=== PATIENT | male | born 1965 | race Caucasian/White ===

== ENCOUNTER 2018-02-23 18:13 | Observation (INO) | payer OTHER ==
--- NOTE | 2018-02-23 18:38 | ED ---
General Adult HPI - General Chief complaint: Chest Pain Stated complaint: sob and chest pain Source: patient Mode of arrival: ambulatory Limitations: no limitations - Related Data Home Medications Medication Instructions Recorded Confirmed Metoprolol Tartrate [Lopressor] 25 mg PO BID 11/11/15 02/23/18 amLODIPine [Norvasc] 5 mg PO HS 11/11/15 02/23/18 HYDROcodone/APAP 10-325MG [[place] 1 tab PO BID PRN 02/23/18 02/23/18 10-325] Allergies Allergy/AdvReac Type Severity Reaction Status Date / Time No Known Allergies Allergy Verified 02/23/18 19:00 Review of Systems ROS Statement: Those systems with pertinent positive or pertinent negative responses have been documented in the HPI. ROS Other: All systems not noted in ROS Statement are negative. Past Medical History Past Medical History: Hyperlipidemia, Hypertension, Osteoarthritis (OA), Renal Disease Additional Past Medical History / Comment(s): kidney stones, migraines, DWIGHT with CPAP, back pain, past R calf wound healed now. History of Any Multi-Drug Resistant Organisms: None Reported Past Surgical History: Heart Catheterization, Hernia Repair, Joint Replacement, Orthopedic Surgery Additional Past Surgical History / Comment(s): 11/11/15 cardiac cath and aortic angiogram, 2004 cardiac cath, umbilical hernia repair, total L hip, R hand surgery, L knee arthroscopy. Past Anesthesia/Blood Transfusion Reactions: No Reported Reaction Past Psychological History: No Psychological Hx Reported Smoking Status: Current every day smoker Past Alcohol Use History: Occasional Past Drug Use History: None Reported - Past Family History Mother Family Medical History: Cancer Additional Family Medical History / Comment(s): Mother had breast cancer. She of "natural causes" at the age of 73 yrs. Father Family Medical History: Renal Disease Additional Family Medical History / Comment(s): Father was an alcoholic. He of kidney problems at the age of 65yrs. General Exam Limitations: no limitations Course Vital Signs 02/23/18 18:15 Temperature 98.5 F Pulse Rate 102 H Respiratory 16 Rate Blood Pressure 154/80 O2 Sat by Pulse 95 Oximetry Medical Decision Making - Medical Decision Making Dictation was produced using [employer] dictation software. please excuse any grammatical, word or spelling errors. Chief Complaint: 52-year-old male with past medical history pulmonary embolus presents with substernal pleuritic chest pain. History of Present Illness: 52-year-old male presents with substernal pleuritic chest pain. Patient states his symptoms began 30 minutes prior to arrival. Patient is a history of coronary embolus that was diagnosed 2 years ago. He only completed 2 months of Xarelto treatment. He's been otherwise asymptomatic since then. Patient denies any lower leg symptoms. Patient has history of hypertension. He states that with this episode of chest pain he experienced diaphoresis and nausea. Patient states that when his blood pressures being taken at triage his symptoms slightly abated. The ROS documented in this emergency department record has been reviewed and confirmed by me. Those systems with pertinent positive or negative responses have been documented in the HPI. All other systems are other negative and/or noncontributory. PHYSICAL EXAM: General Impression: Alert and oriented x3, not in acute distress HEENT: Normocephalic atraumatic, extra-ocular movements intact, pupils equal and reactive to light bilaterally, mucous membranes moist. Cardiovascular: Heart regular rate and rhythm, S1&S2 audible, no murmurs, rubs or gallops Chest: Lungs clear to auscultation bilaterally, no rhonchi, no wheeze, no rales Abdomen: Bowel sounds present, abdomen soft, non-tender, non-distended, no organomegaly Musculoskeletal: Pulses present and equal in all extremities, no peripheral edema Motor: Power 5/5 bilaterally, no focal deficits noted Neurological: CN II-XII grossly intact, no focal motor or sensory deficits noted Skin: Intact with no visualized rashes Psych: Normal affect and mood ED course: 52-year-old male past medical history of pulmonary embolus and treatment noncompliance presents with acute onset chest pain. Vital signs upon arrival are 102 heart rate, rest of vital signs within acceptable limits. Laboratory evaluation obtained. CBC unremarkable. Metabolic panel is unremarkable. Cardiac enzymes are negative. Lipase negative. Given that patient has history of pulmonary embolism with treatment noncompliant CT angioma was obtained showing no acute processes. There is no evidence to suggest pulmonary embolus or other acute cardiopulmonary emergency. Given patient's symptoms believe his symptoms are consistent with atypical chest pain with typical features. So for cardiac workup is negative patient. Patient be admitted for surgery troponins. Patient given aspirin. EKG interpretation: Ventricular rate 103, sinus tachycardia,. Interval 172, care is 80, QTc 461. Right axis deviation.. No LA prolongation, no QTC prolongation, no ST or T-wave changes noted. EKG compared to 11/13/2015 showing no changes. Overall, this EKG is unremarkable - Lab Data Result diagrams: 02/23/18 18:40 02/23/18 18:40 Lab Results 02/23/18 02/23/18 02/23/18 Range/Units 18:40 18:40 18:40 WBC 8.0 (3.8-10.6) k/uL RBC 5.81 (4.30-5.90) m/uL Hgb 16.2 (13.0-17.5) gm/dL Hct 51.2 (39.0-53.0) % MCV 88.1 (80.0-100.0) fL MCH 27.8 (25.0-35.0) pg MCHC 31.6 (31.0-37.0) g/dL RDW 14.6 (11.5-15.5) % Plt Count 299 (150-450) k/uL Neutrophils % 70 % Lymphocytes % 17 % Monocytes % 5 % Eosinophils % 5 % Basophils % 1 % Neutrophils # 5.6 (1.3-7.7) k/uL Lymphocytes # 1.4 (1.0-4.8) k/uL Monocytes # 0.4 (0-1.0) k/uL Eosinophils # 0.4 (0-0.7) k/uL Basophils # 0.1 (0-0.2) k/uL Sodium 141 (137-145) mmol/L Potassium 4.9 (3.5-5.1) mmol/L Chloride 107 (98-107) mmol/L Carbon Dioxide 25 (22-30) mmol/L Anion Gap 9 mmol/L BUN 18 (9-20) mg/dL Creatinine 1.12 (0.66-1.25) mg/dL Est GFR (CKD-EPI)AfAm 87 (>60 ml/min/1.73 sqM) Est GFR (CKD-EPI)NonAf 75 (>60 ml/min/1.73 sqM) Glucose 113 H (74-99) mg/dL Calcium 9.4 (8.4-10.2) mg/dL Magnesium 1.8 (1.6-2.3) mg/dL Total Bilirubin 0.6 (0.2-1.3) mg/dL AST 29 (17-59) U/L ALT 41 (21-72) U/L Alkaline Phosphatase 94 (38-126) U/L Troponin I <0.012 (0.000-0.034) ng/mL Total Protein 7.5 (6.3-8.2) g/dL Albumin 4.3 (3.5-5.0) g/dL Lipase 131 (23-300) U/L Disposition Clinical Impression: Chest pain Disposition: ADMITTED IP TO THIS HOSP Condition: Fair Referrals: Jason Leon DO [Primary Care Provider] - 1-2 days Decision Time: 20:49
[2018-02-23 18:56] LABS: Basophils # (A) 0.1 k/uL (0-0.2); Basophils % (A) 1 %; Eosinophils # (A) 0.4 k/uL (0-0.7); Eosinophils % (A) 5 %; HCT 51.2 % (39.0-53.0); HGB 16.2 gm/dL (13.0-17.5); Lymphocytes # (A) 1.4 k/uL (1.0-4.8); Lymphocytes % (A) 17 %; MCH 27.8 pg (25.0-35.0); MCHC 31.6 g/dL (31.0-37.0); MCV 88.1 fL (80.0-100.0); Mean Platelet Volume 6.8; Monocytes # (A) 0.4 k/uL (0-1.0); Monocytes % (A) 5 %; Neutrophils # (A) 5.6 k/uL (1.3-7.7); Neutrophils % (A) 70 %; Platelet Count 299 k/uL (150-450); RBC 5.81 m/uL (4.30-5.90); RDW 14.6 % (11.5-15.5)
[2018-02-23 19:04] LABS: Albumin 4.3 g/dL (3.5-5.0); Calcium 9.4 mg/dL (8.4-10.2); Magnesium 1.8 mg/dL (1.6-2.3); Potassium 4.9 mmol/L (3.5-5.1); Total Bilirubin 0.6 mg/dL (0.2-1.3); Total Protein 7.5 g/dL (6.3-8.2)
--- NOTE | 2018-02-23 19:12 | XR ---
EXAMINATION TYPE: XR chest 1V portable DATE OF EXAM: 02/23/2018 COMPARISON: 11/11/2015 HISTORY: Chest pain TECHNIQUE: Single frontal view of the chest is obtained. FINDINGS: Heart is enlarged. There is no heart failure. There is increased density at the medial rig ht lung base apparently due to large pericardial fat pad unchanged. IMPRESSION: No active cardiopulmonary disease. Cardiomegaly. No heart failure. No change.
--- NOTE | 2018-02-23 20:41 | CT ---
EXAMINATION TYPE: CT angio chest DATE OF EXAM: 02/23/2018 7:44 PM COMPARISON: 11/12/2015 HISTORY: SOB, CHEST PAIN CT DLP: 1128.4 mGycm Automated exposure control for dose reduction was used. CONTRAST: CTA scan of the thorax is performed with IV Contrast, patient injected with 100 mL of Isovue 370, pul monary embolism protocol. . There are 3-D post processed images. FINDINGS: The lungs are clear of consolidation. There is no evidence of a pulmonary mass. There is no pleural e ffusion. 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 Heart size is normal. There is no pericardial effusion. There is normal contrast opacification of the pulmonary arteries. I see no filling defects. There is no mediastinal adenopathy. There are no hilar masses. The bony thorax is intact. There is spurring in the thoracic spine. IMPRESSION: NO EVIDENCE OF PULMONARY EMBOLISM. NO ADVERSE CHANGE COMPARED TO OLD EXAM.
[2018-02-23] MEDS ORDERED: NITROGLYCERIN SL TABS 0.4 MG TAB SUBLINGUAL PRN (20:50)
[2018-02-23] MEDS ORDERED: ASPIRIN 81 MG PO STA (20:50)
[2018-02-23 21:47] LABS: Creatine Kinase 249 U/L (55-170)
[2018-02-23 21:59] LABS: Creatine Kinase MB 3.5 ng/mL (0.0-2.4); Troponin I <0.012 ng/mL (0.000-0.034)
[2018-02-23] MEDS ORDERED: HYDROcodone/APAP 10-325MG 1 EACH TAB PO PRN (22:49)
[2018-02-23] MEDS: METOPROLOL TARTRATE 25 MG TAB PO SCH (23:00)
[2018-02-23] MEDS ORDERED: amLODIPine 5 MG TAB PO SCH (23:00)
[2018-02-23] MEDS ORDERED: IPRATROPIUM-ALBUTEROL 3 ML NEB INHALATION PRN (23:58)
[2018-02-23] MEDS ORDERED: ACETAMINOPHEN TAB 500 MG TAB PO PRN (23:59)
[2018-02-23] MEDS ORDERED: ALPRAZolam 0.25 MG TAB PO PRN (23:59)
--- NOTE | 2018-02-24 01:18 | HP ---
HISTORY AND PHYSICAL DATE OF SERVICE: 02/23/2018 CHIEF COMPLAINT: Chest pain and shortness of breath. HISTORY: This 52-year-old gentleman with a past medical history of multiple medical problems including history of hypertension, history of DJD, pulmonary embolism, history of sleep apnea, CPAP, BiPAP, history of cardiac catheterization, being followed by Dr. Leon in the outpatient setting, was complaining of chest pain and shortness of breath. The patient also had a previous history of pulmonary embolism and during that time the cardiac cath showed normal coronary arteries, vasospasm was considered. Currently the patient is off anticoagulation. The patient also complains of shortness of breath. The patient has significant history of smoking, which the patient has taken up recently again. Patient is being closely monitored. [facility] There is no history of any headache, loss conscious seizures, hematochezia or melena at this time. PAST MEDICAL HISTORY: Pulmonary embolism, hypertension, DJD, history of renal disease, sleep apnea, CPAP, history of THC. MEDICATIONS: Prior to admission include: 1. Norvasc 5 mg at bedtime. 2. Toprol 25 mg b.i.d. 3. [place] 10 mg b.i.d. p.r.n. ALLERGIES: None. FAMILY HISTORY: History of breast cancer in the family. SOCIAL HISTORY: History of THC, history of smoking. REVIEW OF SYSTEMS: ENT: No diminished vision or hearing. CARDIOVASCULAR: As mentioned. GI: No nausea. : No dysuria. NERVOUS SYSTEM: No numbness or weakness. ALLERGY/IMMUNOLOGY: No hayfever. MUSCULOSKELETAL: As mentioned. ENDOCRINE: As mentioned. CONSTITUTIONAL: As mentioned earlier. PSYCH: As mentioned. PHYSICAL EXAMINATION: Alert, oriented x3. Pulse is 89, blood pressure 140/70, respirations 18, temperature 98.2, pulse ox 94% on room air. HEENT: Conjunctivae normal. NECK: No JVD. CARDIOVASCULAR: S1, S2 muffled. RESPIRATORY: Breath sounds diminished in the bases. Few scattered rhonchi and crackles. ABDOMEN: Soft, obese, nontender. LEGS: No edema. NERVOUS SYSTEM: Higher functions as mentioned. Moves all 4 limbs equally. LYMPHATICS: No lymph nodes palpable in the neck or axillae or groin. SKIN: No ulcer, rash or bleeding. LAB STUDIES: CBC within normal limits. Creatine kinase 249. ASSESSMENT: 1. Chest pain, shortness of breath for evaluation; rule out coronary artery disease. 2. Rule out pulmonary embolism. 3. Elevated creatine kinase. 4. Possible chronic obstructive pulmonary disease acute exacerbation. 5. History of pulmonary embolus. 6. Morbid obesity with BMI of 53.7. 7. Hypertension. 8. History of degenerative joint disease. 9. History of renal disease. 10.History of sleep apnea. 11.History of kidney stones. 12.Migraines. 13.History of cardiac catheterization with normal coronaries previously. 14.History of nicotine dependence. RECOMMENDATIONS AND DISCUSSION: In this 52-year-old gentleman who presented with multiple complex medical issues, we will monitor the patient closely, continue the current management and symptomatic treatment. Recommend continue with unstable angina protocol. Cardiology consultation. Also recommend D-dimer. If D-dimer is positive, I would also recommend spiral CT angio of the chest to rule out possible pulmonary embolism. Pulmonary consultation with Dr. Zapata regarding shortness of breath. The patient most likely has COPD, patient was referred for further evaluation. Overall prognosis guarded because of multiple complex medical issues. Further recommendations to follow. Home medications will be ordered. See orders for details. MMODL / IJN: [id number] /
[2018-02-24 02:20] LABS: Appearance,Urine Clear (Clear); Bilirubin,Urine Negative (Negative); Blood,Urine Moderate (Negative); Color,Urine Yellow; Glucose,Urine (UA) Negative (Negative); Ketones,Urine Negative (Negative); Leukocyte Esterase,Urine Negative (Negative); Mucus,Urine Rare /hpf; Nitrite,Urine Negative (Negative); PH, Urine 5.5 (5.0-8.0); Protein,Urine Negative (Negative); RBC,Urine 5 /hpf (0-5); Specific Gravity,Urine 1.035 (1.001-1.035); Squamous Epithelial Cell,Urine 3 /hpf (0-4); Urobilinogen,Urine <2.0 mg/dL (<2.0); WBC,Urine 3 /hpf (0-5)
[2018-02-24 07:40] LABS: Basophils # (A) 0.1 k/uL (0-0.2); Basophils % (A) 1 %; Eosinophils # (A) 0.5 k/uL (0-0.7); Eosinophils % (A) 6 %; HGB 15.9 gm/dL (13.0-17.5); Lymphocytes # (A) 1.8 k/uL (1.0-4.8); Lymphocytes % (A) 22 %; MCH 28.2 pg (25.0-35.0); MCHC 31.8 g/dL (31.0-37.0); MCV 88.8 fL (80.0-100.0); Monocytes # (A) 0.5 k/uL (0-1.0); Monocytes % (A) 6 %; Neutrophils # (A) 5.1 k/uL (1.3-7.7); Neutrophils % (A) 64 %; Platelet Count 273 k/uL (150-450); RBC 5.63 m/uL (4.30-5.90); RDW 14.6 % (11.5-15.5)
[2018-02-24 07:47] LABS: Calcium 9.5 mg/dL (8.4-10.2)
[2018-02-24 08:00] LABS: Creatine Kinase 204 U/L (55-170)
[2018-02-24 08:14] LABS: Creatine Kinase MB 2.2 ng/mL (0.0-2.4); Troponin I <0.012 ng/mL (0.000-0.034)
[2018-02-24] MEDS: IPRATROPIUM-ALBUTEROL 3 ML NEB INHALATION SCH ×4 (08:34→19:49)
[2018-02-24] MEDS: SYMBICORT 160-4.5 MCG INHALER INHALATION SCH ×2 (08:34→19:49)
[2018-02-24] MEDS ORDERED: DOBUTamine DRIP for NUC MED 500 MG in DEXTROSE/WATER 1 250ML.BAG IV ONE (09:52)
--- NOTE | 2018-02-24 11:28 | P.CNPUL ---
History of Present Illness Consult date: 02/24/18 Requesting physician: Enedina Lopez Reason for consult: COPD Chief complaint: Shortness of breath and chest pain. History of present illness: This is a 52-year-old white male, known history of obesity, questionable pulmonary embolism diagnosed and treated 2 years ago, chronic obstructive pulmonary disease, heavy smoker, obstructive sleep apnea syndrome, hypertension , patient presented to the hospital with 1 day history of cough wheezing shortness of breath, and some substernal pleuritic chest pain. His chest pain began about 30 minutes prior to arrival. Patient was evaluated in the ER, seen by cardiology on consultation, CT angiogram of the chest was negative for any acute pulmonary process. Patient was placed on bronchodilators, steroids, antibiotics, he was seen by cardiology on consultation, and I was asked to see him on consultation. EKG showed no evidence of any acute changes. Labs were relatively unremarkable, he had negative troponin, and negative metabolic profile, normal CBC. During my evaluation, patient complained of intermittent cough wheezing shortness of breath, he had no chest pain, no fever no chills no hemoptysis. No nausea no vomiting no abdominal pain no melena no hematemesis. Patient again had history of obstructive sleep apnea maintained on CPAP at night for many years, [facility]. Back [facility], patient was seen by Dr. Espinoza on consultation for questionable pulmonary embolism, subsegmental defect noted on the CT of the chest, patient was treated with 6 months of anticoagulation therapy. Review of Systems 14 point review of systems were obtained, please refer to pertinent positives in HPI, otherwise remaining systems are negative Past Medical History Past Medical History: Hyperlipidemia, Hypertension, Osteoarthritis (OA), Pulmonary Embolus (PE), Renal Disease, Sleep Apnea/CPAP/BIPAP Additional Past Medical History / Comment(s): kidney stones, migraines, DWIGHT with CPAP, back pain, past R calf wound healed now. History of Any Multi-Drug Resistant Organisms: None Reported Past Surgical History: Heart Catheterization, Hernia Repair, Joint Replacement, Orthopedic Surgery Additional Past Surgical History / Comment(s): 11/11/15 cardiac cath and aortic angiogram, 2004 cardiac cath, umbilical hernia repair, total L hip, R hand surgery, L knee arthroscopy, right ankle surgery Past Anesthesia/Blood Transfusion Reactions: No Reported Reaction Past Psychological History: No Psychological Hx Reported Additional Psychological History / Comment(s): Pt has 2 adult children and 1 minor child living with him. He is independent. Smoking Status: Current every day smoker Past Alcohol Use History: Occasional Additional Past Alcohol Use History / Comment(s): Pt started smoking at the age of 4 yrs. He is a 2 ppd smoker. Past Drug Use History: Marijuana - Past Family History Mother Family Medical History: Cancer Additional Family Medical History / Comment(s): Mother had breast cancer. She of "natural causes" at the age of 73 yrs. Father Family Medical History: Renal Disease Additional Family Medical History / Comment(s): Father was an alcoholic. He of kidney problems at the age of 65yrs. Medications and Allergies Home Medications Medication Instructions Recorded Confirmed Type Metoprolol Tartrate [Lopressor] 25 mg PO BID 11/11/15 02/23/18 History amLODIPine [Norvasc] 5 mg PO HS 11/11/15 02/23/18 History HYDROcodone/APAP 10-325MG [[place] 1 tab PO BID PRN 02/23/18 02/23/18 History 10-325] Allergies Allergy/AdvReac Type Severity Reaction Status Date / Time No Known Allergies Allergy Verified 02/23/18 22:04 Physical Exam Vitals: Vital Signs Temp Pulse Pulse Resp BP BP Pulse Ox 02/24/18 08:50 96 02/24/18 08:35 92 02/24/18 07:35 98.3 F 81 20 112/72 95 02/24/18 03:30 97.5 F L 87 18 138/79 93 L 02/24/18 03:18 18 02/23/18 23:45 98.2 F 89 18 142/77 94 L 02/23/18 22:29 20 02/23/18 21:56 97.8 F 88 20 173/77 97 02/23/18 21:23 95 20 145/96 97 02/23/18 18:15 98.5 F 102 H 16 154/80 95 Intake and Output 02/23/18 02/24/18 02/24/18 22:59 06:59 14:59 Other: Voiding Method Toilet Toilet # Voids 1 Weight 205.477 kg Physical Exam: Revealed a 52-year-old white male, morbidly obese, in no distress. Head: Atraumatic, normocephalic. HEENT:[Neck is supple.] [No neck masses.] [No thyromegaly.] [No JVD.] Mallampati class IV. Short obese neck is noted. Moist mucous membranes. PERRLA, EOMI, no icterus. Chest: [Diminished breath sounds at the bases, rhonchi and wheezes noted bilaterally more so on forced expiratory maneuver..] Cardiac Exam: Distant heart sounds, [Normal S1 and S2, no S3 gallop, no murmur.] Abdomen: [Obese, Soft, nontender, no megaly, no rebound, no guarding, normal bowel sounds.] Extremities: [No clubbing, no edema, no cyanosis.] Neurological Exam: [No focal neurologic deficit.] Skin: No rashes. Psychiatric: Normal mood affect and mental status examination. Results - Laboratory Findings CBC and BMP: 02/24/18 07:03 02/24/18 07:03 Abnormal lab findings: Abnormal Labs 02/23/18 02/23/18 02/24/18 18:40 21:00 02:10 Glucose 113 H Total Creatine Kinase 249 H CK-MB (CK-2) 3.5 H Triglycerides LDL Cholesterol, Calc HDL Cholesterol Urine Blood Moderate H Urine Mucus Rare H 02/24/18 02/24/18 07:03 07:03 Glucose 121 H Total Creatine Kinase 204 H CK-MB (CK-2) Triglycerides 224 H LDL Cholesterol, Calc 118 H HDL Cholesterol 27 L Urine Blood Urine Mucus - Diagnostic Findings CT scan - chest: image reviewed (As noted in HPI.) Assessment and Plan Assessment: Impression: 1 acute exacerbation of COPD 2 acute tracheobronchitis 3 atypical chest pain, being addressed by cardiology, 4 remote history of questionable pulmonary embolism 5 obstructive sleep apnea syndrome, compliant with CPAP 6 morbid obesity BMI of 53.7 7 benign essential hypertension 8 previous normal cardiac catheterization. 9 nicotine dependence syndrome patient was counseled regarding smoking cessation , he is at least a [id number] smoker. 10 history of degenerative joint disease Recommendation: Fully agree with the present course of treatment, bronchodilators, steroids, antibiotics, patient is going for a stress test, all his meds were reviewed, and discussed with the patient. His admission 2 years ago was reviewed and discussed with the patient, and based on what I saw I strongly doubt that even thromboembolic disease and pulmonary embolism back then. CT of the chest was reviewed, no evidence of thromboembolic disease on this admission. Continue albuterol and Atrovent updrafts, continue Symbicort, and Solu-Medrol, we'll continue to follow. Add doxycycline. Time with Patient: Greater than 30
--- NOTE | 2018-02-24 11:34 | ECHOF ---
Referral Reason:chf MEASUREMENTS -------- HEIGHT: 190.5 cm WEIGHT: 205.5 kg BP: LA Diam: 3.9 cm (2.7 - 3.8) MV E Samuel: 0.40 m/s MV DecT: 60 ms MV A Samuel: 0.34 m/s MV E/A Ratio: 1.16 RAP: 5.00 mmHg RVSP: 10.99 mmHg FINDINGS -------- Sinus rhythm. This was a technically difficult study with suboptimal views. Morbid Obesity All ashley not well v isulized Grossly normal LV size and systolic function. Unable to comment on regional wall motion. The RV was not well visualized. The left atrium was not well visualized. The right atrium was not well visualized. Lumason used The aortic valve was not well visualized. The mitral valve was not well visualized. The tricuspid valve was not well visualized. The pulmonic valve was not well visualized. CONCLUSIONS -------- 1. Sinus rhythm. 2. This was a technically difficult study with suboptimal views. 3. Morbid Obesity 4. All ashley not well visulized 5. Grossly normal LV size and systolic function. Unable to comment on regional wall motion. 6. The RV was not well visualized. 7. The left atrium was not well visualized. 8. The right atrium was not well visualized. 9. Lumason used 10. The aortic valve was not well visualized. 11. The mitral valve was not well visualized. 12. The tricuspid valve was not well visualized. 13. The pulmonic valve was not well visualized. SUPERINTENDENT TESTS: Chichi Smith RDCS
[2018-02-24 12:16] VITALS: RESP 18
[2018-02-24] MEDS: PANTOPRAZOLE 40 MG TABLET PO SCH (12:26)
[2018-02-24] MEDS: HEPARIN SODIUM,PORCINE 5,000 UNIT/ML 1 ML VIAL SQ SCH ×2 (12:26→20:06)
[2018-02-24] MEDS: ASPIRIN 325 MG TAB PO SCH (12:26)
[2018-02-24] MEDS: METOPROLOL TARTRATE 25 MG TAB PO SCH ×2 (12:26→20:06)
[2018-02-24] MEDS: NICOTINE 14MG/24HR PATCH TRANSDERM SCH (12:26)
--- NOTE | 2018-02-24 12:38 | P.CRDCN ---
History of Present Illness History of present illness: This is a pleasant 52-year-old male past medical history significant for hypertension, COPD, chronic nicotine dependence, obstructive sleep apnea, morbid obesity and baseline EKG abnormality. In 2016 he presented to the hospital with chest discomfort and due to inferior ST abnormalities he underwent cardiac catheterization which revealed normal coronary arteries with no evidence of obstructive disease. He follows with Dr. Mitchell in the office. His last visit in the office was 2016. He states he has had insurance issues in the past and therefore has not followed up. At that time he was thought to have a pulmonary embolism was placed on oral anticoagulation for 6 months however he states he only took for 2 months because he could not afford the medication. We have been asked to see him in consultation for chest pain. He states yesterday he felt a heavy pressure sensation in the midsternal region. Every time he got the pain in his chest he would start to get a dizzy sensation and feeling he was going to pass out. He states he has also been coughing over the previous one to 2 days not bringing up any significant sputum however. He states his pain in his chest with, he was at rest. He did not notice it to be associated with cough or deep breathing. [facility] with getting referrals for the specialist that he needs to see. At the time of my exam he is seen resting comfortably in bed in no acute distress EKG reveals sinus tachycardia heart rate 103, right axis deviation, inferior Q waves noted and nonspecific ST abnormalities noted in the inferior leads. This EKG was compared to old EKG taken in 2016 at the time of his calf and it appears consistent. Chest x-ray is negative for acute cardiopulmonary process. Chest CTA negative for pulmonary embolism. Laboratory data reviewed, WBC 8, hemoglobin 15.9, platelets 273, sodium 140, potassium 5, magnesium 1.8, creatinine 1.2, cardiac enzymes negative 3, LDL 118 and HDL 27. Current cardiac medications include Lopressor 25 mg twice a day number up in 5 mg daily. Most recent echocardiogram obtained 2016 reveals preserved left ventricular systolic function with ejection fraction 50-55%. At the time of my exam: CONSTITUTIONAL: Denies fever. Denies chills. EYES: Denies blurred vision. Denies vision changes. Denies eye pain. EARS, NOSE, MOUTH & THROAT: Denies headache. Denies sore throat. Denies ear pain. CARDIOVASCULAR: Denies chest pain. Denies shortness of breath. Denies orthopnea. Denies PND. Denies palpitations. RESPIRATORY: Denies cough. GASTROINTESTINAL: Denies abdominal pain. Denies diarrhea. Denies constipation. Denies nausea. Denies vomiting. MUSCULOSKELETAL: Denies myalgias. INTEGUMENTARY: Denies pruitis. Denies rash. NEUROLOGIC: Denies numbness. Denies tingling. Denies weakness. PSYCHIATRIC: Denies anxiety. Denies depression. ENDOCRINE: Denies fatigue. Denies weight change. Denies polydipsia. Denies polyurina. GENITOURINARY: Denies burning, hematuria or urgency with micturation. HEMATOLOGIC: Denies history of anemia. Denies bleeding. Blood pressure 112/72 heart rate 81 afebrile maintaining oxygen saturation on room air GENERAL: This is a 52-year-old male in no apparent distress at the time of my examination. Morbidly obese. HEENT: Head is atraumatic, normocephalic. Pupils are equal, round. Sclerae anicteric. Conjunctivae are clear. Mucous membranes of the mouth are moist. Neck is supple. There is no jugular venous distention. No carotid bruit is heard. LUNGS: Expiratory wheezes noted throughout. No rales or rhonchi. No chest wall tenderness is noted on palpation or with deep breathing. HEART: Regular rate and rhythm without murmurs, rubs or gallops. S1 and S2 heard. ABDOMEN: Soft, nontender. Bowel sounds are heard. No organomegaly noted. EXTREMITIES: 1+ bilateral lower extremity pitting edema, maybe secondary to body habitus. No calf tenderness noted. VASCULAR: Radial and dorsalis pedis pulses palpated, no evidence of clubbing. NEUROLOGIC: Patient is awake, alert and oriented x3. ASSESSMENT Chest pain, atypical. An acute coronary event has been ruled out. Acute exacerbation of COPD Hypertension Dyslipidemia Obstructive sleep apnea Chronic nicotine dependence Morbid obesity, BMI 53 PLAN An acute coronary event as to rule out no EKG evidence of ischemia and negative cardiac enzymes. Obtain 2-D echocardiogram and Doppler study to assess cardiac structure and function. Perform to be made stress echocardiogram to assess for stress-induced ischemia. Initiate on atorvastatin 20 mg daily. Continue with amlodipine and Lopressor for blood pressure control. If stress test is normal he is stable from a cardiac perspective. Ongoing medical management per primary care and pulmonary care team. Smoking cessation and lifestyle modifications recommended for exercise and weight loss. Follow-up with Dr. Mitchell upon discharge. Thank you kindly for this consultation. Nurse Practitioner note has been reviewed, I agree with a documented findings and plan of care. Patient was seen and examined. Past Medical History Past Medical History: Hyperlipidemia, Hypertension, Osteoarthritis (OA), Pulmonary Embolus (PE), Renal Disease, Sleep Apnea/CPAP/BIPAP Additional Past Medical History / Comment(s): kidney stones, migraines, DWIGHT with CPAP, back pain, past R calf wound healed now. History of Any Multi-Drug Resistant Organisms: None Reported Past Surgical History: Heart Catheterization, Hernia Repair, Joint Replacement, Orthopedic Surgery Additional Past Surgical History / Comment(s): 11/11/15 cardiac cath and aortic angiogram, 2004 cardiac cath, umbilical hernia repair, total L hip, R hand surgery, L knee arthroscopy, right ankle surgery Past Anesthesia/Blood Transfusion Reactions: No Reported Reaction Past Psychological History: No Psychological Hx Reported Additional Psychological History / Comment(s): Pt has 2 adult children and 1 minor child living with him. He is independent. Smoking Status: Current every day smoker Past Alcohol Use History: Occasional Additional Past Alcohol Use History / Comment(s): Pt started smoking at the age of 4 yrs. He is a 2 ppd smoker. Past Drug Use History: Marijuana - Past Family History Mother Family Medical History: Cancer Additional Family Medical History / Comment(s): Mother had breast cancer. She of "natural causes" at the age of 73 yrs. Father Family Medical History: Renal Disease Additional Family Medical History / Comment(s): Father was an alcoholic. He of kidney problems at the age of 65yrs. Medications and Allergies Home Medications Medication Instructions Recorded Confirmed Type Metoprolol Tartrate [Lopressor] 25 mg PO BID 11/11/15 02/23/18 History amLODIPine [Norvasc] 5 mg PO HS 11/11/15 02/23/18 History HYDROcodone/APAP 10-325MG [[place] 1 tab PO BID PRN 02/23/18 02/23/18 History 10-325] Allergies Allergy/AdvReac Type Severity Reaction Status Date / Time No Known Allergies Allergy Verified 02/23/18 22:04 Physical Exam Vitals: Vital Signs Temp Pulse Pulse Resp BP BP Pulse Ox 02/24/18 12:00 97.5 F L 103 H 18 154/100 93 L 02/24/18 08:50 96 02/24/18 08:35 92 02/24/18 07:35 98.3 F 81 20 112/72 95 02/24/18 03:30 97.5 F L 87 18 138/79 93 L 02/24/18 03:18 18 02/23/18 23:45 98.2 F 89 18 142/77 94 L 02/23/18 22:29 20 02/23/18 21:56 97.8 F 88 20 173/77 97 02/23/18 21:23 95 20 145/96 97 02/23/18 18:15 98.5 F 102 H 16 154/80 95 Intake and Output 02/23/18 02/24/18 02/24/18 22:59 06:59 14:59 Other: Voiding Method Toilet Toilet # Voids 1 Weight 205.477 kg Results 02/24/18 07:03 02/24/18 07:03 Cardiac Enzymes 02/23/18 02/23/18 02/23/18 Range/Units 18:40 18:40 21:00 AST 29 (17-59) U/L CK-MB (CK-2) 3.5 H (0.0-2.4) ng/mL Troponin I <0.012 <0.012 (0.000-0.034) ng/mL 02/24/18 Range/Units 07:03 AST (17-59) U/L CK-MB (CK-2) 2.2 (0.0-2.4) ng/mL Troponin I <0.012 (0.000-0.034) ng/mL Lipids 02/24/18 Range/Units 07:03 Triglycerides 224 H (<150) mg/dL Cholesterol 190 (<200) mg/dL HDL Cholesterol 27 L (40-60) mg/dL CBC 02/23/18 02/24/18 Range/Units 18:40 07:03 WBC 8.0 8.0 (3.8-10.6) k/uL RBC 5.81 5.63 (4.30-5.90) m/uL Hgb 16.2 15.9 (13.0-17.5) gm/dL Hct 51.2 50.0 (39.0-53.0) % Plt Count 299 273 (150-450) k/uL Comprehensive Metabolic Panel 02/23/18 02/24/18 Range/Units 18:40 07:03 Sodium 141 140 (137-145) mmol/L Potassium 4.9 5.0 (3.5-5.1) mmol/L Chloride 107 107 (98-107) mmol/L Carbon Dioxide 25 24 (22-30) mmol/L BUN 18 18 (9-20) mg/dL Creatinine 1.12 1.20 (0.66-1.25) mg/dL Glucose 113 H 121 H (74-99) mg/dL Calcium 9.4 9.5 (8.4-10.2) mg/dL AST 29 (17-59) U/L ALT 41 (21-72) U/L Alkaline Phosphatase 94 (38-126) U/L Total Protein 7.5 (6.3-8.2) g/dL Albumin 4.3 (3.5-5.0) g/dL Current Medications Generic Name Dose Route Start Last Admin Trade Name Freq PRN Reason Stop Dose Admin Acetaminophen 500 mg 02/23/18 23:59 Tylenol Tab PO Q6HR PRN Fever and/ or Pain Hydrocodone Bitart/Acetaminophen 1 each 02/23/18 22:49 [place] 10 PO BID PRN Pain Albuterol/Ipratropium 3 ml 02/24/18 08:00 02/24/18 08:34 Duoneb 0.5 Mg-3 Mg/3 Ml Soln INHALATION 3 ml RT-QID KAYLIE Administration Albuterol/Ipratropium 3 ml 02/23/18 23:58 Duoneb 0.5 Mg-3 Mg/3 Ml Soln INHALATION RT-QID PRN Shortness Of Breath Or Wheezing Alprazolam 0.25 mg 02/23/18 23:59 Xanax PO TID PRN Anxiety Amlodipine Besylate 5 mg 02/23/18 23:00 02/23/18 23:00 Norvasc PO 5 mg HS KAYLIE Administration Aspirin 325 mg 02/24/18 09:00 Aspirin PO DAILY KAYLIE Budesonide/Formoterol Fumarate 2 puff 02/24/18 08:00 02/24/18 08:34 Symbicort 160-4.5 Mcg Inhaler INHALATION 2 puff RT-BID [facility] Administration Doxycycline Monohydrate 100 mg 02/24/18 11:30 Vibramycin PO BID [facility] Heparin Sodium (Porcine) 5,000 unit 02/24/18 09:00 Heparin SQ Q12HR [facility] Dobutamine HCl/Dextrose 500 mg 250 mls @ 61.64 mls/hr 02/24/18 09:52 / IV Solution IV 02/24/18 13:55 .Q4H4M ONE Protocol 10 MCG/KG/MIN Methylprednisolone Sodium Succinate 40 mg 02/24/18 11:30 Solu-Medrol IV Q8HR [facility] Metoprolol Tartrate 25 mg 02/23/18 23:00 02/23/18 23:00 Lopressor PO 25 mg BID [facility] Administration Nicotine 1 patch 02/24/18 09:00 Habitrol 14mg/24hr Patch TRANSDERM DAILY [facility] Nitroglycerin 0.4 mg 02/23/18 20:50 02/23/18 21:19 Nitrostat SUBLINGUAL 0.4 mg Q5M PRN Administration Chest Pain Pantoprazole Sodium 40 mg 02/24/18 07:30 Protonix PO AC-BRKFST [facility] Intake and Output 02/23/18 02/24/18 02/24/18 22:59 06:59 14:59 Other: Voiding Method Toilet Toilet # Voids 1 Weight 205.477 kg 02/24/18 07:03 02/24/18 07:03
[2018-02-24] MEDS: methylPREDNISolone SOD SUCCI 40 MG/ML 1 ML VIAL IV SCH ×2 (12:45→18:00)
[2018-02-24] MEDS ORDERED: amLODIPine 5 MG TAB PO SCH (12:45)
[2018-02-24] MEDS: DOXYCYCLINE 100 MG CAP PO SCH ×2 (12:45→20:06)
[2018-02-24] MEDS: ATORVASTATIN 20 MG TAB PO SCH (13:56)
--- NOTE | 2018-02-24 22:23 | PN ---
PROGRESS NOTE DATE OF SERVICE: 02/24/2018 This 52-year-old gentleman admitted with chest pain, shortness of breath also, COPD also. Cardiology is following the patient closely. No fever. No cough. A 2D echo with Doppler was also done showed was difficult study. function found to be normal. No chest pain. No palpitations. No fever. EXAM: Alert and oriented x3. Pulse 77. Blood pressure 150/81. Respiration: 18. Temperature 98.2, pulse ox 93% on room air. HEENT: Conjunctivae normal. NECK: No jugular venous distention. CARDIOVASCULAR: S1, S2 muffled. RESPIRATORY: Breath sounds diminished in the bases. Bilateral scattered rhonchi and crackles. ABDOMEN: Soft. NERVOUS SYSTEM: No focal deficits. LABS: CBC within normal limits. Glucose 121. Triglycerides 224, LDL is 184. UA noted. ASSESSMENT: 1. Chest pain and shortness of breath, with possible chronic obstructive pulmonary disease acute exacerbation. 2. Pulmonary embolism ruled out. 3. Elevated creatinine kinase. 4. Hyperlipidemia. 5. History of pulmonary embolus. 6. Morbid obesity with BMI of 53.7. 7. Hypertension. 8. History of degenerative joint disease. 9. History of renal disease. 10.History of sleep apnea. 11.History of kidney stones. 12.History of migraine. 13.History of cardiac catheterization with normal coronaries previously. 14.History of nicotine dependence. RECOMMENDATIONS AND DISCUSSION: Recommend to continue current medications, monitoring, management and symptomatic treatment. Optimize the bronchodilator treatment. Steroids. Otherwise closely monitor. Closely follow with Dr. Zapata. Guarded prognosis. Further recommendations to follow. MMODL / IJN: [id number] / SATCEY
[2018-02-25] MEDS: methylPREDNISolone SOD SUCCI 40 MG/ML 1 ML VIAL IV SCH ×2 (00:06→09:36)
[2018-02-25 08:22] LABS: Basophils % (A) 0 %; Eosinophils # (A) 0.1 k/uL (0-0.7); Eosinophils % (A) 1 %; HGB 16.7 gm/dL (13.0-17.5); Lymphocytes # (A) 1.1 k/uL (1.0-4.8); Lymphocytes % (A) 13 %; MCHC 31.5 g/dL (31.0-37.0); Mean Platelet Volume 7.1; Monocytes # (A) 0.3 k/uL (0-1.0); Monocytes % (A) 4 %; Neutrophils # (A) 7.1 k/uL (1.3-7.7); Neutrophils % (A) 82 %; Platelet Count 308 k/uL (150-450); RBC 5.95 m/uL (4.30-5.90); RDW 14.3 % (11.5-15.5); WBC 8.6 k/uL (3.8-10.6)
[2018-02-25 08:25] LABS: Anion Gap 11 mmol/L; Blood Urea Nitrogen 20 mg/dL (9-20); Calcium 9.6 mg/dL (8.4-10.2); Carbon Dioxide 24 mmol/L (22-30); Chloride 105 mmol/L (98-107); Glucose 194 mg/dL (74-99); Sodium 140 mmol/L (137-145)
[2018-02-25 08:29] LABS: Potassium 5.4 mmol/L (3.5-5.1)
[2018-02-25] MEDS: NICOTINE 14MG/24HR PATCH TRANSDERM SCH (09:35)
[2018-02-25] MEDS: ASPIRIN 325 MG TAB PO SCH (09:36)
[2018-02-25] MEDS: METOPROLOL TARTRATE 25 MG TAB PO SCH (09:36)
[2018-02-25] MEDS: DOXYCYCLINE 100 MG CAP PO SCH (09:36)
[2018-02-25] MEDS: HEPARIN SODIUM,PORCINE 5,000 UNIT/ML 1 ML VIAL SQ SCH (09:36)
[2018-02-25] MEDS: ATORVASTATIN 20 MG TAB PO SCH (09:36)
[2018-02-25] MEDS: PANTOPRAZOLE 40 MG TABLET PO SCH (09:36)
[2018-02-25] MEDS: IPRATROPIUM-ALBUTEROL 3 ML NEB INHALATION SCH ×2 (09:43→11:20)
[2018-02-25] MEDS: SYMBICORT 160-4.5 MCG INHALER INHALATION SCH (09:43)
--- NOTE | 2018-02-25 10:24 | P.PN ---
Subjective Progress Note Date: 02/25/18 Principal diagnosis: Acute exacerbation of COPD This is a 52-year-old white male, known history of obesity, questionable pulmonary embolism diagnosed and treated 2 years ago, chronic obstructive pulmonary disease, heavy smoker, obstructive sleep apnea syndrome, hypertension , patient presented to the hospital with 1 day history of cough wheezing shortness of breath, and some substernal pleuritic chest pain. His chest pain began about 30 minutes prior to arrival. Patient was evaluated in the ER, seen by cardiology on consultation, CT angiogram of the chest was negative for any acute pulmonary process. Patient was placed on bronchodilators, steroids, antibiotics, he was seen by cardiology on consultation, and I was asked to see him on consultation. EKG showed no evidence of any acute changes. Labs were relatively unremarkable, he had negative troponin, and negative metabolic profile, normal CBC. During my evaluation, patient complained of intermittent cough wheezing shortness of breath, he had no chest pain, no fever no chills no hemoptysis. No nausea no vomiting no abdominal pain no melena no hematemesis. Patient again had history of obstructive sleep apnea maintained on CPAP at night for many years, this was prescribed to him by the [place] physician. Back in 2015, patient was seen by Dr. Espinoza on consultation for questionable pulmonary embolism, subsegmental defect noted on the CT of the chest, patient was treated with 6 months of anticoagulation therapy. Patient was reevaluated today on 02/25/2018, patient is doing great, asymptomatic , no cough no wheezing no shortness of breath and no chest pain. Patient is on multiple bronchodilators as listed and recommended yesterday. He was already seen by cardiology, and he had a stress test, results of which are pending. From my perspective the patient could be dictated considered for discharge home , and see me on outpatient basis, however he needs to BE cleared for discharge by cardiology. Objective - Vital Signs Vital signs: Vital Signs Temp 98.1 F 02/25/18 08:00 Pulse 72 02/25/18 08:00 Resp 18 02/25/18 08:00 BP 156/74 02/25/18 08:00 Pulse Ox 92 L 02/25/18 08:00 Intake & Output 02/24/18 02/25/18 02/25/18 18:59 06:59 18:59 Intake Total 840 Balance 840 Intake: Oral 240 Other 600 Other: Voiding Method Toilet # Voids 2 - Exam Physical Exam: Revealed a 52-year-old white male, morbidly obese, in no distress. Head: Atraumatic, normocephalic. HEENT:[Neck is supple.] [No neck masses.] [No thyromegaly.] [No JVD.] Mallampati class IV. Short obese neck is noted. Moist mucous membranes. PERRLA, EOMI, no icterus. Chest: [Diminished breath sounds at the bases, no crackles, no rhonchi no wheezes...] Cardiac Exam: Distant heart sounds, [Normal S1 and S2, no S3 gallop, no murmur.] Abdomen: [Obese, Soft, nontender, no megaly, no rebound, no guarding, normal bowel sounds.] Extremities: [No clubbing, no edema, no cyanosis.] Neurological Exam: [No focal neurologic deficit.] Skin: No rashes. Psychiatric: Normal mood affect and mental status examination. - Labs CBC & Chem 7: 02/25/18 07:44 02/25/18 07:44 Labs: Abnormal Lab Results - Last 24 Hours (Table) 02/24/18 02/25/18 02/25/18 Range/Units 07:03 07:44 07:44 RBC 5.95 H (4.30-5.90) m/uL Potassium 5.4 H (3.5-5.1) mmol/L Glucose 194 H (74-99) mg/dL Hemoglobin A1c 7.0 H (4.0-6.0) % Assessment and Plan Assessment: Impression: 1 acute exacerbation of COPD 2 acute tracheobronchitis 3 atypical chest pain, being addressed by cardiology, 4 remote history of questionable pulmonary embolism 5 obstructive sleep apnea syndrome, compliant with CPAP 6 morbid obesity BMI of 53.7 7 benign essential hypertension 8 previous normal cardiac catheterization. 9 nicotine dependence syndrome patient was counseled regarding smoking cessation , he is at least a [id number] smoker. 10 history of degenerative joint disease Recommendation: Suggest discharging the patient home today assuming he is cleared for discharge by cardiology and the stress test came back negative supposedly. Patient is to continue his present course of bronchodilators, prednisone 30 mg tapered over 2 weeks, continue antibiotics orally, continue Symbicort, continue doxycycline, and reevaluate in the office within one week. Time with Patient: Less than 30
[2018-02-25 12:23] VITALS: BP 155/93; PULSE 84; TEMP 97.7
--- NOTE | 2018-02-26 11:01 | DS ---
DISCHARGE SUMMARY DATE OF SERVICE: 02/25/2018 FINAL DIAGNOSES: 1. Chest pain, shortness of breath with possible chronic obstructive pulmonary disease exacerbation. 2. Pulmonary embolus ruled out. 3. Elevated creatine kinase. 4. Hyperlipidemia. 5. History of pulmonary embolus. 6. History of morbid obesity. BMI of 53.7. 7. Hypertension. 8. History of degenerative joint disease. 9. History of renal disease. 10.History of sleep apnea. 11.History of kidney stones. 12.History of migraine. 13.History of cardiac catheterization, normal coronary arteries previously. 14.Remote history of nicotine dependence. 15.Hyperlipidemia. DISCHARGE DISPOSITION: The patient is being discharged in stable condition with guarded prognosis. HISTORY: This 52-year-old woman with a past medical history of multiple medical problems, admitted with shortness of breath and possibly thought to have COPD acute exacerbation, seen by Dr. Zapata and patient treated with bronchodilators, improved significantly. On exam, vital signs stable. Cardiovascular: S1, S2. Abdomen soft. Respiration: A few scattered rhonchi. DISCHARGE ADVICE AND MEDICATIONS: 1. Discharge diet is cardiac diet. 2. Followup with Dr. Leon in 2-3 days. 3. Follow up with Dr. Zapata as recommended. 4. Follow up with Cardiology as recommended. MEDICATIONS: 1. Norvasc 5 mg q.h.s. 2. [place] 10 mg b.i.d. p.r.n. 3. Lopressor 25 mg p.o. b.i.d. 4. Lipitor 20 mg p.o. daily. 5. Symbicort 160/4.5 two puffs b.i.d. 6. Vibramycin 100 mg p.o. b.i.d. for 5 days. 7. Habitrol 14 daily. 8. Protonix 40 mg daily. 9. Prednisone taper 40 mg daily for 3 days, 30 for 3 days, 20 for 3 days, 10 for 3 days and then stop. Once again the patient is being discharged in stable condition with guarded prognosis because of the above mentioned multiple medical problems. MMODL / IJN: [id number] /
--- NOTE | 2018-02-27 11:46 | ECHOS ---
STRESS ECHOCARDIOGRAM INDICATIONS: Chest pain. MEDICATIONS: Amlodipine, Metoprolol, Tetrate, Hydrocodone. BASELINE HEART RATE: 88 BASELINE BLOOD PRESSURE: 128/48 MAXIMUM HEART RATE: 155 MAXIMUM BLOOD PRESSURE: 182/71 85% MPHR: 142 100% MPHR: 167 METS: @@ MAXIMUM STAGE REACHED: II TOTAL EXERCISE TIME: 8:40 CLINICAL INFORMATION: Dobutamine echocardiographic study was performed. Peak heart rate of 142 was achieved. Maximum blood pressure of 141/53 mmHg was noted. Resting EKG shows normal sinus rhythm with normal [place] interval and QRS duration and normal ST-T waves. Intermittent short runs of atrial tachycardia were noted. No ST-segment depression suggestive of ischemia was noted. Occasional PVCs are noted. The baseline echocardiographic images reveals a normal left ventricular chamber size with a normal left ventricular systolic function. At the peak dose of dobutamine infusion, normal increase in the wall thickness and contractility is noted. FINAL IMPRESSION: This dobutamine stress echocardiographic study is negative for stress-induced ischemia. Occasional PVCs and occasional short runs of atrial tachycardia were noted. MMODL / IJN: [id number] /
--- NOTE | 2018-03-05 11:59 | CDI ---
Outpatient Documentation Clarification Form Date: 03/05/18 CDS/Director Of Public Relations Name: Ericka Colin CCS Phone: If any questions, call Maddie Paris Professional Healthcare Representative at [phone] Patient Name: Manjinder Pedraza Admit Date: 02/23/18 Discharge Date: 02/25/18 ATTENTION: The [facility] Coding Staff appreciate your assistance in clarifying documentation. Please respond to the clarification below the line at the bottom and electronically sign. The [facility] Coding staff will review the response and follow-up if needed. Please note: Queries are made part of the Legal Health Record. If you have any questions, please contact the Professional Healthcare Representative. Dear Dr Lopez Please assist in clarifying what the patients diagnosis are since there appears to be conflicting documentation. Your discharge summary has chest pain, shortness of breath with POSSIBLE chronic obstructive pulmonary disease exacerbation. Pulmonary consult has Acute exacerbation of COPD with Acute tracheobronchitis. In your clinical judgement, please clarify your final diagnosis. -COPD with no exacerbation and no acute tracheobronchitis -COPD with exacerbation with no acute tracheobronchitis -COPD with no exacerbation with Acute tracheobronchitis -COPD with exacerbation with Acute tracheobronchitis -SOB with no COPD -SOB with COPD Please document these clarification beneath the line below on this form. Thank you for your kind consideration. COPD with exacerbation with Acute tracheobronchitis MTDD
== END 2018-02-25 13:09 | disposition home or self-care (01) ==
LOC: EC 18:13 → 1SOBS 20:50
PROVIDERS: ADMIT Hospitalist; ATTEND Hospitalist
DX: J44.1 Chronic obstructive pulmonary disease with (acute) exacerbation (principal); J44.0 Chronic obstructive pulmonary disease with (acute) lower respiratory infection; J20.9 Acute bronchitis, unspecified; I10 Essential (primary) hypertension; Z91.19 Patient's noncompliance with other medical treatment and regimen; R07.89 Other chest pain; E78.5 Hyperlipidemia, unspecified; N28.9 Disorder of kidney and ureter, unspecified; M19.90 Unspecified osteoarthritis, unspecified site; G47.33 Obstructive sleep apnea (adult) (pediatric); Z99.89 Dependence on other enabling machines and devices; G43.909 Migraine, unspecified, not intractable, without status migrainosus; F17.210 Nicotine dependence, cigarettes, uncomplicated; E66.01 Morbid (severe) obesity due to excess calories; Z68.43 Body mass index [BMI] 50.0-59.9, adult; R94.31 Abnormal electrocardiogram [ECG] [EKG]; R79.89 Other specified abnormal findings of blood chemistry; M54.9 Dorsalgia, unspecified; Z79.899 Other long term (current) drug therapy; Z96.642 Presence of left artificial hip joint; Z86.711 Personal history of pulmonary embolism; Z87.442 Personal history of urinary calculi; Z80.3 Family history of malignant neoplasm of breast; Z81.1 Family history of alcohol abuse and dependence; Z84.1 Family history of disorders of kidney and ureter
CPT/HCPCS: 96372 ×2; 96374; 96376 ×2; 99285; 36415; 94640 ×3; 93005; 93306; 93351; 80061; 80053; 80048 ×2; 82550 ×2; 82553 ×2; 83690; 83735; 84484 ×2; 85025 ×3; 81001; 83036; 71045; 71275; G0378 ×3; S4990 ×2; J1250; J1644 ×2; J2920 ×2; Q9950; Q9967

== ENCOUNTER 2018-03-22 10:43 | Inpatient (IN) | payer OTHER ==
[2018-03-22] MEDS ORDERED: ASPIRIN 81 MG PO STA (10:57)
[2018-03-22] MEDS ORDERED: NITROGLYCERIN SL TABS 0.4 MG TAB SUBLINGUAL STA ×3 (10:57)
--- NOTE | 2018-03-22 11:09 | ED ---
Chest Pain HPI - General Chief Complaint: Chest Pain Stated Complaint: chest pain Time Seen by Provider: 03/22/18 10:49 Source: patient, RN notes reviewed, old records reviewed Mode of arrival: wheelchair Limitations: no limitations - History of Present Illness Initial Comments: This is a 53-year-old male with a history of pulmonary embolism and COPD who states he had the onset yesterday of some chest pain but this morning it recurred is retrosternal chest pain pressure or tightness a-10 severity cold sweats and shortness of breath. No fevers. No cough or phlegm production. He states he was here earlier this month for a workup for similar type discomfort. He does still smoke cigarettes he states. No other current modifying factors MD Complaint: chest pain - Related Data Home Medications Medication Instructions Recorded Confirmed Metoprolol Tartrate [Lopressor] 25 mg PO BID 11/11/15 03/22/18 amLODIPine [Norvasc] 5 mg PO HS 11/11/15 03/22/18 HYDROcodone/APAP 10-325MG [[place] 1 tab PO BID PRN 02/23/18 03/22/18 10-325] Ibuprofen [Motrin Ib] 400 mg PO Q6H PRN 03/22/18 03/22/18 Previous Rx's Medication Instructions Recorded Atorvastatin [Lipitor] 20 mg PO DAILY #90 tab 02/24/18 Nicotine 14Mg/24Hr Patch [Habitrol] 1 patch TRANSDERM DAILY #30 patch 02/24/18 Allergies Allergy/AdvReac Type Severity Reaction Status Date / Time No Known Allergies Allergy Verified 03/22/18 11:44 Review of Systems ROS Statement: Those systems with pertinent positive or pertinent negative responses have been documented in the HPI. ROS Other: All systems not noted in ROS Statement are negative. Past Medical History Past Medical History: Hyperlipidemia, Hypertension, Osteoarthritis (OA), Pulmonary Embolus (PE), Renal Disease, Sleep Apnea/CPAP/BIPAP Additional Past Medical History / Comment(s): kidney stones, migraines, DWIGHT with CPAP, back pain, past R calf wound healed now. History of Any Multi-Drug Resistant Organisms: None Reported Past Surgical History: Heart Catheterization, Hernia Repair, Joint Replacement, Orthopedic Surgery Additional Past Surgical History / Comment(s): 11/11/15 cardiac cath and aortic angiogram, 2004 cardiac cath, umbilical hernia repair, total L hip, R hand surgery, L knee arthroscopy, right ankle surgery Past Anesthesia/Blood Transfusion Reactions: No Reported Reaction Past Psychological History: No Psychological Hx Reported Smoking Status: Current every day smoker Past Alcohol Use History: Occasional Past Drug Use History: Marijuana - Past Family History Mother Family Medical History: Cancer Additional Family Medical History / Comment(s): Mother had breast cancer. She of "natural causes" at the age of 73 yrs. Father Family Medical History: Renal Disease Additional Family Medical History / Comment(s): Father was an alcoholic. He of kidney problems at the age of 65yrs. General Exam - General Exam Comments Initial Comments: This is a well-developed obese male who is awake alert oriented 3 Limitations: no limitations General appearance: alert, anxious, in distress Head exam: Present: atraumatic, normocephalic, normal inspection Eye exam: Present: normal appearance, PERRL, EOMI. Absent: scleral icterus, conjunctival injection, periorbital swelling ENT exam: Present: normal exam, mucous membranes moist Neck exam: Present: normal inspection. Absent: tenderness, meningismus, lymphadenopathy Respiratory exam: Present: normal lung sounds bilaterally. Absent: respiratory distress, wheezes, rales, rhonchi, stridor Cardiovascular Exam: Present: regular rate, normal rhythm, normal heart sounds. Absent: systolic murmur, diastolic murmur, rubs, gallop, clicks GI/Abdominal exam: Present: soft, normal bowel sounds. Absent: distended, tenderness, guarding, rebound, rigid Extremities exam: Present: normal inspection, full ROM, normal capillary refill , pedal edema. Absent: tenderness, joint swelling, calf tenderness Back exam: Present: normal inspection Neurological exam: Present: alert, oriented X3, CN II-XII intact Psychiatric exam: Present: normal affect, anxious Skin exam: Present: warm, dry, intact, normal color. Absent: rash Course Vital Signs 03/22/18 03/22/18 03/22/18 10:46 11:01 11:53 Temperature 97.3 F L Pulse Rate 89 92 81 Respiratory 16 18 18 Rate Blood Pressure 170/91 146/83 141/91 O2 Sat by Pulse 95 96 Oximetry 03/22/18 03/22/18 12:00 12:12 Temperature Pulse Rate 92 88 Respiratory 16 16 Rate Blood Pressure O2 Sat by Pulse Oximetry - Reevaluation(s) Reevaluation #1: 03/22/18 13:40 PG states the chest pain is somewhat improved Reevaluation #2: 03/22/18 13:42 Patient does smoke approximately 1 pack surgeon today this down from 2 packs of cigarettes per day. He does say he's been smoking since he was 4 years old. He had quit for 2 years and did recently start smoking again. We did discuss risks and benefits of smoking and stopping smoking. The entire conversation lasting 3.1 minutes. Chest Pain MDM - MDM X-ray showed evidence of some cardiomegaly no definite infiltrates. Computed tomography scan did show evidence of bilateral PEs. I did discuss case with Dr. Astorga who did contact me. I did discuss findings with the patient family members. I also did discuss the case with Dr. camarillo. Patient be admitted with pulmonary consultation. He will be started on high-dose protocol for heparin. Critical Care Time Critical Care Time: Yes Critical Care Time: Critical care time 43 minutes. This is including initial presentation with history physical labs x-rays. Multiple reevaluation the patient responsive therapy. Discussed with patient family members regarding the findings. Discussed with Dr. camarillo regarding findings. Review of old charting was available including lab reports and procedures. Admission orders documentation above this also included discussion with the radiologist. Disposition Clinical Impression: Pulmonary emboli, Chest pain, Smoking Disposition: ADMITTED IP TO THIS [facility] Condition: Serious Referrals: Jason Leon DO [Primary Care Provider] - 1-2 days
[2018-03-22] MEDS ORDERED: IPRATROPIUM-ALBUTEROL 3 ML NEB INHALATION STA (11:11)
[2018-03-22 11:17] LABS: Basophils # (A) 0.1 k/uL (0-0.2); Basophils % (A) 1 %; Eosinophils # (A) 0.5 k/uL (0-0.7); Eosinophils % (A) 5 %; HCT 49.8 % (39.0-53.0); HGB 15.7 gm/dL (13.0-17.5); Lymphocytes # (A) 1.9 k/uL (1.0-4.8); Lymphocytes % (A) 18 %; MCH 27.9 pg (25.0-35.0); MCHC 31.5 g/dL (31.0-37.0); MCV 88.5 fL (80.0-100.0); Mean Platelet Volume 6.5; Monocytes # (A) 0.5 k/uL (0-1.0); Monocytes % (A) 5 %; Neutrophils # (A) 7.5 k/uL (1.3-7.7); Neutrophils % (A) 69 %; Platelet Count 346 k/uL (150-450); RBC 5.63 m/uL (4.30-5.90); RDW 14.3 % (11.5-15.5); WBC 10.9 k/uL (3.8-10.6)
[2018-03-22 11:35] LABS: INR 0.9 (<1.2); Partial Thromboplastin Time 24.7 sec (22.0-30.0); Prothrombin Time 10.1 sec (9.0-12.0)
[2018-03-22 11:38] LABS: Albumin 4.1 g/dL (3.5-5.0); Calcium 9.7 mg/dL (8.4-10.2); Magnesium 1.8 mg/dL (1.6-2.3); Potassium 4.8 mmol/L (3.5-5.1); Total Bilirubin 0.5 mg/dL (0.2-1.3); Total Protein 7.3 g/dL (6.3-8.2)
--- NOTE | 2018-03-22 11:40 | XR ---
EXAMINATION TYPE: XR chest 2V DATE OF EXAM: 03/22/2018 COMPARISON: 02/23/2018 HISTORY: 53-year-old male with shortness of breath and chest pain TECHNIQUE: PA and lateral views FINDINGS: Heart mildly enlarged. Mild interstitial prominence. Patchy atelectasis left base. Hyperinflation. No jose consolidation or sizable effusion. IMPRESSION: Cardiomegaly and slight increased prominence to the interstitium. Correlate for possible mild pulmona ry vascular congestion. No jose pulmonary edema or pleural effusion.
[2018-03-22 11:46] LABS: Creatine Kinase 244 U/L (55-170)
[2018-03-22 11:50] LABS: D-Dimer 4.3 mg/L FEU (<0.60)
[2018-03-22 11:58] LABS: Creatine Kinase MB 2.3 ng/mL (0.0-2.4); Troponin I <0.012 ng/mL (0.000-0.034)
--- NOTE | 2018-03-22 13:02 | CT ---
CT CHEST FOR PULMONARY EMBOLISM. EXAMINATION TYPE: CT angio chest DATE OF EXAM: 03/22/2018 INDICATION: Shortness of breath and chest pain CT DLP: 1143.4 mGycm, Automated exposure control for dose reduction was used. CONTRAST: Patient injected with 100 mL of Isovue 370. COMPARISON: 02/23/2018 TECHNIQUE: CT of the chest is performed on a spiral scan at 2 mm thick sections. Study is performed with intravenous contrast timed for evaluation for pulmonary embolism. This will limit additional po rtions of the evaluation. 3-D MIP images reconstructed by the technologist are reviewed on the compu ter in the coronal and sagittal planes. FINDINGS: Subtle left lower lobe pulmonary emboli are within smaller branches compatible with pulmonary emboli. Right middle lobe pulmonary emboli are evident. Small left upper lobe pulmonary emboli are present. No mediastinal or hilar adenopathy enlarged by CT criteria is evident. The ascending aorta diameter at the level of the main pulmonary artery is 4.2 cm. The main pulmonary artery diameter at the bifur cation is 3.7 cm. Lung windows are clear. Limited CT section through the upper abdomen are unremarkable. IMPRESSIONS: 1. Small bilateral pulmonary emboli. Report was called to the emergency room physician Dr. Wise by Dr Corey Astorga by telephone at the time of interpretation.
[2018-03-22] MEDS ORDERED: HEPARIN SODIUM,PORCINE 10,000 UNIT/ML 1 ML VIAL IV ONE (13:20)
[2018-03-22] MEDS ORDERED: HEPARIN SODIUM,PORCINE 5,000 UNIT/ML 1 ML VIAL IV PRN (13:20)
[2018-03-22] MEDS ORDERED: NALOXONE 0.4 MG/ML 1 ML VIAL IV PRN (13:51)
[2018-03-22] MEDS ORDERED: ONDANSETRON 4 MG/2 ML VIAL IVP PRN (13:51)
[2018-03-22] MEDS ORDERED: HYDROcodone/APAP 10-325MG 1 EACH TAB PO PRN ×2 (13:59→18:19)
[2018-03-22] MEDS: HYDROmorphone 1 MG/ML 1 ML SYRINGE IVP PRN ×3 (14:17→20:20)
[2018-03-22] MEDS: SODIUM CHLORIDE 0.9% 1,000 ML IV SCH (14:24)
[2018-03-22] MEDS: HEPARIN SOD,PORK IN 0.45% NACL 25,000 UNIT in 0.45% NACL 1 250ML.BAG IV SCH (14:26)
--- NOTE | 2018-03-22 16:49 | P.HPIM ---
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 He hasn't seen his supervisor steel division for 1 or 2 years, patient was not sure why he seen supervisor steel [employer]. Other medical problems include hypertension, hyperlipidemia, osteoarthritis as he has pain in his left hip and right knee, he has difficulty raising his right arm above his head for the last 3-4 years, history of sleep apnea, kidney stones and history of migraine, is a patient of Dr. Leon in the outpatient setting. This time he presents because of worsening chest pain of 2 days' duration which was started as the left side nonradiating, stabbing and decrease by deep breathing and coughing associated with difficulty breathing, he has some dry cough with no phlegm no hemoptysis. Patient trying not to cuff because of his pain. On admission he had CT angiogram of the thorax which showed pulmonary embolism. Patient already was started on heparin drip. Patient is currently one pack per day smoker, and consult and he agrees to quit with nicotine patch. Occasional alcohol. Uses marijuana with no other illicit drugs. Review of Systems CONSTITUTIONAL: No fever, no malaise, no fatigue. HEENT: No recent visual problems or hearing problems. Denied any sore throat. CARDIOVASCULAR: No orthopnea, PND, no palpitations, no syncope. PULMONARY: No shortness of breath, no cough, no hemoptysis. GASTROINTESTINAL: No diarrhea, no nausea, no vomiting, no abdominal pain. Normoactive bowel sounds. NEUROLOGICAL: No headaches, no weakness, no numbness. HEMATOLOGICAL: Denies any bleeding or petechiae. GENITOURINARY: Denies any burning micturition, frequency, or urgency. MUSCULOSKELETAL/RHEUMATOLOGICAL: Denies any joint pain, swelling, or any muscle pain. ENDOCRINE: Denies any polyuria or polydipsia. Past Medical History Past Medical History: Hyperlipidemia, Hypertension, Osteoarthritis (OA), Pulmonary Embolus (PE), Renal Disease, Sleep Apnea/CPAP/BIPAP Additional Past Medical History / Comment(s): kidney stones, migraines, DWIGHT with CPAP, back pain, past R calf wound healed now. History of Any Multi-Drug Resistant Organisms: None Reported Past Surgical History: Heart Catheterization, Hernia Repair, Joint Replacement, Orthopedic Surgery Additional Past Surgical History / Comment(s): 11/11/15 cardiac cath and aortic angiogram, 2004 cardiac cath, umbilical hernia repair, total L hip, R hand surgery, L knee arthroscopy, right ankle surgery Past Anesthesia/Blood Transfusion Reactions: No Reported Reaction Past Psychological History: No Psychological Hx Reported Smoking Status: Current every day smoker Past Alcohol Use History: Occasional Past Drug Use History: Marijuana - Past Family History Mother Family Medical History: Cancer Additional Family Medical History / Comment(s): Mother had breast cancer. She of "natural causes" at the age of 73 yrs. Father Family Medical History: Renal Disease Additional Family Medical History / Comment(s): Father was an alcoholic. He of kidney problems at the age of 65yrs. Medications and Allergies Home Medications Medication Instructions Recorded Confirmed Type Metoprolol Tartrate [Lopressor] 25 mg PO BID 11/11/15 03/22/18 History amLODIPine [Norvasc] 5 mg PO HS 11/11/15 03/22/18 History HYDROcodone/APAP 10-325MG [[place] 1 tab PO BID PRN 02/23/18 03/22/18 History 10-325] Atorvastatin [Lipitor] 20 mg PO DAILY #90 tab 02/24/18 03/22/18 Rx Nicotine 14Mg/24Hr Patch [Habitrol] 1 patch TRANSDERM DAILY #30 patch 02/24/18 03/22/18 Rx Ibuprofen [Motrin Ib] 400 mg PO Q6H PRN 03/22/18 03/22/18 History Allergies Allergy/AdvReac Type Severity Reaction Status Date / Time No Known Allergies Allergy Verified 03/22/18 11:44 Physical Exam Vitals: Vital Signs Temp Pulse Resp BP Pulse Ox 03/22/18 14:27 89 20 149/76 95 03/22/18 12:12 88 16 03/22/18 12:00 92 16 03/22/18 11:53 81 18 141/91 96 03/22/18 11:01 92 18 146/83 03/22/18 10:46 97.3 F L 89 16 170/91 95 Intake and Output 03/22/18 03/22/18 03/22/18 06:59 14:59 22:59 Other: Weight 205.024 kg GENERAL: The patient is alert and oriented x3, not in any acute distress. Morbidly obese HEENT: Pupils are round and equally reacting to light. EOMI. No scleral icterus. No conjunctival pallor. Normocephalic, atraumatic. No pharyngeal erythema. No thyromegaly. CARDIOVASCULAR: S1 and S2 present. No murmurs, rubs, or gallops. PULMONARY: Chest is clear to auscultation, no wheezing or crackles. ABDOMEN: Soft, nontender, nondistended, normoactive bowel sounds. No palpable organomegaly. MUSCULOSKELETAL: No joint swelling or deformity. EXTREMITIES: No cyanosis, clubbing, or pedal edema. NEUROLOGICAL: Gross neurological examination did not reveal any focal deficits. SKIN: No rashes. Results CBC & Chem 7: 03/22/18 11:00 03/22/18 11:00 Labs: Abnormal Lab Results - Last 24 Hours (Table) 03/22/18 03/22/18 03/22/18 Range/Units 11:00 11:00 11:00 WBC 10.9 H (3.8-10.6) k/uL D-Dimer (<0.60) mg/L FEU Glucose 197 H (74-99) mg/dL Total Creatine Kinase 244 H (55-170) U/L 03/22/18 Range/Units 11:00 WBC (3.8-10.6) k/uL D-Dimer 4.30 H (<0.60) mg/L FEU Glucose (74-99) mg/dL Total Creatine Kinase (55-170) U/L Assessment and Plan Assessment: Recurrent pulmonary embolism History of pulmonary embolism not on anticoagulation Hypertension Hyperlipidemia Osteoarthritis History of sleep apnea on CPAP/BiPAP History of kidney stones History of migraine Chronic back pain Plan: This is a pleasant 53 years old male who presents because of acute pulmonary embolism. Continue with heparin drip, and change to oral anticoagulations when appropriate. Call pulmonary consult. Hematology and oncology consults. 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 Pain management. Nicotine patch. Labs and medication were reviewed.. Continue same treatment. Continue with symptomatic treatment. Resume home medication. Monitor lytes and vitals. DVT and GI prophylaxis. Further recommendations of the clinical course of the patient DVT prophylaxis: heparin GI Prophylaxis: Pepcid PT/OT: Pending Prognosis is guarded
[2018-03-22] MEDS ORDERED: IPRATROPIUM-ALBUTEROL 3 ML NEB INHALATION PRN (17:08)
[2018-03-22 17:46] LABS: Creatine Kinase 221 U/L (55-170)
[2018-03-22 17:59] LABS: Creatine Kinase MB 2.2 ng/mL (0.0-2.4); Troponin I <0.012 ng/mL (0.000-0.034)
[2018-03-22] MEDS ORDERED: IPRATROPIUM-ALBUTEROL 3 ML NEB INHALATION SCH (18:00)
--- NOTE | 2018-03-22 18:28 | CONS ---
CONSULTATION PULMONARY/CRITICAL CARE CONSULTATION: DATE OF SERVICE: 03/22/2018 This is a 53-year-old male who comes to the emergency room on March 22 complaining of shortness of breath and chest pain. The patient apparently has a previous history of pulmonary embolism and also has a history of COPD. He was in the hospital earlier this month with shortness of breath thought to be related to COPD exacerbation. He saw my partner at that time. A couple of years back, he had a pulmonary embolism. He was being treated with Xarelto. He took it for about two and a half months. He stopped early because the cardiology group which was giving him the medications ran out of the medication. It was too expensive for him to take. His primary is Dr. Leon. So he presented to the emergency department this morning complaining of shortness of breath and chest pain that have been going on for a couple of days. He has been getting progressively worse. It was graded 9/10. Not much in the way of cough or phlegm production. No fever or chills. The patient had a similar episode, as I mentioned, earlier this month. He does smoke cigarettes. He continues to smoke. He has not seen a lung doctor in the past. The pulmonary embolism that occurred about 2 years ago was unprovoked. Anyway, on this admission he had a chest x-ray which looked pretty normal. He had a CT angiogram because of an elevated D-dimer which showed some acute pulmonary emboli. This was different compared to a CT angiogram that was done earlier this month, which apparently did not show acute pulmonary emboli. Again, this clot is unprovoked. He denies a history of cancer. He is not sedentary. The patient does smoke. The patient denies any trauma to his lower extremities. He denies any sort of train, plane, boat or car rides that were long in duration. HOME MEDICATIONS: His home medications currently include: 1. Metoprolol. 2. Amlodipine. 3. [place]. 4. Motrin. 5. Lipitor. 6. Nicotine patch. ALLERGIES: DENIED. MEDICAL HISTORY: Medical history includes: 1. Hyperlipidemia. 2. Hypertension. 3. DJD. 4. Pulmonary embolism. 5. Sleep apnea syndrome. 6. History of kidney stones. 7. Migraine cephalgia. 8. He also suffers with some right leg pain. 9. He also had a poorly healing wound in the past, which is now well healed. SURGICAL HISTORY: Includes: 1. Heart catheterization. 2. Hernia repair. 3. Joint replacement. 4. Cardiac catheterization. 5. Umbilical hernia repair. 6. Total left hip replacement. 7. Right hand surgery. 8. Left knee arthroscopy. 9. Right ankle surgery. SOCIAL HISTORY: Positive for 35 to 40 years of tobacco use. He smokes about a pack a day. Drinks socially. Denies illicit drug use other than marijuana. FAMILY HISTORY: Positive for cancer, chronic kidney disease and alcoholism. REVIEW OF SYSTEMS: CONSTITUTIONAL: Negative. NEUROLOGIC: Negative. HEENT: Negative. CARDIOVASCULAR: Chest pain/pressure, chest tightness. PULMONARY: Shortness of breath. GI/: Negative. RHEUMATOLOGIC/IMMUNOLOGIC: Negative. ENDOCRINOLOGIC: Negative. PHYSICAL EXAMINATION: Current vital signs are reviewed. Temperature is 97.3, heart rate 88, respiratory rate 16, blood pressure 149/76, mean 100, two-liter saturation 95%. Appears in no acute distress. HEENT examination is grossly unremarkable. Nasal oxygen in place. NECK: Supple. Full range of motion. No adenopathy or thyromegaly. Neck veins are flat. Cardiovascular examination reveals regular rhythm and rate. S1, S2 normal. Heart sounds are distant. Lungs reveal some expiratory wheezes and rhonchi. Breath sounds are diminished. Slight prolongation. ABDOMEN: Obese. Bowel sounds are heard. Extremities are intact. Mild edema. Skin without rash. Neurologic examination is nonfocal. LABORATORY DATA: Laboratory data include a white count of 10.9, hemoglobin 15.7, hematocrit 49.8, platelet count 346,000. PT and INR were normal. PTT normal. D-dimer 4.30. Sodium, potassium, chloride, CO2 normal. Anion gap is normal. BUN and creatinine were 19 and 1.16. Glucose 197. CK 244. Troponin was normal. N-terminal proBNP was normal. A chest x-ray was done. It showed cardiomegaly. There may be some mild pulmonary vascular congestion. CT angiogram was done. It shows stable bilateral pulmonary emboli. There are subtle left lower lobe pulmonary emboli which are within smaller branches compatible with pulmonary emboli. The right middle lobe pulmonary emboli are evident. There is a small left upper lobe pulmonary embolus as well. There was no mediastinal or hilar adenopathy. The rest of the CT scan was not too remarkable. ASSESSMENT: 1. Significant shortness of breath and chest pain, likely related to underlying acute pulmonary embolism, which is now recurrent, but also contributed to by underlying chronic obstructive pulmonary disease. 2. Obesity. 3. Previous history of pulmonary emboli, treated for two and a half months, unprovoked. 4. History of hypertension. 5. History of hyperlipidemia. 6. History of ongoing tobacco use. 7. Osteoarthritis. 8. Sleep apnea syndrome. 9. History of kidney stones. 10.History of migraine cephalgia. PLAN: The patient may have an underlying defect causing recurrent PE. It appears that both clots were unprovoked. The patient will be treated for his underlying COPD as well. He is encouraged to stop smoking. Will have a hematology consult done to rule out a primary hypercoagulable state. At this time, the patient will be treated with Coumadin, which will be much more affordable to him. We will do Dopplers of the lower extremities. Additional recommendations and suggestions are forthcoming. MMODL / IJN: [id number] /
[2018-03-22] MEDS: FAMOTIDINE 20 MG TAB PO SCH (20:19)
[2018-03-22] MEDS: amLODIPine 5 MG TAB PO SCH (20:20)
--- NOTE | 2018-03-22 20:40 | US ---
EXAMINATION TYPE: US venous doppler duplex LE BI DATE OF EXAM: 03/22/2018 8:08 PM COMPARISON: NONE CLINICAL HISTORY: PE. PE SIDE PERFORMED: Bilateral TECHNIQUE: The lower extremity deep venous system is examined utilizing real time linear array sonog mariama with graded compression, doppler sonography and color-flow sonography. VESSELS IMAGED: External Iliac Vein (EIV) Common Femoral Vein Deep Femoral Vein Greater Saphenous Vein * Femoral Vein Popliteal Vein Small Saphenous Vein * Proximal Calf Veins (* superficial vessels) Right Leg: Negative for DVT Left Leg: Negative for DVT No evidence of DVT bilateral legs. IMPRESSION: Normal bilateral leg duplex venous sonogram.
[2018-03-22] MEDS: SYMBICORT 160-4.5 MCG INHALER INHALATION SCH (20:41)
[2018-03-22] MEDS: IPRATROPIUM-ALBUTEROL 3 ML NEB INHALATION SCH (20:41)
[2018-03-22] MEDS ORDERED: METOPROLOL TARTRATE 25 MG TAB PO SCH (21:00)
[2018-03-22] MEDS ORDERED: WARFARIN 5 MG TAB PO SCH (22:00)
[2018-03-22 23:11] LABS: Creatine Kinase 212 U/L (55-170)
[2018-03-22 23:24] LABS: Creatine Kinase MB 2.8 ng/mL (0.0-2.4); Troponin I <0.012 ng/mL (0.000-0.034)
[2018-03-23] MEDS: HEPARIN SOD,PORK IN 0.45% NACL 25,000 UNIT in 0.45% NACL 1 250ML.BAG IV SCH ×3 (00:38→23:13)
[2018-03-23] MEDS: HYDROmorphone 1 MG/ML 1 ML SYRINGE IVP PRN ×4 (02:08→20:10)
[2018-03-23 07:29] LABS: Basophils # (A) 0.1 k/uL (0-0.2); Basophils % (A) 1 %; Eosinophils # (A) 0.5 k/uL (0-0.7); Eosinophils % (A) 6 %; HCT 46.6 % (39.0-53.0); HGB 14.5 gm/dL (13.0-17.5); Lymphocytes # (A) 1.7 k/uL (1.0-4.8); Lymphocytes % (A) 21 %; MCH 28.3 pg (25.0-35.0); MCHC 31.2 g/dL (31.0-37.0); MCV 90.4 fL (80.0-100.0); Mean Platelet Volume 6.6; Monocytes # (A) 0.4 k/uL (0-1.0); Monocytes % (A) 5 %; Neutrophils # (A) 5.4 k/uL (1.3-7.7); Neutrophils % (A) 65 %; Platelet Count 322 k/uL (150-450); RBC 5.15 m/uL (4.30-5.90); RDW 14.3 % (11.5-15.5); WBC 8.3 k/uL (3.8-10.6)
[2018-03-23 07:32] LABS: Potassium 4.8 mmol/L (3.5-5.1)
[2018-03-23 07:44] LABS: INR 0.9 (<1.2); Prothrombin Time 10.1 sec (9.0-12.0)
[2018-03-23] MEDS: IPRATROPIUM-ALBUTEROL 3 ML NEB INHALATION SCH ×4 (09:17→20:30)
[2018-03-23] MEDS: SYMBICORT 160-4.5 MCG INHALER INHALATION SCH ×2 (09:17→20:30)
[2018-03-23] MEDS: NICOTINE 21MG/24HR PATCH TRANSDERM SCH (09:19)
[2018-03-23] MEDS: FAMOTIDINE 20 MG TAB PO SCH ×2 (09:19→20:09)
[2018-03-23] MEDS: ATORVASTATIN 20 MG TAB PO SCH (09:19)
[2018-03-23] MEDS: METOPROLOL TARTRATE 50 MG TAB PO SCH ×2 (09:19→20:09)
--- NOTE | 2018-03-23 09:36 | P.PN ---
Subjective This is a pleasant 53 years old male with past medical history of pulmonary embolism about 3 years ago who stopped Taking his anticoagulations for the last 3 years because of lack of insurance, before that he was taken Xarelto given as free samples by his slip cover cutter. He hasn't seen his slip cover cutter for 1 or 2 years, patient was not sure why he seen slip cover cutter. Other medical problems include hypertension, hyperlipidemia, osteoarthritis as he has pain in his left hip and right knee, he has difficulty raising his right arm above his head for the last 3-4 years, history of sleep apnea, kidney stones and history of migraine, is a patient of Dr. Leon in the outpatient setting. This time he presents because of worsening chest pain of 2 days' duration which was started as the left side nonradiating, stabbing and decrease by deep breathing and coughing associated with difficulty breathing, he has some dry cough with no phlegm no hemoptysis. Patient trying not to cuff because of his pain. On admission he had CT angiogram of the thorax which showed pulmonary embolism. Patient already was started on heparin drip. Patient is currently one pack per day smoker, and consult and he agrees to quit with nicotine patch. Occasional alcohol. Uses marijuana with no other illicit drugs. 03/23/2018 Patient feels better, he still have some chest pain especially with movement or coughing. He thinks the pain medication he is getting is enough for him. Patient continued on heparin drip and started on warfarin as per warehouse person recommendation. Vitals stable and he is saturating 94% on 3 L. He uses CPAP during the night which is his own. Leukocytosis improved. INR today 0.9. BMP was unremarkable. Objective - Vital Signs Vital signs: Vital Signs Temp 97.9 F 03/23/18 00:00 Pulse 92 03/23/18 09:31 Resp 19 03/23/18 04:00 BP 177/101 03/23/18 04:00 Pulse Ox 94 L 03/23/18 04:00 Intake & Output 03/22/18 03/23/18 03/23/18 18:59 06:59 18:59 Intake Total 334.192 199.752 Balance 334.192 199.752 Weight 205.024 kg 204.5 kg Intake: IV 100 Sodium Chloride 0.9% 1, 100 000 ml @ 20 mls/hr IV . Q24H ON LICENSE OF [facility] Rx#:[id number] Intake, IV Titration 234.192 199.752 Amount Heparin Sod,Pork in 0.45% 234.192 199.752 NaCl 25,000 unit In 0.45 % NaCl 1 250ml.bag @ 11.2 UNITS/KG/HR 22.96 mls/hr IV .[id number] [facility] Rx#: [id number] Other: Voiding Method Toilet - Exam GENERAL: The patient is alert and oriented x3, not in any acute distress. obese HEENT: Pupils are round and equally reacting to light. EOMI. No scleral icterus. No conjunctival pallor. Normocephalic, atraumatic. No pharyngeal erythema. No thyromegaly. CARDIOVASCULAR: S1 and S2 present. No murmurs, rubs, or gallops. PULMONARY: Chest is clear to auscultation, no wheezing or crackles. ABDOMEN: Soft, nontender, nondistended, normoactive bowel sounds. No palpable organomegaly. MUSCULOSKELETAL: No joint swelling or deformity. EXTREMITIES: No cyanosis, clubbing, or pedal edema. NEUROLOGICAL: Gross neurological examination did not reveal any focal deficits. SKIN: No rashes. - Labs CBC & Chem 7: 03/23/18 06:36 03/23/18 06:36 Labs: Abnormal Lab Results - Last 24 Hours (Table) 03/22/18 03/22/18 03/22/18 Range/Units 11:00 11:00 11:00 WBC 10.9 H (3.8-10.6) k/uL APTT (22.0-30.0) sec D-Dimer (<0.60) mg/L FEU Glucose 197 H (74-99) mg/dL Total Creatine Kinase 244 H (55-170) U/L CK-MB (CK-2) (0.0-2.4) ng/mL 03/22/18 03/22/18 03/22/18 Range/Units 11:00 17:07 17:07 WBC (3.8-10.6) k/uL APTT 55.9 H (22.0-30.0) sec D-Dimer 4.30 H (<0.60) mg/L FEU Glucose (74-99) mg/dL Total Creatine Kinase 221 H (55-170) U/L CK-MB (CK-2) (0.0-2.4) ng/mL 03/22/18 03/23/18 03/23/18 Range/Units 22:36 06:36 06:36 WBC (3.8-10.6) k/uL APTT 36.0 H (22.0-30.0) sec D-Dimer (<0.60) mg/L FEU Glucose 123 H (74-99) mg/dL Total Creatine Kinase 212 H (55-170) U/L CK-MB (CK-2) 2.8 H (0.0-2.4) ng/mL Assessment and Plan Assessment: Recurrent pulmonary embolism History of pulmonary embolism not on anticoagulation Hypertension Hyperlipidemia Osteoarthritis History of sleep apnea on CPAP/BiPAP History of kidney stones History of migraine Chronic back pain Plan: This is a pleasant 53 years old male who presents because of acute pulmonary embolism. Continue with heparin drip, and change to oral anticoagulations when appropriate. Call pulmonary consult. Hematology and oncology consults. sawmill or timber yard worker consult. Pain management. Nicotine patch. Labs and medication were reviewed.. Continue same treatment. Continue with symptomatic treatment. Resume home medication. Monitor lytes and vitals. DVT and GI prophylaxis. Further recommendations of the clinical course of the patient DVT prophylaxis: heparin GI Prophylaxis: Pepcid PT/OT: Pending Prognosis is guarded
[2018-03-23] MEDS: SODIUM CHLORIDE 0.9% 1,000 ML IV SCH (13:01)
--- NOTE | 2018-03-23 14:12 | P.PN ---
Subjective Progress Note Date: 03/23/18 Principal diagnosis: Dyspnea secondary to small bilateral pulmonary emboli and suspected exacerbation of chronic obstructive pulmonary disease. Patient is seen today 03/23/2018 in follow-up for his dyspnea secondary to bilateral PE and COPD exacerbation. He is seen on the selective care unit. He is awake and alert in no acute distress. He is breathing better today as compared to yesterday. Maintaining good O2 saturations in the 90s on room air. He's been afebrile. Dopplers of the lower extremity were negative. Remains on heparin drip. He was initiated on warfarin. INR 0.9. White count 8.3. Hemoglobin 14.5. Creatinine 1.11. He is maintained on DuoNeb inhalations, Symbicort. Habitrol patch is in place. Objective - Vital Signs Vital signs: Vital Signs Temp 97.7 F 03/23/18 08:00 Pulse 84 03/23/18 12:22 Resp 19 03/23/18 04:00 BP 146/96 03/23/18 09:00 Pulse Ox 98 03/23/18 08:00 Intake & Output 03/22/18 03/23/18 03/23/18 18:59 06:59 18:59 Intake Total 334.192 270.000 Balance 334.192 270.000 Weight 205.024 kg 204.5 kg Intake: IV 100 Sodium Chloride 0.9% 1, 100 000 ml @ 20 mls/hr IV . Q24H [facility] Rx#:[id number] Intake, IV Titration 234.192 270.000 Amount Heparin Sod,Pork in 0.45% 234.192 250.000 NaCl 25,000 unit In 0.45 % NaCl 1 250ml.bag @ 11.2 UNITS/KG/HR 22.96 mls/hr IV .[id number] [facility] Rx#: [id number] Sodium Chloride 0.9% 1, 20 000 ml @ 20 mls/hr IV . Q24H [facility] Rx#:[id number] Other: Voiding Method Toilet - Exam GENERAL EXAM: Morbidly obese. Alert, comfortable in no apparent distress. HEAD: Normocephalic. EYES: Normal reaction of pupils, equal size. NOSE: Clear with pink turbinates. THROAT: Crowding of posterior pharynx. No erythema or exudates. NECK: Short. No masses, no JVD. CHEST: No chest wall deformity. LUNGS: Equal air entry with no crackles, wheeze, rhonchi or dullness. Diminished. CVS: S1 and S2 normal with no audible murmur, regular rhythm. ABDOMEN: No hepatosplenomegaly, normal bowel sounds, no guarding or rigidity. SPINE: No scoliosis or deformity SKIN: No rashes CENTRAL NERVOUS SYSTEM: No focal deficits, tone is normal in all 4 extremities. EXTREMITIES: There is trace peripheral edema. No clubbing, no cyanosis. Peripheral pulses are intact. - Labs CBC & Chem 7: 03/23/18 06:36 03/23/18 06:36 Labs: Abnormal Lab Results - Last 24 Hours (Table) 03/22/18 03/22/18 03/22/18 Range/Units 17:07 17:07 22:36 APTT 55.9 H (22.0-30.0) sec Glucose (74-99) mg/dL Total Creatine Kinase 221 H 212 H (55-170) U/L CK-MB (CK-2) 2.8 H (0.0-2.4) ng/mL 03/23/18 03/23/18 Range/Units 06:36 06:36 APTT 36.0 H (22.0-30.0) sec Glucose 123 H (74-99) mg/dL Total Creatine Kinase (55-170) U/L CK-MB (CK-2) (0.0-2.4) ng/mL Assessment and Plan Assessment: Impression: #1 Dyspnea secondary to recurrent pulmonary emboli along with suspected acute exacerbation of chronic obstructive pulmonary disease. #2 Previous history of pulmonary embolism treated with Xarelto approximately 2-1 /2 months, ran out of samples and could not afford any longer. #3 Morbid obesity. #4 Obstructive sleep apnea utilizing CPAP in the outpatient setting. #5 Chronic and ongoing tobacco dependence. #6 Hyperlipidemia. #7 Degenerative joint disease. #8 History of kidney stones. #9 Migraine cephalgia. #10 Right lower extremity pain. #11 History of poorly healing wound. #12 Hypertension. Plan: The patient was seen and evaluated by Dr. Pereira. He is currently stable from the pulmonary standpoint. He's been initiated on warfarin. Heparin drip until therapeutic. Continue pulmonary medications. He will need to be seen in our office post discharge. We'll perform full pulmonary function testing to evaluate the severity of his COPD and make recommendations regarding maintenance medications. He is again educated regarding the importance of complete smoking cessation. NicoDerm patches in place. We'll increase his activity as tolerated. We'll continue to follow. I, the cosigning physician, performed a history & physical examination of the patient. Lungs sounds are clear, diminished. Maintaining good O2 saturations in the 90s on room air. I discussed the assessment and plan of care with my nurse practitioner, Prema Mcdonnell. I attest to the above note as dictated by her.
[2018-03-23] MEDS ORDERED: WARFARIN 10 MG TAB PO ONE (18:00)
--- NOTE | 2018-03-23 19:40 | P.CONS ---
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 He has several medical conditions including hyperlipidemia , varicose veins, arthritis, hypertension and nicotine dependence. 2 years ago pt had a right upper lobe pulmonary embolism, bilateral lower extremity Doppler at that time was negative. Patient was on anticoagulation for only about 2 months due to being underinsured and unable to pay for Rx. 2 days ago patient started experiencing right chest pain, he had previously been worked up for myocardial infarction and had done stress testing so, he took an aspirin and rested and that helped. By the next day though, the pain was back with associated chest pressure, pain with deep inspiration and cold sweats so he came to hospital, CTA chest showed lanie PE, he was started on heparin. Patient denies any family history of blood clots, his children are all healthy, no history of prolonged steroid use, hormones, recent long trips, surgeries, injuries, personal history of cancer, he admits to being more immobile since being laid off. he has limited range of motion in the right shoulder, he states problems on his right side with blood flow, he does have to wear a compression stocking on the right for varicose veins, he has a chronic posterior right calf wound, he has ulnar nerve tingling in the right upper extremity Review of Systems 14 point review of systems is negative except as stated in HPI Past Medical History Past Medical History: Chest Pain / Angina, COPD, Hyperlipidemia, Hypertension, Osteoarthritis (OA), Pulmonary Embolus (PE), Renal Disease, Sleep Apnea/CPAP/ BIPAP Additional Past Medical History / Comment(s): kidney stones, migraines, DWIGHT with CPAP, back pain, past R calf wound healed now.stress test-pt stated they did'nt find anything History of Any Multi-Drug Resistant Organisms: None Reported Past Surgical History: Heart Catheterization, Hernia Repair, Joint Replacement, Orthopedic Surgery Additional Past Surgical History / Comment(s): 11/11/15 cardiac cath and aortic angiogram, 2004 cardiac cath, umbilical hernia repair, total L hip, R hand surgery, L knee arthroscopy, right ankle surgery Past Anesthesia/Blood Transfusion Reactions: No Reported Reaction Past Psychological History: No Psychological Hx Reported Smoking Status: Current every day smoker Past Alcohol Use History: Unable to Obtain Past Drug Use History: Unable to Obtain - Past Family History Mother Family Medical History: Cancer Additional Family Medical History / Comment(s): Mother had breast cancer. She of "natural causes" at the age of 73 yrs. Father Family Medical History: Renal Disease Additional Family Medical History / Comment(s): Father was an alcoholic. He of kidney problems at the age of 65yrs. Medications and Allergies Home Medications Medication Instructions Recorded Confirmed Type Metoprolol Tartrate [Lopressor] 25 mg PO BID 11/11/15 03/22/18 History amLODIPine [Norvasc] 5 mg PO HS 11/11/15 03/22/18 History HYDROcodone/APAP 10-325MG [[place] 1 tab PO BID PRN 02/23/18 03/22/18 History 10-325] Atorvastatin [Lipitor] 20 mg PO DAILY #90 tab 02/24/18 03/22/18 Rx Nicotine 14Mg/24Hr Patch [Habitrol] 1 patch TRANSDERM DAILY #30 patch 02/24/18 03/22/18 Rx Ibuprofen [Motrin Ib] 400 mg PO Q6H PRN 03/22/18 03/22/18 History Allergies Allergy/AdvReac Type Severity Reaction Status Date / Time No Known Allergies Allergy Verified 03/22/18 11:44 Physical Exam Vitals: Vital Signs Temp Pulse Pulse Resp BP Pulse Ox 03/23/18 16:54 84 03/23/18 16:38 76 03/23/18 16:00 86 124/71 92 L 03/23/18 12:22 84 03/23/18 12:12 80 03/23/18 12:00 67 106/55 96 03/23/18 09:31 92 03/23/18 09:18 88 03/23/18 09:00 146/96 03/23/18 08:00 97.7 F 102 H 200/96 98 03/23/18 04:00 84 19 177/101 94 L 03/23/18 00:00 97.9 F 85 18 142/81 91 L 03/22/18 20:53 92 03/22/18 20:43 96 03/22/18 20:00 98.3 F 95 20 137/100 92 L Intake and Output 03/23/18 03/23/18 03/23/18 06:59 14:59 22:59 Intake Total 334.192 812.000 150 Balance 334.192 812.000 150 Intake: IV 100 Sodium Chloride 0.9% 1, 100 000 ml @ 20 mls/hr IV . Q24H [facility] Rx#:[id number] Intake, IV Titration 234.192 270.000 150 Amount Heparin Sod,Pork in 0.45% 234.192 250.000 NaCl 25,000 unit In 0.45 % NaCl 1 250ml.bag @ 11.2 UNITS/KG/HR 22.96 mls/hr IV .[id number] [facility] Rx#: [id number] Sodium Chloride 0.9% 1, 20 150 000 ml @ 20 mls/hr IV . Q24H [facility] Rx#:[id number] Oral 542 Other: Weight 204.5 kg - Constitutional General appearance: cooperative, morbidly obese, no acute distress - EENT Eyes: anicteric sclerae, EOMI ENT: hearing grossly normal, normal oropharynx - Neck Neck: no lymphadenopathy - Respiratory Respiratory: bilateral: diminished - Cardiovascular Rhythm: regular Heart sounds: normal: S1, S2 Abnormal Heart Sounds: no systolic murmur, no diastolic murmur, no rub, no S3 Gallop, no S4 Gallop, no click, no other leg Peripheral Edema: right: Trace, left: None dorsalis pedis Peripheral Pulses: bilateral: Normal - Gastrointestinal General gastrointestinal: no absent bowel sounds, no decreased bowel sounds, no distended, no hepatomegaly, no hyperactive bowel sounds, normal bowel sounds, no organomegaly, no rigid, no scaphoid, soft, no splenomegaly, no tenderness, no umbilical hernia, no ventral hernia - Integumentary Rubor noted on the right upper extremity, bronzing of the lower extremities, R>L , right posterior calf, approximately 8 cm area of bronzing associated with venous stasis - Neurologic Neurologic: CNII-XII intact - Musculoskeletal Musculoskeletal: strength equal bilaterally - Psychiatric Psychiatric: A&O x's 3, appropriate affect, intact judgment & insight Results CBC & Chem 7: 03/23/18 06:36 03/23/18 06:36 Labs: Abnormal Lab Results - Last 24 Hours (Table) 03/22/18 03/23/18 03/23/18 Range/Units 22:36 06:36 06:36 APTT 36.0 H (22.0-30.0) sec Glucose 123 H (74-99) mg/dL Total Creatine Kinase 212 H (55-170) U/L CK-MB (CK-2) 2.8 H (0.0-2.4) ng/mL 03/23/18 Range/Units 16:50 APTT 45.9 H (22.0-30.0) sec Glucose (74-99) mg/dL Total Creatine Kinase (55-170) U/L CK-MB (CK-2) (0.0-2.4) ng/mL CT scan - chest: report reviewed Venous US: report reviewed Assessment and Plan (1) Pulmonary embolism Narrative/Plan: Second unprovoked pulmonary embolism. Patient does have some weak predisposing factors but, certainly not what would be considered for provoking PE a second time. Discussed that there would be a high possibility of recommendation of lifelong anticoagulation, as long as it is tolerated, due to second unprovoked PE. Doppler of the bilateral lower extremities was negative. Hypercoagulable workup recommended. He does have children and this could have implications for his children. Patient will be provided with this prescription for the same. He will have it drawn on discharge. He will follow-up with Dr. Gomes 2-3 weeks after discharge for results. He verbalized understanding the plan. We reviewed vitamin K depleting medication Coumadin, discussed INR, frequency of follow up, dose adjustments for coumadin, bleeding precautions and safety. All of patient's questions were answered to the best of my ability. Current Visit: Yes Status: Acute Priority: High Code(s): I26.99 - OTHER PULMONARY EMBOLISM WITHOUT ACUTE COR PULMONALE SNOMED Code(s): 04774099 Plan: Highly recommend patient have age appropriate cancer screenings including colonoscopy, EGD and prostate. Based on his smoking history the low dose screening CT of chest may be indicated. Unfortunately, Patient is currently unemployed and without insurance so it is not likely he will get these screenings soon, at least until he has insurance again.
[2018-03-23] MEDS: DOCUSATE 100 MG CAP PO SCH (20:09)
[2018-03-23] MEDS: amLODIPine 5 MG TAB PO SCH (20:09)
[2018-03-24] MEDS: HYDROcodone/APAP 7.5-325MG 1 EACH TAB PO PRN ×2 (03:49→10:20)
[2018-03-24] MEDS: HEPARIN SOD,PORK IN 0.45% NACL 25,000 UNIT in 0.45% NACL 1 250ML.BAG IV SCH ×2 (04:21→19:58)
[2018-03-24 07:44] LABS: Basophils # (A) 0.1 k/uL (0-0.2); Basophils % (A) 1 %; Eosinophils # (A) 0.5 k/uL (0-0.7); Eosinophils % (A) 6 %; Lymphocytes # (A) 2.1 k/uL (1.0-4.8); Lymphocytes % (A) 27 %; MCH 28.1 pg (25.0-35.0); MCHC 31.8 g/dL (31.0-37.0); MCV 88.4 fL (80.0-100.0); Mean Platelet Volume 6.6; Monocytes # (A) 0.4 k/uL (0-1.0); Monocytes % (A) 5 %; Neutrophils # (A) 4.6 k/uL (1.3-7.7); Neutrophils % (A) 60 %; Platelet Count 330 k/uL (150-450); RBC 5.32 m/uL (4.30-5.90); RDW 14.3 % (11.5-15.5); WBC 7.7 k/uL (3.8-10.6)
[2018-03-24] MEDS: SYMBICORT 160-4.5 MCG INHALER INHALATION SCH ×2 (07:49→20:22)
[2018-03-24] MEDS: IPRATROPIUM-ALBUTEROL 3 ML NEB INHALATION SCH ×4 (07:49→20:17)
[2018-03-24 08:02] LABS: Prothrombin Time 10.9 sec (9.0-12.0)
[2018-03-24] MEDS: ATORVASTATIN 20 MG TAB PO SCH (08:18)
[2018-03-24] MEDS: FAMOTIDINE 20 MG TAB PO SCH ×2 (08:18→20:00)
[2018-03-24] MEDS: METOPROLOL TARTRATE 50 MG TAB PO SCH ×2 (08:18→20:00)
[2018-03-24] MEDS: DOCUSATE 100 MG CAP PO SCH ×2 (08:18→19:59)
[2018-03-24] MEDS: NICOTINE 21MG/24HR PATCH TRANSDERM SCH (08:22)
--- NOTE | 2018-03-24 10:32 | P.PN ---
Subjective This is a pleasant 53 years old male with past medical history of pulmonary embolism about 3 years ago who stopped Taking his anticoagulations for the last 3 years because of lack of insurance, before that he was taken Xarelto given as free samples by his shipping manager. He hasn't seen his shipping manager for 1 or 2 years, patient was not sure why he seen shipping manager. Other medical problems include hypertension, hyperlipidemia, osteoarthritis as he has pain in his left hip and right knee, he has difficulty raising his right arm above his head for the last 3-4 years, history of sleep apnea, kidney stones and history of migraine, is a patient of Dr. Leon in the outpatient setting. This time he presents because of worsening chest pain of 2 days' duration which was started as the left side nonradiating, stabbing and decrease by deep breathing and coughing associated with difficulty breathing, he has some dry cough with no phlegm no hemoptysis. Patient trying not to cuff because of his pain. On admission he had CT angiogram of the thorax which showed pulmonary embolism. Patient already was started on heparin drip. Patient is currently one pack per day smoker, and consult and he agrees to quit with nicotine patch. Occasional alcohol. Uses marijuana with no other illicit drugs. 03/23/2018 Patient feels better, he still have some chest pain especially with movement or coughing. He thinks the pain medication he is getting is enough for him. Patient continued on heparin drip and started on warfarin as per cattle trader recommendation. Vitals stable and he is saturating 94% on 3 L. He uses CPAP during the night which is his own. Leukocytosis improved. INR today 0.9. BMP was unremarkable. 03/24/2018 Patient is still complaining from pleuritic chest pain on the left side although it's improving and down to 7/10 in severity, however it's bothersome for the patient especially with coughing at times and he asked his pain medication to be increased. Patient breathing quietly and easily. He got 10 mg of Coumadin last night and his INR is still 1.0, continue with heparin drip for now. Vitas is stable and blood pressure controlled. He is saturating 92-95 % on 2-3 L via NC. Hemoglobin is stable. Hematology input is appreciated. Objective - Vital Signs Vital signs: Vital Signs Temp 97.9 F 03/24/18 08:00 Pulse 88 03/24/18 08:00 Resp 18 03/24/18 08:00 BP 118/58 03/24/18 08:00 Pulse Ox 95 03/24/18 08:00 Intake & Output 03/23/18 03/24/18 03/24/18 18:59 06:59 18:59 Intake Total 962.000 500.478 Balance 962.000 500.478 Weight 203.3 kg Intake: IV 80 Sodium Chloride 0.9% 1, 80 000 ml @ 20 mls/hr IV . Q24H [facility] Rx#:[id number] Intake, IV Titration 420.000 420.478 Amount Heparin Sod,Pork in 0.45% 250.000 420.478 NaCl 25,000 unit In 0.45 % NaCl 1 250ml.bag @ 11.2 UNITS/KG/HR 22.96 mls/hr IV .[id number] [facility] Rx#: [id number] Sodium Chloride 0.9% 1, 170 000 ml @ 20 mls/hr IV . Q24H [facility] Rx#:[id number] Oral 542 Other: # Voids 1 - Exam GENERAL: The patient is alert and oriented x3, not in any acute distress. obese HEENT: Pupils are round and equally reacting to light. EOMI. No scleral icterus. No conjunctival pallor. Normocephalic, atraumatic. No pharyngeal erythema. No thyromegaly. CARDIOVASCULAR: S1 and S2 present. No murmurs, rubs, or gallops. PULMONARY: Chest is clear to auscultation, no wheezing or crackles. ABDOMEN: Soft, nontender, nondistended, normoactive bowel sounds. No palpable organomegaly. MUSCULOSKELETAL: No joint swelling or deformity. EXTREMITIES: No cyanosis, clubbing, or pedal edema. NEUROLOGICAL: Gross neurological examination did not reveal any focal deficits. SKIN: No rashes. - Labs CBC & Chem 7: 03/24/18 07:17 03/23/18 06:36 Labs: Abnormal Lab Results - Last 24 Hours (Table) 03/23/18 03/24/18 Range/Units 16:50 02:18 APTT 45.9 H 64.2 H (22.0-30.0) sec Assessment and Plan Assessment: Recurrent pulmonary embolism History of pulmonary embolism not on anticoagulation Hypertension Hyperlipidemia Osteoarthritis History of sleep apnea on CPAP/BiPAP History of kidney stones History of migraine Chronic back pain Plan: This is a pleasant 53 years old male who presents because of acute pulmonary embolism. Continue with heparin drip, and change to oral anticoagulations when appropriate. Call pulmonary consult. Hematology and oncology consults. yard worker consult. Pain management. Nicotine patch. Labs and medication were reviewed.. Continue same treatment. Continue with symptomatic treatment. Resume home medication. Monitor lytes and vitals. DVT and GI prophylaxis. Further recommendations of the clinical course of the patient DVT prophylaxis: heparin GI Prophylaxis: Pepcid PT/OT: Pending Prognosis is guarded
[2018-03-24] MEDS ORDERED: HYDROmorphone 0.5 MG/0.5 ML SYRINGE IVP PRN (10:46)
--- NOTE | 2018-03-24 14:34 | P.PN ---
Subjective Progress Note Date: 03/24/18 Principal diagnosis: Dyspnea secondary to small bilateral pulmonary emboli and suspected exacerbation of chronic obstructive pulmonary disease Patient is seen today 03/23/2018 in follow-up for his dyspnea secondary to bilateral PE and COPD exacerbation. He is seen on the selective care unit. He is awake and alert in no acute distress. He is breathing better today as compared to yesterday. Maintaining good O2 saturations in the 90s on room air. He's been afebrile. Dopplers of the lower extremity were negative. Remains on heparin drip. He was initiated on warfarin. INR 0.9. White count 8.3. Hemoglobin 14.5. Creatinine 1.11. He is maintained on DuoNeb inhalations, Symbicort. Habitrol patch is in place. On 03/24/2018 patient seen in follow-up on selective care unit, he is awake and alert, in no acute distress, he is currently on 2 L per nasal cannula, his pulse ox is 96%. Patient has been started on Coumadin, last night he received 10 mg of Coumadin, but his INR is only 1.0 today, remains on IV heparin per weight-based protocol. Lung sounds are clear, diminished at the bases, no acute distress, no cough, no chest congestion, no fever or chills. She has a CPAP unit from home, has been wearing it at night. Today's labs have been noted , CBC was completely within normal limits. Chest pain, no hemoptysis, bilateral lower extremity ultrasound was negative for any evidence of DVT. Objective - Vital Signs Vital signs: Vital Signs Temp 98.1 F 03/24/18 11:34 Pulse 68 03/24/18 11:34 Resp 18 03/24/18 11:34 BP 112/58 03/24/18 11:34 Pulse Ox 96 03/24/18 11:34 Intake & Output 03/23/18 03/24/18 03/24/18 18:59 06:59 18:59 Intake Total 962.000 500.478 480 Balance 962.000 500.478 480 Weight 203.3 kg Intake: IV 80 Sodium Chloride 0.9% 1, 80 000 ml @ 20 mls/hr IV . Q24H [facility] Rx#:[id number] Intake, IV Titration 420.000 420.478 Amount Heparin Sod,Pork in 0.45% 250.000 420.478 NaCl 25,000 unit In 0.45 % NaCl 1 250ml.bag @ 11.2 UNITS/KG/HR 22.96 mls/hr IV .[id number] [facility] Rx#: [id number] Sodium Chloride 0.9% 1, 170 000 ml @ 20 mls/hr IV . Q24H [facility] Rx#:[id number] Oral 542 480 Other: # Voids 1 - Exam GENERAL EXAM: Alert, pleasant, 53-year-old obese white male comfortable in no apparent distress. HEAD: Normocephalic/atraumatic. EYES: Normal reaction of pupils, equal size. Conjunctiva pink, sclera white. NOSE: Clear with pink turbinates. THROAT: No erythema or exudates. NECK: No masses, no JVD, no thyroid enlargement, no adenopathy. CHEST: No chest wall deformity. Symmetrical expansion. LUNGS: Equal air entry with no crackles, wheeze, rhonchi or dullness. CVS: Regular rate and rhythm, normal S1 and S2, no gallops, no murmurs, no rubs ABDOMEN: Soft, nontender. No hepatosplenomegaly, normal bowel sounds, no guarding or rigidity. EXTREMITIES: No clubbing, no edema, no cyanosis, 2+ pulses and upper and lower extremities. MUSCULOSKELETAL: Muscle strength and tone normal. SPINE: No scoliosis or deformity SKIN: No rashes CENTRAL NERVOUS SYSTEM: Alert and oriented -3. No focal deficits, tone is normal in all 4 extremities. PSYCHIATRIC: Alert and oriented -3. Appropriate affect. Intact judgment and insight. - Labs CBC & Chem 7: 03/24/18 07:17 03/23/18 06:36 Labs: Abnormal Lab Results - Last 24 Hours (Table) 03/23/18 03/24/18 Range/Units 16:50 02:18 APTT 45.9 H 64.2 H (22.0-30.0) sec Assessment and Plan Plan: Assessment: #1 Dyspnea secondary to recurrent pulmonary emboli along with suspected acute exacerbation of chronic obstructive pulmonary disease. #2 Previous history of pulmonary embolism treated with Xarelto approximately 2-1 /2 months, ran out of samples and could not afford any longer. #3 Morbid obesity. #4 Obstructive sleep apnea utilizing CPAP in the outpatient setting. #5 Chronic and ongoing tobacco dependence. #6 Hyperlipidemia. #7 Degenerative joint disease. #8 History of kidney stones. #9 Migraine cephalgia. #10 Right lower extremity pain. #11 History of poorly healing wound. #12 Hypertension. Plan: Patient will receive 10 mg of Coumadin tonight, daily PT/INR, will continue on heparin drip per weight-based protocol. No difficulty breathing, no chest pain , no hemoptysis, cyanosis or stable, will continue with nebulized bronchodilators, Symbicort. Continue to follow I performed a history & physical examination of the patient and discussed their management with my nurse practitioner, Marcy Allen. I reviewed the nurse practitioner's note and agree with the documented findings and plan of care. Lung sounds are positive for clear breath sounds. The findings and the impression was discussed with the patient. I attest to the documentation by the nurse practitioner. Time with Patient: Less than 30
[2018-03-24] MEDS ORDERED: WARFARIN 5 MG TAB PO SCH (18:00)
[2018-03-24] MEDS ORDERED: WARFARIN 10 MG TAB PO SCH (18:00)
[2018-03-24] MEDS: SODIUM CHLORIDE 0.9% 1,000 ML IV SCH (19:58)
[2018-03-24] MEDS: amLODIPine 5 MG TAB PO SCH (19:59)
[2018-03-24] MEDS: HYDROcodone/APAP 10-325MG 1 EACH TAB PO PRN (20:00)
[2018-03-24 22:01] LABS: Glucose,Whole Blood 93 mg/dL (75-99)
[2018-03-25] MEDS: HEPARIN SOD,PORK IN 0.45% NACL 25,000 UNIT in 0.45% NACL 1 250ML.BAG IV SCH ×3 (05:34→21:18)
[2018-03-25 07:12] LABS: Glucose,Whole Blood 92 mg/dL (75-99)
[2018-03-25] MEDS: SYMBICORT 160-4.5 MCG INHALER INHALATION SCH ×2 (07:31→20:02)
[2018-03-25] MEDS: IPRATROPIUM-ALBUTEROL 3 ML NEB INHALATION SCH ×4 (07:31→20:02)
--- NOTE | 2018-03-25 09:24 | P.PN ---
Subjective This is a pleasant 53 years old male with past medical history of pulmonary embolism about 3 years ago who stopped Taking his anticoagulations for the last 3 years because of lack of insurance, before that he was taken Xarelto given as free samples by his hearing aid assistant. He hasn't seen his hearing aid assistant for 1 or 2 years, patient was not sure why he seen hearing aid assistant. Other medical problems include hypertension, hyperlipidemia, osteoarthritis as he has pain in his left hip and right knee, he has difficulty raising his right arm above his head for the last 3-4 years, history of sleep apnea, kidney stones and history of migraine, is a patient of Dr. Leon in the outpatient setting. This time he presents because of worsening chest pain of 2 days' duration which was started as the left side nonradiating, stabbing and decrease by deep breathing and coughing associated with difficulty breathing, he has some dry cough with no phlegm no hemoptysis. Patient trying not to cuff because of his pain. On admission he had CT angiogram of the thorax which showed pulmonary embolism. Patient already was started on heparin drip. Patient is currently one pack per day smoker, and consult and he agrees to quit with nicotine patch. Occasional alcohol. Uses marijuana with no other illicit drugs. 03/23/2018 Patient feels better, he still have some chest pain especially with movement or coughing. He thinks the pain medication he is getting is enough for him. Patient continued on heparin drip and started on warfarin as per eight arm operator recommendation. Vitals stable and he is saturating 94% on 3 L. He uses CPAP during the night which is his own. Leukocytosis improved. INR today 0.9. BMP was unremarkable. 03/24/2018 Patient is still complaining from pleuritic chest pain on the left side although it's improving and down to 7/10 in severity, however it's bothersome for the patient especially with coughing at times and he asked his pain medication to be increased. Patient breathing quietly and easily. He got 10 mg of Coumadin last night and his INR is still 1.0, continue with heparin drip for now. Vitas is stable and blood pressure controlled. He is saturating 92-95 % on 2-3 L via NC. Hemoglobin is stable. Hematology input is appreciated. 03/25/2018 Patient chest pain is improving and today is 5/status in severity, patient was distressed due to pain and he Tolerated Better. No Dyspnea. No Change in Urine or Bowel Habits. Vitals Are Stable. Blood Test from This Morning Are Still Pending, However Her Target INR Is 2-3, Currently Is on Coumadin 10 Mg Daily at Bedtime. Discussed with patient in details about the medication, INR management, need follow-up and all his questions were answered. Objective - Vital Signs Vital signs: Vital Signs Temp 97.8 F 03/25/18 04:00 Pulse 77 03/25/18 07:43 Resp 20 03/25/18 04:00 BP 129/84 03/25/18 04:00 Pulse Ox 97 03/25/18 04:00 Intake & Output 03/24/18 03/25/18 03/25/18 18:59 06:59 18:59 Intake Total 970 850 Balance 970 850 Weight 200.7 kg Intake: Intake, IV Titration 250 250 Amount Heparin Sod,Pork in 0.45% 250 250 NaCl 25,000 unit In 0.45 % NaCl 1 250ml.bag @ 11.2 UNITS/KG/HR 22.96 mls/hr IV .[id number] [facility] Rx#: [id number] Oral 720 600 Other: Voiding Method Toilet - Exam GENERAL: The patient is alert and oriented x3, not in any acute distress. obese HEENT: Pupils are round and equally reacting to light. EOMI. No scleral icterus. No conjunctival pallor. Normocephalic, atraumatic. No pharyngeal erythema. No thyromegaly. CARDIOVASCULAR: S1 and S2 present. No murmurs, rubs, or gallops. PULMONARY: Chest is clear to auscultation, no wheezing or crackles. ABDOMEN: Soft, nontender, nondistended, normoactive bowel sounds. No palpable organomegaly. MUSCULOSKELETAL: No joint swelling or deformity. EXTREMITIES: No cyanosis, clubbing, or pedal edema. NEUROLOGICAL: Gross neurological examination did not reveal any focal deficits. SKIN: No rashes. - Labs CBC & Chem 7: 03/24/18 07:17 03/23/18 06:36 Assessment and Plan Assessment: Recurrent pulmonary embolism History of pulmonary embolism not on anticoagulation Hypertension Hyperlipidemia Osteoarthritis History of sleep apnea on CPAP/BiPAP History of kidney stones History of migraine Chronic back pain Plan: This is a pleasant 53 years old male who presents because of acute pulmonary embolism. Continue with heparin drip, and change to oral anticoagulations when appropriate. Call pulmonary consult. Hematology and oncology consults. asbestos removal worker consult. Pain management. Nicotine patch. Labs and medication were reviewed.. Continue same treatment. Continue with symptomatic treatment. Resume home medication. Monitor lytes and vitals. DVT and GI prophylaxis. Further recommendations of the clinical course of the patient DVT prophylaxis: heparin GI Prophylaxis: Pepcid PT/OT: Pending Prognosis is guarded
[2018-03-25] MEDS: FAMOTIDINE 20 MG TAB PO SCH ×2 (10:15→20:36)
[2018-03-25] MEDS: METOPROLOL TARTRATE 50 MG TAB PO SCH ×2 (10:15→20:36)
[2018-03-25] MEDS: DOCUSATE 100 MG CAP PO SCH ×2 (10:15→20:36)
[2018-03-25] MEDS: NICOTINE 21MG/24HR PATCH TRANSDERM SCH (10:15)
[2018-03-25] MEDS: ATORVASTATIN 20 MG TAB PO SCH (10:15)
[2018-03-25 11:04] LABS: Basophils % (A) 1 %; Eosinophils # (A) 0.4 k/uL (0-0.7); Eosinophils % (A) 6 %; HCT 46.1 % (39.0-53.0); HGB 14.9 gm/dL (13.0-17.5); Lymphocytes # (A) 1.5 k/uL (1.0-4.8); Lymphocytes % (A) 22 %; MCH 28.3 pg (25.0-35.0); MCHC 32.3 g/dL (31.0-37.0); MCV 87.5 fL (80.0-100.0); Mean Platelet Volume 7.2; Monocytes # (A) 0.3 k/uL (0-1.0); Monocytes % (A) 5 %; Neutrophils # (A) 4.4 k/uL (1.3-7.7); Neutrophils % (A) 65 %; Platelet Count 316 k/uL (150-450); RBC 5.27 m/uL (4.30-5.90); RDW 14.3 % (11.5-15.5); WBC 6.8 k/uL (3.8-10.6)
[2018-03-25 11:17] LABS: Prothrombin Time 10.9 sec (9.0-12.0)
[2018-03-25 11:48] LABS: Anion Gap 7 mmol/L; Blood Urea Nitrogen 17 mg/dL (9-20); Calcium 9.4 mg/dL (8.4-10.2); Carbon Dioxide 28 mmol/L (22-30); Chloride 104 mmol/L (98-107); Glucose 147 mg/dL (74-99); Potassium 4.5 mmol/L (3.5-5.1); Sodium 139 mmol/L (137-145)
[2018-03-25] MEDS: HYDROcodone/APAP 10-325MG 1 EACH TAB PO PRN ×2 (12:17→21:17)
--- NOTE | 2018-03-25 16:22 | PN ---
PROGRESS NOTE DATE OF SERVICE: 03/25/2018 This is a 53-year-old male who we saw in consultation in the emergency room. He came in with shortness of breath and chest discomfort secondary to bilateral pulmonary emboli. This is his 2nd embolism. In addition, he had an exacerbation of his underlying COPD. He is a heavy smoker. The patient was started on Coumadin. He could not afford a factor 10A inhibitor. He has a previous history of PE for which he took 2 1/2 months of factor 10A inhibitor, I believe Xarelto. Apparently, he was getting it free and when it ran out he had to stop therapy. We did ask him to see Hematology for evaluation of a hypercoagulable state. He is feeling better. Less short of breath. Not wearing any supplemental oxygen. The patient is resting comfortably, laying flat in bed. There is no audible wheezing. There is no use of accessory muscles or any evidence of any respiratory difficulty. Current vital signs are reviewed. Temperature 97.3, heart rate 77, respiratory rate 20, blood pressure 132/74, mean 93, room air saturation 90%. Appears in no acute distress. HEENT examination is grossly unremarkable. Mucous membranes are moist. Neck is supple. Full range of motion. No adenopathy or thyromegaly. Neck veins are flat. Cardiovascular examination reveals regular rhythm and rate. S1, S2 normal. No S3, S4, or murmur. Lungs reveal clear breath sounds. No wheezes, rhonchi. No crackles. Breath sounds are diminished throughout. Abdomen is soft, but obese. Bowel sounds are heard. Extremities are intact. No cyanosis, clubbing, or edema. Skin without rash. Neurologic examination is brief but nonfocal. Currently, his white count is 6.8, hemoglobin 14.9, hematocrit 46.1, platelet count 316,000. His PT/INR are still 10.9 and 1.0, the same as they were yesterday. Sodium, potassium, chloride, CO2 all normal. BUN and creatinine were normal. I will have my nurse practitioner prescribe him 15 mg of Coumadin tonight. We will make sure that he has a PT/INR in the morning. ASSESSMENT: 1. Shortness of breath secondary to recurrent bilateral pulmonary emboli. 2. Probable mild chronic obstructive pulmonary disease exacerbation. 3. Previous history of pulmonary embolism treated with 2 1/2 months of Xarelto. 4. Morbid obesity and sedentary lifestyle. 5. Sleep apnea syndrome, currently on CPAP. 6. Chronic and ongoing tobacco dependence. 7. Hyperlipidemia. 8. Degenerative joint disease. 9. History of kidney stones. 10.Migraine cephalgia. 11.Right lower extremity pain, with negative Dopplers of the lower extremities. 12.History of poorly healing wounds. 13.History of hypertension. PLAN: The patient will get 15 mg of Coumadin tonight. His PT/INR has not budged. Additional recommendations and suggestions are forthcoming. Hematology will decide about whether or not the patient has hypercoagulable state. I would think that at least a year of therapy would be indicated. No additional recommendations are made. Prognosis is guarded. MMODL / IJN: [id number] /
[2018-03-25] MEDS: SODIUM CHLORIDE 0.9% 1,000 ML IV SCH (17:13)
[2018-03-25] MEDS: WARFARIN 5 MG TAB PO SCH (17:14)
[2018-03-25] MEDS: amLODIPine 5 MG TAB PO SCH (20:36)
[2018-03-26] MEDS: HEPARIN SOD,PORK IN 0.45% NACL 25,000 UNIT in 0.45% NACL 1 250ML.BAG IV SCH ×3 (06:30→23:45)
[2018-03-26] MEDS: DOCUSATE 100 MG CAP PO SCH ×2 (07:44→23:39)
[2018-03-26] MEDS: METOPROLOL TARTRATE 50 MG TAB PO SCH ×2 (07:44→23:39)
[2018-03-26] MEDS: ATORVASTATIN 20 MG TAB PO SCH (07:44)
[2018-03-26] MEDS: FAMOTIDINE 20 MG TAB PO SCH ×2 (07:44→23:39)
[2018-03-26] MEDS: NICOTINE 21MG/24HR PATCH TRANSDERM SCH (07:45)
[2018-03-26] MEDS: SYMBICORT 160-4.5 MCG INHALER INHALATION SCH ×2 (08:13→20:57)
[2018-03-26] MEDS: IPRATROPIUM-ALBUTEROL 3 ML NEB INHALATION SCH ×4 (08:13→20:56)
[2018-03-26 11:08] LABS: Basophils # (A) 0.1 k/uL (0-0.2); Basophils % (A) 1 %; Eosinophils # (A) 0.5 k/uL (0-0.7); Eosinophils % (A) 7 %; HCT 45.6 % (39.0-53.0); HGB 14.3 gm/dL (13.0-17.5); Lymphocytes # (A) 1.8 k/uL (1.0-4.8); Lymphocytes % (A) 27 %; MCH 27.3 pg (25.0-35.0); MCHC 31.4 g/dL (31.0-37.0); MCV 86.9 fL (80.0-100.0); Mean Platelet Volume 7.2; Monocytes # (A) 0.4 k/uL (0-1.0); Monocytes % (A) 5 %; Neutrophils % (A) 59 %; Platelet Count 326 k/uL (150-450); RBC 5.25 m/uL (4.30-5.90); RDW 14.4 % (11.5-15.5); WBC 6.8 k/uL (3.8-10.6)
[2018-03-26 11:13] LABS: INR 1.1 (<1.2); Prothrombin Time 11.9 sec (9.0-12.0)
--- NOTE | 2018-03-26 13:38 | PN ---
PROGRESS NOTE This is a patient who was admitted with diagnosis of recurrent unprovoked pulmonary embolism. The patient was seen by Hematology. The patient will follow up with Dr. Gomes in the office in a couple weeks to determine whether not the patient has a hypercoagulable state. This is his second unprovoked pulmonary embolism. The patient is a heavy smoker. He is obese. He is not particularly active. These may be risk factors enough. Anyway, the patient is doing well. The patient was placed on IV heparin and Coumadin. He cannot afford a factor 10A inhibitor. During his first pulmonary embolism episode, he took Xarelto only for about 2 and half months because he could not afford it after that and prior to that it was being given to him. Current vital signs are reviewed temperature is 98.5, heart rate 77, respiratory rate 18, blood pressure 132/77, mean 95, room air saturation 94 to 95%. Appears in no acute distress. HEENT examination is grossly unremarkable. Mucous membranes are moist. No oral lesions. Neck is supple. Full range of motion. No adenopathy or thyromegaly. Neck veins are flat. Cardiovascular examination reveals regular rhythm rate. S1, S2 normal. No S3, S4, or murmur. Lungs reveal clear breath sounds. No wheezes, rhonchi, or crackles. Abdomen is soft. Bowel sounds are heard. Extremities are intact. No cyanosis, clubbing, or edema. Skin without rash. The neurologic examination is nonfocal. LABS: Reviewed. White count 6.8, hemoglobin 14.3, hematocrit 45.6, and a platelet count 326,000. The PT is 11.9, INR 1.1, PTT is 68. The rest of the labs are reviewed. Medications are reviewed. ASSESSMENT: 1. Shortness of breath, secondary to recurrent unprovoked bilateral pulmonary emboli. 2. Probable mild chronic obstructive pulmonary disease exacerbation. 3. Previous history of pulmonary embolism, treated with two and half months of Xarelto, also unprovoked. 4. Morbid obesity and sedentary lifestyle. 5. Sleep apnea syndrome, currently on CPAP. 6. Chronic and ongoing tobacco dependence. 7. Hyperlipidemia. 8. Degenerative joint disease. 9. History of kidney stones. 10.History of migraine cephalgia. 11.Right lower extremity pain with negative Dopplers of the lower extremity. 12.History of poorly healing wounds. 13.History of hypertension. PLAN: The patient will get some additional Coumadin tonight. We will give him another 15 mg. Additional recommendations and suggestions are forthcoming. Prognosis is guarded. He will follow up with Hematology in the near future to determine hypercoagulability. Prognosis is guarded. We will continue to follow. Additional recommendations will be made where appropriate. BILL / SULLYN: [id number] /
[2018-03-26] MEDS: SODIUM CHLORIDE 0.9% 1,000 ML IV SCH (13:51)
[2018-03-26] MEDS: WARFARIN 5 MG TAB PO SCH (17:26)
[2018-03-26] MEDS: HYDROcodone/APAP 10-325MG 1 EACH TAB PO PRN (23:39)
[2018-03-26] MEDS: amLODIPine 5 MG TAB PO SCH (23:39)
--- NOTE | 2018-03-27 00:07 | P.PN ---
Subjective This is a pleasant 53 years old male with past medical history of pulmonary embolism about 3 years ago who stopped Taking his anticoagulations for the last 3 years because of lack of insurance, before that he was taken Xarelto given as free samples by his hand cutter apprentice. He hasn't seen his hand cutter apprentice for 1 or 2 years, patient was not sure why he seen hand cutter apprentice. Other medical problems include hypertension, hyperlipidemia, osteoarthritis as he has pain in his left hip and right knee, he has difficulty raising his right arm above his head for the last 3-4 years, history of sleep apnea, kidney stones and history of migraine, is a patient of Dr. Leon in the outpatient setting. This time he presents because of worsening chest pain of 2 days' duration which was started as the left side nonradiating, stabbing and decrease by deep breathing and coughing associated with difficulty breathing, he has some dry cough with no phlegm no hemoptysis. Patient trying not to cuff because of his pain. On admission he had CT angiogram of the thorax which showed pulmonary embolism. Patient already was started on heparin drip. Patient is currently one pack per day smoker, and consult and he agrees to quit with nicotine patch. Occasional alcohol. Uses marijuana with no other illicit drugs. 03/23/2018 Patient feels better, he still have some chest pain especially with movement or coughing. He thinks the pain medication he is getting is enough for him. Patient continued on heparin drip and started on warfarin as per auto mechanics instructor recommendation. Vitals stable and he is saturating 94% on 3 L. He uses CPAP during the night which is his own. Leukocytosis improved. INR today 0.9. BMP was unremarkable. 03/24/2018 Patient is still complaining from pleuritic chest pain on the left side although it's improving and down to 7/10 in severity, however it's bothersome for the patient especially with coughing at times and he asked his pain medication to be increased. Patient breathing quietly and easily. He got 10 mg of Coumadin last night and his INR is still 1.0, continue with heparin drip for now. Vitas is stable and blood pressure controlled. He is saturating 92-95 % on 2-3 L via NC. Hemoglobin is stable. Hematology input is appreciated. 03/25/2018 Patient chest pain is improving and today is 5/status in severity, patient was distressed due to pain and he Tolerated Better. No Dyspnea. No Change in Urine or Bowel Habits. Vitals Are Stable. Blood Test from This Morning Are Still Pending, However Her Target INR Is 2-3, Currently Is on Coumadin 10 Mg Daily at Bedtime. Discussed with patient in details about the medication, INR management, need follow-up and all his questions were answered. 03/26/2018 Patient gave improving with chest pain today is 45/10 in severity. He is saturating 98% on room air. MRSA Vitas looks stable. INR today: Patient currently on Coumadin 15 mg, recommended by pulmonary team. Hematology follow-up is appreciated. pt need hematology follow up in 3-4 weeks. pt needs to follow up with his INR with his pcp upon discharge. Objective - Vital Signs Vital signs: Vital Signs Temp 98.5 F 03/26/18 05:47 Pulse 77 03/26/18 08:25 Resp 24 03/26/18 05:47 BP 132/77 03/26/18 05:47 Pulse Ox 93 L 03/26/18 08:14 Intake & Output 03/25/18 03/26/18 03/26/18 18:59 06:59 18:59 Intake Total 410 500 Balance 410 500 Intake: Intake, IV Titration 410 500 Amount Heparin Sod,Pork in 0.45% 250 500 NaCl 25,000 unit In 0.45 % NaCl 1 250ml.bag @ 11.2 UNITS/KG/HR 22.96 mls/hr IV .[id number] [facility] Rx#: [id number] Sodium Chloride 0.9% 1, 160 000 ml @ 20 mls/hr IV . Q24H [facility] Rx#:[id number] Other: # Voids 3 - Exam GENERAL: The patient is alert and oriented x3, not in any acute distress. obese HEENT: Pupils are round and equally reacting to light. EOMI. No scleral icterus. No conjunctival pallor. Normocephalic, atraumatic. No pharyngeal erythema. No thyromegaly. CARDIOVASCULAR: S1 and S2 present. No murmurs, rubs, or gallops. PULMONARY: Chest is clear to auscultation, no wheezing or crackles. ABDOMEN: Soft, nontender, nondistended, normoactive bowel sounds. No palpable organomegaly. MUSCULOSKELETAL: No joint swelling or deformity. EXTREMITIES: No cyanosis, clubbing, or pedal edema. NEUROLOGICAL: Gross neurological examination did not reveal any focal deficits. SKIN: No rashes. - Labs CBC & Chem 7: 03/26/18 10:20 03/25/18 10:27 Labs: Abnormal Lab Results - Last 24 Hours (Table) 03/25/18 03/25/18 Range/Units 10:27 10:27 APTT 55.6 H (22.0-30.0) sec Glucose 147 H (74-99) mg/dL Assessment and Plan Assessment: Recurrent pulmonary embolism History of pulmonary embolism not on anticoagulation Hypertension Hyperlipidemia Osteoarthritis History of sleep apnea on CPAP/BiPAP History of kidney stones History of migraine Chronic back pain Plan: This is a pleasant 53 years old male who presents because of acute pulmonary embolism. Continue with heparin drip, and change to oral anticoagulations when appropriate. Call pulmonary consult. Hematology and oncology consults. construction pit worker consult. Pain management. Nicotine patch. Labs and medication were reviewed.. Continue same treatment. Continue with symptomatic treatment. Resume home medication. Monitor lytes and vitals. DVT and GI prophylaxis. Further recommendations of the clinical course of the patient DVT prophylaxis: heparin GI Prophylaxis: Pepcid PT/OT: Pending Prognosis is guarded will resume the care of the pt on tuesday03/27/18
[2018-03-27] MEDS: HEPARIN SOD,PORK IN 0.45% NACL 25,000 UNIT in 0.45% NACL 1 250ML.BAG IV SCH ×3 (07:35→23:48)
[2018-03-27 07:40] LABS: Basophils # (A) 0.1 k/uL (0-0.2); Basophils % (A) 1 %; Eosinophils # (A) 0.5 k/uL (0-0.7); Eosinophils % (A) 6 %; HGB 14.1 gm/dL (13.0-17.5); Lymphocytes # (A) 2.4 k/uL (1.0-4.8); Lymphocytes % (A) 29 %; MCH 28.3 pg (25.0-35.0); MCV 88.3 fL (80.0-100.0); Mean Platelet Volume 6.5; Monocytes # (A) 0.4 k/uL (0-1.0); Monocytes % (A) 5 %; Neutrophils % (A) 58 %; Platelet Count 322 k/uL (150-450); RBC 4.98 m/uL (4.30-5.90); RDW 14.3 % (11.5-15.5); WBC 8.5 k/uL (3.8-10.6)
[2018-03-27] MEDS: SYMBICORT 160-4.5 MCG INHALER INHALATION SCH ×2 (07:48→19:26)
[2018-03-27] MEDS: IPRATROPIUM-ALBUTEROL 3 ML NEB INHALATION SCH ×4 (07:48→19:26)
[2018-03-27 07:49] LABS: INR 1.4 (<1.2); Prothrombin Time 14.4 sec (9.0-12.0)
[2018-03-27] MEDS: FAMOTIDINE 20 MG TAB PO SCH ×2 (08:31→20:05)
[2018-03-27] MEDS: METOPROLOL TARTRATE 50 MG TAB PO SCH ×2 (08:31→20:06)
[2018-03-27] MEDS: DOCUSATE 100 MG CAP PO SCH ×2 (08:31→20:05)
[2018-03-27] MEDS: NICOTINE 21MG/24HR PATCH TRANSDERM SCH (08:31)
[2018-03-27] MEDS: ATORVASTATIN 20 MG TAB PO SCH (08:31)
[2018-03-27] MEDS: HYDROcodone/APAP 10-325MG 1 EACH TAB PO PRN ×3 (08:35→20:11)
[2018-03-27] MEDS: SODIUM CHLORIDE 0.9% 1,000 ML IV SCH (14:55)
--- NOTE | 2018-03-27 15:00 | P.PN ---
Subjective Progress Note Date: 03/27/18 Principal diagnosis: Dyspnea secondary to small bilateral pulmonary emboli and suspected exacerbation of chronic obstructive pulmonary disease Patient is seen today 03/23/2018 in follow-up for his dyspnea secondary to bilateral PE and COPD exacerbation. He is seen on the selective care unit. He is awake and alert in no acute distress. He is breathing better today as compared to yesterday. Maintaining good O2 saturations in the 90s on room air. He's been afebrile. Dopplers of the lower extremity were negative. Remains on heparin drip. He was initiated on warfarin. INR 0.9. White count 8.3. Hemoglobin 14.5. Creatinine 1.11. He is maintained on DuoNeb inhalations, Symbicort. Habitrol patch is in place. On 03/24/2018 patient seen in follow-up on selective care unit, he is awake and alert, in no acute distress, he is currently on 2 L per nasal cannula, his pulse ox is 96%. Patient has been started on Coumadin, last night he received 10 mg of Coumadin, but his INR is only 1.0 today, remains on IV heparin per weight-based protocol. Lung sounds are clear, diminished at the bases, no acute distress, no cough, no chest congestion, no fever or chills. She has a CPAP unit from home, has been wearing it at night. Today's labs have been noted , CBC was completely within normal limits. Chest pain, no hemoptysis, bilateral lower extremity ultrasound was negative for any evidence of DVT. On 03/27/2018 patient seen in follow-up on medical surgical floor. No acute distress, her pulse ox is 90-94%, patient is wearing his CPAP from home at bedtime. Vital signs are stable, no chest pain, no cough, no hemoptysis, patient's INR today is 1.4, patient did receive 50 mg of Coumadin last night, remains on heparin drip per weight-based protocol. Lung sounds are clear, diminished at the bases, today's lab work has been reviewed, CBC is within normal limits. No acute events overnight, patient will receive another 50 mg of Coumadin tonight. Objective - Vital Signs Vital signs: Vital Signs Temp 98.3 F 03/27/18 14:53 Pulse 61 03/27/18 14:53 Resp 20 03/27/18 14:53 BP 143/81 02/04/19 14:53 Pulse Ox 90 L 03/27/18 14:53 Intake & Output 03/26/18 03/27/18 03/27/18 18:59 06:59 18:59 Intake Total 242.987 250 272.14 Balance 242.987 250 272.14 Intake: Intake, IV Titration 242.987 250 272.14 Amount Heparin Sod,Pork in 0.45% 242.987 250 272.14 NaCl 25,000 unit In 0.45 % NaCl 1 250ml.bag @ 11.2 UNITS/KG/HR 22.96 mls/hr IV .[id number] [facility] Rx#: [id number] Other: Voiding Method Toilet Toilet Toilet # Voids 3 2 3 # Bowel Movements 0 - Exam GENERAL EXAM: Alert, pleasant, 53-year-old obese white male comfortable in no apparent distress. HEAD: Normocephalic/atraumatic. EYES: Normal reaction of pupils, equal size. Conjunctiva pink, sclera white. NOSE: Clear with pink turbinates. THROAT: No erythema or exudates. NECK: No masses, no JVD, no thyroid enlargement, no adenopathy. CHEST: No chest wall deformity. Symmetrical expansion. LUNGS: Equal air entry with no crackles, wheeze, rhonchi or dullness. CVS: Regular rate and rhythm, normal S1 and S2, no gallops, no murmurs, no rubs ABDOMEN: Soft, nontender. No hepatosplenomegaly, normal bowel sounds, no guarding or rigidity. EXTREMITIES: No clubbing, no edema, no cyanosis, 2+ pulses and upper and lower extremities. MUSCULOSKELETAL: Muscle strength and tone normal. SPINE: No scoliosis or deformity SKIN: No rashes CENTRAL NERVOUS SYSTEM: Alert and oriented -3. No focal deficits, tone is normal in all 4 extremities. PSYCHIATRIC: Alert and oriented -3. Appropriate affect. Intact judgment and insight. - Labs CBC & Chem 7: 03/27/18 07:18 03/25/18 10:27 Labs: Abnormal Lab Results - Last 24 Hours (Table) 03/27/18 Range/Units 07:18 PT 14.4 H (9.0-12.0) sec INR 1.4 H (<1.2) APTT 73.0 H (22.0-30.0) sec Assessment and Plan Plan: Assessment: #1 Dyspnea secondary to recurrent pulmonary emboli along with suspected acute exacerbation of chronic obstructive pulmonary disease. #2 Previous history of pulmonary embolism treated with Xarelto approximately 2-1 /2 months, ran out of samples and could not afford any longer. #3 Morbid obesity. #4 Obstructive sleep apnea utilizing CPAP in the outpatient setting. #5 Chronic and ongoing tobacco dependence. #6 Hyperlipidemia. #7 Degenerative joint disease. #8 History of kidney stones. #9 Migraine cephalgia. #10 Right lower extremity pain. #11 History of poorly healing wound. #12 Hypertension. Plan: Patient will receive of the 50 mg of Coumadin tonight, INR 1.4, no complaints of chest pain, dyspnea, cough or hemoptysis. Continue with nebulized bronchodilator's, Symbicort and his CPAP unit from home. We'll continue to follow. I performed a history & physical examination of the patient and discussed their management with my nurse practitioner, Marcy Allen. I reviewed the nurse practitioner's note and agree with the documented findings and plan of care. Lung sounds are positive for clear breath sounds. The findings and the impression was discussed with the patient. I attest to the documentation by the nurse practitioner. Time with Patient: Less than 30
[2018-03-27] MEDS: WARFARIN 5 MG TAB PO SCH (17:36)
--- NOTE | 2018-03-27 17:55 | P.PN ---
Subjective Progress Note Date: 03/27/18 Principal diagnosis: 2nd PE, unprovoked In f/u today pt has no c/o, no new pain in the chest, he is ambulating, denies bleeding Objective - Vital Signs Vital signs: Vital Signs Temp 98.3 F 03/27/18 14:53 Pulse 61 03/27/18 14:53 Resp 20 03/27/18 16:00 BP 143/81 03/27/18 14:53 Pulse Ox 90 L 03/27/18 14:53 Intake & Output 03/26/18 03/27/18 03/27/18 18:59 06:59 18:59 Intake Total 242.987 250 500.00 Balance 242.987 250 500.00 Intake: Intake, IV Titration 242.987 250 500.00 Amount Heparin Sod,Pork in 0.45% 242.987 250 500.00 NaCl 25,000 unit In 0.45 % NaCl 1 250ml.bag @ 11.2 UNITS/KG/HR 22.96 mls/hr IV .[id number] [facility] Rx#: [id number] Other: Voiding Method Toilet Toilet Toilet # Voids 3 2 3 # Bowel Movements 0 - Constitutional General appearance: Present: cooperative, morbidly obese, no acute distress - EENT Eyes: Present: anicteric sclerae - Respiratory Respiratory: bilateral: CTA - Cardiovascular Heart sounds: normal: S1, S2 - Gastrointestinal General gastrointestinal: Present: normal bowel sounds - Integumentary Integumentary: Present: normal - Neurologic Neurologic: Present: CNII-XII intact - Musculoskeletal Musculoskeletal: Present: strength equal bilaterally - Psychiatric Psychiatric: Present: A&O x's 3, appropriate affect, intact judgment & insight - Labs CBC & Chem 7: 03/27/18 07:18 03/25/18 10:27 Labs: Abnormal Lab Results - Last 24 Hours (Table) 03/27/18 Range/Units 07:18 PT 14.4 H (9.0-12.0) sec INR 1.4 H (<1.2) APTT 73.0 H (22.0-30.0) sec Assessment and Plan (1) Pulmonary embolism Narrative/Plan: Second unprovoked pulmonary embolism. Possibility of recommendation of lifelong anticoagulation, as long as it is tolerated, due to second unprovoked PE. Doppler of the bilateral lower extremities was negative. Hypercoagulable workup recommended. He does have children and this could have implications for his children. This plan will be deferred until pt has insurance coverage as the labs are expensive. He verbalized understanding the new plan. Pt on heparin, awaiting therapeutic INR. Pt educated on close f/u of INR Current Visit: Yes Status: Acute Priority: High Code(s): I26.99 - OTHER PULMONARY EMBOLISM WITHOUT ACUTE COR PULMONALE SNOMED Code(s): 73542011
[2018-03-27] MEDS: amLODIPine 5 MG TAB PO SCH (20:05)
--- NOTE | 2018-03-28 07:43 | PN ---
PROGRESS NOTE DATE OF SERVICE: 03/27/2018 PRESENTING COMPLAINT: Short of breath. INTERVAL HISTORY: Patient admitted with bilateral pulmonary embolism. The patient is put on IV heparin and also Coumadin. The patient is having some inspiratory pain, which is much improved. Tolerating a diet. Had a bowel movement. Lying in bed. REVIEW OF SYSTEMS: Done for constitutional, cardiovascular, GI, pulmonary; relevant findings as above. CURRENT MEDICATIONS: Current medications are reviewed that include IV heparin and Coumadin. PHYSICAL EXAMINATION: On examination, temperature 98.3 pulse 61, respiration 20, blood pressure 143/81, pulse ox 90% on room air. GENERAL APPEARANCE: Morbidly obese, BMI 52.5, lying in bed, awake. EYES: Pupils equal. Conjunctivae normal. HENT: External appearance of nose and ears normal. Oral cavity normal. NECK: Short, thick. JVD unable to assess. Mass not palpable. RESPIRATORY: Effort normal. LUNGS: Distant breath sounds. CARDIOVASCULAR: First and second sounds normal. No edema. ABDOMEN: Soft, nontender. Liver and spleen not palpable. PSYCHIATRY: Alert and oriented x3. Mood and affect normal. INVESTIGATIONS: White count 8.5, hemoglobin 14.1. INR 1.4. ASSESSMENT: 1. Acute bilateral pulmonary embolism. 2. IV heparin monitoring. 3. Chronic obstructive pulmonary disease. 4. Hyperlipidemia. 5. Essential hypertension. 6. Primary osteoarthritis. 7. Obstructive sleep apnea, uses CPAP. 8. Chronic low back pain. 9. Chronic nicotine dependence. Patient active cigarette smoker. 10.Coumadin monitoring. PLAN: Continue patient on IV heparin and Coumadin. Patient overall feeling a bit better. Has a nicotine patch in place. We will wait for INR to get therapeutic. The patient was seen by Dr. Gomes from Hematology. This is patient's second unprovoked pulmonary embolism. Will probably need anticoagulation indefinitely. Care was discussed with the patient. Questions were answered. The patient was negative for DVT in both lower extremities. MMODL / IJN: [id number] /
[2018-03-28] MEDS: IPRATROPIUM-ALBUTEROL 3 ML NEB INHALATION SCH ×4 (08:26→21:33)
[2018-03-28] MEDS: SYMBICORT 160-4.5 MCG INHALER INHALATION SCH ×2 (08:26→21:33)
[2018-03-28] MEDS: DOCUSATE 100 MG CAP PO SCH ×2 (09:04→21:45)
[2018-03-28] MEDS: NICOTINE 21MG/24HR PATCH TRANSDERM SCH (09:04)
[2018-03-28] MEDS: FAMOTIDINE 20 MG TAB PO SCH ×2 (09:04→21:45)
[2018-03-28] MEDS: METOPROLOL TARTRATE 50 MG TAB PO SCH ×2 (09:04→21:45)
[2018-03-28] MEDS: ATORVASTATIN 20 MG TAB PO SCH (09:04)
[2018-03-28 09:50] LABS: Basophils # (A) 0.1 k/uL (0-0.2); Basophils % (A) 1 %; Eosinophils # (A) 0.6 k/uL (0-0.7); Eosinophils % (A) 6 %; HCT 45.9 % (39.0-53.0); HGB 14.3 gm/dL (13.0-17.5); Lymphocytes # (A) 2.4 k/uL (1.0-4.8); Lymphocytes % (A) 26 %; MCH 27.7 pg (25.0-35.0); MCHC 31.1 g/dL (31.0-37.0); MCV 89.1 fL (80.0-100.0); Mean Platelet Volume 7.2; Monocytes # (A) 0.4 k/uL (0-1.0); Monocytes % (A) 5 %; Neutrophils # (A) 5.4 k/uL (1.3-7.7); Neutrophils % (A) 61 %; Platelet Count 322 k/uL (150-450); RBC 5.15 m/uL (4.30-5.90); RDW 14.4 % (11.5-15.5)
[2018-03-28 10:16] LABS: INR 1.8 (<1.2); Prothrombin Time 17.7 sec (9.0-12.0)
[2018-03-28 10:28] LABS: Partial Thromboplastin Time 101.3 sec (22.0-30.0)
[2018-03-28] MEDS: HEPARIN SOD,PORK IN 0.45% NACL 25,000 UNIT in 0.45% NACL 1 250ML.BAG IV SCH (11:38)
[2018-03-28 12:59] VITALS: BMI 52.4
[2018-03-28] MEDS: SODIUM CHLORIDE 0.9% 1,000 ML IV SCH (13:06)
[2018-03-28 15:24] VITALS: RESP 20
[2018-03-28] MEDS: HYDROcodone/APAP 10-325MG 1 EACH TAB PO PRN (16:02)
[2018-03-28] MEDS: WARFARIN 5 MG TAB PO SCH (17:26)
[2018-03-28] MEDS: amLODIPine 5 MG TAB PO SCH (21:45)
--- NOTE | 2018-03-28 22:37 | PN ---
PROGRESS NOTE DATE OF SERVICE: 03/28/2018 PRESENTING COMPLAINT: Short of breath. INTERVAL HISTORY: Patient with bilateral pulmonary embolism. Remains on IV heparin and Coumadin. Chest pain is better. Tolerating a diet. No new issues. Lying in bed. REVIEW OF SYSTEMS: Done for constitutional, cardiovascular, GI, pulmonary and relevant findings as above. CURRENT MEDICATIONS: Reviewed that include IV heparin and 15 mg of Coumadin. PHYSICAL EXAMINATION: VITAL SIGNS: Temperature 98.1, pulse 57, respiratory 20, blood pressure 155/83, pulse ox 94 percent on room air. GENERAL APPEARANCE: Lying in bed, awake. EYES: Pupils equal. Conjunctivae normal. NECK: Short thick, JVD unable to assess. Mass not palpable. RESPIRATORY: Effort increased. LUNGS: Distant breath sounds. CARDIOVASCULAR: 1st and 2nd sounds normal. No edema. ABDOMEN: Soft, nontender. Liver and spleen not palpable. PSYCHIATRY: Alert and oriented x3. Mood and affect normal. INVESTIGATIONS: INR 1.8. CBC noted. ASSESSMENT: 1. Acute bilateral pulmonary embolism, unprovoked, second episode. 2. IV heparin monitoring. 3. Chronic obstructive pulmonary disease. 4. Hyperlipidemia. 5. Essential hypertension. 6. Primary osteoarthritis. 7. Obstructive sleep apnea uses CPAP. 8. Chronic low back pain. 9. Chronic nicotine dependence, patient active cigarette smoker. 10.Coumadin monitoring. PLAN: Continue with IV heparin. Continue with Coumadin. Care was discussed with the patient. Continue to follow INR. MMAUGUSTINL / SULLYN: [id number] /
[2018-03-29] MEDS: HEPARIN SOD,PORK IN 0.45% NACL 25,000 UNIT in 0.45% NACL 1 250ML.BAG IV SCH (04:27)
[2018-03-29] MEDS: SYMBICORT 160-4.5 MCG INHALER INHALATION SCH (07:34)
[2018-03-29] MEDS: IPRATROPIUM-ALBUTEROL 3 ML NEB INHALATION SCH ×3 (07:35→16:03)
[2018-03-29] MEDS: NICOTINE 21MG/24HR PATCH TRANSDERM SCH (08:16)
[2018-03-29] MEDS: FAMOTIDINE 20 MG TAB PO SCH (08:16)
[2018-03-29] MEDS: METOPROLOL TARTRATE 50 MG TAB PO SCH (08:16)
[2018-03-29] MEDS: ATORVASTATIN 20 MG TAB PO SCH (08:16)
[2018-03-29] MEDS: DOCUSATE 100 MG CAP PO SCH (08:16)
[2018-03-29] MEDS: HYDROcodone/APAP 10-325MG 1 EACH TAB PO PRN (08:17)
[2018-03-29 08:29] LABS: INR 2.1 (<1.2); Partial Thromboplastin Time 63.1 sec (22.0-30.0); Prothrombin Time 20.8 sec (9.0-12.0)
[2018-03-29 15:06] VITALS: BP 122/77; PULSE 57; TEMP 97.9
[2018-03-29] MEDS: SODIUM CHLORIDE 0.9% 1,000 ML IV SCH (15:46)
[2018-03-29] MEDS ORDERED: WARFARIN 3 MG TAB PO ONE (18:00)
--- NOTE | 2018-03-30 07:32 | DS ---
DISCHARGE SUMMARY DATE OF ADMISSION: 03/23/2018 DATE OF DISCHARGE: 03/29/2018 FINAL DIAGNOSES: 1. Acute bilateral pulmonary embolism, unprovoked second episode for lifelong anticoagulation. 2. IV heparin monitoring. 3. Chronic obstructive pulmonary disease in a current smoker. 4. Hyperlipidemia. 5. Essential hypertension. 6. Primary osteoarthritis. 7. Obstructive sleep apnea, uses CPAP. 8. Chronic low back pain from arthritis. 9. Chronic nicotine dependence, patient an active cigarette smoker. 10.Coumadin monitoring. HOSPITAL COURSE: This is a patient who had a DVT, PE 2 years ago. Yet again presented with PE. This time patient is put on IV heparin and Coumadin. Patient's INR was therapeutic today at 2.1. Breathing is stable, better. CONSULTATIONS: 1. Dr. Gomes from Hematology. 2. Dr. Reed and colleagues from Pulmonary. Initially patient did have a chest CTA that showed small pulmonary embolism. Patient also had a venous Doppler study that was negative for DVT. He was advised against smoking. PHYSICAL EXAMINATION: Temperature 97.9, pulse 57, respiration 20, blood pressure 122/77, pulse ox 94% on room air. LUNGS: Distant breath sounds. PSYCH: Alert and oriented x3. INVESTIGATIONS: White count 9, hemoglobin 14.3, INR 2.1. DISCHARGE MEDICATIONS: 1. Norvasc 5 mg q.h.s. 2. Henderson 10 one tablet p.o. b.i.d. p.r.n. 3. Lipitor 20 mg p.o. daily. 4. Nicotine patch 14. 5. Ventolin HFA 1 or 2 puffs q.6 p.r.n. 6. Symbicort 160/4.5 two puffs b.i.d. 7. Pepcid 20 mg b.i.d. 8. Atrovent HFA 2 puffs q.i.d. 9. Lopressor 150 mg b.i.d. 10.Coumadin 10 mg alternating with 15 mg. FOLLOWUP: Follow up with Dr. Gomes on 04/10/2018; Dr. Leon in 3 to 5 days; Dr. Pereira on 04/06/2018. Patient's INR to be checked on next Tuesday. MMODL / IJN: [id number] /
== END 2018-03-29 18:47 | disposition home or self-care (01) | DRG 176 ==
LOC: EC 10:43 → 3SCARD 14:00 → 4MS4W 03-24 22:23
PROVIDERS: ADMIT Hospitalist; ATTEND Hospitalist
DX: I26.99 Other pulmonary embolism without acute cor pulmonale (principal); D68.59 Other primary thrombophilia; Z68.43 Body mass index [BMI] 50.0-59.9, adult; J44.1 Chronic obstructive pulmonary disease with (acute) exacerbation; D72.829 Elevated white blood cell count, unspecified; E66.01 Morbid (severe) obesity due to excess calories; E78.5 Hyperlipidemia, unspecified; F17.210 Nicotine dependence, cigarettes, uncomplicated; Z71.6 Tobacco abuse counseling; G43.909 Migraine, unspecified, not intractable, without status migrainosus; G47.33 Obstructive sleep apnea (adult) (pediatric); G89.29 Other chronic pain; I10 Essential (primary) hypertension; I83.90 Asymptomatic varicose veins of unspecified lower extremity; M19.90 Unspecified osteoarthritis, unspecified site; M47.9 Spondylosis, unspecified; Z79.899 Other long term (current) drug therapy; Z80.3 Family history of malignant neoplasm of breast; Z81.1 Family history of alcohol abuse and dependence; Z86.711 Personal history of pulmonary embolism; Z87.442 Personal history of urinary calculi; Z96.642 Presence of left artificial hip joint; Z86.718 Personal history of other venous thrombosis and embolism; Z99.89 Dependence on other enabling machines and devices; Z56.0 Unemployment, unspecified
CPT/HCPCS: 36415; 71046; 71275; 80048; 80053; 82550; 82553; 83735; 83880; 84484; 85025; 85379; 85610; 85730; 93005; 93970; 94640; 94760; 96374; 96375; 96376; 99291

== ENCOUNTER → 2018-07-20 | Outpatient (CLI) | payer OTHER ==
--- NOTE | 2018-07-20 09:08 | CT ---
EXAMINATION TYPE: CT angio chest DATE OF EXAM: 07/20/2018 COMPARISON: 11/12/2015 and 03/22/2018 HISTORY: Difficulty breathing CT DLP: 713.9 mGycm. Automated Exposure Control for Dose Reduction was Utilized. CONTRAST: CTA scan of the thorax is performed with IV Contrast, patient injected with 80 mL of Isovue 300, pulm onary embolism protocol. MIP Images are created on CT scanner and reviewed. FINDINGS: LUNGS: There is a pleural-based 4 mm pulmonary nodule in the left upper lobe on series 5 image 53 the re is stable. There is a 2 mm solid pulmonary nodule in the right middle lobe on image 95 there is al so stable. There is a pleural-based 4 mm pulmonary nodule in the right middle lobe on image 91 is als o stable. Pleural-based 3 mm right lower lobe posterior pulmonary nodule on series 5 image 93 is also stable. There is diffuse mild peribronchial cuffing present and scattered areas of subsegmental atel ectasis. The lungs are grossly clear, there is no concerning parenchymal mass or nodule identified. There is no pleural effusion or pneumothorax seen. The tracheobronchial tree is patent. MEDIASTINUM: There is satisfactory enhancement of the central pulmonary artery, there is no CT eviden ce for pulmonary embolism in the central or segmental branches. Subsegmental branches are nondiagnost ic for embolism. No ascending thoracic aortic aneurysm arm main pulmonary artery enlargement. Trace c oronary artery calcifications are seen. Heart is upper limits of normal size without pericardial effu hayley. There are no greater than 1 cm hilar or mediastinal lymph nodes. OTHER: The thyroid gland is enlarged with substernal extent. The gallbladder is hydropic in size gilma uring 10 point for centimeters. There is a nonobstructing left upper pole renal calculus measuring 5 mm. There is periosteal reaction surrounding the posterior right sixth rib creating a pseudojoint wit h the vertebral body possibly from prior fracture deformity. Moderate multilevel degenerative changes of the spine are noted. IMPRESSION: 1. No evidence of central or segmental pulmonary embolus. The subsegmental pulmonary arteries are poo rly opacified and nondiagnostic. 2. Diffuse mild peribronchial cuffing appears chronic and may relate to repeat infectious etiology larson ch as bronchitis or reactive airway disease, more likely. 3. Hydropic size of the gallbladder. HIDA scan with CCK could evaluate for chronic cholecystitis or b iliary dyskinesia. 4. Nonobstructing left renal calculus. 5. Chronic periosteal reaction surrounding the posterior right sixth rib unchanged from 2016 creating a pseudojoint with the adjacent vertebral body is likely sequela prior injury/fracture given the sta bility over time. 6. Punctate bilateral pulmonary nodules are seen. Follow-up CT in 12 months is recommended to ensure stability given their very small size. 7. Thyromegaly with substernal extent.
== END | disposition home or self-care (01) ==
LOC: RADCTMAIN 07:29
PROVIDERS: ATTEND Physician Assistant
DX: R91.8 Other nonspecific abnormal finding of lung field (principal); E01.0 Iodine-deficiency related diffuse (endemic) goiter; Z86.711 Personal history of pulmonary embolism
CPT/HCPCS: 82565; 84520; 71275; 36415; Q9967

== ENCOUNTER → 2018-08-31 | Outpatient (CLI) | payer OTHER ==
--- NOTE | 2018-08-31 19:50 | NM ---
EXAMINATION TYPE: NM hepatobiliary w EF DATE OF EXAM: 08/31/2018 COMPARISON: NONE INDICATION: Abnormal diagnostic imaging findings TECHNIQUE: After the intravenous administration of 5.3 mCi Tc 99m Mebrofenin hepatobiliary scintigrap hy is performed. Images were obtained immediately post injection. FINDINGS: There is prompt uptake and excretion of radiotracer by the liver. Extrahepatic ducts are identified at 3 minutes. The gallbladder is visualized within 16 minutes. Small bowel activity is noted within 6 minutes. At one hour 8 ounces of oral ensure plus is given to mimic CCK and gallbladder ejection fraction is c alculated at 57 %, which is in the normal range. (Normal >35% and <80%.). IMPRESSION: 1. Normal hepatobiliary scan
== END | disposition home or self-care (01) ==
LOC: RADNMMAIN 12:55
PROVIDERS: ATTEND Physician Assistant
DX: R93.2 Abnormal findings on diagnostic imaging of liver and biliary tract (principal)
CPT/HCPCS: 78226

== ENCOUNTER → 2018-09-29 | Outpatient (CLI) | payer OTHER ==
[2018-09-29 10:45] LABS: MCH 29.5 pg (25.0-35.0); MCHC 32.7 g/dL (31.0-37.0); MCV 90.3 fL (80.0-100.0); Mean Platelet Volume 7.7; Platelet Count 336 k/uL (150-450); RBC 5.43 m/uL (4.30-5.90); RDW 15.4 % (11.5-15.5); WBC 10.2 k/uL (3.8-10.6)
[2018-09-29 10:48] LABS: INR 1.9 (<1.2); Prothrombin Time 18.4 sec (9.0-12.0)
[2018-09-29 17:15] LABS: African American GFR (CKD) 55.8 (60.0-200.0); Anion Gap 9.3 mmol/L (4.00-12.00); BUN/Creat Ratio 18.75 Ratio (12.00-20.00); Calcium 9.6 mg/dL (8.7-10.3); Carbon Dioxide 21.7 mmol/L (21.6-31.8); Potassium 4.8 mmol/L (3.5-5.5)
[2018-09-29 21:43] LABS: Hemoglobin A1C 7.3 % (4.0-6.0)
== END | disposition home or self-care (01) ==
LOC: LABWHC1 10:07
PROVIDERS: ATTEND Family Medicine
DX: E78.2 Mixed hyperlipidemia (principal); E11.9 Type 2 diabetes mellitus without complications; I10 Essential (primary) hypertension; Z86.711 Personal history of pulmonary embolism
CPT/HCPCS: 36415; 80048; 83036; 84450; 84460; 85027; 85610

== ENCOUNTER → 2018-10-06 | Outpatient (CLI) | payer OTHER ==
[2018-10-06 11:29] LABS: INR 1.5 (<1.2); Prothrombin Time 15.4 sec (9.0-12.0)
[2018-10-06 16:09] LABS: African American GFR (CKD) 65.5 (60.0-200.0); Anion Gap 10.9 mmol/L (4.00-12.00); BUN/Creat Ratio 15.71 Ratio (12.00-20.00); Calcium 9.6 mg/dL (8.7-10.3); Carbon Dioxide 21.1 mmol/L (21.6-31.8); Potassium 4.8 mmol/L (3.5-5.5)
== END ==
LOC: LABWHC1 10:36
PROVIDERS: ATTEND Family Medicine
DX: I26.99 Other pulmonary embolism without acute cor pulmonale (principal); R94.4 Abnormal results of kidney function studies
CPT/HCPCS: 36415; 80048; 85610

== ENCOUNTER → 2018-12-29 | Outpatient (CLI) | payer OTHER ==
[2018-12-29 14:56] LABS: HCT 46.8 % (39.0-53.0); HGB 15.1 gm/dL (13.0-17.5); MCH 28.8 pg (25.0-35.0); MCHC 32.3 g/dL (31.0-37.0); MCV 89.1 fL (80.0-100.0); Platelet Count 343 k/uL (150-450); RBC 5.25 m/uL (4.30-5.90); RDW 14.3 % (11.5-15.5); WBC 9.7 k/uL (3.8-10.6)
[2018-12-29 15:20] LABS: INR 2.2 (<1.2); Prothrombin Time 21.7 sec (9.0-12.0)
[2018-12-29 18:57] LABS: African American GFR (CKD) 71.7 (60.0-200.0); Anion Gap 7.8 mmol/L (4.00-12.00); BUN/Creat Ratio 15.38 Ratio (12.00-20.00); Calcium 9.6 mg/dL (8.7-10.3); Carbon Dioxide 25.2 mmol/L (21.6-31.8); Potassium 4.9 mmol/L (3.5-5.5)
[2018-12-29 21:24] LABS: Hemoglobin A1C 6.7 % (4.0-6.0)
== END | disposition home or self-care (01) ==
LOC: LABWHC1 13:13
PROVIDERS: ATTEND Family Medicine
DX: I10 Essential (primary) hypertension (principal); E78.5 Hyperlipidemia, unspecified; E11.65 Type 2 diabetes mellitus with hyperglycemia; Z86.711 Personal history of pulmonary embolism
CPT/HCPCS: 36415; 80048; 83036; 84450; 84460; 85027; 85610

== ENCOUNTER → 2019-03-21 | Outpatient (CLI) | payer OTHER ==
[2019-03-21 16:50] LABS: HCT 48.3 % (39.0-53.0); HGB 15.3 gm/dL (13.0-17.5); MCH 28.5 pg (25.0-35.0); MCHC 31.6 g/dL (31.0-37.0); MCV 90.3 fL (80.0-100.0); Mean Platelet Volume 7.6; Platelet Count 310 k/uL (150-450); RBC 5.35 m/uL (4.30-5.90); RDW 13.7 % (11.5-15.5); WBC 9.4 k/uL (3.8-10.6)
[2019-03-21 17:00] LABS: INR 2.1 (<1.2); Prothrombin Time 20.9 sec (9.0-12.0)
== END | disposition home or self-care (01) ==
LOC: LABWHC1 15:52
PROVIDERS: ATTEND Family Medicine
DX: Z09 Encounter for follow-up examination after completed treatment for conditions other than malignant neoplasm (principal); Z86.711 Personal history of pulmonary embolism
CPT/HCPCS: 36415; 85027; 85610

== ENCOUNTER → 2019-03-23 | Outpatient (CLI) | payer OTHER ==
[2019-03-23 16:44] LABS: Potassium 4.9 mmol/L (3.5-5.1)
== END | disposition home or self-care (01) ==
LOC: LABPAT 16:08
PROVIDERS: ATTEND Internal Medicine Clinical Cardiac Electrophysiology
DX: Z01.812 Encounter for preprocedural laboratory examination (principal); I47.2 Ventricular tachycardia
CPT/HCPCS: 36415; 80051; 82565; 82947; 84520

== ENCOUNTER 2019-04-02 12:46 | Day surgery (SDC) | payer OTHER ==
[2019-03-29 14:12] VITALS: BMI 54.5
[~2019-04-02 12:46] MED LIST: DEXAMETHASONE SOD PHOSPHATE 10 MG/ML 1 ML VIAL IV ONE; MIDAZOLAM 2 MG/2 ML VIAL IV PRN; ONDANSETRON 4 MG/2 ML VIAL IVP ONE
[2019-04-02] MEDS: SODIUM CHLORIDE 0.9% 1,000 ML IV SCH (13:57)
[2019-04-02 14:04] LABS: Glucose,Whole Blood 124 mg/dL (75-99)
[2019-04-02 14:40] LABS: INR 1.9 (<1.2)
[2019-04-02 14:41] LABS: Prothrombin Time 18.2 sec (9.0-12.0)
--- NOTE | 2019-04-02 16:00 | P.HPCAR ---
History of Present Illness Chief Complaint: Documented NSVT This is Rebeca Christopher PA-C dictating and H&P on this patient The patient was interviewed and examined by me as well as by Dr. Miles Case discussed with Dr. Miles and he agrees with the plan of care HPI Patient is a 54-year-old male with a past medical history significant for hypertension, dyslipidemia, diabetes, COPD, PE, current smoker, obesity, and NSVT presents for evaluation and management of NSVT. Patient has had documented NSVT for 8-10 beats during a sleep study and on an event monitor. His nuclear stress test showed a fixed defect suggestive of soft tissue tissue attenuation, no reversible defects. His LV systolic function is preserved. The study was re commended to further evaluate him. Patient seen and examined resting in bed. States he is short of breath secondary to his COPD but denied any worsening shortness of breath. He has noticed more frequent palpitations the last few days. Denies any chest pain. No dizziness or syncope. No orthopnea or PND. No lower extremity edema. ROS: No fevers, chills or rigors, no cough, phlegm or expectoration, no nausea, vomiting or diarrhea, no hematuria, dysuria, no musculoskeletal complaints, no strokes or seizures, no skin lesions. EXAMINATION: Patient is afebrile, pulse in the 100, respirations 20, blood pressure 160s over 80s, oxygen saturation 96% on room air Patient seen and examined resting in bed, does not appear to be in any acute distress Lungs with expiratory wheezing bilaterally Heart is regular, no audible murmurs JVD difficult to assess secondary to body habitus No lower extremity edema REVIEW OF LABS, ECG & MEDICAL DATA Most recent labs reviewed, WBC 9.5, hemoglobin 15.3, platelets 310, potassium 4.9, BUN 25, creatinine 1.19 INR 1.9 IMPRESSION / ASSESSMENT: NSVT, recent stress test negative for reversible ischemia, most recent echo showing LV systolic function Hypertension Dyslipidemia Diabetes COPD Current smoker Obesity Pulmonary embolism, anticoagulated with Coumadin PLAN: Proceed with EP study and further management depending on results Physical Exam Vitals: Vital Signs Temp Pulse Resp BP Pulse Ox 04/02/19 13:48 98.6 F 130 H 20 164/89 96 Intake and Output 04/02/19 04/02/19 04/02/19 06:59 14:59 22:59 Intake Total 50 Balance 50 Intake: IV 50 Other: Weight 207.2 kg Past Medical History Past Medical History: COPD, Osteoarthritis (OA), Pulmonary Embolus (PE), Renal Disease, Sleep Apnea/CPAP/BIPAP Additional Past Medical History / Comment(s): SEE DR MILES'S H&P, hx kidney stones, migraines, DWIGHT with biPAP, back pain, History of Any Multi-Drug Resistant Organisms: None Reported Past Surgical History: Heart Catheterization, Hernia Repair, Joint Replacement, Orthopedic Surgery Additional Past Surgical History / Comment(s): 11/11/15 cardiac cath and aortic angiogram, 2004 cardiac cath, umbilical hernia repair, total L hip, R hand surgery, L knee arthroscopy, right ankle surgery, states chronic pain Past Anesthesia/Blood Transfusion Reactions: No Reported Reaction Smoking Status: Current every day smoker - Past Family History Mother Family Medical History: Cancer Additional Family Medical History / Comment(s): Mother had breast cancer. She of "natural causes" at the age of 73 yrs. Father Family Medical History: Renal Disease Additional Family Medical History / Comment(s): Father was an alcoholic. He of kidney problems at the age of 65yrs. Physical Examination Vital Signs Temp Pulse Resp BP Pulse Ox 04/02/19 13:48 98.6 F 130 H 20 164/89 96 Intake and Output 04/02/19 04/02/19 04/02/19 06:59 14:59 22:59 Intake Total 50 Balance 50 Intake: IV 50 Other: Weight 207.2 kg Results Coagulation 04/02/19 Range/Units 13:55 PT 18.2 H (9.0-12.0) sec Current Medications Generic Name Dose Route Start Last Admin Trade Name Freq PRN Reason Stop Dose Admin Hydromorphone HCl 0.5 mg 04/02/19 06:30 Dilaudid IVP 04/03/19 06:31 Q5M PRN Pain Control Sodium Chloride 1,000 mls @ 50 mls/hr 04/02/19 06:30 04/02/19 13:57 Saline 0.9% IV 50 mls .Q20H KAYLIE Administration Lactated Ringer's 1,000 mls @ 20 mls/hr 04/02/19 06:30 Lactated Ringers IV .Q24H KAYLIE Midazolam HCl 2 mg 04/02/19 06:30 Versed IV 04/03/19 06:31 ONCE PRN Anxiety Intake and Output 04/02/19 04/02/19 04/02/19 06:59 14:59 22:59 Intake Total 50 Balance 50 Intake: IV 50 Other: Weight 207.2 kg Patient Weight 04/03/19 06:59 Weight 207.2 kg
[2019-04-02] MEDS ORDERED: HEPARIN SODIUM 1,000 UN/ML (10ML VL) ONE (16:07)
[2019-04-02] MEDS ORDERED: LIDOCAINE 1% INJ 10MG/ML (20 ML MDV) ONE ×2 (16:09→16:18)
[2019-04-02] MEDS ORDERED: ISOPROTERENOL 250 MCG/1.25 ML SYR IV ONE (16:18)
[2019-04-02] MEDS ORDERED: SUCCINYLCHOLINE CHLORIDE VIAL 200 MG/10 ML VIAL IV ONE (16:18)
[2019-04-02] MEDS ORDERED: NEOSTIGMINE 1 MG/ML 10 ML VIAL ONE (16:18)
[2019-04-02] MEDS ORDERED: MIDAZOLAM 2 MG/2 ML VIAL ONE (16:18)
[2019-04-02] MEDS ORDERED: fentaNYL (PF) 50 MCG/ML 2 ML AMP ONE (16:18)
[2019-04-02] MEDS ORDERED: PHENYLEPHRINE-0.9% NACL SYG 1 MG/10 ML SYRINGE ONE (16:18)
[2019-04-02] MEDS ORDERED: PROPOFOL 10 MG/ML 20 ML VIAL IV ONE (16:18)
[2019-04-02] MEDS ORDERED: GLYCOPYRROLATE 0.2 MG/ML 2 ML VIAL ONE (16:18)
[2019-04-02] MEDS ORDERED: HEPARIN SODIUM,PORCINE 10,000 UNIT/ML 1 ML VIAL ONE (16:18)
[2019-04-02] MEDS ORDERED: DEXAMETHASONE SOD PHOS (MDV) 100 MG/10 ML VIAL ONE (16:18)
[2019-04-02] MEDS ORDERED: ROCURONIUM BROMIDE 10 MG/ML 5 ML VIAL IV ONE (16:18)
[2019-04-02] MEDS ORDERED: LIDOCAINE 1% INJ 10MG/ML (20 ML MDV) SQ ONE ×2 (17:01→17:04)
[2019-04-02] MEDS ORDERED: SODIUM CHLORIDE 0.9% 500 ML 500 ML IV ONE (17:11)
[2019-04-02] MEDS ORDERED: ACETAMINOPHEN TAB 325 MG TAB PO PRN (18:19)
[2019-04-02] MEDS ORDERED: HYDROcodone/APAP 5-325MG 1 EACH TAB PO PRN (18:19)
[2019-04-02] MEDS ORDERED: HYDROmorphone 1 MG/ML 1 ML SYRINGE IVP ONE (19:15)
[2019-04-02] MEDS: HYDROmorphone 0.5 MG/0.5 ML SYRINGE IVP PRN ×2 (19:15→19:34)
[2019-04-02 19:48] LABS: Glucose,Whole Blood 122 mg/dL (75-99)
[2019-04-02] MEDS ORDERED: ACETAMINOPHEN IV (For NPO) 1,000 MG in EMPTY BAG 1 BAG IVPB ONE (20:00)
[2019-04-02] MEDS: SYMBICORT 160-4.5 MCG INHALER INHALATION SCH ×2 (20:06→21:16)
[2019-04-02] MEDS: IPRATROPIUM 0.5 MG/2.5 ML NEBU INHALATION SCH ×2 (20:06→21:16)
[2019-04-02] MEDS: LACTATED RINGERS 1,000 ML IV SCH (20:24)
[2019-04-02] MEDS: METOPROLOL TARTRATE 50 MG TAB PO SCH (20:50)
[2019-04-02] MEDS ORDERED: ATORVASTATIN 80 MG TAB PO SCH (21:00)
[2019-04-03 00:37] VITALS: RESP 18
[2019-04-03] MEDS: LACTATED RINGERS 1,000 ML IV SCH (04:36)
[2019-04-03] MEDS: SODIUM CHLORIDE 0.9% 1,000 ML IV SCH (04:36)
[2019-04-03 06:36] LABS: Glucose,Whole Blood 165 mg/dL (75-99)
[2019-04-03 07:32] LABS: INR 2.2 (<1.2); Prothrombin Time 21.3 sec (9.0-12.0)
[2019-04-03] MEDS: METOPROLOL TARTRATE 50 MG TAB PO SCH (08:13)
[2019-04-03] MEDS: SYMBICORT 160-4.5 MCG INHALER INHALATION SCH (08:24)
[2019-04-03] MEDS: IPRATROPIUM 0.5 MG/2.5 ML NEBU INHALATION SCH (08:24)
[2019-04-03] MEDS ORDERED: LISINOPRIL-HCTZ 20-12.5 MG 1 EACH TAB PO SCH (09:00)
[2019-04-03] MEDS ORDERED: metFORMIN 500 MG TAB PO SCH (09:00)
[2019-04-03 11:27] VITALS: BP 165/96; PULSE 72; TEMP 98.8
[2019-04-03 11:41] LABS: Glucose,Whole Blood 170 mg/dL (75-99)
--- NOTE | 2019-04-03 13:02 | P.DS ---
Providers Attending physician: Geoff Miles Primary care physician: [facility] Hospital Course: Patient is a 54-year-old male with a history of hypertension, dyslipidemia, diabetes, COPD, PE, current smoker, obesity and NSVT presented for further evaluation of NSVT. Yesterday he underwent a diagnostic EP study which did not reveal any inducible sustained arrhythmias. There was evidence of a slow pathway but no inducible SVT. Patient has done well post procedure. No acute events overnight. Patient examined sitting in the chair. He does complain of a cough and mild sore throat. He is short of breath at baseline due to her COPD but denies any worsening shortness of breath. He was given some IV Lasix after the procedure. No chest pain, palpitations, dizziness or syncope. He tolerated his breakfast this morning. He has been up walking to the bathroom without any difficulties. He was able to urinate after the Chambers was removed. EKG this morning shows sinus mechanism with early repolarization abnormality inferiorly INR this morning is therapeutic at 2.2 Patient is afebrile, pulse in the 70s, respirations 18, blood pressure in the 160s over 90, oxygen saturation 94% on room air Patient seen and examined sitting up in the chair, in no acute distress Lungs mildly diminished bilaterally but no wheezing rhonchi or crackles appreciated Heart is regular, no audible murmurs No visible elevated JVD No lower extremity edema Right groin site minimally tender to palpation, no palpable hematomas Impression Symptomatic NSVT, status post negative diagnostic EP study for inducible sustained arrhythmias Hypertension Dyslipidemia Diabetes COPD Pulmonary embolism on anticoagulation with Coumadin Current smoker Obesity Plan Maximize beta blockers, increase metoprolol to 75 mg twice a day Follow-up with Dr. Jesus in the office Plan - Discharge Summary Discharge Rx Participant: Yes New Discharge Prescriptions: No Action HYDROcodone/APAP 10-325MG [[place] 10-325] 1 tab PO BID PRN PRN Reason: Pain Albuterol Inhaler [Ventolin Hfa Inhaler] 1 - 2 puff INHALATION RT-Q6H PRN #1 inhaler PRN Reason: Wheezing Budesonide-Formot 160-4.5 Mcg [Symbicort 160-4.5 Mcg Inhaler] 2 puff INHALATION RT-BID #1 puff Ipratropium [place] [Atrovent Hfa] 2 puff INHALATION QID #1 inhaler Lisinopril-Hctz 20-12.5 mg [Zestoretic 20-12.5] 1 tab PO DAILY metFORMIN HCL [Glucophage] 500 mg PO BID Docusate [Colace] 100 mg PO BID Atorvastatin [Lipitor] 80 mg PO HS Warfarin [Coumadin] 10 mg PO SUTUTHSA Warfarin [Coumadin] 15 mg PO MOWEFR Metoprolol Tartrate [Lopressor] 75 mg PO BID Discharge Medication List HYDROcodone/APAP 10-325MG [[place] 10-325] 1 tab PO BID PRN 02/23/18 [History] Albuterol Inhaler [Ventolin Hfa Inhaler] 1 - 2 puff INHALATION RT-Q6H PRN #1 inhaler 03/29/18 [Rx] Budesonide-Formot 160-4.5 Mcg [Symbicort 160-4.5 Mcg Inhaler] 2 puff INHALATION RT-BID #1 puff 03/29/18 [Rx] Ipratropium [place] [Atrovent Hfa] 2 puff INHALATION QID #1 inhaler 03/29/18 [Rx] Atorvastatin [Lipitor] 80 mg PO HS 03/29/19 [History] Docusate [Colace] 100 mg PO BID 03/29/19 [History] Lisinopril-Hctz 20-12.5 mg [Zestoretic 20-12.5] 1 tab PO DAILY 03/29/19 [History] Warfarin [Coumadin] 10 mg PO SUTUTHSA 03/29/19 [History] Warfarin [Coumadin] 15 mg PO MOWEFR 03/29/19 [History] metFORMIN HCL [Glucophage] 500 mg PO BID 03/29/19 [History] Metoprolol Tartrate [Lopressor] 75 mg PO BID 04/03/19 [History] Follow up Appointment(s)/Referral(s): Remy Jesus MD [STAFF PHYSICIAN] - 04/12/19 2:30 pm Patient Instructions/Handouts: Electrophysiology Study (DC) Activity/Diet/Wound Care/Special Instructions: Post EP study - Ablation instructions 1. Keep access sites dry for 2 days. 2. No heavy lifting or straining for 2 days. 3. Avoid bending the hips repeatedly for 2 days. 4. You may go up and down stairs slowly Call if the following is noted 1. Bleeding, increasing swelling or pain at the access sites. 2. Increasing chest discomfort, especially upon taking a deep breath. 3. Increasing shortness of breath, at rest or with exertion. 4. Undue cough / phlegm 5. Difficulty or pain while swallowing. 6. Pain or change in color in the extremities. 7. Fever, chills, rigors. 8. Increasing headache or neurologic symptoms. 9. Dizziness, fainting, palpitations Continue all cardiac meds as previously prescribed
--- NOTE | 2019-04-03 13:34 | CE ---
CARDIAC ELECTROPHYSIOLOGY REPORT This is a 54-year-old male patient who has documented nonsustained ventricular tachycardia on monitoring associated with palpitations. He is brought in for diagnostic EP study and possible radiofrequency ablation. The patient is brought to the EP lab in a fasting state. Written informed consent was obtained prior to the procedure. The left shoulder area was prepped and draped as per protocol and 1% lidocaine was used for local anesthesia. Venous sheaths were placed in the right femoral vein via these 3 diagnostic catheters were positioned in the right heart (high right atrial catheter, His bundle catheter, RV catheter). The sinus cycle length was 614 milliseconds, MT interval 176, QRS 118, and QT 393 milliseconds. AH interval 78 milliseconds, HV interval 43 milliseconds. Sinus node recovery times at 600, 500 and 400 milliseconds were 1021, 1029 and 1095 milliseconds. Corresponding corrected sinus node recovery times were within normal limits. AV node Wenckebach block 290 milliseconds. Slow pathway was noted at 310 milliseconds. No AV simon re-entry was induced. Thereafter, a detailed EP study was performed on and off Isuprel. Two sites, high septum and RV apical site, were used for induction up to double extra stimuli were used. Burst stimulation was performed. A new VT was induced at the baseline state despite [address] High-dose Isuprel was employed and then at a low level of Isuprel, ventricular extra stimulation as well as burst stimulation were once again performed up to double extra stimuli. No VT induced. At the end of the procedure, all catheters removed and patient was transferred back to telemetry. Please note that the patient was quite obese. He has a history of DVT and has a history of pulmonary embolism. He is on Eliquis. We gave him IV heparin through the procedure. We also intubated him for the procedure because he was deemed to be a high risk case for conscious sedation by the public service representative. The IV Lasix was administered through the procedure. The patient tolerated the procedure well without any acute complications. RESULT: 1. Normal sinus node function. 2. Dual AV simon physiology without induction of AV simon reentry. 3. No inducible ventricular tachycardia, both on and off Isuprel. MMODL / IJN: [id number] /
[2019-04-03] MEDS ORDERED: WARFARIN 10 MG TAB PO SCH (18:00)
[2019-04-04] MEDS ORDERED: WARFARIN 7.5 MG TAB PO SCH (18:00)
== END 2019-04-03 13:10 | disposition home or self-care (01) ==
LOC: CATHEP 12:46 → 1SOBS 18:17 → CATHEP 04-03 13:10
PROVIDERS: ATTEND Internal Medicine Clinical Cardiac Electrophysiology
DX: I47.1 Supraventricular tachycardia (principal); E78.5 Hyperlipidemia, unspecified; I12.9 Hypertensive chronic kidney disease with stage 1 through stage 4 chronic kidney disease, or unspecified chronic kidney disease; E11.22 Type 2 diabetes mellitus with diabetic chronic kidney disease; N18.9 Chronic kidney disease, unspecified; Z79.84 Long term (current) use of oral hypoglycemic drugs; J44.9 Chronic obstructive pulmonary disease, unspecified; M19.90 Unspecified osteoarthritis, unspecified site; E66.9 Obesity, unspecified; Z68.43 Body mass index [BMI] 50.0-59.9, adult; F17.210 Nicotine dependence, cigarettes, uncomplicated; G47.33 Obstructive sleep apnea (adult) (pediatric); Z99.89 Dependence on other enabling machines and devices; G43.909 Migraine, unspecified, not intractable, without status migrainosus; G89.29 Other chronic pain; M54.9 Dorsalgia, unspecified; F41.9 Anxiety disorder, unspecified; F32.9 Major depressive disorder, single episode, unspecified; Z86.718 Personal history of other venous thrombosis and embolism; Z86.711 Personal history of pulmonary embolism; Z87.442 Personal history of urinary calculi; Z81.1 Family history of alcohol abuse and dependence; Z80.3 Family history of malignant neoplasm of breast; Z96.642 Presence of left artificial hip joint; Z79.01 Long term (current) use of anticoagulants; Z79.891 Long term (current) use of opiate analgesic; Z79.51 Long term (current) use of inhaled steroids; Z79.899 Other long term (current) drug therapy
CPT/HCPCS: 94640 ×4; 93623; 93620; 85610 ×2; C1894; C1769 ×2; C1730; J2250; J0330; J1644; J2710; J2001; J3010; J1100; J2370; J2704; J1170

== ENCOUNTER → 2019-07-05 | Outpatient (CLI) | payer OTHER ==
--- NOTE | 2019-07-05 14:31 | CT ---
EXAMINATION TYPE: CT chest wo con DATE OF EXAM: 07/05/2019 COMPARISON: Prior chest 07/20/2017 HISTORY: Shortness of breath. CT DLP: 1148.1 mGycm. Automated Exposure Control for Dose Reduction was Utilized. TECHNIQUE: CT scan of the thorax is performed without IV contrast. FINDINGS: Lack of contrast could compromise sensitivity. LUNGS: The lungs are stable, there is no concerning parenchymal mass or nodule identified. There is no pleural effusion or pneumothorax seen. The tracheobronchial tree is patent. MEDIASTINUM: Lack of IV contrast is noted to limit evaluation for mediastinal and especially hilar ad enopathy. There are no definitive greater than 1 cm hilar or mediastinal lymph nodes. No cardiomega ly or pericardial effusion is seen. Some metallic density seen along the level of the mitral valve, a ortic root is indeterminate, there is minimal coronary artery calcification. The pulmonary artery is dilated. OTHER: Liver shows low attenuation likely due to hepatic steatosis, liver may be enlarged. The gallbl adder shows a similar appearance. Punctate nonobstructive calculus present at the upper pole the left kidney. There is thoracic spondylosis. IMPRESSION: Correlate for possible pulmonary hypertension. Mild coronary artery disease. Hepatic stea tosis and probable hepatomegaly. Left nephrolithiasis suspected as described. Noncontrast exam.
== END | disposition home or self-care (01) ==
LOC: RADCTMAIN 10:50
DX: I25.10 Atherosclerotic heart disease of native coronary artery without angina pectoris (principal)
CPT/HCPCS: 71250

== ENCOUNTER → 2019-07-05 | Outpatient (CLI) | payer OTHER ==
[2019-07-05 11:21] LABS: HCT 47.7 % (39.0-53.0); MCH 28.4 pg (25.0-35.0); MCHC 31.4 g/dL (31.0-37.0); MCV 90.4 fL (80.0-100.0); Mean Platelet Volume 7.9; Platelet Count 345 k/uL (150-450); RBC 5.27 m/uL (4.30-5.90); RDW 14.6 % (11.5-15.5); WBC 10.2 k/uL (3.8-10.6)
[2019-07-05 15:22] LABS: African American GFR (CKD) 65.1 (60.0-200.0); Anion Gap 12.2 mmol/L (4.00-12.00); BUN/Creat Ratio 17.86 Ratio (12.00-20.00); Calcium 9.4 mg/dL (8.7-10.3); Carbon Dioxide 22.8 mmol/L (21.6-31.8); Chol/HDL Ratio 4.45; LDL Cholesterol,Calculated 46.8 mg/dL (0.0-131.0); Non-African American GFR(CKD) 56.2 (60.0-200.0); Potassium 4.5 mmol/L (3.5-5.5); VLDL Calculation 53.2 mg/dL (5.00-40.00)
[2019-07-05 16:21] LABS: Hemoglobin A1C 7.7 % (4.0-6.0)
[2019-07-05 20:12] LABS: Urine Creatinine 166.2 mg/dL
== END | disposition home or self-care (01) ==
LOC: LABWHC1 10:31
PROVIDERS: ATTEND Family Medicine
DX: I10 Essential (primary) hypertension (principal); E78.5 Hyperlipidemia, unspecified; E11.9 Type 2 diabetes mellitus without complications; N40.0 Benign prostatic hyperplasia without lower urinary tract symptoms
CPT/HCPCS: 36415; 80048; 80061; 82043; 82570; 83036; 84153; 84450; 84460; 85027

== ENCOUNTER → 2019-08-30 | Outpatient (CLI) | payer OTHER | END | disposition home or self-care (01) | LOC: LABWHC1 08:44 | PROVIDERS: ATTEND Family Medicine | DX: Z12.5 Encounter for screening for malignant neoplasm of prostate (principal) | CPT/HCPCS: 36415; 84153 ==

== ENCOUNTER → 2019-09-05 | Outpatient (CLI) | payer OTHER ==
[2019-09-05 09:35] LABS: HCT 45.6 % (39.0-53.0); HGB 14.2 gm/dL (13.0-17.5); MCHC 31.2 g/dL (31.0-37.0); MCV 89.7 fL (80.0-100.0); Mean Platelet Volume 7.7; Platelet Count 318 k/uL (150-450); RBC 5.08 m/uL (4.30-5.90); RDW 14.9 % (11.5-15.5)
[2019-09-05 09:46] LABS: Appearance,Urine Clear (Clear); Bacteria,Urine Rare /hpf; Bilirubin,Urine Negative (Negative); Blood,Urine Moderate (Negative); Color,Urine Yellow; Glucose,Urine (UA) Negative (Negative); Ketones,Urine Negative (Negative); Leukocyte Esterase,Urine Negative (Negative); Mucus,Urine Rare /hpf; Nitrite,Urine Negative (Negative); PH, Urine 5.5 (5.0-8.0); Protein,Urine Negative (Negative); RBC,Urine 3 /hpf (0-5); Specific Gravity,Urine 1.017 (1.001-1.035); Squamous Epithelial Cell,Urine 1 /hpf (0-4); Urobilinogen,Urine <2.0 mg/dL (<2.0); WBC,Urine 2 /hpf (0-5)
[2019-09-05 15:41] LABS: INR 2.26 (0.90-1.11); Prothrombin Time 23.4 sec (9.9-11.9)
[2019-09-05 16:26] LABS: African American GFR (CKD) 71.2 (60.0-200.0); Albumin 4.6 g/dL (3.80-4.90); Albumin/Globulin Ratio 1.84 (1.60-3.17); Anion Gap 9.6 mmol/L (4.00-12.00); BUN/Creat Ratio 16.15 Ratio (12.00-20.00); Calcium 9.6 mg/dL (8.7-10.3); Carbon Dioxide 23.4 mmol/L (21.6-31.8); Globulin 2.5 g/dL (1.6-3.3); LDL Cholesterol,Calculated 41.6 mg/dL (0.0-131.0); Non-African American GFR(CKD) 61.4 (60.0-200.0); Total Bilirubin 0.3 mg/dL (0.2-1.2); Total Protein 7.1 g/dL (6.2-8.2); VLDL Calculation 42.4 mg/dL (5.00-40.00)
[2019-09-05 16:33] LABS: Prostate Specific Antigen 1.3 ng/mL (0.0-3.5)
[2019-09-05 16:50] LABS: Urine Creatinine 121.8 mg/dL
[2019-09-05 18:41] LABS: Hemoglobin A1C 7.9 % (4.0-6.0)
== END | disposition home or self-care (01) ==
LOC: LABWHC1 08:22
PROVIDERS: ATTEND Family Medicine
DX: Z00.00 Encounter for general adult medical examination without abnormal findings (principal); E11.9 Type 2 diabetes mellitus without complications; Z86.711 Personal history of pulmonary embolism
CPT/HCPCS: 36415; 80053; 80061; 81001; 82043; 82306; 82570; 83036; 84153; 84443; 85027; 85610

== ENCOUNTER 2019-11-08 06:50 | Day surgery (SDC) | payer OTHER ==
[2019-11-05 11:14] VITALS: BMI 54.5
[~2019-11-08 06:50] MED LIST changes: -DEXAMETHASONE SOD PHOSPHATE 10 MG/ML 1 ML VIAL IV ONE; +LACTATED RINGERS 1,000 ML IV SCH; -MIDAZOLAM 2 MG/2 ML VIAL IV PRN; -ONDANSETRON 4 MG/2 ML VIAL IVP ONE
[2019-11-08 07:35] VITALS: TEMP 98.9
[2019-11-08] MEDS ORDERED: LIDOCAINE 1% INJ 10MG/ML (20 ML MDV) ONE (07:37)
[2019-11-08] MEDS ORDERED: PROPOFOL 10 MG/ML 20 ML VIAL IV ONE (07:37)
[2019-11-08] MEDS ORDERED: GLYCOPYRROLATE 0.2 MG/ML 2 ML VIAL ONE (07:37)
[2019-11-08] MEDS ORDERED: KETAMINE 10 MG/ML 20 ML VIAL ONE (07:37)
[2019-11-08 07:38] LABS: Glucose,Whole Blood 115 mg/dL (75-99)
[2019-11-08 08:17] VITALS: RESP 16
--- NOTE | 2019-11-08 08:18 | P.PCN ---
Date of Procedure: 11/08/19 Description of Procedure: BRIEF HISTORY: Patient is a 54-year-old male presenting for outpatient colonoscopy for screening for malignant neoplasm of the colon. No prior colonoscopies reported. No family history of colon cancer. He does report constipation which has been chronic since starting new medications after hospitalization over a year ago. PROCEDURE PERFORMED: Colonoscopy with polypectomy. PREOPERATIVE DIAGNOSIS: Screening for malignant neoplasm of the colon, no prior colonoscopy. ESTIMATED BLOOD LOSS: Minimal. IV sedation per Anesthesia. PROCEDURE: After informed consent was obtained, the patient, was brought into the endoscopy unit. IV sedation was administered by Anesthesia under continuous monitoring. Digital rectal examination was normal. Initially the Olympus CF-190 flexible video colonoscope was then inserted in the rectum, gradually advanced into the cecum without any difficulty. Careful examination was performed as the scope was gradually being withdrawn. Ileocecal valve and the appendiceal orifice were visualized and appeared normal. Prep was excellent. Mucosa of the cecum, ascending colon, transverse colon, descending colon, sigmoid colon, and rectum appeared normal, except for 2 diminutive polyps in the rectum measuring 2 mm in size removed with cold forcep polypectomy. There were moderate amount of diverticula both small and large noted in the sigmoid colon. Retroflexion was performed in the rectum and no lesions were seen. The patient tolerated the procedure well. IMPRESSION: 2 diminutive rectal polyps removed with cold forcep polypectomy. Moderate sigmoid diverticulosis. RECOMMENDATIONS: Findings of this examination were discussed with the patient and his family. Okay to resume diet. Okay to resume medications. Await pathology from polypectomy. Would recommend repeat colonoscopy in 7 years for colon polyps, pending pathology.
[2019-11-08 08:30] VITALS: BP 122/55; PULSE 68
== END 2019-11-08 08:47 ==
LOC: ORWHC2ENDO 06:50
PROVIDERS: ATTEND Internal Medicine
DX: K62.1 Rectal polyp (principal); K57.30 Diverticulosis of large intestine without perforation or abscess without bleeding; I10 Essential (primary) hypertension; I25.10 Atherosclerotic heart disease of native coronary artery without angina pectoris; E78.5 Hyperlipidemia, unspecified; G47.33 Obstructive sleep apnea (adult) (pediatric); J44.9 Chronic obstructive pulmonary disease, unspecified; G43.909 Migraine, unspecified, not intractable, without status migrainosus; Z79.01 Long term (current) use of anticoagulants; Z79.84 Long term (current) use of oral hypoglycemic drugs; Z79.51 Long term (current) use of inhaled steroids; Z79.899 Other long term (current) drug therapy; Z99.81 Dependence on supplemental oxygen; Z99.89 Dependence on other enabling machines and devices; Z86.711 Personal history of pulmonary embolism
CPT/HCPCS: 88305; 45380; J2001; J2704

== ENCOUNTER → 2019-11-30 | Outpatient (CLI) | payer OTHER ==
[2019-11-30 10:45] LABS: HCT 46.4 % (39.0-53.0); HGB 14.2 gm/dL (13.0-17.5); MCH 27.4 pg (25.0-35.0); MCHC 30.6 g/dL (31.0-37.0); MCV 89.8 fL (80.0-100.0); Mean Platelet Volume 7.2; Platelet Count 359 k/uL (150-450); RBC 5.17 m/uL (4.30-5.90); RDW 14.3 % (11.5-15.5); WBC 9.3 k/uL (3.8-10.6)
[2019-11-30 19:06] LABS: Hemoglobin A1C 6.8 % (4.0-6.0)
[2019-11-30 19:14] LABS: African American GFR (CKD) 78.4 (60.0-200.0); Anion Gap 11.4 mmol/L (4.00-12.00); BUN/Creat Ratio 17.5 Ratio (12.00-20.00); Calcium 9.3 mg/dL (8.7-10.3); Carbon Dioxide 23.6 mmol/L (21.6-31.8); Chol/HDL Ratio 4.72; LDL Cholesterol,Calculated 66.8 mg/dL (0.0-131.0); Non-African American GFR(CKD) 67.7 (60.0-200.0); Potassium 4.6 mmol/L (3.5-5.5); VLDL Calculation 26.2 mg/dL (5.00-40.00)
== END | disposition home or self-care (01) ==
LOC: LABWHC1 09:20
PROVIDERS: ATTEND Family Medicine
DX: I10 Essential (primary) hypertension (principal); E78.5 Hyperlipidemia, unspecified
CPT/HCPCS: 36415; 80048; 80061; 83036; 84450; 84460; 85027

== ENCOUNTER → 2020-01-31 | Outpatient (CLI) | payer OTHER ==
[2020-01-31 15:12] VITALS: BP 135/80; PULSE 76; TEMP 98.1; BMI 51.7
--- NOTE | 2020-01-31 16:59 | P.HPBAR ---
Bariatric H&P - History & Physicial H&P Date: 01/31/20 History & Physicial: Visit/CC: initial clinic visit Patient initial contact: Initial weight: Initial weight in pounds: Height: 6 ft 5 in Initial BMI: Last weight: Current weight: 197.766 kg Current weight in pounds: 436.00 Current BMI: 51.7 [place] body weight (based on NIH guidelines): 94.347 kg Excess body weight loss: The patient is a 54 year-old M who presents for Bariatric Assessment. Patient here today to discuss bariatric surgery. Patient has suffered with his weight for many years. Recently started a keto diet and has lost 45 pounds in the last several months. Patient with multiple comorbidities that are exacerbated or caused by his underlying obesity. Patient seems most interested in sleeve gastrectomy at this time. BMI 51.7. Patient suffers from sleep apnea, diabetes, hypertension, arrhythmia, COPD, pulmonary embolism twice, osteoarthritis. Patient does use tobacco although less than he used to. Denies reflux. Currently on Coumadin for his history of PE. Patient follows with pulmonary, hematology, cardiology, and his primary care physician. Denies dysphagia. No previous EGD. Abdominal surgeries include previous umbilical hernia repair. Review of Systems The patient denies any acute changes in vision or hearing, no dysphagia or odynophagia, no chest pain or shortness of breath, no dysuria or hematuria, no headache, no runny nose, no rectal bleeding or melena, no unexplained weight loss Past Medical History Past Medical History: Chest Pain / Angina, COPD, Diabetes Mellitus, Hyperlipidemia, Hypertension, Osteoarthritis (OA), Pulmonary Embolus (PE), Renal Disease, Sleep Apnea/CPAP/BIPAP Additional Past Medical History / Comment(s): kidney stones, migraines, DWIGHT with BI-PAP, back pain, stress test-pt stated they did'nt find anything, PE's 2017 & 2019, constipation History of Any Multi-Drug Resistant Organisms: None Reported Past Surgical History: Heart Catheterization, Hernia Repair, Joint Replacement, Orthopedic Surgery Additional Past Surgical History / Comment(s): aortic angiogram, umbilical hernia repair, total L hip, R hand surgery, L knee arthroscopy, right ankle surgery Past Anesthesia/Blood Transfusion Reactions: No Reported Reaction Past Psychological History: No Psychological Hx Reported Additional Psychological History / Comment(s): Pt has 2 adult children and 1 minor child living with him. He is independent. Smoking Status: Current every day smoker Past Alcohol Use History: None Reported Additional Past Alcohol Use History / Comment(s): Pt started smoking at the age of 4 yrs. used to smoke 2 ppd down to 4-5 cigs day, currently quitting Past Drug Use History: Marijuana Additional Drug Use History / Comment(s): cbd oil vape pen, "few hits" per day - Past Family History Mother Family Medical History: Cancer Additional Family Medical History / Comment(s): Mother had breast cancer. She of "natural causes" at the age of 73 yrs. Father Family Medical History: Renal Disease Additional Family Medical History / Comment(s): Father was an alcoholic. He of kidney problems at the age of 65yrs. Surgical - Exam Vital Signs Temp Pulse BP 98.1 F 76 135/80 01/31/20 15:10 01/31/20 15:10 01/31/20 15:10 Physical exam: General: Well-developed, well-nourished HEENT: Normocephalic, sclerae nonicteric Abdomen: Nontender, nondistended Extremities: No edema Neuro: Alert and oriented Bariatric Assessment & Plan (1) Morbid obesity Narrative/Plan: 54-year-old male with morbid obesity and multiple comorbidities. Risks and benefits of both surgical and nonsurgical options reviewed in detail. Will obtain preoperative clearance from hematology, cardiology, pulmonary, and his primary care physician. Patient will complete his medically supervised weight loss plan. We'll tentatively plan EGD 4-5 months from now. Patient states that he will continue his diet and if he loses enough weight will consider canceling plans for bariatric surgery which is certainly reasonable. The patient will continue to work on smoking cessation. Status: Acute Bariatric Checklist Checklist: Plan: Checklist: EGD: 1. Hiatal hernia: 2. H. Pylori: HgbA1c: Vitamin D: Smoking: Current every day smoker Primary care physician referral: dr shah Psychiatry clearance: Cardiology clearance: Sleep study: Diet journal: VTE risk score: VTE risk level: Rehab needs at discharge:
== END | disposition home or self-care (01) ==
LOC: BARWHC3 13:57
PROVIDERS: ATTEND Surgery
DX: E66.01 Morbid (severe) obesity due to excess calories (principal); G47.33 Obstructive sleep apnea (adult) (pediatric); Z99.89 Dependence on other enabling machines and devices; Z98.890 Other specified postprocedural states; Z68.43 Body mass index [BMI] 50.0-59.9, adult
CPT/HCPCS: 99211

== ENCOUNTER → 2020-01-31 | Outpatient (CLI) | payer OTHER ==
[2020-01-31 16:13] LABS: HCT 49.7 % (39.0-53.0); HGB 15.8 gm/dL (13.0-17.5); MCH 27.6 pg (25.0-35.0); MCHC 31.9 g/dL (31.0-37.0); MCV 86.6 fL (80.0-100.0); Mean Platelet Volume 7.2; Platelet Count 363 k/uL (150-450); RBC 5.73 m/uL (4.30-5.90); RDW 14.5 % (11.5-15.5); WBC 9.8 k/uL (3.8-10.6)
[2020-02-01 02:38] LABS: African American GFR (CKD) 65.1 (60.0-200.0); Albumin 4.9 g/dL (3.80-4.90); Albumin/Globulin Ratio 1.96 (1.60-3.17); Anion Gap 9.9 mmol/L (4.00-12.00); BUN/Creat Ratio 20.71 Ratio (12.00-20.00); Calcium 10.3 mg/dL (8.7-10.3); Carbon Dioxide 26.1 mmol/L (21.6-31.8); Globulin 2.5 g/dL (1.6-3.3); Non-African American GFR(CKD) 56.2 (60.0-200.0); Potassium 4.9 mmol/L (3.5-5.5); Total Bilirubin 0.3 mg/dL (0.2-1.2); Total Protein 7.4 g/dL (6.2-8.2)
[2020-02-01 02:47] LABS: Folate, Serum 6.9 ng/mL
== END | disposition home or self-care (01) ==
LOC: LABWHC1 15:13
PROVIDERS: ATTEND Surgery
DX: E66.01 Morbid (severe) obesity due to excess calories (principal); E55.9 Vitamin D deficiency, unspecified; K90.89 Other intestinal malabsorption
CPT/HCPCS: 36415; 80053; 82306; 82607; 82746; 83036; 83540; 84425; 85027; 93005

== ENCOUNTER → 2020-02-07 | Outpatient (CLI) | payer OTHER ==
[2020-02-07 22:39] LABS: African American GFR (CKD) 71.2 (60.0-200.0); Anion Gap 10.2 mmol/L (4.00-12.00); BUN/Creat Ratio 23.08 Ratio (12.00-20.00); Calcium 10.2 mg/dL (8.7-10.3); Carbon Dioxide 22.8 mmol/L (21.6-31.8); Non-African American GFR(CKD) 61.4 (60.0-200.0); Potassium 5.1 mmol/L (3.5-5.5)
== END | disposition home or self-care (01) ==
LOC: LABWHC1 12:52
PROVIDERS: ATTEND Family Medicine
DX: I10 Essential (primary) hypertension (principal)
CPT/HCPCS: 36415; 80048

== ENCOUNTER → 2020-04-25 | Outpatient (CLI) | payer OTHER | END | disposition home or self-care (01) | LOC: LABWHC1 10:20 | PROVIDERS: ATTEND Family Medicine | DX: Z53.9 Procedure and treatment not carried out, unspecified reason (principal) ==

== ENCOUNTER → 2020-10-30 | Outpatient (CLI) | payer OTHER ==
[2020-10-30 08:42] LABS: Appearance,Urine Clear (Clear); Bilirubin,Urine Negative (Negative); Blood,Urine Small (Negative); Color,Urine Yellow; Glucose,Urine (UA) Negative (Negative); Ketones,Urine Negative (Negative); Leukocyte Esterase,Urine Negative (Negative); Mucus,Urine Rare /hpf; Nitrite,Urine Negative (Negative); Protein,Urine Negative (Negative); RBC,Urine 3 /hpf (0-5); Specific Gravity,Urine 1.016 (1.001-1.035); Squamous Epithelial Cell,Urine 1 /hpf (0-4); Urobilinogen,Urine <2.0 mg/dL (<2.0); WBC,Urine 1 /hpf (0-5)
[2020-10-30 11:57] LABS: INR 1.75 (0.90-1.11); Prothrombin Time 18.4 sec (9.9-11.9)
[2020-10-30 12:11] LABS: HCT 48.2 % (39.6-50.0); HGB 15.2 g/dL (13.0-17.0); MCH 27.6 pg (27.0-32.0); MCHC 31.5 g/dL (32.0-37.0); MCV 87.6 fL (80.0-97.0); Mean Platelet Volume 10.2 fL (9.5-12.2); Platelet Count 327 X 10*3/uL (140-440); RDW 15.9 % (11.5-14.5); WBC 8.57 X 10*3/uL (4.50-10.00)
[2020-10-30 16:12] LABS: Hemoglobin A1C 6.3 % (4.0-6.0)
[2020-10-30 19:20] LABS: African American GFR (CKD) 64.6 (60.0-200.0); Albumin 4.5 g/dL (3.80-4.90); Albumin/Globulin Ratio 1.73 (1.60-3.17); Anion Gap 11.6 mmol/L (4.00-12.00); BUN/Creat Ratio 19.29 Ratio (12.00-20.00); Calcium 9.4 mg/dL (8.7-10.3); Carbon Dioxide 21.4 mmol/L (21.6-31.8); Chol/HDL Ratio 4.7; Globulin 2.6 g/dL (1.6-3.3); LDL Cholesterol,Calculated 37.2 mg/dL (0.0-131.0); Non-African American GFR(CKD) 55.8 (60.0-200.0); Potassium 4.6 mmol/L (3.5-5.5); Total Bilirubin 0.3 mg/dL (0.2-1.2); Total Protein 7.1 g/dL (6.2-8.2); VLDL Calculation 62.8 mg/dL (5.00-40.00)
[2020-10-30 19:28] LABS: Prostate Specific Antigen 1.9 ng/mL (0.0-3.5); T4, Free (Free Thyroxine) 1.4 ng/dL (0.80-1.80)
[2020-10-30 21:59] LABS: Urine Creatinine 127.4 mg/dL
== END | disposition home or self-care (01) ==
LOC: LABWHC1 07:57
PROVIDERS: ATTEND Family Medicine
DX: E11.9 Type 2 diabetes mellitus without complications (principal)
CPT/HCPCS: 36415; 80053; 80061; 81001; 82043; 82570; 83036; 84153; 84439; 84443; 85027; 85610

== ENCOUNTER → 2020-11-12 | Outpatient (CLI) | payer MEDICARE, OTHER ==
[2020-11-12 20:49] LABS: African American GFR (CKD) 64.6 (60.0-200.0); Anion Gap 10.6 mmol/L (4.00-12.00); BUN/Creat Ratio 17.86 Ratio (12.00-20.00); Calcium 9.8 mg/dL (8.7-10.3); Carbon Dioxide 24.4 mmol/L (21.6-31.8); Non-African American GFR(CKD) 55.8 (60.0-200.0); Potassium 4.9 mmol/L (3.5-5.5)
== END | disposition home or self-care (01) ==
LOC: LABWHC1 09:58
PROVIDERS: ATTEND Family Medicine
DX: E55.9 Vitamin D deficiency, unspecified (principal); N17.9 Acute kidney failure, unspecified
CPT/HCPCS: 36415; 80048; 82306

== ENCOUNTER 2021-02-10 09:56 | Emergency (ER) | payer MEDICARE, OTHER ==
[2021-02-10] MEDS ORDERED: ALBUTEROL HFA INHALER INHALATION STA (10:59)
[2021-02-10] MEDS ORDERED: SODIUM CHLORIDE 0.9% 50 ML IVPB ONE (11:15)
[2021-02-10] MEDS ORDERED: BAMLANIVIMAB (EUA) 700 MG, ETESEVIMAB (EUA) 1,400 MG in SODIUM CHLORIDE 0.9% 50 ML IVPB ONE (11:15)
--- NOTE | 2021-02-10 11:32 | ED ---
General Adult HPI - General Chief complaint: Upper Respiratory Infection Stated complaint: COVID+, wants bam Time Seen by Provider: 02/10/21 10:34 Source: patient, RN notes reviewed Mode of arrival: ambulatory Limitations: no limitations - History of Present Illness Initial comments: 55-year-old male with a medicated past medical history presents to the emergency room for a chief complaint of antibody infusion. Patient states he developed symptoms of COVID-19 Tuesday and then tested positive yesterday. Patient was sent in by his doctor to get antibody infusion. States that he started on an antibiotic and steroid yesterday as well given his COPD. He does have minimal shortness of breath. He denies any significant wheezing. States he has been doing his inhalers at home. He has not had fevers or chills. Denies chest pain.Patient has no other complaints at this time including chest pain, nausea or vomiting, headache, or visual changes. - Related Data Home Medications Medication Instructions Recorded Confirmed Atorvastatin [Lipitor] 20 mg PO HS 03/29/19 01/31/20 Warfarin [Coumadin] 10 mg PO SUTUTHSA 03/29/19 01/31/20 Warfarin [Coumadin] 15 mg PO MOWEFR 03/29/19 01/31/20 metFORMIN HCL [Glucophage] 500 mg PO QAM 03/29/19 01/31/20 Metoprolol Tartrate [Lopressor] 50 mg PO TID 04/03/19 01/31/20 HYDROcodone/APAP 10-325MG [[place] 1 tab PO BID 11/05/19 01/31/20 10-325] Ipratropium [place] [Atrovent Hfa] 2 puff INHALATION TID 11/05/19 01/31/20 Ipratropium/Albuter 20-100Mcg 1 puff INHALATION BID 11/05/19 01/31/20 [Combivent Respimat 20-100Mcg Inhaler] Lisinopril-Hctz 10-12.5 mg 1 tab PO DAILY 11/05/19 01/31/20 [Zestoretic 10-12.5] metFORMIN HCL [Glucophage] 1,000 mg PO AC-SUPPER 11/05/19 01/31/20 Previous Rx's Medication Instructions Recorded Budesonide-Formot 160-4.5 Mcg 2 puff INHALATION RT-BID #1 puff 03/29/18 [Symbicort 160-4.5 Mcg Inhaler] Allergies Allergy/AdvReac Type Severity Reaction Status Date / Time No Known Allergies Allergy Verified 02/10/21 10:29 Review of Systems ROS Statement: Those systems with pertinent positive or pertinent negative responses have been documented in the HPI. ROS Other: All systems not noted in ROS Statement are negative. Past Medical History Past Medical History: Chest Pain / Angina, COPD, Diabetes Mellitus, Hyperlipidemia, Hypertension, Osteoarthritis (OA), Pulmonary Embolus (PE), Renal Disease, Sleep Apnea/CPAP/BIPAP Additional Past Medical History / Comment(s): kidney stones, migraines, DWIGHT with BI-PAP, back pain, stress test-pt stated they did'nt find anything, PE's 2016 & 2019, constipation History of Any Multi-Drug Resistant Organisms: None Reported Past Surgical History: Heart Catheterization, Hernia Repair, Joint Replacement, Orthopedic Surgery Additional Past Surgical History / Comment(s): aortic angiogram, umbilical hernia repair, total L hip, R hand surgery, L knee arthroscopy, right ankle surgery Past Anesthesia/Blood Transfusion Reactions: No Reported Reaction Past Psychological History: No Psychological Hx Reported Smoking Status: Former smoker, Vaper Past Alcohol Use History: None Reported Past Drug Use History: Marijuana - Past Family History Mother Family Medical History: Cancer Additional Family Medical History / Comment(s): Mother had breast cancer. She of "natural causes" at the age of 73 yrs. Father Family Medical History: Renal Disease Additional Family Medical History / Comment(s): Father was an alcoholic. He of kidney problems at the age of 65yrs. General Exam Limitations: no limitations General appearance: alert, in no apparent distress Head exam: Present: atraumatic Eye exam: Present: normal appearance, PERRL, EOMI. Absent: scleral icterus, conjunctival injection ENT exam: Present: normal exam, mucous membranes moist Neck exam: Present: normal inspection, full ROM. Absent: tenderness Respiratory exam: Present: normal lung sounds bilaterally. Absent: respiratory distress, wheezes Cardiovascular Exam: Present: regular rate, normal rhythm, normal heart sounds GI/Abdominal exam: Present: soft, normal bowel sounds. Absent: distended, tenderness, guarding, rebound Course Vital Signs 02/10/21 10:24 Temperature 99.6 F Pulse Rate 95 Respiratory 18 Rate Blood Pressure 119/78 O2 Sat by Pulse 95 Oximetry Medical Decision Making - Medical Decision Making Vitals are stable. Patient is well-appearing. Patient is COVID-19 positive as of 5 days ago. Patient is requesting antibody infusion. Patient was given this. Given his COPD I did discuss return parameters. He states he is already on an antibiotic and steroid. He will follow-up with his doctor. He will return here for any worsening symptoms and specifically shortness of breath. Disposition Clinical Impression: COVID Disposition: HOME SELF-CARE Condition: Good Instructions (If sedation given, give patient instructions): Coronavirus Disease 2019 (COVID-19) Additional Instructions: Please follow-up with your doctor in one to 2 days. Return to the emergency room for any worsening symptoms. Is patient prescribed a controlled substance at d/c from ED?: No Referrals: Jason Leon DO [Primary Care Provider] - 1-2 days Time of Disposition: 11:31
[2021-02-10 12:11] VITALS: TEMP 98.8
[2021-02-10 13:20] VITALS: BP 116/61; PULSE 84; RESP 20
== END 2021-02-10 13:20 | disposition home or self-care (01) ==
LOC: EC 09:56
DX: U07.1 COVID-19 (principal); J44.9 Chronic obstructive pulmonary disease, unspecified; E11.9 Type 2 diabetes mellitus without complications; E78.5 Hyperlipidemia, unspecified; I10 Essential (primary) hypertension; M19.90 Unspecified osteoarthritis, unspecified site; G43.909 Migraine, unspecified, not intractable, without status migrainosus; F12.90 Cannabis use, unspecified, uncomplicated; F17.290 Nicotine dependence, other tobacco product, uncomplicated
CPT/HCPCS: 99284 ×2; 94640; M0245; J3490

== ENCOUNTER → 2021-02-17 | Outpatient (CLI) | payer MEDICARE, OTHER ==
[2021-02-18 00:01] LABS: INR 2.54 (0.90-1.11); Prothrombin Time 27.5 sec (9.9-11.9)
== END | disposition home or self-care (01) ==
LOC: LABWHC1 15:53
PROVIDERS: ATTEND Family Medicine
DX: I48.91 Unspecified atrial fibrillation (principal)
CPT/HCPCS: 36415; 85610

== ENCOUNTER → 2021-04-16 | Outpatient (CLI) | payer MEDICARE, OTHER ==
--- NOTE | 2021-04-16 13:26 | CT ---
EXAMINATION TYPE: CT angio chest DATE OF EXAM: 04/16/2021 COMPARISON: CT dated 07/05/2019 and 5 52,019 HISTORY: History of PE CT DLP: 958.3 mGy.cm. Automated Exposure Control for Dose Reduction was Utilized. TECHNIQUE AND CONTRAST: CTA scan of the thorax is performed with IV Contrast, patient injected with 64 mL of Isovue 370, as p er pulmonary angiogram protocol. MIP Images are created on CT scanner and reviewed. FINDINGS: The first series of images demonstrated suboptimal scan with poor enhancement of the pulmonary arteri es. The patient was called back and reinjected. Very subtle linear filling defect is seen within the right upper lobe anterior segmental artery, poss ibly artifactual versus chronic nonocclusive pulmonary embolus. Otherwise no definitive filling defec t is seen within the pulmonary trunk, main pulmonary arteries, lobar, segmental and proximal subsegme ntal arteries. Distal subsegmental pulmonary arteries are suboptimally assessed. The pulmonary trunk measures 3.1 cm which may suggest pulmonary hypertension. The ascending aorta gerardo sures 4 cm. No gross cardiomegaly. Coronary arterial atherosclerotic calcifications. No pathologicall y enlarged lymph nodes in the chest. Stable 8 mm pleural-based nodule in the left lower lobe superior segment and the more superior pleural-based smaller nodule since 2019 CT scan requiring no further f ollow-up. Minimal fibrotic changes seen at the anterior aspect of the left upper lobe. Grossly unremarkable pancho gs otherwise. Patent central airways. No pleural or pericardial effusion. Suspected left upper pole r enal cyst, suboptimally assessed. Degenerative changes of the thoracic spine. When spinal canal steno sis is seen at T5-6 and T10-11 levels. IMPRESSION: No major or central pulmonary embolism. Questionable artifact versus tiny chronic nonocclusive pulmon ambrocio embolus in the right upper lobe anterior pulmonary artery. Other incidental findings as described above.
== END | disposition home or self-care (01) ==
LOC: RADCTMAIN 06:30
PROVIDERS: ATTEND Internal Medicine Critical Care Medicine
DX: I25.10 Atherosclerotic heart disease of native coronary artery without angina pectoris (principal); R91.1 Solitary pulmonary nodule; J84.10 Pulmonary fibrosis, unspecified; M48.04 Spinal stenosis, thoracic region; M47.814 Spondylosis without myelopathy or radiculopathy, thoracic region; R91.8 Other nonspecific abnormal finding of lung field; Z86.711 Personal history of pulmonary embolism
CPT/HCPCS: 82565; 84520; 71275; 36415; Q9967

== ENCOUNTER → 2021-05-18 | Outpatient (CLI) | payer MEDICARE, OTHER ==
[2021-05-18 22:21] LABS: HCT 47.4 % (39.6-50.0); HGB 14.7 g/dL (13.0-17.0); MCH 28.1 pg (27.0-32.0); MCV 90.5 fL (80.0-97.0); Mean Platelet Volume 10.5 fL (9.5-12.2); NRBC Per 100 WBC 0 /100 WBCS (0.0-0.0); Platelet Count 308 X 10*3/uL (140-440); RBC 5.24 X 10*6/uL (4.40-5.60); RDW 14.6 % (11.5-14.5); WBC 9.09 X 10*3/uL (4.50-10.00)
[2021-05-18 23:16] LABS: African American GFR (CKD) 71.5 (60.0-200.0); BUN/Creat Ratio 17.89 Ratio (12.00-20.00); Blood Urea Nitrogen 22.9 mg/dL (9.0-27.0); Calcium 9.6 mg/dL (8.7-10.3); Carbon Dioxide 22.4 mmol/L (20.0-27.5); Non-African American GFR(CKD) 61.7 (60.0-200.0); Potassium 4.7 mmol/L (3.5-5.5)
== END | disposition home or self-care (01) ==
LOC: LABWHC1 14:56
PROVIDERS: ATTEND Family Medicine
DX: I10 Essential (primary) hypertension (principal); E11.9 Type 2 diabetes mellitus without complications; E78.5 Hyperlipidemia, unspecified; E55.9 Vitamin D deficiency, unspecified
CPT/HCPCS: 36415; 80048; 82306; 83036; 84450; 84460; 85027

== ENCOUNTER → 2021-10-19 | Outpatient (CLI) | payer MEDICARE, OTHER | END | disposition home or self-care (01) | LOC: LABWHC1 14:39 | PROVIDERS: ATTEND Internal Medicine Critical Care Medicine | DX: Z01.84 Encounter for antibody response examination (principal); Z86.16 Personal history of COVID-19 | CPT/HCPCS: 36415; 86769 ==

== ENCOUNTER → 2022-01-28 | Outpatient (CLI) | payer MEDICARE, OTHER ==
--- NOTE | 2022-01-28 20:52 | MR ---
EXAMINATION TYPE: MR cervical spine wo con DATE OF EXAM: 01/28/2022 INDICATION: Patient age:Male; 56 years old; Reason for study: M47.22 SPONDYLOSIS WITH RADICULOPATHY, CERVICAL;. Neck and back pain, numbness of r ight arm and fingers COMPARISON: Radiograph 01/21/2022. TECHNIQUE: Multi planar, multi sequence imaging was performed utilizing: T1-weighted, T2-weighted, an d turbo inversion recovery imaging of the cervical spine. IV Contrast: None FINDINGS: Alignment: The cervical vertebral bodies have preserved heights. Alignment is within normal limits gi christo patient positioning. Bones: Increased inversion recovery signal within inferior aspect of the C7 vertebral body. No eviden ce of fracture within this vertebral body. The C7 vertebral body height is maintained at this level. Findings could relate to developing Schmorl's node. Cord: The spinal cord is unremarkable with regards to their signal intensity and morphology. Discs: Multilevel disc desiccation is present. C2-C3: No significant disc pathology. The spinal canal is patent. Bilateral facet and uncovertebral joint arthropathy are present with mild right neural foraminal stenosis. The left neural foramen is p atent. C3-C4: A disc osteophyte complex is present which minimally narrows the ventral subarachnoid space. Bilateral facet and uncovertebral joint arthropathy are present with moderate bilateral neural raheem inal stenosis. C4-C5: A central disc protrusion is present with mild spinal canal stenosis. a protrusion abuts the a nterior spinal cord this level Bilateral facet and uncovertebral joint arthropathy are present with m oderate to severe right and moderate left neural foraminal stenosis. C5-C6: No significant disc pathology. The spinal canal is patent. Bilateral facet and uncovertebral joint arthropathy are present with moderate bilateral neural foraminal stenosis. C6-C7: A disc osteophyte complex with is present with moderate spinal canal stenosis. Bilateral face t and uncovertebral joint arthropathy are present with severe right neural foraminal stenosis. C7-T1: No significant disc pathology. The spinal canal is patent. Bilateral facet and uncovertebral joint arthropathy are present with moderate to severe right and moderate left neural foraminal stenos is. Other: None. IMPRESSION: 1. C6-C7 moderate spinal canal stenosis and severe right neural foraminal stenosis secondary to susp ected facet joint arthropathy and disc osteophyte complex. 2. Multilevel disc degeneration changes with moderate to severe right C4-C5 and right C7-T1, moderat e bilateral C5-C6 and C3-C4 neural foraminal stenosis.
== END | disposition home or self-care (01) ==
LOC: RADMRIMAIN 16:29
PROVIDERS: ATTEND Orthopaedic Surgery
DX: M47.22 Other spondylosis with radiculopathy, cervical region (principal); M50.13 Cervical disc disorder with radiculopathy, cervicothoracic region; M48.02 Spinal stenosis, cervical region; M99.71 Connective tissue and disc stenosis of intervertebral foramina of cervical region
CPT/HCPCS: 72141

== ENCOUNTER → 2022-02-03 | Outpatient (CLI) | payer MEDICARE, OTHER ==
[2022-02-03 09:28] VITALS: BP 112/71; PULSE 69; RESP 18; TEMP 97.5
--- NOTE | 2022-02-03 14:48 | P.PAINPG ---
PQRS Measure Charge Sheet Comment: HISTORY OF PRESENT ILLNESS: 56 yr old male as a referral from Dr Nathan presents today w severe and chronic LBP secondary to DDD, spondylosis and facet arthropathy without myelopathy for evaluation. Pt states pain level is at 8/10 in intensity, constant, localized in the mid lumbar spine, sore in character w shooting pain towards the RLE. Pain is provoked by bending, twisting and lifting. Pain is alleviated by medications ([place]), heat, PT which she is currently an, daily home stretching regimen, use of a lumbar support brace, reclining and rest. PMH: Angina, COPD, Diabetes Mellitus, Hyperlipidemia, HTN, OA, PE (2017, 2019), Nephrolithiasis, Sleep Apnea/CPAP/BIPAP PSH: Heart Catheterization, Aortic Angiogram, Umbilical Hernia Repair, L Total Hip Replacement, R Hand Surgery, L Knee Arthroscopy, R Ankle Surgery SH: Daily tobacco use, No ETOH abuse, +Cannabis use FH: Mo- Breast CA/ at age 72. Fa- ETOH abuse/Renal Disease/ at age 64. All: NKDA Meds: See list REVIEW OF ORGAN SYSTEMS: CONSTITUTIONAL: No fevers or chills. No recent weight loss. NEUROLOGICAL: + numbness and tingling along the distal extremities. No seizure disorders or headaches. MUSCULOSKELETAL: + pain PSYCHIATRIC: Denies current depression or suicidal thoughts. Physical Examinations : Constitutional : Cooperative , not in acute distress . Neurologic : Cranial nerve II to XII intact. No focal neurological deficits. Psychiatric : alert & oriented x 3. Matching mood & appropriate affect. Judgment & insight intact. Musculoskeletal : Cervical Spine Motor strength in the deltoid and biceps: Normal right side. Normal Left side Motor strength biceps and the wrist extensors: Normal right side . Normal left side Motor strength in the triceps muscle: Normal right side. Normal left side Deep tendon reflexes: Normal at the biceps. Normal at Brachioradialis. Normal at triceps Vertebral body tenderness to deep palpation over Cervical facet loading test: positive bilaterally Spurling test: positive bilaterally Neck distraction test: positive bilaterally Luigi sign: positive bilaterally Lumbar spine Motor strength lower extremities ,thigh and legs 5/5 Right side , 5/5 Left side Deep tendon reflexes : Normal Knee Jerk. Normal Ankle Jerk Vertebral body tenderness over L2 Lumbar facet Loading Test: positive Right / positive Left Range of motion of the lumbar spine Flexion 30 degrees, extension 10 degrees Straight Leg Raise test: Left/ Right positive at degree Carol test: positive right / positive left. Severe tenderness over the Sacroiliac joint on the Right / Left sides Gaenslen test: positive bilaterally Seated flexion test: positive bilaterally. Sacral spine : Severe tenderness over the Sacroiliac joint: right side / left side Range of motion: Flexion of the lumbar spine <60 degrees Range of motion: Extension of the lumbar spine <20 degrees Gaenslen's Test positive Byron's Test positive Carol test: positive right side / left side Thigh Thrust Test Sacral Thrust Test Imaging: MRI without contrast of the lumbar spine from 12/28/21 reviewed Assessment/ Plan : Lumbar DDD, lumbar spondylosis Recommendation of LESI L1-L2. Patient may need a series of injections, up to 3 within a six-month timeframe, for optimal pain relief. Risks, benefits of procedure discussed and patient verbalized understanding. Admits to aspirin or anti- coagulant use or medical history of diabetes. Protocol for discontinuation/ continuation of medications mary procedure discussed. All questions answered. I have spent greater than 30 minutes on patient care today. Dr Motley was available by phone for the evaluation of this patient. The time was used to review the medical records including relevant urine studies and Prescription history (MAPs), review of the available imaging, evaluation and examination of the patient, coordination of care with the medical staff and if applicable referring physicians, as well as creation of the medical record PQRS Narrative: Smoking Status Current every day smoker Home Medications: Ambulatory Orders Budesonide-Formot 160-4.5 Mcg [Symbicort 160-4.5 Mcg Inhaler] 2 puff INHALATION RT-BID #1 puff 03/29/18 Atorvastatin [Lipitor] 20 mg PO HS 03/29/19 Warfarin [Coumadin] 10 mg PO SUTUTHSA 03/29/19 Warfarin [Coumadin] 15 mg PO MOWEFR 03/29/19 metFORMIN HCL [Glucophage] 500 mg PO QAM 03/29/19 Metoprolol Tartrate [Lopressor] 50 mg PO TID 04/03/19 HYDROcodone/APAP 10-325MG [[place] 10-325] 1 tab PO BID 11/05/19 Ipratropium [place] [Atrovent Hfa] 2 puff INHALATION TID 11/05/19 Ipratropium/Albuter 20-100Mcg [Combivent Respimat 20-100Mcg Inhaler] 1 puff INHALATION BID 11/05/19 Lisinopril-Hctz 10-12.5 mg [Zestoretic 10-12.5] 1 tab PO DAILY 11/05/19 metFORMIN HCL [Glucophage] 1,000 mg PO AC-SUPPER 11/05/19 Controlled Substance Measures - Controlled Substance Measures Is patient prescribed a controlled substance at discharge?: No
== END ==
LOC: PNWHC3 08:01
PROVIDERS: ATTEND Specialist
DX: M47.816 Spondylosis without myelopathy or radiculopathy, lumbar region (principal); M51.36 Other intervertebral disc degeneration, lumbar region; E11.9 Type 2 diabetes mellitus without complications; Z79.84 Long term (current) use of oral hypoglycemic drugs; F17.200 Nicotine dependence, unspecified, uncomplicated
CPT/HCPCS: 99211

== ENCOUNTER → 2022-03-09 | Day surgery (SDC) | payer MEDICARE, OTHER ==
[2022-03-05 10:32] VITALS: BMI 47.4
[~2022-03-09] MED LIST changes: +IOPAMIDOL M200 10 ML VIAL ONE; +IV FLUID CONTINUATION 1,000 ML IV ONE; +LACTATED RINGERS 1,000 ML IV ONE; +LIDOCAINE 1% (10MG/ML) FOR IV START INTRADERMA PRN; +MIDAZOLAM 2 MG/2 ML VIAL ONE; +fentaNYL (PF) 50 MCG/ML 2 ML AMP ONE; +methylPREDNISolone ACETATE 80 MG/ML 1 ML VIAL ONE
[2022-03-09 08:32] VITALS: RESP 16; TEMP 98
[2022-03-09 08:56] LABS: Glucose,Whole Blood 126 mg/dL (70-110)
[2022-03-09 09:19] LABS: Prothrombin Time 10.9 sec (9.0-12.0)
--- NOTE | 2022-03-09 09:57 | P.PCN ---
Date of Procedure: 03/09/22 Procedure(s) Performed: PREOPERATIVE DIAGNOSIS: 1- Lumbar Degenerative Disc Diseases 2-Lumbar spondylosis with Facet arthropathy without myelopathy. POSTOPERATIVE DIAGNOSIS: Same as preop diagnosis. PROCEDURE 1. Lumbar epidural steroid injection under fluoroscopic guidance at the L1-2 level. (Fluoroscopy imaging was available in radiology department) 2. Lumbar epidurogram. ANESTHESIA: moderate sedation with intravenous Versed 2 mg ,and fentanyle 100 Mcg Sedation start time : 0 949 Sedation end time : 0 954 EBL: Minimal PROCEDURE INDICATION: The patient with low back pain and radiculitis symptoms unresponsive to conservative treatment. Fluoroscopy was used to optimize visualization of the needle placement and to maximize safety. PROCEDURE DESCRIPTION / TECHNIQUE: The patient was seen and identified in the preoperative area. Risks, benefits, complications including but not limited to infections ,bleeding ,allergic reaction to the medications ,nerve damage and not complete pain releife , and a lternatives were discussed with the patient. The patient agreed to proceed with the procedure and signed the consent. IV was started, and vital signs were stable. Patient was taken to the OR and time out was completed. The patient was placed in the prone position on procedure table and a pillow was placed under the abdomen to reduce lumbar lordosis. The lumbosacral area was prepped and draped in the usual sterile fashion.ere closely monitored during the procedure. Conscious sedation was used during the procedure to decrease patients anxiety. Vital signs was monitered during the entire procedure. Using anterior-posterior fluoroscopy, the L1-2 interlaminar space was identified and the skin over this site was marked and then infiltrated with 1% lidocaine subcutaneously. Subsequently, a 20-gauge Tuohy epidural needle was inserted and advanced toward the epidural space using the ``Loss of resistance technique and guided by AP and lateral fluoroscopy. The correct needle position in the epidural space was verified with the injection of 2 mL of the water soluble contrast dye Isovue 200 contrast and observing an excellent epidurogram with the epidural spread of the dye, after negative aspiration for blood and CSF and in the absence of paresthesias. Again after negative aspiration, a 6 ml mixture containing 60 mg of Depo-medrol ( Preservetive Free ), and 2 ml of preservative free Normal Saline, and 2 ml of preservative free lidocaine 1% solution was injected and a washout of epidurogram was seen. Needle was withdrawn intact, skin was cleansed, and bandages were applied. COMPLICATIONS: None DISPOSITION / PLANS: The patient was placed in a supine position and transferred to the recovery area in a stable condition for observation. There was no evidence of lower extremity motor or sensory deficit after the procedure. Patient was discharged from the recovery room after meeting discharge criteria. Home discharge instructions were given to the patient by the staff. The patient was reexamined prior to discharge. The patient will schedule a follow up in the clinic in 2-4 weeks. PT 10.9 , INR =1
[2022-03-09 10:31] VITALS: BP 122/78; PULSE 62
--- NOTE | 2022-03-09 16:43 | FL ---
EXAMINATION TYPE: FL guided pain mgmt statistic DATE OF EXAM: 03/09/2022 FLUOROSCOPY Fluoroscopy time of 3 seconds was used during lumbar epidural steroid injection. 1 image/s document/ s the procedure.
== END ==
LOC: ORPAIN 08:05
PROVIDERS: ATTEND Specialist
DX: M51.16 Intervertebral disc disorders with radiculopathy, lumbar region (principal); M47.26 Other spondylosis with radiculopathy, lumbar region; Z79.01 Long term (current) use of anticoagulants
CPT/HCPCS: 85610; 62323; J2250; J1040; J3010; Q9966

== ENCOUNTER → 2022-05-17 | Outpatient (CLI) | payer MEDICARE, OTHER ==
[2022-05-17 09:11] VITALS: PULSE 67; RESP 18; TEMP 98.6
[2022-05-17 09:46] VITALS: BP 127/78
--- NOTE | 2022-05-17 09:50 | XR ---
EXAMINATION TYPE: XR thoracic spine 2V DATE OF EXAM: 05/17/2022 CLINICAL HISTORY: pain TECHNIQUE: Frontal, lateral, and swimmer's view of thoracic spine are obtained. COMPARISON: None. FINDINGS: Thoracic spine show satisfactory alignment without evidence of acute fracture or dislocatio n. Vertebral body heights are preserved. Moderate degenerative changes. Visualized ribs are unremark able. IMPRESSION: No acute fracture or dislocation is seen in the thoracic spine. ICD 10 NO FRACTURE, INIT IAL EVALUATION
--- NOTE | 2022-05-17 14:54 | P.PAINPG ---
PQRS Measure Charge Sheet Comment: A 57 yr old male with a history of severe and chronic LBP x 1 yr secondary to lumbar DDD and spondylosis with facet arthropathy without myelopathy presents today for evaluation s/p BL facet block of the medial branches L4-L5, L5-S1 #1. Pt states he experienced 20% pain relief x 4 hrs s/p procedure. Pain level is provoked at 7/10 in intensity, constant, localized in the lumbar spine, sharp in character w shooting towards the RLE. Pain is provoked by bending, sitting for periods of 20 min or more. Pain is alleviated with medications, injections, heat, PT x 12 wks in Apr 2022, laying supine, repositioning and rest. Also admits to mid back pain 5/10 in intensity, achy in character without radiation that is provoked w sitting for periods of 30 min or more and relieved w medications and repositioning. Interventional pain procedures completed include BL MBB L3-L5 x1, LESI L1-L2 x1 Patient is currently on [place] from his PCP Patient denies any side effects of the medication(s), denies excessive drowsiness or sleepiness, denies suicidal ideation and reports that the current pain medication is helping to control the pain and improve activities of daily living. Patient denies any motor or sensory deficits. Patient denies any fever or night sweats, denies any change in the bowel movements or urination. Physical Examination: -Constitutional: Cooperative. Not in acute distress . - Neurologic: Cranial nerve II to XII intact. No focal neurological deficits. - Psychatric: Alert & oriented x 3. Matching mood & appropriate affect. Judgment and insight intact. - Musculoskeletal: Cervical spine: Muscle bulk/ tone/ strength in the bilateral upper extremities normal Vertebral body tenderness to palpation over Spurling test positive Distraction test positive Facet loading test positive TTP Thoracic spine Muscle bulk / tone/ strength in the bilateral paraspinal muscles normal Vertebral body tender to palpation over Facet loading test positive TTP Lumbar spine: Motor bulk/ tone/ strength lower extremities , thigh and legs : 5/5 Deep tendon reflexes : Normal Knee Jerk. Normal Ankle Jerk . Vertebral body tenderness to palpation over Lumbar Facet Loading Test positive BL paraspinal TTP L1-L5 Straight Leg Raise: positive at 30 degrees right side/ left side Gaenslen's Test positive Sacral spine : Severe tenderness over the Sacroiliac joint: right side / left side Range of motion: Flexion of the lumbar spine <60 degrees Range of motion: Extension of the lumbar spine <20 degrees Gaenslen's Test positive right side / left side Carol test: positive right side / left side Thigh Thrust Test positive right side / left side Sacral Thrust Test positive right side / left side Assessment and plan: Chronic LBP secondary to lumbar DDD, spondylosis with facet arthropathy without myelopathy Recommendation of Lumbar BL TPIs L1-S1. May need a series of injections for optimal pain relief. Risks, benefits of procedure discussed and pt verbalized understanding. Admits to anticoagulant use or medical history of diabetes. Protocol for discontinuation/ continuation of medications mary procedure discussed. Script for x ray of thoracic spine re: M51.34. All questions answered. I have spent less than 30 minutes on patient care today. Dr Motley was available by phone for the evaluation of this patient. The time was used to review the medical records including relevant urine studies and Prescription history (MAPs), review of the available imaging, evaluation and examination of the patient, coordination of care with the medical staff and if applicable referring physicians, as well as creation of the medical record PQRS Narrative: Smoking Status Current every day smoker Hx Alcohol Use (MH) No Home Medications: Ambulatory Orders Budesonide-Formot 160-4.5 Mcg [Symbicort 160-4.5 Mcg Inhaler] 2 puff INHALATION RT-BID #1 puff 03/29/18 Atorvastatin [Lipitor] 20 mg PO HS 03/29/19 metFORMIN HCL [Glucophage] 500 mg PO TID-W/MEALS 03/29/19 HYDROcodone/APAP 10-325MG [[place] 10-325] 1 tab PO BID 11/05/19 Lisinopril-Hctz 10-12.5 mg [Zestoretic 10-12.5] 1 tab PO DAILY 11/05/19 Albuterol Sulfate [Albuterol Sulfate Hfa] 2 puff PO Q6H PRN 03/05/22 Ascorbic Acid [Vitamin C] 1,000 mg PO DIRECTED 03/05/22 Cholecalciferol (Vitamin D3) [Vitamin D3] 10,000 units PO DAILY 03/05/22 Magnesium Gluconate [Magonate] 420 mg PO BID 03/05/22 Melatonin [Melatonin ER] 20 mg PO HS 03/05/22 Metoprolol Tartrate [Lopressor] 100 mg PO BID-W/MEALS 03/05/22 Zinc Gluconate [Zinc] 50 mg PO Q48H 03/05/22 traZODone HCL [Desyrel] 50 mg PO HS 03/05/22 Rivaroxaban [Xarelto] 2.5 mg PO DAILY 03/29/22 Controlled Substance Measures - Controlled Substance Measures Is patient prescribed a controlled substance at discharge?: No
== END ==
LOC: PNWHC3 08:29
PROVIDERS: ATTEND Specialist
DX: M51.34 Other intervertebral disc degeneration, thoracic region (principal); M51.36 Other intervertebral disc degeneration, lumbar region; M47.816 Spondylosis without myelopathy or radiculopathy, lumbar region; G89.29 Other chronic pain; F17.200 Nicotine dependence, unspecified, uncomplicated
CPT/HCPCS: 72070; G0463; 99211

== ENCOUNTER 2022-06-10 08:35 | Day surgery (SDC) | payer MEDICARE, OTHER ==
[2022-06-07 15:53] VITALS: BMI 45.8
[~2022-06-10 08:35] MED LIST changes: -IOPAMIDOL M200 10 ML VIAL ONE; -IV FLUID CONTINUATION 1,000 ML IV ONE; -LACTATED RINGERS 1,000 ML IV ONE; -LIDOCAINE 1% (10MG/ML) FOR IV START INTRADERMA PRN; -MIDAZOLAM 2 MG/2 ML VIAL ONE; -fentaNYL (PF) 50 MCG/ML 2 ML AMP ONE; -methylPREDNISolone ACETATE 80 MG/ML 1 ML VIAL ONE
[2022-06-10 09:01] VITALS: RESP 16; TEMP 97
[2022-06-10 09:17] LABS: Glucose,Whole Blood 129 mg/dL (70-110)
[2022-06-10] MEDS ORDERED: ROPIVACAINE 5 MG/ML 20 ML AMPULE ONE (09:19)
[2022-06-10] MEDS ORDERED: methylPREDNISolone ACETATE 40 MG/ML 1 ML VIAL ONE (09:19)
--- NOTE | 2022-06-10 09:36 | P.PCN ---
Date of Procedure: 06/10/22 Procedure(s) Performed: Procedure= trigger point injections lumbar paraspinal muscles, 4 on the right side lumbar paraspinal muscles and 3 on the left side lumbar paraspinal muscles Preoperative diagnosis= 1-myofascial pain syndrome lumbar paraspinal muscles 2- lumbar degenerative disc disease 3-lumbar facet arthropathy Postoperative diagnosis=Same as preop Diagnosis . Complication = none Condition= stable Anesthesia= none Indication for the procedure= patient complaining of low back pain , examination was positive for multiple trigger point identified in the lumbar paraspinal muscles bilaterally and patient diagnosed with myofascial pain syndrome and is here to have trigger point injections. Description of the procedure= procedure risk and benefits discussed with the patient, including but not limited, risk of infection and bleeding, and ALLERGIC reaction to the medication and not complete pain relief and patient agreed with the preceding patient taken to the operating room, placed in sitting positions ,OR standard monitors applied to the patient then after induction of anesthesia back prepped with chlorhexidine 3 times , even under strict sterile technique each of the trigger point injected with a mixture of ropivacaine 0.5% mixed with 40 mg of Depo-Medrol total of 14 ml mixed with 40 mg of Depo-Medrol, 2 mL of the mixture was injected at each trigger point, using 25-gauge spinal needle(secondary to body habitus we have to use 3-1/2 inches spinal needle ), injection done after negative aspiration and there was no paresthesia during the injection patient tolerated the procedure well without any complications, patient discharged home in stable condition.
[2022-06-10 09:59] VITALS: BP 116/65; PULSE 64
== END 2022-06-10 10:07 | disposition home or self-care (01) ==
LOC: ORPAIN 08:35
PROVIDERS: ATTEND Specialist
DX: M79.18 Myalgia, other site (principal); M47.816 Spondylosis without myelopathy or radiculopathy, lumbar region; M51.36 Other intervertebral disc degeneration, lumbar region
CPT/HCPCS: 20553; J1030; J2795

== ENCOUNTER → 2022-07-01 | Outpatient (CLI) | payer MEDICARE, OTHER ==
[2022-07-01 09:41] VITALS: BP 118/80; PULSE 68; RESP 18
--- NOTE | 2022-07-01 14:11 | P.PAINPG ---
PQRS Measure Charge Sheet Comment: A 57 yr old male with a history of severe and chronic LBP secondary to lumbar DDD and spondylosis with facet arthropathy without myelopathy presents today for evaluation s/p Lumbar TPIs. Pt states he experienced 0 % pain relief x 3 wks s/p procedure. Pt stated he will follow up w Dr Nathan for his back for additional treatment options. Pain level is provoked at 7/10 in intensity, constant, localized in the mid to lower cervical spine, sharp in character w/o shooting pain. Pain is provoked by lifting. Pain is alleviated with medications, injections, heat, PT x 12 wks in Apr 2022, laying supine, repositioning and rest. Interventional pain procedures completed include PRETTY L1-2 x1, BL MBB L3-L5 x1, Lumbar TPIs Patient is currently on [place] Patient denies any side effects of the medication(s), denies excessive drowsiness or sleepiness, denies suicidal ideation and reports that the current pain medication is helping to control the pain and improve activities of daily living. Patient denies any motor or sensory deficits. Patient denies any fever or night sweats, denies any change in the bowel movements or urination. Physical Examination: -Constitutional: Cooperative. Not in acute distress . - Neurologic: Cranial nerve II to XII intact. No focal neurological deficits. - Psychatric: Alert & oriented x 3. Matching mood & appropriate affect. Judgment and insight intact. - Musculoskeletal: Cervical spine: Muscle bulk/ tone/ strength in the bilateral upper extremities normal Vertebral body tenderness to palpation over C6 Spurling test positive Distraction test positive Facet loading test positive TTP Thoracic spine Muscle bulk / tone/ strength in the bilateral paraspinal muscles normal Vertebral body tender to palpation over Facet loading test positive TTP Lumbar spine: Motor bulk/ tone/ strength lower extremities , thigh and legs : 5/5 Deep tendon reflexes : Normal Knee Jerk. Normal Ankle Jerk . Vertebral body tenderness to palpation over Lumbar Facet Loading Test positive Straight Leg Raise: positive at 30 degrees right side/ left side Gaenslen's Test positive Sacral spine : Severe tenderness over the Sacroiliac joint: right side / left side Range of motion: Flexion of the lumbar spine <60 degrees Range of motion: Extension of the lumbar spine <20 degrees Gaenslen's Test positive right side / left side Carol test: positive right side / left side Thigh Thrust Test positive right side / left side Sacral Thrust Test positive right side / left side Assessment and plan: Chronic neck pain secondary to cervical DDD, spondylosis with facet arthropathy without myelopathy Recommendation of PRETTY C6-7 #1. May need additional injections for optimal pain relief. Risks, benefits of procedure discussed and pt verbalized understanding. Admits to anticoagulant use or medical history of diabetes. Protocol for discontinuation/ continuation of medications mary procedure discussed. All questions answered. I have spent less than 30 minutes on patient care today. Dr Motley was available by phone for the evaluation of this patient. The time was used to review the medical records including relevant urine studies and Prescription history (MAPs), review of the available imaging, evaluation and examination of the patient, coordination of care with the medical staff and if applicable referring physicians, as well as creation of the medical record PQRS Narrative: Smoking Status Current every day smoker Hx Alcohol Use (MH) No Home Medications: Ambulatory Orders Budesonide-Formot 160-4.5 Mcg [Symbicort 160-4.5 Mcg Inhaler] 2 puff INHALATION RT-BID #1 puff 03/29/18 Atorvastatin [Lipitor] 20 mg PO HS 03/29/19 metFORMIN HCL [Glucophage] 500 mg PO TID-W/MEALS 03/29/19 HYDROcodone/APAP 10-325MG [[place] 10-325] 1 tab PO BID 11/05/19 Lisinopril-Hctz 10-12.5 mg [Zestoretic 10-12.5] 1 tab PO DAILY 11/05/19 Albuterol Sulfate [Albuterol Sulfate Hfa] 2 puff PO Q6H PRN 03/05/22 Ascorbic Acid [Vitamin C] 1,000 mg PO DIRECTED 03/05/22 Cholecalciferol (Vitamin D3) [Vitamin D3] 10,000 units PO DAILY 03/05/22 Magnesium Gluconate [Magonate] 420 mg PO BID 03/05/22 Melatonin [Melatonin ER] 20 mg PO HS 03/05/22 Metoprolol Tartrate [Lopressor] 100 mg PO BID-W/MEALS 03/05/22 Zinc Gluconate [Zinc] 50 mg PO Q48H 03/05/22 traZODone HCL [Desyrel] 50 mg PO HS 03/05/22 Rivaroxaban [Xarelto] 20 mg PO DAILY 06/07/22 Controlled Substance Measures - Controlled Substance Measures Is patient prescribed a controlled substance at discharge?: No
== END | disposition home or self-care (01) ==
LOC: PNWHC3 08:19
PROVIDERS: ATTEND Specialist
DX: M50.323 Other cervical disc degeneration at C6-C7 level (principal); M51.36 Other intervertebral disc degeneration, lumbar region; M47.812 Spondylosis without myelopathy or radiculopathy, cervical region; M47.816 Spondylosis without myelopathy or radiculopathy, lumbar region; E11.9 Type 2 diabetes mellitus without complications; F17.210 Nicotine dependence, cigarettes, uncomplicated; Z79.01 Long term (current) use of anticoagulants
CPT/HCPCS: 99211

== ENCOUNTER 2022-07-22 06:09 | Day surgery (SDC) | payer MEDICARE, OTHER ==
[2022-07-22] MEDS ORDERED: LIDOCAINE 1% (10MG/ML) FOR IV START INTRADERMA PRN (06:26)
[2022-07-22] MEDS ORDERED: LACTATED RINGERS 1,000 ML IV SCH (06:26)
[2022-07-22 06:41] VITALS: TEMP 98.2
[2022-07-22 06:54] LABS: Glucose,Whole Blood 125 mg/dL (70-110)
[2022-07-22] MEDS ORDERED: DEXAMETHASONE SOD PHOSPHATE 10 MG/ML 1 ML VIAL ONE (07:05)
[2022-07-22] MEDS ORDERED: MIDAZOLAM 2 MG/2 ML VIAL ONE (07:05)
[2022-07-22] MEDS ORDERED: IOPAMIDOL M200 10 ML VIAL ONE (07:05)
[2022-07-22] MEDS ORDERED: fentaNYL (PF) 50 MCG/ML 2 ML AMP ONE (07:05)
--- NOTE | 2022-07-22 07:14 | P.PCN ---
Date of Procedure: 07/22/22 Procedure(s) Performed: . PROCEDURE 1. Cervical epidural steroid injection under fluoroscopic guidance, C6-7 (fluoroscopy images available in the radiology department ) 2. Cervical epidurogram. PREOPERATIVE DIAGNOSIS: 1- Cervical Degenerative Disc Diseases 2-cervical spondylosis with cervical Facet arthropathy without myelopathy.3-cervical spinal stenosis POSTOPERATIVE DIAGNOSIS: : 1- Cervical Degenerative Disc Diseases , 2-cervical spondylosis with cervical Facet arthropathy without myelopathy. 3-cervical spinal stenosis ANESTHESIA: moderate sedation, with Versed 2 mg and Fentanyl 50 mcg. Sedation start time :704 Sedation end time :710 EBL 0 PROCEDURE INDICATION: The patient with neck pain and radiculitis unresponsive to conservative treatment consents for procedure. PROCEDURE DESCRIPTION / TECHNIQUE: The patient was seen and identified in the preoperative area. Risks, benefits, complications, including but not limited to infections ,bleeding , allergic reactions to the medications ,and not complete pain releife, and alternatives were discussed with the patient, the patient agreed to proceed with the procedure and signed the consent. Patient was taken to the OR and time out was completed. The patient was placed in the prone position on the procedure table. A pillow was placed under the patients chest to increase the cervical interlaminar space. The cervical area was prepped and draped in the usual sterile fashion. Vital signs were closely monitored during the procedure. Conscious sedation was used during the procedure to decrease patients anxiety. Using anterior-posterior fluoroscopy, the C6-7 interlaminar space was identified and the skin over this site was marked and then infiltrated with 1% lidocaine subcutaneously. Subsequently, a 20-gauge 3-1/2-inch Tuohy epidural needle was inserted and advanced toward the epidural space by means of the ``hanging-drop technique and guided by AP and lateral fluoroscopy. The correct needle position in the epidural space was verified with the injection of 2 mL of the water soluble contrast dye Isovue-200 and observing an excellent epidurogram with the epidural spread of the dye, after negative aspiration for blood and CSF and in the absence of paresthesias. then, mixture containing 15 mg Dexamethasone and 2 ml of preservative-free normal saline injected and a washout of epidurogram was seen. Needle was withdrawn intact, skin was cleansed, and bandages were applied. Complications= none. Disposition= patient was placed in supine position and transferred to the recovery room area in stable condition and there was no evidence of upper or lower extremity motor or sensory deficit after the procedure patient was discharged from recovery room after discharge criteria met and home discharge instructions was given by the staff and patient will follow with the pain clinic in 2-4 weeks
[2022-07-22] MEDS ORDERED: IV FLUID CONTINUATION 1,000 ML IV ONE (07:17)
[2022-07-22 07:22] VITALS: RESP 16
[2022-07-22 07:49] VITALS: BP 95/62; PULSE 62
--- NOTE | 2022-07-22 08:13 | FL ---
Intraoperative/procedural fluoroscopic services were provided. Total fluoroscopy time is 2.4 seconds with a total of 1 submitted images to PACS. Please see the operative/procedural note for further deta ils. DAP: 0.0376 mGym2
== END 2022-07-22 07:50 | disposition home or self-care (01) ==
LOC: ORPAIN 06:09
PROVIDERS: ATTEND Specialist
DX: M50.123 Cervical disc disorder at C6-C7 level with radiculopathy (principal); M47.22 Other spondylosis with radiculopathy, cervical region; M48.02 Spinal stenosis, cervical region; Z79.01 Long term (current) use of anticoagulants
CPT/HCPCS: 62321; J2250; J1100; J3010; Q9966

== ENCOUNTER → 2022-08-12 | Outpatient (CLI) | payer MEDICARE, OTHER ==
[2022-08-12 09:42] VITALS: BP 108/72; PULSE 73; RESP 17; TEMP 97.7
--- NOTE | 2022-08-12 15:00 | P.PAINPG ---
PQRS Measure Charge Sheet Comment: A 57 yr old male with a history of severe and chronic LBP x 10 yrs secondary to lumbar DDD and spondylosis with facet arthropathy without myelopathy presents today for evaluation s/p PRETTY C6-C7. Pt states he experienced 80% pain relief x 3 wks s/p procedure. Pain level is provoked at 8/10 in intensity, constant, localized in the lumbar spine, stabbing in character w/o shooting pain. Pain is provoked by . Pain is alleviated with 3 rounds of PT x 6 wks w last visits ending May 2022, heat, medications, use of a TENS unit at PT, repositioning and rest. Interventional pain procedures completed include PRETTY C6-C7 x1, PRETTY L1-L2, BL MBB L3-L5 x1, Lumbar TPIs Patient is currently on [place] from his PCP Patient denies any side effects of the medication(s), denies excessive drowsiness or sleepiness, denies suicidal ideation and reports that the current pain medication is helping to control the pain and improve activities of daily living. Patient denies any motor or sensory deficits. Patient denies any fever or night sweats, denies any change in the bowel movements or urination. Physical Examination: -Constitutional: Cooperative. Not in acute distress . - Neurologic: Cranial nerve II to XII intact. No focal neurological deficits. - Psychatric: Alert & oriented x 3. Matching mood & appropriate affect. Judgment and insight intact. - Musculoskeletal: Cervical spine: Muscle bulk/ tone/ strength in the bilateral upper extremities normal Vertebral body tenderness to palpation over Spurling test positive Distraction test positive Facet loading test positive TTP Thoracic spine Muscle bulk / tone/ strength in the bilateral paraspinal muscles normal Vertebral body tender to palpation over Facet loading test positive TTP Lumbar spine: Motor bulk/ tone/ strength lower extremities , thigh and legs : 5/5 Deep tendon reflexes : Normal Knee Jerk. Normal Ankle Jerk . Vertebral body tenderness to palpation over L5 Cruz Test positive Lumbar Facet Loading Test positive Straight Leg Raise: positive at 30 degrees right side/ left side Gaenslen's Test positive Sacral spine : Severe tenderness over the Sacroiliac joint: right side / left side Range of motion: Flexion of the lumbar spine <60 degrees Range of motion: Extension of the lumbar spine <20 degrees Gaenslen's Test positive right side / left side Carol test: positive right side / left side Thigh Thrust Test positive right side / left side Sacral Thrust Test positive right side / left side Assessment and plan: Chronic LBP secondary to lumbar DDD, spondylosis with facet arthropathy without myelopathy Recommendation of PRETTY L5-S1. May need a series of injections for optimal pain relief. Risks, benefits of procedure discussed and pt verbalized understanding. Admits to anticoagulant use or medical history of diabetes. Protocol for discontinuation/ continuation of medications mary procedure discussed. Minimal anesthesia provided, if clinically indicated, consisting of Versed and Fentanyl. All questions answered. I have spent less than 30 minutes on patient care today. Dr Motley was available by phone for the evaluation of this patient. The time was used to review the medical records including relevant urine studies and Prescription history (MAPs), review of the available imaging, evaluation and examination of the patient, coordination of care with the medical staff and if applicable referring physicians, as well as creation of the medical record PQRS Narrative: Smoking Status Current every day smoker Hx Alcohol Use (MH) No Home Medications: Ambulatory Orders Budesonide-Formot 160-4.5 Mcg [Symbicort 160-4.5 Mcg Inhaler] 2 puff INHALATION RT-BID #1 puff 03/29/18 Atorvastatin [Lipitor] 20 mg PO HS 03/29/19 metFORMIN HCL [Glucophage] 500 mg PO TID-W/MEALS 03/29/19 HYDROcodone/APAP 10-325MG [[place] 10-325] 1 tab PO BID 11/05/19 Lisinopril-Hctz 10-12.5 mg [Zestoretic 10-12.5] 1 tab PO DAILY 11/05/19 Albuterol Sulfate [Albuterol Sulfate Hfa] 2 puff PO Q6H PRN 03/05/22 Ascorbic Acid [Vitamin C] 1,000 mg PO DIRECTED 03/05/22 Cholecalciferol (Vitamin D3) [Vitamin D3] 10,000 units PO DAILY 03/05/22 Magnesium Gluconate [Magonate] 420 mg PO BID 03/05/22 Melatonin [Melatonin ER] 20 mg PO HS 03/05/22 Metoprolol Tartrate [Lopressor] 100 mg PO BID-W/MEALS 03/05/22 Zinc Gluconate [Zinc] 50 mg PO Q48H 03/05/22 traZODone HCL [Desyrel] 50 mg PO HS 03/05/22 Rivaroxaban [Xarelto] 20 mg PO DAILY 06/07/22 Controlled Substance Measures - Controlled Substance Measures Is patient prescribed a controlled substance at discharge?: No
== END ==
LOC: PNWHC3 08:47
PROVIDERS: ATTEND Specialist
DX: M51.36 Other intervertebral disc degeneration, lumbar region (principal); M47.816 Spondylosis without myelopathy or radiculopathy, lumbar region; G89.29 Other chronic pain; F17.200 Nicotine dependence, unspecified, uncomplicated
CPT/HCPCS: 99211

== ENCOUNTER 2022-09-02 06:59 | Day surgery (SDC) | payer MEDICARE, OTHER ==
[2022-08-30 11:09] VITALS: BMI 46.2
[2022-09-02] MEDS ORDERED: LACTATED RINGERS 1,000 ML IV SCH (07:29)
[2022-09-02] MEDS ORDERED: LACTATED RINGERS 1,000 ML IV ONE (08:05)
[2022-09-02 08:21] LABS: Glucose,Whole Blood 124 mg/dL (70-110)
[2022-09-02 08:22] VITALS: RESP 16; TEMP 97.3
[2022-09-02] MEDS ORDERED: IOPAMIDOL M200 10 ML VIAL ONE (08:29)
[2022-09-02] MEDS ORDERED: methylPREDNISolone ACETATE 40 MG/ML 1 ML VIAL ONE (08:29)
--- NOTE | 2022-09-02 08:37 | P.PCN ---
Date of Procedure: 09/02/22 Procedure(s) Performed: PREOPERATIVE DIAGNOSIS: 1- Lumbar Degenerative Disc Diseases 2-Lumbar spondylosis with Facet arthropathy without myelopathy. POSTOPERATIVE DIAGNOSIS: 1-lumbar degenerative disc disease. 2-lumbar spondylosis with facet arthropathy without myelopathy. PROCEDURE 1. Lumbar epidural steroid injection under fluoroscopic guidance at the L5-S1 level. (Fluoroscopy imaging was available in radiology department) 2. Lumbar epidurogram. ANESTHESIA: Lidocaine 1% 3 and then only. EBL: Minimal PROCEDURE INDICATION: The patient with low back pain and radiculitis symptoms unresponsive to conservative treatment. Fluoroscopy was used to optimize visualization of the needle placement and to maximize safety. PROCEDURE DESCRIPTION / TECHNIQUE: The patient was seen and identified in the preoperative area. Risks, benefits, complications including but not limited to infections ,bleeding ,allergic reaction to the medications ,nerve damage and not complete pain releife , and alternatives were discussed with the patient. The patient agreed to proceed with the procedure and signed the consent , and vital signs were stable. Patient was taken to the OR and time out was completed. The patient was placed in the prone position on procedure table and a pillow was placed under the abdomen to reduce lumbar lordosis. The lumbosacral area was prepped and draped in the usual sterile fashion.ere closely monitored during the procedure. Vital signs was monitered during the entire procedure. Using anterior-posterior fluoroscopy, the L5-S1 interlaminar space was identified and the skin over this site was marked and then infiltrated with 1% lidocaine subcutaneously. Subsequently, a 18 -gauge 6 inches lng Tuohy epidural needle was inserted and advanced toward the epidural space using the ``Loss of resistance technique and guided by AP and lateral fluoroscopy. The correct needle position in the epidural space was verified with the injection of 2 mL of the water soluble contrast dye Isovue 200 contrast and observing an excellent epidurogram with the epidural spread of the dye, after negative aspiration for blood and CSF and in the absence of paresthesias. Again after negative aspiration, a 6 ml mixture containing 40 mg of Depo-medrol ( Preservetive Free ), and 2 ml of preservative free Normal Saline, and 2 ml of preservative free lidocaine 1% solution was injected and a washout of epidurogram was seen. Needle was withdrawn intact, skin was cleansed, and bandages were applied. COMPLICATIONS: None DISPOSITION / PLANS: The patient was placed in a supine position and transferred to the recovery area in a stable condition for observation. There was no evidence of lower extremity motor or sensory deficit after the procedure. Patient was discharged from the recovery room after meeting discharge criteria. Home discharge instructions were given to the patient by the staff. The patient was reexamined prior to discharge. The patient will schedule a follow up in the clinic in 2-4 weeks.
[2022-09-02 09:17] VITALS: BP 107/60; PULSE 60
--- NOTE | 2022-09-02 13:07 | FL ---
EXAMINATION TYPE: FL guided pain mgmt statistic DATE OF EXAM: 09/02/2022 FLUOROSCOPY Fluoroscopy time of 5 seconds was used during lumbar vertebral injection. 1 image/s document/s the p el[place]. DOSE AREA PRODUCT (DAP) UGY*M,MGY*CM: 0.055
== END 2022-09-02 09:00 | disposition home or self-care (01) ==
LOC: ORPAIN 06:59
PROVIDERS: ATTEND Specialist
DX: M51.16 Intervertebral disc disorders with radiculopathy, lumbar region (principal); M47.26 Other spondylosis with radiculopathy, lumbar region; I25.10 Atherosclerotic heart disease of native coronary artery without angina pectoris; Z79.01 Long term (current) use of anticoagulants
CPT/HCPCS: 62323; J1030; Q9966

== ENCOUNTER → 2022-09-27 | Outpatient (CLI) | payer MEDICARE, OTHER ==
[2022-09-27 09:21] VITALS: BP 107/74; PULSE 83; RESP 16; TEMP 98.8
--- NOTE | 2022-09-27 14:31 | P.PAINPG ---
PQRS Measure Charge Sheet Comment: A 57 yr old male with a history of severe and chronic LBP x 10 yrs secondary to lumbar DDD and spondylosis with facet arthropathy without myelopathy presents today for evaluation s/p PRETTY L5-S1. Pt states he experienced 70% pain relief x 2-3 wks s/p procedure. Pain level is provoked at 7/10 in intensity, constant, localized in the lumbar spine, stabbing in character w/o shooting pain. Pain is provoked by sitting/ walking for periods of 20 min or more. Pain is alleviated with 3 rounds of PT x 6 wks w last visits ending May 2022, heat, medications, use of a TENS unit at PT, repositioning and rest. Oswestry axial pain score of 29. Interventional pain procedures completed include PRETTY C6-C7 x1, PRETTY L1-L2, BL MBB L3-L5 x1, Lumbar TPIs Patient is currently on [place] from Dr Leon Patient denies any side effects of the medication(s), denies excessive drowsiness or sleepiness, denies suicidal ideation and reports that the current pain medication is helping to control the pain and improve activities of daily living. Patient denies any motor or sensory deficits. Patient denies any fever or night sweats, denies any change in the bowel movements or urination. Physical Examination: -Constitutional: Cooperative. Not in acute distress . - Neurologic: Cranial nerve II to XII intact. No focal neurological deficits. - Psychatric: Alert & oriented x 3. Matching mood & appropriate affect. Judgment and insight intact. - Musculoskeletal: Cervical spine: Muscle bulk/ tone/ strength in the bilateral upper extremities normal Vertebral body tenderness to palpation over Spurling test positive Distraction test positive Facet loading test positive TTP Thoracic spine Muscle bulk / tone/ strength in the bilateral paraspinal muscles normal Vertebral body tender to palpation over Facet loading test positive TTP Lumbar spine: Motor bulk/ tone/ strength lower extremities , thigh and legs : 5/5 Deep tendon reflexes : Normal Knee Jerk. Normal Ankle Jerk . Vertebral body tenderness to palpation over L5 Cruz Test positive Lumbar Facet Loading Test positive Straight Leg Raise: positive at 30 degrees right side/ left side Gaenslen's Test positive Sacral spine : Severe tenderness over the Sacroiliac joint: right side / left side Range of motion: Flexion of the lumbar spine <60 degrees Range of motion: Extension of the lumbar spine <20 degrees Gaenslen's Test positive right side / left side Carol test: positive right side / left side Thigh Thrust Test positive right side / left side Sacral Thrust Test positive right side / left side Assessment and plan: Chronic LBP secondary to lumbar DDD, spondylosis with facet arthropathy without myelopathy Recommendation of PRETTY L5-S1 #2. May need a series of injections for optimal pain relief. Risks, benefits of procedure discussed and pt verbalized understanding. Admits to anticoagulant use or medical history of diabetes. Protocol for discontinuation/ continuation of medications mary procedure discussed. Minimal anesthesia provided, if clinically indicated, consisting of Versed and Fentanyl. All questions answered. I have spent less than 30 minutes on patient care today. Dr Motley was available by phone for the evaluation of this patient. The time was used to review the medical records including relevant urine studies and Prescription history (MAPs), review of the available imaging, evaluation and examination of the patient, coordination of care with the medical staff and if applicable referring physicians, as well as creation of the medical record PQRS Narrative: Smoking Status Current every day smoker Hx Alcohol Use (MH) No Home Medications: Ambulatory Orders Budesonide-Formot 160-4.5 Mcg [Symbicort 160-4.5 Mcg Inhaler] 2 puff INHALATION RT-BID #1 puff 03/29/18 Atorvastatin [Lipitor] 20 mg PO HS 03/29/19 metFORMIN HCL [Glucophage] 500 mg PO TID-W/MEALS 03/29/19 HYDROcodone/APAP 10-325MG [[place] 10-325] 1 tab PO BID 11/05/19 Lisinopril-Hctz 10-12.5 mg [Zestoretic 10-12.5] 1 tab PO DAILY 11/05/19 Albuterol Sulfate [Albuterol Sulfate Hfa] 2 puff PO Q6H PRN 03/05/22 Ascorbic Acid [Vitamin C] 1,000 mg PO Q48H 03/05/22 Cholecalciferol (Vitamin D3) [Vitamin D3] 10,000 units PO DAILY 03/05/22 Magnesium Gluconate [Magonate] 420 mg PO BID 03/05/22 Melatonin [Melatonin ER] 20 mg PO HS 03/05/22 Metoprolol Tartrate [Lopressor] 100 mg PO BID-W/MEALS 03/05/22 Zinc Gluconate [Zinc] 50 mg PO Q48H 03/05/22 traZODone HCL [Desyrel] 50 mg PO HS 03/05/22 Rivaroxaban [Xarelto] 20 mg PO DAILY 06/07/22 Controlled Substance Measures - Controlled Substance Measures Is patient prescribed a controlled substance at discharge?: No
== END ==
LOC: PNWHC3 08:30
PROVIDERS: ATTEND Specialist
DX: M51.36 Other intervertebral disc degeneration, lumbar region (principal); M47.816 Spondylosis without myelopathy or radiculopathy, lumbar region; G89.29 Other chronic pain; F17.200 Nicotine dependence, unspecified, uncomplicated
CPT/HCPCS: 99211

== ENCOUNTER 2022-10-07 23:59 | Emergency (ER) | payer MEDICARE, OTHER ==
[2022-10-08 00:03] VITALS: RESP 18; TEMP 98
[2022-10-08] MEDS ORDERED: KETOROLAC 15 MG/ML 1 ML VIAL IM STA (00:54)
[2022-10-08] MEDS ORDERED: ORPHENADRINE 30 MG/ML 2 ML VIAL IM STA (00:54)
--- NOTE | 2022-10-08 01:20 | ED ---
General Adult HPI - General Chief complaint: Extremity Problem,Nontraumatic Stated complaint: Right Arm Pain Time Seen by Provider: 10/08/22 00:04 Source: patient Mode of arrival: ambulatory Limitations: no limitations - History of Present Illness Initial comments: This is a 57-year-old male with a past medical history including hypertension, diabetes and multiple pulmonary emboli on Eliquis presents emergency department for pain in his right arm. The patient stated he had shooting pain down his right arm with "pain along the bones radiating out" and stated that he had a stabbing like pain over the medial aspect of his right scapula. The patient denied any trauma to the area and denied any recent falls. The patient stated this occurred at 6:30 PM and has been persistent throughout the evening so he came to the emergency department. The patient denied any other acute pain or complaints at this time. The patient was otherwise resting in bed comfortably. - Related Data Home Medications Medication Instructions Recorded Confirmed Atorvastatin [Lipitor] 20 mg PO HS 03/29/19 09/27/22 metFORMIN HCL [Glucophage] 500 mg PO TID-W/MEALS 03/29/19 09/27/22 HYDROcodone/APAP 10-325MG [[place] 1 tab PO BID 11/05/19 09/27/22 10-325] Lisinopril-Hctz 10-12.5 mg 1 tab PO DAILY 11/05/19 09/27/22 [Zestoretic 10-12.5] Albuterol Sulfate [Albuterol 2 puff PO Q6H PRN 03/05/22 09/27/22 Sulfate Hfa] Ascorbic Acid [Vitamin C] 1,000 mg PO Q48H 03/05/22 09/27/22 Cholecalciferol (Vitamin D3) 10,000 units PO DAILY 03/05/22 09/27/22 [Vitamin D3] Magnesium Gluconate [Magonate] 420 mg PO BID 03/05/22 09/27/22 Melatonin [Melatonin ER] 20 mg PO HS 03/05/22 09/27/22 Metoprolol Tartrate [Lopressor] 100 mg PO BID-W/MEALS 03/05/22 09/27/22 Zinc Gluconate [Zinc] 50 mg PO Q48H 03/05/22 09/27/22 traZODone HCL [Desyrel] 50 mg PO HS 03/05/22 09/27/22 Rivaroxaban [Xarelto] 20 mg PO DAILY 06/07/22 09/27/22 Previous Rx's Medication Instructions Recorded Budesonide-Formot 160-4.5 Mcg 2 puff INHALATION RT-BID #1 puff 03/29/18 [Symbicort 160-4.5 Mcg Inhaler] Ketorolac [Toradol] 10 mg PO TID #30 tab 10/08/22 Lidocaine 5% Patch [Lidoderm] 1 patch TOPICAL DAILY #10 patch 10/08/22 methocarbamoL [Robaxin-750] 750 mg PO TID #30 tab 10/08/22 Allergies Allergy/AdvReac Type Severity Reaction Status Date / Time No Known Allergies Allergy Verified 10/08/22 00:03 Review of Systems ROS Statement: Those systems with pertinent positive or pertinent negative responses have been documented in the HPI. ROS Other: All systems not noted in ROS Statement are negative. Past Medical History Past Medical History: Chest Pain / Angina, COPD, Diabetes Mellitus, Hyperlipidemia, Hypertension, Osteoarthritis (OA), Pulmonary Embolus (PE), Renal Disease, Sleep Apnea/CPAP/BIPAP Additional Past Medical History / Comment(s): kidney stones, migraines, DWIGHT with BI-PAP, back pain, stress test-pt stated they did'nt find anything, PE's 2017 & 2019, constipation History of Any Multi-Drug Resistant Organisms: None Reported Past Surgical History: Heart Catheterization, Hernia Repair, Joint Replacement, Orthopedic Surgery Additional Past Surgical History / Comment(s): aortic angiogram, umbilical hernia repair, total L hip, R hand surgery, L knee arthroscopy, right ankle surgery, PAIN CLINIC PROCEDURE Past Anesthesia/Blood Transfusion Reactions: No Reported Reaction Past Psychological History: No Psychological Hx Reported Smoking Status: Vaper Past Alcohol Use History: Rare Past Drug Use History: Marijuana - Past Family History Mother Family Medical History: Cancer Additional Family Medical History / Comment(s): Mother had breast cancer. She of "natural causes" at the age of 73 yrs. Father Family Medical History: Renal Disease Additional Family Medical History / Comment(s): Father was an alcoholic. He of kidney problems at the age of 65yrs. General Exam Limitations: no limitations General appearance: alert, in no apparent distress, obese Head exam: Present: atraumatic, normocephalic, normal inspection Eye exam: Present: normal appearance, PERRL Pupils: Present: normal accommodation ENT exam: Present: normal exam, normal oropharynx, mucous membranes moist Neck exam: Present: normal inspection, full ROM Respiratory exam: Present: normal lung sounds bilaterally Cardiovascular Exam: Present: regular rate, normal rhythm, normal heart sounds GI/Abdominal exam: Present: soft, normal bowel sounds Extremities exam: Present: normal inspection, full ROM, tenderness (Mild TTP over the medial aspect of the right scapula) Back exam: Present: normal inspection, full ROM Neurological exam: Present: alert, oriented X3, CN II-XII intact Psychiatric exam: Present: normal affect, normal mood Skin exam: Present: warm, dry Course Vital Signs 10/08/22 00:01 Temperature 98 F Pulse Rate 79 Respiratory 18 Rate Blood Pressure 170/101 O2 Sat by Pulse 96 Oximetry Medical Decision Making - Medical Decision Making Was pt. sent in by a medical professional or institution (, PA, PAPER FOLDING MACHINE OPERATOR, urgent care, hospital, or fdc...) When possible be specific @ -No Did you speak to anyone other than the patient for history (EMS, parent, family, police, friend...)? What history was obtained from this source @ -No Did you review nursing and triage notes (agree or disagree)? Why? @ -I reviewed and agree with nursing and triage notes Were old charts reviewed (outside hosp., previous admission, EMS record, old EKG, old radiological studies, urgent care reports/EKG's, fdc records)? Report findings @ -No old charts were reviewed Differential Diagnosis (chest pain, altered mental status, abdominal pain women, abdominal pain men, vaginal bleeding, weakness, fever, dyspnea, syncope, headache, dizziness, GI bleed, back pain, seizure, CVA, palpatations, mental health)? @ -Musculoskeletal strain, cervical radiculopathy, pinched nerve EKG interpreted by me (3pts min.). @ -None X-rays interpreted by me (1pt min.). @ -None done CT interpreted by me (1pt min.). @ -None done U/S interpreted by me (1pt. min.). @ -None done What testing was considered but not performed or refused? (CT, X-rays, U/S, labs)? Why? @ -None What meds were considered but not given or refused? Why? @ -None Did you discuss the management of the patient with other professionals (professionals i.e. , PA, PAPER FOLDING MACHINE OPERATOR, lab, RT, psych nurse, sexual assault social worker, flame burner, teacher, biological technical officer, block and case maker)? Give summary @ -No Was smoking cessation discussed for >3mins.? @ -No Was critical care preformed (if so, how long)? @ -No Were there social determinants of health that impacted care today? How? (Homelessness, low income, unemployed, alcoholism, drug addiction, transportation, low edu. Level, literacy, decrease access to med. care, correction, rehab)? @ -No Was there de-escalation of care discussed even if they declined (Discuss DNR or withdrawal of care, Hospice)? DNR status @ -No What co-morbidities impacted this encounter? (DM, HTN, Smoking, COPD, CAD, Cancer, CVA, ARF, Chemo, Hep., AIDS, mental health diagnosis, sleep apnea, m orbid obesity)? @ -Hypertension, diabetes, previous pulmonary emboli Was patient admitted / discharged? Hospital course, mention meds given and route, prescriptions, significant lab abnormalities, going to OR and other pertinent info. @ -The patient was seen and evaluated in emergency department. On physical exam, the patient was resting in bed without any acute distress. Vital signs admission were stable. Physical exam showed reproducible pain to the medial aspect of the right scapula with radiation down the right arm. It was likely that the patient was suffering from a pinched nerve and muscular skeletal strain. The patient did not require any imaging at this time but was given medications including Norflex and Toradol as well as a lidocaine patch. On reevaluation, the patient stated that his pain went from a 10 now down to a 3. The patient had significant improvement of his pain and was stable for discharge home. The patient was given a prescription for Robaxin, Toradol and lidocaine patches. The patient was advised to take his medications as prescribed and to report back to the emergency department if his pain and significant acutely worse. The patient was agreeable to this and all his questions were answered appropriately. The patient was discharged home in stable condition. Undiagnosed new problem with uncertain prognosis? @ -No Drug Therapy requiring intensive monitoring for toxicity (Heparin, Nitro, Insulin, Cardizem)? @ -No Were any procedures done? @ -No Diagnosis/symptom? @ -Right thoracic pinched nerve, muscle skeletal strain Acute, or Chronic, or Acute on Chronic? @ -Acute Uncomplicated (without systemic symptoms) or Complicated (systemic symptoms)? @ -Uncomplicated Side effects of treatment? @ -No Exacerbation, Progression, or Severe Exacerbation? @ -No Poses a threat to life or bodily function? How? (Chest pain, [place], [place], pneumonia, PE, COPD, DKA, ARF, appy, cholecystitis, CVA, Diverticulitis, Homicidal, Suicidal, threat to staff... and all critical care pts) @ -No Disposition Clinical Impression: Muscle strain Disposition: HOME SELF-CARE Condition: Stable Instructions (If sedation given, give patient instructions): Muscle Strain (DC) Prescriptions: Lidocaine 5% Patch [Lidoderm] 1 patch TOPICAL DAILY #10 patch methocarbamoL [Robaxin-750] 750 mg PO TID #30 tab Ketorolac [Toradol] 10 mg PO TID #30 tab Is patient prescribed a controlled substance at d/c from ED?: No Referrals: Jason Leon DO [Primary Care Provider] - 1-2 days Time of Disposition: 01:30
[2022-10-08 01:58] VITALS: BP 117/79; PULSE 65
[2022-10-08] MEDS ORDERED: LIDOCAINE 5% PATCH TOPICAL SCH (09:00)
== END 2022-10-08 01:58 | disposition home or self-care (01) ==
LOC: EC 23:59
DX: S46.911A Strain of unspecified muscle, fascia and tendon at shoulder and upper arm level, right arm, initial encounter (principal); J44.9 Chronic obstructive pulmonary disease, unspecified; E11.9 Type 2 diabetes mellitus without complications; E78.5 Hyperlipidemia, unspecified; I10 Essential (primary) hypertension; M19.90 Unspecified osteoarthritis, unspecified site; G47.30 Sleep apnea, unspecified; F17.290 Nicotine dependence, other tobacco product, uncomplicated; F12.90 Cannabis use, unspecified, uncomplicated; Z86.711 Personal history of pulmonary embolism; Z79.01 Long term (current) use of anticoagulants; Z79.1 Long term (current) use of non-steroidal anti-inflammatories (NSAID); Z79.84 Long term (current) use of oral hypoglycemic drugs; Z79.899 Other long term (current) drug therapy; X58.XXXA Exposure to other specified factors, initial encounter
CPT/HCPCS: 99283; 96372 ×2; J2360; J1885

== ENCOUNTER 2022-10-08 19:20 | Emergency (ER) | payer MEDICARE, OTHER ==
[2022-10-08 19:35] VITALS: TEMP 98.3
--- NOTE | 2022-10-08 20:12 | ED ---
Extremity Problem HPI - General Source: patient Mode of arrival: ambulatory Limitations: no limitations <Saurav Rausch - Last Filed: 10/08/22 20:13> <Ajit Ledesma - Last Filed: 10/09/22 04:05> - General Chief complaint: Extremity Problem,Nontraumatic Stated complaint: pain right arm-revisit Time Seen by Provider: 10/08/22 20:13 - History of Present Illness Initial comments: 57-year-old male presenting to the ED with a chief complaint of right arm pain. States was seen here earlier this morning. States pain meds initially providing comfort however now pain is back. (Saurav Rausch) 57-year-old male presenting with chief complaint of right arm pain. Patient was seen here yesterday for the same complaint. At that time pain started and shoulder and radiated down the arm and he found relief after Toradol and lidocaine patch. He was sent home with muscle relaxers. States that today the pain came back starting in his wrist and radiates up to the level of the elbow. He states that at home with muscle relaxers and previously prescribed [place] are not helping the pain. No numbness, tingling, weakness. No chest pain or difficulty breathing. (Ajit Ledesma) - Related Data Home Medications Medication Instructions Recorded Confirmed Atorvastatin [Lipitor] 20 mg PO HS 03/29/19 10/08/22 metFORMIN HCL [Glucophage] 500 mg PO TID-W/MEALS 03/29/19 10/08/22 HYDROcodone/APAP 10-325MG [[place] 1 tab PO BID 11/05/19 10/08/22 10-325] Lisinopril-Hctz 10-12.5 mg 1 tab PO DAILY 11/05/19 10/08/22 [Zestoretic 10-12.5] Albuterol Sulfate [Albuterol 2 puff PO Q6H PRN 03/05/22 10/08/22 Sulfate Hfa] Ascorbic Acid [Vitamin C] 1,000 mg PO Q48H 03/05/22 10/08/22 Cholecalciferol (Vitamin D3) 10,000 units PO DAILY 03/05/22 10/08/22 [Vitamin D3] Magnesium Gluconate [Magonate] 420 mg PO BID 03/05/22 10/08/22 Melatonin [Melatonin ER] 20 mg PO HS 03/05/22 10/08/22 Metoprolol Tartrate [Lopressor] 100 mg PO BID-W/MEALS 03/05/22 10/08/22 Zinc Gluconate [Zinc] 50 mg PO Q48H 03/05/22 10/08/22 traZODone HCL [Desyrel] 50 mg PO HS 03/05/22 10/08/22 Rivaroxaban [Xarelto] 20 mg PO DAILY 06/07/22 10/08/22 Previous Rx's Medication Instructions Recorded Budesonide-Formot 160-4.5 Mcg 2 puff INHALATION RT-BID #1 puff 03/29/18 [Symbicort 160-4.5 Mcg Inhaler] Cyclobenzaprine [Flexeril] 10 mg PO TID PRN #15 tab 10/08/22 Ketorolac [Toradol] 10 mg PO TID #30 tab 10/08/22 Lidocaine 5% Patch [Lidoderm] 1 patch TOPICAL DAILY #10 patch 10/08/22 methocarbamoL [Robaxin-750] 750 mg PO TID #30 tab 10/08/22 methylPREDNISolone Dose Pack 4 mg PO DIRECTED #1 packet 10/08/22 [Medrol Dose Pack] Allergies Allergy/AdvReac Type Severity Reaction Status Date / Time No Known Allergies Allergy Verified 10/08/22 13:42 Review of Systems ROS Other: All systems not noted in ROS Statement are negative. <Saurav Rausch - Last Filed: 10/08/22 20:13> ROS Other: All systems not noted in ROS Statement are negative. <Ajit Ledesma - Last Filed: 10/09/22 04:05> ROS Statement: Those systems with pertinent positive or pertinent negative responses have been documented in the HPI. Past Medical History Past Medical History: Chest Pain / Angina, COPD, Diabetes Mellitus, Hyperlipidemia, Hypertension, Osteoarthritis (OA), Pulmonary Embolus (PE), Renal Disease, Sleep Apnea/CPAP/BIPAP Additional Past Medical History / Comment(s): kidney stones, migraines, DWIGHT with BI-PAP, back pain, stress test-pt stated they did'nt find anything, PE's 2017 & 2019, constipation History of Any Multi-Drug Resistant Organisms: None Reported Past Surgical History: Heart Catheterization, Hernia Repair, Joint Replacement, Orthopedic Surgery Additional Past Surgical History / Comment(s): aortic angiogram, umbilical hernia repair, total L hip, R hand surgery, L knee arthroscopy, right ankle surgery, PAIN CLINIC PROCEDURE Past Anesthesia/Blood Transfusion Reactions: No Reported Reaction Past Psychological History: No Psychological Hx Reported Smoking Status: Vaper Past Alcohol Use History: Rare - Past Family History Mother Family Medical History: Cancer Additional Family Medical History / Comment(s): Mother had breast cancer. She of "natural causes" at the age of 73 yrs. Father Family Medical History: Renal Disease Additional Family Medical History / Comment(s): Father was an alcoholic. He of kidney problems at the age of 65yrs. <Saurav Rausch - Last Filed: 10/08/22 20:13> General Exam Limitations: no limitations General appearance: alert Neck exam: Present: normal inspection Extremities exam: Present: normal inspection Back exam: Present: normal inspection Neurological exam: Present: alert <Saurav Rausch - Last Filed: 10/08/22 20:13> Limitations: no limitations General appearance: alert, in no apparent distress Head exam: Present: atraumatic, normocephalic, normal inspection Eye exam: Present: normal appearance, EOMI Neck exam: Present: normal inspection, full ROM Respiratory exam: Absent: respiratory distress Extremities exam: Present: normal inspection, full ROM, normal capillary refill. Absent: tenderness Neurological exam: Present: alert, oriented X3 Psychiatric exam: Present: normal affect, normal mood Skin exam: Present: warm, dry, intact, normal color. Absent: rash <Ajit Ledesma - Last Filed: 10/09/22 04:05> Course Vital Signs 10/08/22 10/08/22 10/08/22 19:31 22:30 23:29 Temperature 98.3 F 98.3 F Pulse Rate 80 80 70 Respiratory 20 18 18 Rate Blood Pressure 126/79 104/76 97/74 O2 Sat by Pulse 98 97 95 Oximetry Medical Decision Making <Saurav Rausch - Last Filed: 10/08/22 20:13> <Ajit Ledesma - Last Filed: 10/09/22 04:05> - Medical Decision Making Quicknote portion performed. Signed Saurav Ca PA-C) Was pt. sent in by a medical professional or institution (, PA, WARRANTY COORDINATOR, urgent care, hospital, or [place] [facility] facility...) When possible be specific @ -No Did you speak to anyone other than the patient for history (EMS, parent, family, police, friend...)? What history was obtained from this source @ -No Did you review nursing and triage notes (agree or disagree)? Why? @ -I reviewed and agree with nursing and triage notes Were old charts reviewed (outside hosp., previous admission, EMS record, old EKG, old radiological studies, urgent care reports/EKG's, [place] [facility] facility records)? Report findings @ -No old charts were reviewed Differential Diagnosis (chest pain, altered mental status, abdominal pain women, abdominal pain men, vaginal bleeding, weakness, fever, dyspnea, syncope, headache, dizziness, GI bleed, back pain, seizure, CVA, palpatations, mental health, musculoskeletal)? @ -Differential Musculoskeletal Muscular strain, contusion, ligament sprain, fracture, arthritis, septic arthritis, bursitis, cellulitis, muscle spasm, nerve compression, DVT, arterial occlusion, herpes zoster, electrolyte abnormality, tumor.... This is not meant to be in all inclusive list EKG interpreted by me (3pts min.). @ -As above X-rays interpreted by me (1pt min.). @ -None done CT interpreted by me (1pt min.). @ -None done U/S interpreted by me (1pt. min.). @ -None done What testing was considered but not performed or refused? (CT, X-rays, U/S, labs)? Why? @ -None What meds were considered but not given or refused? Why? @ -None Did you discuss the management of the patient with other professionals (professionals i.e. , GI, WARRANTY COORDINATOR, lab, RT, psych nurse, social work administrator, parachute/combatant diver officer, teacher, assurance officer, senior case manager)? Give summary @ -No Was smoking cessation discussed for >3mins.? @ -No Was critical care preformed (if so, how long)? @ -No Were there social determinants of health that impacted care today? How? (Homelessness, low income, unemployed, alcoholism, drug addiction, transpor tation, low edu. Level, literacy, decrease access to med. care, longterm, rehab)? @ -No Was there de-escalation of care discussed even if they declined (Discuss DNR or withdrawal of care, Hospice)? DNR status @ -No What co-morbidities impacted this encounter? (DM, HTN, Smoking, COPD, CAD, Cancer, CVA, ARF, Chemo, Hep., AIDS, mental health diagnosis, sleep apnea, morbid obesity)? @ -None Was patient admitted / discharged? Hospital course, mention meds given and route, prescriptions, significant lab abnormalities, going to OR and other pertinent info. @ -49-year-old male presenting with chief complaint of right-sided arm pain mainly in the forearm. He was seen here yesterday for similar complaints. Patient is given Toradol, Decadron, Norflex, lidocaine patch. On reassessment he reports resolution of his symptoms. He'll be discharged home. Provided with Medrol Dosepak and his muscle relaxer as been changed to Flexeril. Follow-up with PCP. Report back to ER with any new or worsening symptoms. Discussed return parameters and answered all questions. Patient conveyed verbal understanding and agreed to the plan. I discussed this case in detail with my attending Dr. Ortiz Undiagnosed new problem with uncertain prognosis? @ -No Drug Therapy requiring intensive monitoring for toxicity (Heparin, Nitro, Insulin, Cardizem)? @ -No Were any procedures done? @ -No Diagnosis/symptom? @ -Muscle strain Acute, or Chronic, or Acute on Chronic? @ -Acute Uncomplicated (without systemic symptoms) or Complicated (systemic symptoms)? @ -Uncomplicated Side effects of treatment? @ -No Exacerbation, Progression, or Severe Exacerbation? @ -No Poses a threat to life or bodily function? How? (Chest pain, [place], [place], pneumonia, PE, COPD, DKA, ARF, appy, cholecystitis, CVA, Diverticulitis, Homicidal, Suicidal, threat to staff... and all critical care pts) @ -No (Ajit Ledesma) Disposition <Saurav Rausch - Last Filed: 10/08/22 20:13> Is patient prescribed a controlled substance at d/c from ED?: No Time of Disposition: 23:14 <Ajit Ledesma - Last Filed: 10/09/22 04:05> Clinical Impression: Muscle strain, Arm pain Disposition: HOME SELF-CARE Condition: Good Instructions (If sedation given, give patient instructions): Arm Pain (ED) Additional Instructions: Follow-up with PCP. Report back to ER with any new or worsening symptoms. Take medication as prescribed, do not take cyclobenzaprine before driving or operating heavy machinery. Prescriptions: Cyclobenzaprine [Flexeril] 10 mg PO TID PRN #15 tab PRN Reason: Spasms methylPREDNISolone Dose Pack [Medrol Dose Pack] 4 mg PO DIRECTED #1 packet Referrals: Jason Leon DO [Primary Care Provider] - 1-2 days
[2022-10-08] MEDS ORDERED: KETOROLAC 15 MG/ML 1 ML VIAL IM STA (22:12)
[2022-10-08] MEDS ORDERED: ORPHENADRINE 30 MG/ML 2 ML VIAL IM STA (22:12)
[2022-10-08] MEDS ORDERED: DEXAMETHASONE SOD PHOSPHATE 10 MG/ML 1 ML VIAL IM STA (22:12)
[2022-10-08] MEDS ORDERED: LIDOCAINE 5% PATCH TOPICAL SCH (22:15)
[2022-10-08 22:32] VITALS: RESP 18
[2022-10-08 23:31] VITALS: BP 97/74; PULSE 70
== END 2022-10-08 23:29 | disposition home or self-care (01) ==
LOC: EC 19:20
DX: S46.911A Strain of unspecified muscle, fascia and tendon at shoulder and upper arm level, right arm, initial encounter (principal); E11.9 Type 2 diabetes mellitus without complications; E78.5 Hyperlipidemia, unspecified; I10 Essential (primary) hypertension; J44.9 Chronic obstructive pulmonary disease, unspecified; M19.90 Unspecified osteoarthritis, unspecified site; F17.290 Nicotine dependence, other tobacco product, uncomplicated; Z79.84 Long term (current) use of oral hypoglycemic drugs; Z79.01 Long term (current) use of anticoagulants; Z79.899 Other long term (current) drug therapy; X58.XXXA Exposure to other specified factors, initial encounter
CPT/HCPCS: 99283; 96372 ×3; J1100; J2360; J1885

== ENCOUNTER → 2022-10-14 | Day surgery (SDC) | payer MEDICARE, OTHER ==
[2022-10-08 13:47] VITALS: BMI 46.2
[~2022-10-14] MED LIST changes: +IOPAMIDOL M200 10 ML VIAL ONE; +ROPIVACAINE 5MG/ML 20ML VIAL ONE; +TRIAMCINOLONE ACETONIDE 40 MG/ML 1 ML VIAL ONE
[2022-10-14 07:49] VITALS: RESP 16; TEMP 97
[2022-10-14 07:52] LABS: Glucose,Whole Blood 115 mg/dL (70-110)
--- NOTE | 2022-10-14 08:46 | P.PCN ---
Date of Procedure: 10/14/22 Surgeon: Brian Cloud Condition: stable Description of Procedure: PREOPERATIVE DIAGNOSIS: 1-Lumbar radiculopathy 2- Lumber Degenerative Disc Diseases. POSTOPERATIVE DIAGNOSIS: 1-Lumbar radiculopathy. 2-Lumbar Degenerative Disc Diseases PROCEDURE 1. Lumbar epidural steroid injection under fluoroscopic guidance at the L3-4 level in the right paramedian approach 2. Lumbar epidurogram. ANESTHESIA: Local with 1% lidocaine; and IV moderate conscious sedation with Versed and fentanyl EBL: Minimal PROCEDURE INDICATION: The patient with low back pain and radiculitis symptoms unresponsive to conservative treatment. Fluoroscopy was used to optimize visualization of the needle placement and to maximize safety. PROCEDURE DESCRIPTION / TECHNIQUE: The patient was seen and identified in the preoperative area. Risks, benefits, complications including but not limited to infections ,bleeding ,allergic reaction to the medications ,nerve damage and not complete pain relief , and alternatives were discussed with the patient. The patient agreed to proceed with the procedure and signed the consent. IV was started, and vital signs were stable. Patient was taken to the OR and time out was completed. The patient was placed in the prone position on procedure table and a pillow was placed under the abdomen to reduce lumbar lordosis. The lumbosacral area was prepped and draped in the usual sterile fashion with ChloraPrep.Patient was closely monitored during the procedure. Conscious sedation was used during the procedure to decrease patients anxiety. Vital signs were monitered during the entire procedure. Using anterior-posterior fluoroscopy, the L3-4 interlaminar space was identified and the skin over this site was marked and then infiltrated with 1% lidocaine subcutaneously. Subsequently, a 18-gauge 5 "Tuohy epidural needle was inserted and advanced toward the epidural space using the Loss of resistance to air technique and guided by AP and lateral fluoroscopy. The correct needle position in the epidural space was verified with the injection of 1 mL of the water soluble contrast dye Omnipaque 180 contrast and observing an excellent epidurogram with the epidural spread of the dye, after negative aspiration for blood and CSF and in the absence of paresthesias. Again after negative aspiration, a 8 ml mixture containing 40 mg of Kenalog and 5 ml of preservative free Normal Saline, and 2 ml of preservative free Ropivacaine 0.5% solution was injected and a washout of epidurogram was seen. Needle was withdrawn intact, skin was cleansed, and bandages were applied. patient tolerated procedure well and was transferred to PACU in stable condition.A copy of the needle placement picture was saved to the fluoroscopy machine. COMPLICATIONS: None Multiple failed attempts to get access into the epidural space at the L4 5 and L5-S1 level due to degenerative disc disease and ligament calcification. Decision was made to do the procedure at the L3 4 level in the right paramedian approach.
[2022-10-14 09:08] VITALS: BP 106/70; PULSE 67
--- NOTE | 2022-10-14 09:42 | FL ---
Fluoroscopy History: Lumbar Epid Inj Lumbar Epid Inj 23sec fluoro time 0.01031 DAP
== END ==
LOC: ORPAIN 07:23
PROVIDERS: ATTEND Anesthesiology
DX: M51.16 Intervertebral disc disorders with radiculopathy, lumbar region (principal); Z79.899 Other long term (current) drug therapy; I10 Essential (primary) hypertension; G47.30 Sleep apnea, unspecified; E11.9 Type 2 diabetes mellitus without complications
CPT/HCPCS: 62323; J3301; Q9966; J2795

== ENCOUNTER → 2022-11-25 | Outpatient (CLI) | payer MEDICARE, OTHER ==
[2022-11-25 08:41] VITALS: BP 101/66; PULSE 89; RESP 16
--- NOTE | 2022-11-25 14:50 | P.PAINPG ---
PQRS Measure Charge Sheet Comment: A 57 yr old male with a history of severe and chronic LBP x 10 yrs secondary to lumbar DDD and spondylosis with facet arthropathy without myelopathy presents today for evaluation s/p R paramedian PRETTY L3-L4 #1. Pt states he experienced 80% pain relief x 2 wks s/p procedure. Pain level is provoked at 7/10 in intensity, constant, localized in the lumbar spine, stabbing in character w/o shooting pain. Pain is provoked by sitting/ walking for periods of 20 min or more. Pain is alleviated with 3 rounds of PT x 6 wks w last visits ending May 2022, heat, medications, use of a TENS unit at PT, repositioning and rest. Interventional pain procedures completed include PRETTY C6-C7 x1, PRETTY L1-L2, BL MBB L3-L5 x1, Lumbar TPIs, R paramedian PRETTY L3-L4 Patient is currently on [place] from Dr Leon Patient denies any side effects of the medication(s), denies excessive drowsiness or sleepiness, denies suicidal ideation and reports that the current pain medication is helping to control the pain and improve activities of daily living. Patient denies any motor or sensory deficits. Patient denies any fever or night sweats, denies any change in the bowel movements or urination. Physical Examination: -Constitutional: Cooperative. Not in acute distress . - Neurologic: Cranial nerve II to XII intact. No focal neurological deficits. - Psychatric: Alert & oriented x 3. Matching mood & appropriate affect. Judgment and insight intact. - Musculoskeletal: Cervical spine: Muscle bulk/ tone/ strength in the bilateral upper extremities normal Vertebral body tenderness to palpation over Spurling test positive Distraction test positive Facet loading test positive TTP Thoracic spine Muscle bulk / tone/ strength in the bilateral paraspinal muscles normal Vertebral body tender to palpation over Facet loading test positive TTP Lumbar spine: Motor bulk/ tone/ strength lower extremities , thigh and legs : 5/5 Deep tendon reflexes : Normal Knee Jerk. Normal Ankle Jerk . Vertebral body tenderness to palpation over L5 Cruz Test positive Lumbar Facet Loading Test positive Straight Leg Raise: positive at 30 degrees right side/ left side Gaenslen's Test positive Sacral spine : Severe tenderness over the Sacroiliac joint: right side / left side Range of motion: Flexion of the lumbar spine <60 degrees Range of motion: Extension of the lumbar spine <20 degrees Gaenslen's Test positive right side / left side Carol test: positive right side / left side Thigh Thrust Test positive right side / left side Sacral Thrust Test positive right side / left side Assessment and plan: Chronic LBP secondary to lumbar DDD, spondylosis with facet arthropathy without myelopathy Will manage residual pain on his own and RTC on an as needed basis. All questions answered. I have spent less than 30 minutes on patient care today. Dr Motley was available by phone for the evaluation of this patient. The time was used to review the medical records including relevant urine studies and Prescription history (MAPs), review of the available imaging, evaluation and examination of the patient, coordination of care with the medical staff and if applicable referring physicians, as well as creation of the medical record PQRS Narrative: Smoking Status Current every day smoker Hx Alcohol Use (MH) Yes: SELDOM Home Medications: Ambulatory Orders Budesonide-Formot 160-4.5 Mcg [Symbicort 160-4.5 Mcg Inhaler] 2 puff INHALATION RT-BID #1 puff 03/29/18 Atorvastatin [Lipitor] 20 mg PO HS 03/29/19 metFORMIN HCL [Glucophage] 500 mg PO TID-W/MEALS 03/29/19 HYDROcodone/APAP 10-325MG [[place] 10-325] 1 tab PO BID 11/05/19 Lisinopril-Hctz 10-12.5 mg [Zestoretic 10-12.5] 1 tab PO DAILY 11/05/19 Albuterol Sulfate [Albuterol Sulfate Hfa] 2 puff PO Q6H PRN 03/05/22 Ascorbic Acid [Vitamin C] 1,000 mg PO Q48H 03/05/22 Cholecalciferol (Vitamin D3) [Vitamin D3] 10,000 units PO DAILY 03/05/22 Magnesium Gluconate [Magonate] 420 mg PO BID 03/05/22 Melatonin [Melatonin ER] 20 mg PO HS 03/05/22 Metoprolol Tartrate [Lopressor] 100 mg PO BID-W/MEALS 03/05/22 Zinc Gluconate [Zinc] 50 mg PO Q48H 03/05/22 traZODone HCL [Desyrel] 50 mg PO HS 03/05/22 Rivaroxaban [Xarelto] 20 mg PO DAILY 06/07/22 Cyclobenzaprine [Flexeril] 10 mg PO TID PRN #15 tab 10/08/22 Ketorolac [Toradol] 10 mg PO TID #30 tab 10/08/22 Lidocaine 5% Patch [Lidoderm] 1 patch TOPICAL DAILY #10 patch 10/08/22 methocarbamoL [Robaxin-750] 750 mg PO TID #30 tab 10/08/22 methylPREDNISolone Dose Pack [Medrol Dose Pack] 4 mg PO DIRECTED #1 packet 10/08/22 Controlled Substance Measures - Controlled Substance Measures Is patient prescribed a controlled substance at discharge?: No
== END ==
LOC: PNWHC3 08:11
PROVIDERS: ATTEND Specialist
DX: M51.36 Other intervertebral disc degeneration, lumbar region (principal); M47.816 Spondylosis without myelopathy or radiculopathy, lumbar region; G89.29 Other chronic pain; F17.200 Nicotine dependence, unspecified, uncomplicated
CPT/HCPCS: 99211

== ENCOUNTER 2024-01-26 14:51 | Inpatient (IN) | payer MEDICARE, OTHER ==
--- NOTE | 2024-01-26 15:31 | ED ---
Dizziness HPI - General Chief Complaint: Dizziness Stated Complaint: syncope Time Seen by Provider: 01/26/24 15:19 Source: patient, RN notes reviewed, old records reviewed Mode of arrival: EMS Limitations: no limitations - History of Present Illness Initial Comments: This is a 58-year-old male to the ER for evaluation patient [facility] for evaluation of severe dizziness lightheadedness near syncope weakness nausea vomiting diarrhea. MD Complaint: dizziness -: hour(s) Description: lightheadedness History of Same: Yes History of Trauma: Yes Severity: severe Improves With: nothing Worsens With: movement Associated Symptoms: loss of appetite, shortness of breath, weakness - Related Data Home Medications Medication Instructions Recorded Confirmed metFORMIN HCL [Glucophage] 500 mg PO W/BRKFST 03/29/19 01/26/24 HYDROcodone/APAP 10-325MG [[place] 1 tab PO BID PRN 11/05/19 01/26/24 10-325] Lisinopril-Hctz 10-12.5 mg 1 tab PO DAILY 11/05/19 01/26/24 [Zestoretic 10-12.5] Albuterol Sulfate [Albuterol 2 puff INHALATION RT-QID PRN 03/05/22 01/26/24 Sulfate Hfa] Metoprolol Tartrate [Lopressor] 100 mg PO BID-W/MEALS 03/05/22 01/26/24 traZODone HCL [Desyrel] 50 mg PO HS 03/05/22 01/26/24 Rivaroxaban [Xarelto] 20 mg PO DAILY 06/07/22 01/26/24 Atorvastatin [Lipitor] 20 mg PO HS 01/26/24 01/26/24 Tirzepatide [Mounjaro] 2.5 mg SQ MO 01/26/24 01/26/24 metFORMIN HCL 1,000 mg PO W/SUPPER 01/26/24 01/26/24 Previous Rx's Medication Instructions Recorded Budesonide-Formot 160-4.5 Mcg 2 puff INHALATION RT-BID #1 puff 03/29/18 [Symbicort 160-4.5 Mcg Inhaler] Magnesium Oxide [Mag-Ox] 400 mg PO BID #10 tab 01/28/24 Nicotine 14Mg/24Hr Patch [Habitrol] 1 patch TRANSDERM DAILY #30 patch 01/28/24 Sodium Bicarbonate Tab 650 mg PO TID #20 tab 01/28/24 Allergies Allergy/AdvReac Type Severity Reaction Status Date / Time No Known Allergies Allergy Verified 01/26/24 15:44 Review of Systems ROS Statement: Those systems with pertinent positive or pertinent negative responses have been documented in the HPI. ROS Other: All systems not noted in ROS Statement are negative. Past Medical History Past Medical History: Chest Pain / Angina, COPD, Diabetes Mellitus, Hyperlipidemia, Hypertension, Osteoarthritis (OA), Pulmonary Embolus (PE), Renal Disease, Sleep Apnea/CPAP/BIPAP Additional Past Medical History / Comment(s): kidney stones, migraines, DWIGHT with BI-PAP, back pain, stress test-pt stated they did'nt find anything, PE's 2017 & 2019, constipation History of Any Multi-Drug Resistant Organisms: None Reported Past Surgical History: Heart Catheterization, Hernia Repair, Joint Replacement, Orthopedic Surgery Additional Past Surgical History / Comment(s): aortic angiogram, umbilical hernia repair, total L hip, R hand surgery, L knee arthroscopy, right ankle surgery, PAIN CLINIC PROCEDURE Past Anesthesia/Blood Transfusion Reactions: No Reported Reaction Past Psychological History: No Psychological Hx Reported Smoking Status: Vaper Past Alcohol Use History: Rare Past Drug Use History: Marijuana - Past Family History Mother Family Medical History: Cancer Additional Family Medical History / Comment(s): Mother had breast cancer. She of "natural causes" at the age of 73 yrs. Father Family Medical History: Renal Disease Additional Family Medical History / Comment(s): Father was an alcoholic. He of kidney problems at the age of 65yrs. General Exam Limitations: no limitations General appearance: alert, in no apparent distress Head exam: Present: atraumatic, normocephalic, normal inspection Eye exam: Present: normal appearance, PERRL, EOMI. Absent: scleral icterus, conjunctival injection, periorbital swelling ENT exam: Present: normal exam, mucous membranes moist Neck exam: Present: normal inspection. Absent: tenderness, meningismus, lymphadenopathy Respiratory exam: Present: normal lung sounds bilaterally. Absent: respiratory distress, wheezes, rales, rhonchi, stridor Cardiovascular Exam: Present: regular rate, normal rhythm, normal heart sounds. Absent: systolic murmur, diastolic murmur, rubs, gallop, clicks GI/Abdominal exam: Present: soft, normal bowel sounds. Absent: distended, tenderness, guarding, rebound, rigid Extremities exam: Present: normal inspection, full ROM, normal capillary refill. Absent: tenderness, pedal edema, joint swelling, calf tenderness Back exam: Present: normal inspection Neurological exam: Present: alert, oriented X3, CN II-XII intact Psychiatric exam: Present: normal affect, normal mood Skin exam: Present: warm, dry, intact, normal color. Absent: rash Course Vital Signs 01/26/24 01/26/24 01/26/24 14:56 15:21 15:30 Temperature 98.4 F Pulse Rate 76 80 76 Pulse Rate [ Pulse Oximetery ] Respiratory 18 18 14 Rate Blood Pressure 111/68 91/66 91/66 O2 Sat by Pulse 97 98 Oximetry 01/26/24 01/26/24 01/26/24 16:00 16:30 17:00 Temperature Pulse Rate 75 76 80 Pulse Rate [ Pulse Oximetery ] Respiratory 16 18 15 Rate Blood Pressure 115/73 117/52 112/64 O2 Sat by Pulse 98 97 99 Oximetry 01/26/24 01/26/24 01/26/24 17:30 18:00 18:30 Temperature Pulse Rate 75 92 78 Pulse Rate [ Pulse Oximetery ] Respiratory 14 20 20 Rate Blood Pressure 83/66 102/67 92/72 O2 Sat by Pulse 97 99 97 Oximetry 01/26/24 01/26/24 01/27/24 19:00 22:08 00:52 Temperature Pulse Rate 77 82 77 Pulse Rate [ Pulse Oximetery ] Respiratory 20 16 18 Rate Blood Pressure 109/72 100/86 93/57 O2 Sat by Pulse 97 98 98 Oximetry 01/27/24 01/27/24 01/27/24 02:45 05:15 06:45 Temperature Pulse Rate 86 89 83 Pulse Rate [ Pulse Oximetery ] Respiratory 18 16 18 Rate Blood Pressure 116/76 91/55 116/76 O2 Sat by Pulse 95 95 95 Oximetry 01/27/24 01/27/24 01/27/24 07:22 12:30 13:45 Temperature 98.5 F Pulse Rate 69 70 Pulse Rate [ 82 Pulse Oximetery ] Respiratory 18 14 18 Rate Blood Pressure 130/77 101/61 O2 Sat by Pulse 96 96 Oximetry 01/27/24 13:50 Temperature 98.1 F Pulse Rate 68 Pulse Rate [ Pulse Oximetery ] Respiratory 13 Rate Blood Pressure 102/49 O2 Sat by Pulse 95 Oximetry - Reevaluation(s) Reevaluation #1: 01/26/24 18:17 Medical records reviewed Reevaluation #2: 01/26/24 18:17 Patient still feels dizziness and near syncope Reevaluation #3: 01/26/24 18:17 Patient informed of results and questions answered Reevaluation #4: Was pt. sent in by a medical professional or institution ([facility], CORE COMPOSER FEEDER, urgent care, hospital, or half-way...) When possible be specific @ -no Did you speak to anyone other than the patient for history (EMS, parent, family, police, friend...)? What history was obtained from this source @ -no Did you review nursing and triage notes (agree or disagree)? Why? @ -agree Are old charts reviewed (outside hosp., previous admission, EMS record, old EKG, old radiological studies, urgent care reports/EKG's, half-way records)? Report findings @ -yes Differential Diagnosis (chest pain, altered mental status, abdominal pain women, abdominal pain men, vaginal bleeding, weakness, fever, dyspnea, syncope, headache, dizziness, GI bleed, back pain, seizure, CVA, palpatations, mental health, musculoskeletal)? @ -prior EKG interpreted by me (3pts min.). @ -yes X-rays interpreted by me (1pt min.). @ -yes negative for acute disease CT interpreted by me (1pt min.). @ -no U/S interpreted by me (1pt. min.). @ -no What testing was considered but not performed or refused? (CT, X-rays, U/S, labs)? Why? @ -none What meds were considered but not given or refused? Why? @ -none Did you discuss the management of the patient with other professionals (professionals i.e. [facility], CORE COMPOSER FEEDER, lab, RT, psych nurse, rn social work, bottle blowing machine tender, teacher, chief creative officer, registered nurse hh case manager)? Give summary @ -no Was smoking cessation discussed for >3mins.? @ -no Was critical care preformed (if so, how long)? @ -no Were there social determinants of health that impacted care today? How? (Homelessness, low income, unemployed, alcoholism, drug addiction, transportation, low edu. Level, literacy, decrease access to med. care, skilled nursing, rehab)? @ -none Was there de-escalation of care discussed even if they declined (Discuss DNR or withdrawal of care, Hospice)? DNR status @ -no What co-morbidities impacted this encounter? (DM, HTN, Smoking, COPD, CAD, Cancer, CVA, ARF, Chemo, Hep., AIDS, mental health diagnosis, sleep apnea, morbid obesity)? @ -none Was patient admitted / discharged? Hospital course, mention meds given and route, prescriptions, significant lab abnormalities, going to OR and other pertinent info. @ - 58 male to ER for evaluation at this time patient has persistent diarrhea weakness and dizziness with a feeling better with IV hydration patient will continue to admit for supportive care Admitted Undiagnosed new problem with uncertain prognosis? @ -no Drug Therapy requiring intensive monitoring for toxicity (Heparin, Nitro, Insulin, Cardizem)? @ -no Were any procedures done? @ -no Diagnosis/symptom? @ -Dizziness chest pain near syncope syncope Acute, or Chronic, or Acute on Chronic? @ -Acute Uncomplicated (without systemic symptoms) or Complicated (systemic symptoms)? @ -Complicated Side effects of treatment? @ -no Exacerbation, Progression, or Severe Exacerbation? @ -exacerbation Poses a threat to life or bodily function? How? (Chest pain, [place], CA, pneumonia, PE, COPD, DKA, ARF, appy, cholecystitis, CVA, Diverticulitis, Homicidal, Suicidal, threat to staff... and all critical care pts) @ -yes with severe dizziness and chest pain Reevaluation #5: Differential Dizziness: Benign paroxysmal positional Vertigo, Meniere's disease, otitis media, acoustic neuroma, vertebrobasilar insufficiency, cerebellar stroke, encephalitis, hypovolemic, arrhythmia, coronary artery syndrome, anemia, this is not meant to be an all-inclusive list - Consultations Consultation #1: Spoke with many physicians who agrees to admit this patient EKG Findings - EKG Comments: EKG Findings:: EKG is sinus 80 TX 185 QRS 95 QTc 421 - EKG Results: EKG: interpreted by SUSAN Medical Decision Making - Medical Decision Making 58 male to ER for evaluation at this time patient has persistent diarrhea weakness and dizziness with a feeling better with IV hydration patient will continue to admit for supportive care - Lab Data Result diagrams: 01/27/24 05:33 01/28/24 04:56 Lab Results 01/26/24 01/26/24 01/26/24 Range/Units 15:40 15:54 15:54 WBC 9.9 (3.8-10.6) k/uL RBC 5.69 (4.30-5.90) m/uL Hgb 16.3 (13.0-17.5) gm/dL Hct 50.4 (39.0-53.0) % MCV 88.6 (80.0-100.0) fL MCH 28.7 (25.0-35.0) pg MCHC 32.4 (31.0-37.0) g/dL RDW 14.4 (11.5-15.5) % Plt Count 335 (150-450) k/uL MPV 7.2 Neutrophils % 77 % Lymphocytes % 13 % Monocytes % 5 % Eosinophils % 3 % Basophils % 0 % Neutrophils # 7.7 (1.3-7.7) k/uL Lymphocytes # 1.3 (1.0-4.8) k/uL Monocytes # 0.5 (0-1.0) k/uL Eosinophils # 0.3 (0-0.7) k/uL Basophils # 0.0 (0-0.2) k/uL PT 12.0 (10.0-12.5) sec INR 1.1 (<1.2) APTT 33.5 H (22.0-30.0) sec D-Dimer 0.20 (<0.60) mg/L FEU Sodium (137-145) mmol/L Potassium (3.5-5.1) mmol/L Chloride (98-107) mmol/L Carbon Dioxide (22-30) mmol/L Anion Gap mmol/L BUN (9-20) mg/dL Creatinine (0.66-1.25) mg/dL Est GFR (CKD-EPI)AfAm (>60 ml/min/1.73 sqM) Est GFR (CKD-EPI)NonAf (>60 ml/min/1.73 sqM) Glucose (74-99) mg/dL Calcium (8.4-10.2) mg/dL Phosphorus 6.2 H (2.5-4.5) mg/dL Magnesium 1.8 (1.6-2.3) mg/dL Total Bilirubin (0.2-1.3) mg/dL AST (17-59) U/L ALT (4-49) U/L Alkaline Phosphatase (38-126) U/L Troponin I (0.000-0.034) ng/mL NT-Pro-B Natriuret Pep 181 pg/mL Total Protein (6.3-8.2) g/dL Albumin (3.5-5.0) g/dL Serum Alcohol <10 mg/dL 01/26/24 01/26/24 Range/Units 15:54 15:54 WBC (3.8-10.6) k/uL RBC (4.30-5.90) m/uL Hgb (13.0-17.5) gm/dL Hct (39.0-53.0) % MCV (80.0-100.0) fL MCH (25.0-35.0) pg MCHC (31.0-37.0) g/dL RDW (11.5-15.5) % Plt Count (150-450) k/uL MPV Neutrophils % % Lymphocytes % % Monocytes % % Eosinophils % % Basophils % % Neutrophils # (1.3-7.7) k/uL Lymphocytes # (1.0-4.8) k/uL Monocytes # (0-1.0) k/uL Eosinophils # (0-0.7) k/uL Basophils # (0-0.2) k/uL PT (10.0-12.5) sec INR (<1.2) APTT (22.0-30.0) sec D-Dimer (<0.60) mg/L FEU Sodium 139 (137-145) mmol/L Potassium 4.9 (3.5-5.1) mmol/L Chloride 105 (98-107) mmol/L Carbon Dioxide 20 L (22-30) mmol/L Anion Gap 14 mmol/L BUN 51 H (9-20) mg/dL Creatinine 2.55 H (0.66-1.25) mg/dL Est GFR (CKD-EPI)AfAm 31 (>60 ml/min/1.73 sqM) Est GFR (CKD-EPI)NonAf 26 (>60 ml/min/1.73 sqM) Glucose 133 H (74-99) mg/dL Calcium 10.0 (8.4-10.2) mg/dL Phosphorus (2.5-4.5) mg/dL Magnesium (1.6-2.3) mg/dL Total Bilirubin 0.7 (0.2-1.3) mg/dL AST 29 (17-59) U/L ALT 29 (4-49) U/L Alkaline Phosphatase 76 (38-126) U/L Troponin I <0.012 (0.000-0.034) ng/mL NT-Pro-B Natriuret Pep pg/mL Total Protein 7.6 (6.3-8.2) g/dL Albumin 4.7 (3.5-5.0) g/dL Serum Alcohol mg/dL - EKG Data -: EKG Interpreted by Me (EKG 2 is sinus 78 TX 196 QRS 97 QTc 424) - Radiology Data Radiology results: report reviewed (Chest x-ray is negative for acute disease), image reviewed Disposition Clinical Impression: Dehydration, Weakness, Gastroenteritis, Near syncope, Chest pain Disposition: ADMITTED IP TO THIS HOSP Is patient prescribed a controlled substance at d/c from ED?: No Time of Disposition: 18:00
[2024-01-26 16:10] LABS: Basophils % (A) 0 %; Eosinophils # (A) 0.3 k/uL (0-0.7); Eosinophils % (A) 3 %; HCT 50.4 % (39.0-53.0); HGB 16.3 gm/dL (13.0-17.5); Lymphocytes # (A) 1.3 k/uL (1.0-4.8); Lymphocytes % (A) 13 %; MCH 28.7 pg (25.0-35.0); MCHC 32.4 g/dL (31.0-37.0); MCV 88.6 fL (80.0-100.0); Mean Platelet Volume 7.2; Monocytes # (A) 0.5 k/uL (0-1.0); Monocytes % (A) 5 %; Neutrophils # (A) 7.7 k/uL (1.3-7.7); Neutrophils % (A) 77 %; Platelet Count 335 k/uL (150-450); RBC 5.69 m/uL (4.30-5.90); RDW 14.4 % (11.5-15.5); WBC 9.9 k/uL (3.8-10.6)
[2024-01-26 16:19] LABS: Alcohol <10 mg/dL; Magnesium 1.8 mg/dL (1.6-2.3); Phosphorus 6.2 mg/dL (2.5-4.5)
[2024-01-26 16:21] LABS: ALT 29 U/L (4-49); AST 29 U/L (17-59); African American GFR (CKD) 31 (>60 ml/min/1.73 sqM); Albumin 4.7 g/dL (3.5-5.0); Alkaline Phosphatase 76 U/L (38-126); Anion Gap 14 mmol/L; Blood Urea Nitrogen 51 mg/dL (9-20); Carbon Dioxide 20 mmol/L (22-30); Chloride 105 mmol/L (98-107); Glucose 133 mg/dL (74-99); Non-African American GFR(CKD) 26 (>60 ml/min/1.73 sqM); Potassium 4.9 mmol/L (3.5-5.1); Sodium 139 mmol/L (137-145); Total Bilirubin 0.7 mg/dL (0.2-1.3); Total Protein 7.6 g/dL (6.3-8.2)
[2024-01-26] MEDS: SODIUM CHLORIDE 0.9% 1,000 ML IV STA (16:22)
[2024-01-26 16:27] LABS: INR 1.1 (<1.2)
[2024-01-26 16:28] LABS: NT-Pro-B-Type Natriuretic Pept 181 pg/mL
[2024-01-26 16:48] LABS: Partial Thromboplastin Time 33.5 sec (22.0-30.0)
[2024-01-26] MEDS: ONDANSETRON 4 MG/2 ML VIAL IVP STA (17:13)
--- NOTE | 2024-01-26 17:51 | XR ---
EXAMINATION TYPE: XR chest 1V portable DATE OF EXAM: 01/26/2024 5:46 PM COMPARISON: 03/22/2018 CLINICAL INDICATION: Male, 58 years old with history of cp, chest pain, near syncope, low blood press ure TECHNIQUE: XR chest 1V portable view(s) obtained. FINDINGS: The heart size is normal. The pulmonary vasculature is normal. The lungs are clear. IMPRESSION: 1. No acute pulmonary process. [facility], Workstation: [facility], 01/26/2024 5:49 PM
[2024-01-26] MEDS ORDERED: NALOXONE 0.4 MG/ML 1 ML VIAL IV PRN (18:06)
[2024-01-26] MEDS: PANTOPRAZOLE 40 MG/10 ML VIAL IV SCH (18:44)
[2024-01-26] MEDS: SODIUM CHLORIDE 0.9% 1,000 ML IV SCH (18:44)
[2024-01-26] MEDS: HYDROcodone/APAP 10-325MG 1 EACH TAB PO PRN (21:10)
[2024-01-27 06:03] LABS: Basophils % (A) 0 %; Eosinophils # (A) 0.4 k/uL (0-0.7); Eosinophils % (A) 4 %; HCT 46.3 % (39.0-53.0); HGB 14.3 gm/dL (13.0-17.5); Lymphocytes # (A) 2.1 k/uL (1.0-4.8); Lymphocytes % (A) 21 %; MCH 27.5 pg (25.0-35.0); MCHC 30.9 g/dL (31.0-37.0); MCV 89.1 fL (80.0-100.0); Mean Platelet Volume 7.2; Monocytes # (A) 0.5 k/uL (0-1.0); Monocytes % (A) 6 %; Neutrophils # (A) 6.6 k/uL (1.3-7.7); Neutrophils % (A) 68 %; Platelet Count 320 k/uL (150-450); RDW 14.4 % (11.5-15.5); WBC 9.7 k/uL (3.8-10.6)
[2024-01-27 06:17] LABS: ALT 25 U/L (4-49); AST 22 U/L (17-59); African American GFR (CKD) 48 (>60 ml/min/1.73 sqM); Alkaline Phosphatase 83 U/L (38-126); Anion Gap 8 mmol/L; Blood Urea Nitrogen 47 mg/dL (9-20); Calcium 9.2 mg/dL (8.4-10.2); Carbon Dioxide 21 mmol/L (22-30); Chloride 106 mmol/L (98-107); Glucose 105 mg/dL (74-99); Lipase 146 U/L (23-300); Magnesium 1.8 mg/dL (1.6-2.3); Non-African American GFR(CKD) 41 (>60 ml/min/1.73 sqM); Phosphorus 4.6 mg/dL (2.5-4.5); Potassium 4.5 mmol/L (3.5-5.1); Sodium 135 mmol/L (137-145); Total Bilirubin 0.6 mg/dL (0.2-1.3); Total Protein 6.7 g/dL (6.3-8.2)
[2024-01-27] MEDS: METOPROLOL TARTRATE 50 MG TAB PO SCH (08:28)
[2024-01-27] MEDS: RIVAROXABAN 20 MG TAB PO SCH (08:28)
--- NOTE | 2024-01-27 09:22 | P.CRDCN ---
History of Present Illness Consult date: 01/27/24 Reason for Consult (text): Chest pain and syncope History of present illness: This is a 58-year-old male patient of Dr. Mitchell with past medical history of morbid obesity, sleep apnea, hypertension, dyslipidemia, pulmonary embolism on Xarelto, COPD, and SVT. We have been asked to evaluate the patient for chest pain and syncope. Patient states that he started 3 days ago with vomiting and diarrhea by the second day he was not eating or drinking very much and on the third day he had 2 episodes where he had near syncopal episodes. He also c omplains of generalized weakness. He is feeling better at the time of this evaluation. Patient is seen today in the emergency center waiting for a bed on the cardiac stepdown unit. He is status post 1 L of IV fluids and Zofran. Blood pressure 130/77, heart rate 69, pulse ox 96% on room air, afebrile. Patient states that he smokes a little marijuana. He drinks alcohol about 1 time per month. He is a non-smoker of tobacco. -EKG: Sinus rhythm with right axis deviation, old VA, unchanged from previous -Chest x-ray: No acute findings -Laboratory studies: Troponin negative x 3, BNP 181, alcohol less than 10, sodium 135, potassium 4.5, BUN 51 now 4.7. Creatinine initially 2.55 and now 1.77. WBC 9.7, hemoglobin 14.3, D-dimer 0.2. -Home cardiac medications: -Event monitor 2019 revealed sinus rhythm with run of V. tach 7 beats, 1 episode of 6 seconds, sinus rhythm with PACs. -Lexiscan Cardiolite stress test performed in the office 02/27/2019 revealed negative Lexiscan stress test. Probable normal perfusion study with mild fixed defect involving the inferior lateral segment most probably secondary to soft tissue attenuation. Gated images showed normal wall motion and thickening. -Echocardiogram performed in the office on 03/01/2019 revealed normal LV size and normal function, mild tricuspid regurgitation. Review Of Systems: At the time of my exam: CONSTITUTIONAL: Denies fever or chills. HEENT: Denies blurred vision, vision changes, or eye pain. Denies hemoptysis CARDIOVASCULAR: Denies chest pain. Denies orthopnea. Denies PND. Denies palpitations RESPIRATORY: Denies shortness of breath. GASTROINTESTINAL: Denies abdominal pain. Denies nausea or vomiting. HEMATOLOGIC: Denies bleeding disorders. GENITOURINARY: Denies any blood in urine. SKIN: Denies puritis. Denies rash. Physical examination: Gen: This is a 58-year-old morbidly obese male in no acute distress VS: reviewed HEENT: Head is atraumatic, normocephalic. Pupils equal, round. Sclerae is anicteric. NECK: Supple. No JVD. LUNGS: Clear to auscultation. No wheezes or rhonchi. No intercostal retractions. HEART: Regular rate and rhythm. No murmur. ABDOMEN: Soft No tenderness. EXTREMITIES: No pedal edema. No calf tenderness. NEUROLOGICAL: Patient is awake, alert and oriented x3. Assessment: Near syncopal episode secondary to volume depletion Nausea vomiting diarrhea Acute kidney injury Hypertension Dyslipidemia History of pulmonary embolism on Xarelto COPD NSVT Morbid obesity Obstructive sleep apnea Plan: Resume patient's home cardiac medications except to hold lisinopril hydrochlorothiazide Obtain 2-D echocardiogram and Doppler study to assess cardiac structure and function Further recommendations to follow based upon clinical course Thank you kindly for this consultation. Nurse practitioner note has been reviewed, I agree with documented findings and plan of care. Patient was seen and examined. Past Medical History Past Medical History: Chest Pain / Angina, COPD, Diabetes Mellitus, Hyperlipidemia, Hypertension, Osteoarthritis (OA), Pulmonary Embolus (PE), Renal Disease, Sleep Apnea/CPAP/BIPAP Additional Past Medical History / Comment(s): kidney stones, migraines, DWIGHT with BI-PAP, back pain, stress test-pt stated they did'nt find anything, PE's 2017 & 2019, constipation History of Any Multi-Drug Resistant Organisms: None Reported Past Surgical History: Heart Catheterization, Hernia Repair, Joint Replacement, Orthopedic Surgery Additional Past Surgical History / Comment(s): aortic angiogram, umbilical hernia repair, total L hip, R hand surgery, L knee arthroscopy, right ankle surgery, PAIN CLINIC PROCEDURE Past Anesthesia/Blood Transfusion Reactions: No Reported Reaction Past Psychological History: No Psychological Hx Reported Smoking Status: Vaper Past Alcohol Use History: Rare Past Drug Use History: Marijuana - Past Family History Mother Family Medical History: Cancer Additional Family Medical History / Comment(s): Mother had breast cancer. She of "natural causes" at the age of 73 yrs. Father Family Medical History: Renal Disease Additional Family Medical History / Comment(s): Father was an alcoholic. He of kidney problems at the age of 65yrs. Medications and Allergies Home Medications Medication Instructions Recorded Confirmed Type Budesonide-Formot 160-4.5 Mcg 2 puff INHALATION RT-BID #1 puff 03/29/18 01/26/24 Rx [Symbicort 160-4.5 Mcg Inhaler] metFORMIN HCL [Glucophage] 500 mg PO W/BRKFST 03/29/19 01/26/24 History HYDROcodone/APAP 10-325MG [[place] 1 tab PO BID PRN 11/05/19 01/26/24 History 10-325] Lisinopril-Hctz 10-12.5 mg 1 tab PO DAILY 11/05/19 01/26/24 History [Zestoretic 10-12.5] Albuterol Sulfate [Albuterol 2 puff INHALATION RT-QID PRN 03/05/22 01/26/24 H istory Sulfate Hfa] Metoprolol Tartrate [Lopressor] 100 mg PO BID-W/MEALS 03/05/22 01/26/24 History traZODone HCL [Desyrel] 50 mg PO HS 03/05/22 01/26/24 History Rivaroxaban [Xarelto] 20 mg PO DAILY 06/07/22 01/26/24 History Atorvastatin [Lipitor] 20 mg PO HS 01/26/24 01/26/24 History Tirzepatide [Mounjaro] 2.5 mg SQ MO 01/26/24 01/26/24 History metFORMIN HCL 1,000 mg PO W/SUPPER 01/26/24 01/26/24 History Allergies Allergy/AdvReac Type Severity Reaction Status Date / Time No Known Allergies Allergy Verified 01/26/24 15:44 Physical Exam Vitals: Vital Signs Temp Pulse Resp BP Pulse Ox 01/27/24 07:22 98.5 F 69 18 130/77 96 01/27/24 06:45 83 18 116/76 95 01/27/24 05:15 89 16 91/55 95 01/27/24 02:45 86 18 116/76 95 01/27/24 00:52 77 18 93/57 98 01/26/24 22:08 82 16 100/86 98 01/26/24 19:00 77 20 109/72 97 01/26/24 18:30 78 20 92/72 97 01/26/24 18:00 92 20 102/67 99 01/26/24 17:30 75 14 83/66 97 01/26/24 17:00 80 15 112/64 99 01/26/24 16:30 76 18 117/52 97 01/26/24 16:00 75 16 115/73 98 01/26/24 15:30 76 14 91/66 98 01/26/24 15:21 80 18 91/66 01/26/24 14:56 98.4 F 76 18 111/68 97 Results 01/27/24 05:33 01/27/24 05:33 Cardiac Enzymes 01/26/24 01/26/24 01/26/24 Range/Units 15:54 15:54 19:49 AST 29 (17-59) U/L Troponin I <0.012 <0.012 (0.000-0.034) ng/mL 01/27/24 01/27/24 Range/Units 00:09 05:33 AST 22 (17-59) U/L Troponin I <0.012 (0.000-0.034) ng/mL Coagulation 01/26/24 Range/Units 15:54 PT 12.0 (10.0-12.5) sec APTT 33.5 H (22.0-30.0) sec CBC 01/26/24 01/27/24 Range/Units 15:54 05:33 WBC 9.9 9.7 (3.8-10.6) k/uL RBC 5.69 5.20 (4.30-5.90) m/uL Hgb 16.3 14.3 (13.0-17.5) gm/dL Hct 50.4 46.3 (39.0-53.0) % Plt Count 335 320 (150-450) k/uL Comprehensive Metabolic Panel 01/26/24 01/27/24 Range/Units 15:54 05:33 Sodium 139 135 L (137-145) mmol/L Potassium 4.9 4.5 (3.5-5.1) mmol/L Chloride 105 106 (98-107) mmol/L Carbon Dioxide 20 L 21 L (22-30) mmol/L BUN 51 H 47 H (9-20) mg/dL Creatinine 2.55 H 1.77 H (0.66-1.25) mg/dL Glucose 133 H 105 H (74-99) mg/dL Calcium 10.0 9.2 (8.4-10.2) mg/dL AST 29 22 (17-59) U/L ALT 29 25 (4-49) U/L Alkaline Phosphatase 76 83 (38-126) U/L Total Protein 7.6 6.7 (6.3-8.2) g/dL Albumin 4.7 4.0 (3.5-5.0) g/dL Current Medications Generic Name Dose Route Start Last Admin Trade Name Freq PRN Reason Stop Dose Admin Hydrocodone Bitart/Acetaminophen 1 each 01/26/24 21:04 01/27/24 07:28 Hydrocodone/Apap 10-325mg 1 Each Tab PO 1 each BID PRN Administration Pain Sodium Chloride 1,000 mls @ 130 mls/hr 01/26/24 18:15 01/27/24 02:45 Saline 0.9% IV 130 mls/hr .[id number] KAYLIE Administration Naloxone HCl 0.2 mg 01/26/24 18:06 Naloxone 0.4 Mg/Ml 1 Ml Vial IV Q2M PRN Opioid Reversal Ondansetron HCl 4 mg 01/26/24 18:06 Ondansetron 4 Mg/2 Ml Vial IVP Q8HR PRN Nausea And Vomiting Pantoprazole Sodium 40 mg 01/26/24 18:15 01/26/24 18:44 Pantoprazole 40 Mg/10 Ml Vial IV 40 mg DAILY KAYLIE Administration 01/27/24 05:33 01/27/24 05:33
[2024-01-27] MEDS ORDERED: DEXTROSE 50% SYRINGE 50 ML IVP PRN ×2 (09:53)
[2024-01-27] MEDS: SYMBICORT 160-4.5 MCG INHALER INHALATION SCH (11:11)
--- NOTE | 2024-01-27 11:17 | P.NPCON ---
History of Present Illness - Reason for Consult acute renal failure - History of Present Illness Reason for consultation: Acute kidney injury History of present illness: Patient is a 58-year-old male seen in renal consultation for acute kidney injury. Patient baseline creatinine in 2021 was noted to be as low as 1.13. Creatinine this admission was 2.55 and is improved to 1.77. Patient came to the hospital due to presyncopal episode. Patient states he developed vomiting and diarrhea on Tuesday which was progressively getting worse. Patient states he took 3 doses of magnesium citrate Tuesday night due to constipation and diarrhea subsequently started the next day. He was not able to tolerate any oral intake. Patient states he felt dizzy and subsequently came to the hospital. He was taking lisinopril and hydrochlorothiazide outpatient which are currently held. Patient was hypotensive with blood pressure as low as 83/66 this admission and was 130/77 this morning. He did receive a liter of normal saline bolus in the ER and is currently receiving normal saline at 130 cc an hour. Denies chest pain or shortness of breath. No gross hematuria or dysuria. Patient does have longstanding history of diabetes. Denies history of coronary artery disease. Vital signs are stable. General: No acute distress. HEENT: Head exam is unremarkable. LUNGS: No audible rhonchi or wheezes. HEART: Rate and Rhythm are regular. Cut the ABDOMEN: Obese, nontender. EXTREMITITES: No edema. Past Medical History Past Medical History: Chest Pain / Angina, COPD, Diabetes Mellitus, Hyperlipidemia, Hypertension, Osteoarthritis (OA), Pulmonary Embolus (PE), Renal Disease, Sleep Apnea/CPAP/BIPAP Additional Past Medical History / Comment(s): kidney stones, migraines, DWIGHT with BI-PAP, back pain, stress test-pt stated they did'nt find anything, PE's 2017 & 2019, constipation History of Any Multi-Drug Resistant Organisms: None Reported Past Surgical History: Heart Catheterization, Hernia Repair, Joint Replacement, Orthopedic Surgery Additional Past Surgical History / Comment(s): aortic angiogram, umbilical hernia repair, total L hip, R hand surgery, L knee arthroscopy, right ankle surgery, PAIN CLINIC PROCEDURE Past Anesthesia/Blood Transfusion Reactions: No Reported Reaction Past Psychological History: No Psychological Hx Reported Smoking Status: Vaper Past Alcohol Use History: Rare Past Drug Use History: Marijuana - Past Family History Mother Family Medical History: Cancer Additional Family Medical History / Comment(s): Mother had breast cancer. She of "natural causes" at the age of 73 yrs. Father Family Medical History: Renal Disease Additional Family Medical History / Comment(s): Father was an alcoholic. He of kidney problems at the age of 65yrs. Medications and Allergies Home Medications Medication Instructions Recorded Confirmed Type Budesonide-Formot 160-4.5 Mcg 2 puff INHALATION RT-BID #1 puff 03/29/18 01/26/24 Rx [Symbicort 160-4.5 Mcg Inhaler] metFORMIN HCL [Glucophage] 500 mg PO W/BRKFST 03/29/19 01/26/24 History HYDROcodone/APAP 10-325MG [[place] 1 tab PO BID PRN 11/05/19 01/26/24 History 10-325] Lisinopril-Hctz 10-12.5 mg 1 tab PO DAILY 11/05/19 01/26/24 History [Zestoretic 10-12.5] Albuterol Sulfate [Albuterol 2 puff INHALATION RT-QID PRN 03/05/22 01/26/24 History Sulfate Hfa] Metoprolol Tartrate [Lopressor] 100 mg PO BID-W/MEALS 03/05/22 01/26/24 History traZODone HCL [Desyrel] 50 mg PO HS 03/05/22 01/26/24 History Rivaroxaban [Xarelto] 20 mg PO DAILY 06/07/22 01/26/24 History Atorvastatin [Lipitor] 20 mg PO HS 01/26/24 01/26/24 History Tirzepatide [Mounjaro] 2.5 mg SQ MO 01/26/24 01/26/24 History metFORMIN HCL 1,000 mg PO W/SUPPER 01/26/24 01/26/24 History Allergies Allergy/AdvReac Type Severity Reaction Status Date / Time No Known Allergies Allergy Verified 01/26/24 15:44 Physical Exam Vitals: Vital Signs Temp Pulse Resp BP Pulse Ox 01/27/24 07:22 98.5 F 69 18 130/77 96 01/27/24 06:45 83 18 116/76 95 01/27/24 05:15 89 16 91/55 95 01/27/24 02:45 86 18 116/76 95 01/27/24 00:52 77 18 93/57 98 01/26/24 22:08 82 16 100/86 98 01/26/24 19:00 77 20 109/72 97 01/26/24 18:30 78 20 92/72 97 01/26/24 18:00 92 20 102/67 99 01/26/24 17:30 75 14 83/66 97 01/26/24 17:00 80 15 112/64 99 01/26/24 16:30 76 18 117/52 97 01/26/24 16:00 75 16 115/73 98 01/26/24 15:30 76 14 91/66 98 01/26/24 15:21 80 18 91/66 01/26/24 14:56 98.4 F 76 18 111/68 97 Results - Lab Results Most recent lab results Calcium 9.2 mg/dL (8.4-10.2) 01/27/24 05:33 Phosphorus 4.6 mg/dL (2.5-4.5) H 01/27/24 05:33 Magnesium 1.8 mg/dL (1.6-2.3) 01/27/24 05:33 01/27/24 05:33 01/27/24 05:33 Assessment and Plan Plan: Assessment: 1. Acute kidney injury secondary to vasomotor nephropathy secondary to hypotension and hypovolemia further worsened with the use of diuretics and vomiting, diarrhea. Creatinine 2.55 on admission and is 1.773. Creatinine as low as 1.1 in 2021. 2. Metabolic acidosis secondary to acute kidney injury and IV fluids. 3. Hyperphosphatemia secondary to acute kidney injury. Improved. 4. Diabetes mellitus. Plan: Maintain IV fluids. Decrease rate to 75 cc an hour. Continue to hold diuretics and antihypertensives. Check UA. Check renal ultrasound. Avoid nephrotoxins. Thank you for the consultation. I will continue to follow the patient with you during his hospital stay.
[2024-01-27] MEDS: INSULIN ASPART (NovoLOG) 100 UNIT/ML VIAL SQ SCH (12:48)
--- NOTE | 2024-01-27 13:37 | US ---
EXAMINATION TYPE: US kidneys/renal and bladder DATE OF EXAM: 01/27/2024 COMPARISON: NONE CLINICAL INDICATION: Male, 58 years old with history of ; MARILIA TECHNIQUE: Grayscale imaging of the bilateral kidneys and urinary bladder: FINDINGS: EXAM MEASUREMENTS: Right Kidney: 13.1x7.0x6.5 cm Left Kidney: 11.8x5.3x6.2 cm Science Interpreter notes: Exam limited by edema, habitus, and bowel gas Right Kidney: possible centrally located stone measuring up to 0.9cm. There is a 2.6x2.0x2.2cm round hypoechoic area at the mid pole suspected cyst with either debris or artifact. No hydronephrosis. Left Kidney: No hydronephrosis or masses seen Bladder: wnl IMPRESSION: 1. Limited detailed assessment due to above mentioned limitations. 2. No hydronephrosis. 3. Possible 9 mm centrally located calculus right kidney. 4. An indeterminate round cortical lesion measuring 2.6 cm mid right kidney. Suspect a cyst with inte rnal echoes representing debris or artifact. Recommend three-month follow-up ultrasound to reassess. [facility], , 01/27/2024 1:35 PM
--- NOTE | 2024-01-27 16:12 | P.HPIM ---
History of Present Illness H&P Date: 01/27/24 Chief Complaint: Dizziness This is a pleasant 58-year-old patient who follows with Dr. Leon. Chronic medical conditions include COPD, diabetes, hypertension, hyperlipidemia, osteoarthritis, obstructive sleep apnea uses CPAP, prior history of pulm embolisms. 2 days ago that is on Tuesday patient started having severe diarrhea about 10 bowel movements about that day. No blood in the stool. Some abdominal discomfort. He did vomit x 1. The following day that is yesterday also had some diarrhea. Patient yesterday became significantly dizzy x 2. Patient prema durbin has about 3 bowel movements in a week. On Tuesday night patient had drank n a bottle of mag citrate. Patient came in feeling very weak tired rundown. No fever no chills. Review of systems: GEN.: Weak tired EYES: None HEENT: None NECK: None RESPIRATORY: None CARDIOVASCULAR: None GASTROINTESTINAL: As above GENITOURINARY: None MUSCULOSKELETAL: None LYMPHATICS: None HEMATOLOGICAL: None PSYCHIATRY: None NEUROLOGICAL: No focal symptoms Social history: 2 sons live with him. Patient since the age of 4 [place] smoking went up to 2 packs a day. Now down to few cigarettes a day. Does also vaping. Also does marijuana. Physical examination: VITAL SIGNS: 98.4, 76, 18, 111 x 68, 97% room air GENERAL: BMI 43.9, reclining bed awake a bit tired. EYES: Pupils equal. Conjunctiva gretchen l. HEENT: External appearance of nose and ears normal, oral cavity grossly normal. NECK: JVD not raised; masses not palpable. HEART: First and second heart sounds are normal; no edema. LUNGS: Respiratory rate increased, diminished breath sounds. ABDOMEN: Soft, nontender, liver spleen not palpable, no masses palpable. PSYCH: Alert and oriented x3; mood and affect gretchen l. MUSCULOSKELETAL:No Clubbing/cyanosis;muscles-grossly intact NEUROLOGICAL: Cranial nerves grossly intact; no facial asymmetry, power and sensation grossly intact. LYMPHATICS: No lymph nodes palpable in the axilla and neck INVESTIGATIONS, reviewed in the clinical context: Renal ultrasound limited details. No hydronephrosis. Calculus right kidney. January 26: White count 9.7 hemoglobin 14.3 platelets 320 sodium 135 potassium 4.5 pain 47 creatinine 1.77 January 25: White count 9.9 hemoglobin 16.3 platelets 335 sodium 139 potassium 4.9 BUN 51 creatinine 2.55 Troponin I less than 0.012 x 3 proBNP 181 Serum alcohol less than 10 EKG tracing personally reviewed by me-normal sinus rhythm. Some ST-T wave changes inferior leads Chest x-ray film personally reviewed by me-cardiomegaly Assessment plan: -Acute kidney injury combination of ATN/prerenal. Patient had severe diarrhea for 2 days. Following taking magnesium citrate. Patient also taking Zestoretic at home IV fluids. Increase oral intake of fluids. Hold Zestoretic. -Acute dehydration from above, symptomatic with dizziness -Hyperlipidemia Lipitor 20 mg nightly -Diabetes mellitus type 2 on oral hypoglycemic Hold Glucophage. On Mounjaro. Diabetic diet -COPD no current smoker Symbicort 160/4.5 -Chronic nicotine dependence cigarette smoker Nicotine patch -Chronic pulm embolism with at least 2 episodes Continue Xarelto -Anxiety depression Trazodone -Right kidney calculus, asymptomatic -Full code Care was discussed with the patient. Cardiology and nephrology was consulted. Will try the patient on soft diet. IV fluids. Follow kidney function. Past Medical History Past Medical History: Chest Pain / Angina, COPD, Diabetes Mellitus, Hyperlipidemia, Hypertension, Osteoarthritis (OA), Pulmonary Embolus (PE), Renal Disease, Sleep Apnea/CPAP/BIPAP Additional Past Medical History / Comment(s): kidney stones, migraines, DWIGHT with BI-PAP, back pain, stress test-pt stated they did'nt find anything, PE's 2017 & 2019, constipation History of Any Multi-Drug Resistant Organisms: None Reported Past Surgical History: Heart Catheterization, Hernia Repair, Joint Replacement, Orthopedic Surgery Additional Past Surgical History / Comment(s): aortic angiogram, umbilical hernia repair, total L hip, R hand surgery, L knee arthroscopy, right ankle surgery, PAIN CLINIC PROCEDURE Past Anesthesia/Blood Transfusion Reactions: No Reported Reaction Past Psychological History: No Psychological Hx Reported Smoking Status: Vaper Past Alcohol Use History: Rare Past Drug Use History: Marijuana - Past Family History Mother Family Medical History: Cancer Additional Family Medical History / Comment(s): Mother had breast cancer. She of "natural causes" at the age of 73 yrs. Father Family Medical History: Renal Disease Additional Family Medical History / Comment(s): Father was an alcoholic. He of kidney problems at the age of 65yrs. Medications and Allergies Home Medications Medication Instructions Recorded Confirmed Type Budesonide-Formot 160-4.5 Mcg 2 puff INHALATION RT-BID #1 puff 03/29/18 01/26/24 Rx [Symbicort 160-4.5 Mcg Inhaler] metFORMIN HCL [Glucophage] 500 mg PO W/BRKFST 03/29/19 01/26/24 History HYDROcodone/APAP 10-325MG [[place] 1 tab PO BID PRN 11/05/19 01/26/24 History 10-325] Lisinopril-Hctz 10-12.5 mg 1 tab PO DAILY 11/05/19 01/26/24 History [Zestoretic 10-12.5] Albuterol Sulfate [Albuterol 2 puff INHALATION RT-QID PRN 03/05/22 01/26/24 History Sulfate Hfa] Metoprolol Tartrate [Lopressor] 100 mg PO BID-W/MEALS 03/05/22 01/26/24 History traZODone HCL [Desyrel] 50 mg PO HS 03/05/22 01/26/24 History Rivaroxaban [Xarelto] 20 mg PO DAILY 06/07/22 01/26/24 History Atorvastatin [Lipitor] 20 mg PO HS 01/26/24 01/26/24 History Tirzepatide [Mounjaro] 2.5 mg SQ MO 01/26/24 01/26/24 History metFORMIN HCL 1,000 mg PO W/SUPPER 01/26/24 01/26/24 History Allergies Allergy/AdvReac Type Severity Reaction Status Date / Time No Known Allergies Allergy Verified 01/26/24 15:44 Physical Exam Vitals: Vital Signs Temp Pulse Resp BP Pulse Ox 01/27/24 07:22 98.5 F 69 18 130/77 96 01/27/24 06:45 83 18 116/76 95 01/27/24 05:15 89 16 91/55 95 01/27/24 02:45 86 18 116/76 95 01/27/24 00:52 77 18 93/57 98 01/26/24 22:08 82 16 100/86 98 01/26/24 19:00 77 20 109/72 97 01/26/24 18:30 78 20 92/72 97 01/26/24 18:00 92 20 102/67 99 01/26/24 17:30 75 14 83/66 97 01/26/24 17:00 80 15 112/64 99 01/26/24 16:30 76 18 117/52 97 01/26/24 16:00 75 16 115/73 98 01/26/24 15:30 76 14 91/66 98 01/26/24 15:21 80 18 91/66 01/26/24 14:56 98.4 F 76 18 111/68 97 Results CBC & Chem 7: 01/27/24 05:33 01/27/24 05:33 Labs: Abnormal Lab Results - Last 24 Hours (Table) 01/26/24 01/26/24 01/26/24 Range/Units 15:40 15:54 15:54 MCHC (31.0-37.0) g/dL APTT 33.5 H (22.0-30.0) sec Sodium (137-145) mmol/L Carbon Dioxide 20 L (22-30) mmol/L BUN 51 H (9-20) mg/dL Creatinine 2.55 H (0.66-1.25) mg/dL Glucose 133 H (74-99) mg/dL Phosphorus 6.2 H (2.5-4.5) mg/dL 01/27/24 01/27/24 Range/Units 05:33 05:33 MCHC 30.9 L (31.0-37.0) g/dL APTT (22.0-30.0) sec Sodium 135 L (137-145) mmol/L Carbon Dioxide 21 L (22-30) mmol/L BUN 47 H (9-20) mg/dL Creatinine 1.77 H (0.66-1.25) mg/dL Glucose 105 H (74-99) mg/dL Phosphorus 4.6 H (2.5-4.5) mg/dL
[2024-01-27] MEDS: NICOTINE 14MG/24HR PATCH TRANSDERM SCH (16:36)
[2024-01-27 17:23] LABS: Glucose,Whole Blood 117 mg/dL (70-110)
[2024-01-27] MEDS: ONDANSETRON 4 MG/2 ML VIAL IVP PRN (18:31)
[2024-01-27] MEDS: ALBUTEROL NEBULIZED 2.5 MG/3 ML INHALATION PRN (19:08)
[2024-01-27 20:10] LABS: Appearance,Urine Clear (Clear); Bacteria,Urine Rare /hpf; Bilirubin,Urine Negative (Negative); Blood,Urine Trace (Negative); Color,Urine Colorless; Glucose,Urine (UA) Negative (Negative); Ketones,Urine Negative (Negative); Leukocyte Esterase,Urine Negative (Negative); Mucus,Urine Rare /hpf; Nitrite,Urine Negative (Negative); Protein,Urine Negative (Negative); RBC,Urine 6 /hpf (0-5); Specific Gravity,Urine 1.014 (1.001-1.035); Squamous Epithelial Cell,Urine 1 /hpf (0-4); Urobilinogen,Urine <2.0 mg/dL (<2.0); WBC,Urine 1 /hpf (0-5)
[2024-01-27 20:25] LABS: Glucose,Whole Blood 97 mg/dL (70-110)
[2024-01-27] MEDS: ATORVASTATIN 20 MG TAB PO SCH (20:33)
[2024-01-27] MEDS: traZODone HCL 50 MG TAB PO SCH (20:33)
--- NOTE | 2024-01-27 22:37 | CA ---
Transthoracic Echo Report Name: Manjinder Pedraza Age: 58 Gender: M : 1965 Exam Date: 01/27/2024 14:58 Exam Location: [facility] Ht (in): 77 Wt (lb): 370 Ordering Physician: Inés Akhtar Attending/Referring Phys: [id number], Giovana Environmental Project Manager Genie Peacock, JULIANA Procedure CPT: Indications: LVF Cardiac Hx: Technical Quality: Very technically difficult study Contrast 1: Definity Total Dose (mL): 2 Contrast 2: Total Dose (mL): MEASUREMENTS (Male / Female) Normal Values 2D ECHO LV Diastolic Diameter PLAX 4.7 cm 4.2 - 5.9 / 3.9 - 5.3 cm LV Systolic Diameter PLAX 2.5 cm IVS Diastolic Thickness 1.7 cm 0.6 - 1.0 / 0.6 - 0.9 cm LVPW Diastolic Thickness 1.8 cm 0.6 - 1.0 / 0.6 - 0.9 cm LV Relative Wall Thickness 0.7 DOPPLER AV Peak Velocity 135.0 cm/s AV Peak Gradient 7.3 mmHg AV Mean Velocity 86.7 cm/s AV Mean Gradient 3.5 mmHg AV Velocity Time Integral 26.4 cm MV Area PHT 3.1 cm??? Mitral E Point Velocity 90.7 cm/s Mitral A Point Velocity 106.9 cm/s Mitral E to A Ratio 0.8 MV Deceleration Time 243.0 ms FINDINGS Left Ventricle Severely increased septal wall thickness. Left ventricle not well visualized. Left ventricular ejection fraction is estimated at 55 %. Right Ventricle Right ventricle not well visualized. Right Atrium Right atrium not well visualized. Left Atrium Mildly increased left atrial area. Mitral Valve Mitral valve not well visualized. Mild mitral annular calcification. Mild mitral regurgitation. Aortic Valve Aortic valve not well visualized. No aortic valve stenosis or regurgitation. Tricuspid Valve Tricuspid valve not well visualized. Pulmonic Valve Pulmonic valve not well visualized. Pericardium No pericardial effusion. Aorta Aortic root and proximal ascending aorta not well visualized. CONCLUSIONS Technically difficult study Severe increased left ventricle thickness Left ventricular ejection fraction 55% Mild mitral regurgitation Previewed by: Dr. Ze Ordonez DO (Electronically Signed) Final Date: 27 January 2024 22:36
[2024-01-28 05:42] LABS: African American GFR (CKD) 75 (>60 ml/min/1.73 sqM); Anion Gap 9 mmol/L; Blood Urea Nitrogen 40 mg/dL (9-20); Calcium 9.1 mg/dL (8.4-10.2); Carbon Dioxide 18 mmol/L (22-30); Chloride 108 mmol/L (98-107); Glucose 106 mg/dL (74-99); Magnesium 1.5 mg/dL (1.6-2.3); Non-African American GFR(CKD) 65 (>60 ml/min/1.73 sqM); Sodium 135 mmol/L (137-145)
[2024-01-28 06:11] LABS: Glucose,Whole Blood 107 mg/dL (70-110)
[2024-01-28 07:48] VITALS: BP 103/65; RESP 16; TEMP 97.7
[2024-01-28 09:21] VITALS: PULSE 72
--- NOTE | 2024-01-28 09:39 | P.PN ---
Subjective HISTORY OF PRESENT ILLNESS: This is a 58-year-old male patient of Dr. Mitchell with past medical history of morbid obesity, sleep apnea, hypertension, dyslipidemia, pulmonary embolism on Xarelto, COPD, and SVT. We have been asked to evaluate the patient for chest pain and syncope. Patient states that he started 3 days ago with vomiting and diarrhea by the second day he was not eating or drinking very much and on the third day he had 2 episodes where he had near syncopal episodes. He also complains of generalized weakness. He is feeling better at the time of this evaluation. Patient is seen today in the emergency center waiting for a bed on the cardiac stepdown unit. He is status post 1 L of IV fluids and Zofran. Blood pressure 130/77, heart rate 69, pulse ox 96% on room air, afebrile. Patient states that he smokes a little marijuana. He drinks alcohol about 1 time per month. He is a non-smoker of tobacco. -EKG: Sinus rhythm with right axis deviation, old [place], unchanged from previous -Chest x-ray: No acute findings -Laboratory studies: Troponin negative x 3, BNP 181, alcohol less than 10, sodium 135, potassium 4.5, BUN 51 now 4.7. Creatinine initially 2.55 and now 1.77. WBC 9.7, hemoglobin 14.3, D-dimer 0.2. -Home cardiac medications: -Event monitor 2018 revealed sinus rhythm with run of V. tach 7 beats, 1 episode of 6 seconds, sinus rhythm with PACs. -Lexiscan Cardiolite stress test performed in the office 02/27/2019 revealed negative Lexiscan stress test. Probable normal perfusion study with mild fixed defect involving the inferior lateral segment most probably secondary to soft tissue attenuation. Gated images showed normal wall motion and thickening. -Echocardiogram performed in the office on 03/01/2019 revealed normal LV size and normal function, mild tricuspid regurgitation. 01/28/2024 Patient examined this morning at the bedside. Patient currently denies chest pain or pressure. She denies shortness of breath. Nausea vomiting and diarrhea have resolved. Patient's kidney function has normalized with a creatinine of 1.22. BUN 40. Magnesium 1.5 this morning. Echocardiogram completed revealing ejection fraction 55%, mild MR. PHYSICAL EXAM: VITAL SIGNS: Reviewed. GENERAL: Well-developed in no acute distress. NECK: Supple. No JVD or thyromegaly LUNGS: Respirations even and unlabored. Lungs essentially clear to auscultation bilaterally. HEART: Regular rate and rhythm. S1 and S2 heard. EXTREMITIES: Normal range of motion. No clubbing or cyanosis. Peripheral pulses intact. No lower extremity edema ASSESSMENT: Near syncopal episode secondary to volume depletion Nausea vomiting diarrhea Acute kidney injury Hypomagnesemia Hypertension Dyslipidemia History of pulmonary embolism on Xarelto COPD NSVT Morbid obesity Obstructive sleep apnea PLAN: 2D echo obtained and reviewed Replace magnesium Patient is stable for discharge home today from a cardiac standpoint Patient may resume lisinoprilhydrochlorothiazide upon discharge Patient to follow-up postdischarge with Dr. Mitchell Nurse practitioner note has been reviewed by physician. Signing provider agrees with the documented findings, assessment, and plan of care documented by YOGA COORDINATOR as a scribe. Objective - Vital Signs Vital signs: Vital Signs Temp 97.7 F 01/28/24 07:47 Pulse 72 01/28/24 09:21 Resp 16 01/28/24 07:47 BP 103/65 01/28/24 07:47 Pulse Ox 95 01/28/24 07:47 FiO2 Intake & Output 01/27/24 01/28/24 01/28/24 18:59 06:59 18:59 Intake Total 118 Balance 118 Weight 167.829 kg Intake: Oral 118 Other: # Voids 1 - Labs CBC & Chem 7: 01/27/24 05:33 01/28/24 04:56 Labs: Abnormal Lab Results - Last 24 Hours (Table) 01/27/24 01/27/24 01/28/24 Range/Units 15:45 17:17 04:56 Sodium 135 L (137-145) mmol/L Chloride 108 H (98-107) mmol/L Carbon Dioxide 18 L (22-30) mmol/L BUN 40 H (9-20) mg/dL Glucose 106 H (74-99) mg/dL POC Glucose (mg/dL) 117 H (70-110) mg/dL Magnesium 1.5 L (1.6-2.3) mg/dL Urine Blood Trace H (Negative) Urine RBC 6 H (0-5) /hpf Urine Bacteria Rare H (None) /hpf Urine Mucus Rare H (None) /hpf
[2024-01-28] MEDS: MAGNESIUM SULFATE-D5W PMX 1 GM in DEXTROSE/WATER 1 100ML.BAG IVPB SCH (09:55)
[2024-01-28 11:53] LABS: Glucose,Whole Blood 109 mg/dL (70-110)
[2024-01-28] MEDS: MAGNESIUM OXIDE 400 MG TAB PO SCH (12:08)
[2024-01-28] MEDS: SODIUM BICARBONATE TAB 650 MG TAB PO SCH (12:10)
--- NOTE | 2024-01-28 12:41 | P.PN ---
Subjective Progress Note Date: 01/28/24 Patient seen in follow-up for MARILIA. Renal funciton improved with IVF. BP improved after holding HCTZ and ACEi. Feeling better, wants to go home. Vital signs are stable. General: No acute distress. HEENT: Head exam is unremarkable. LUNGS: No audible rhonchi or wheezes. HEART: Rate and Rhythm are regular. ABDOMEN: Obese, nontender. EXTREMITITES: No edema. Objective - Vital Signs Vital signs: Vital Signs Temp 97.7 F 01/28/24 07:47 Pulse 72 01/28/24 09:21 Resp 16 01/28/24 07:47 BP 103/65 01/28/24 07:47 Pulse Ox 95 01/28/24 07:47 FiO2 Intake & Output 01/27/24 01/28/24 01/28/24 18:59 06:59 18:59 Intake Total 118 Balance 118 Weight 167.829 kg Intake: Oral 118 Other: # Voids 1 - Labs CBC & Chem 7: 01/27/24 05:33 01/28/24 04:56 Labs: Abnormal Lab Results - Last 24 Hours (Table) 01/27/24 01/27/24 01/28/24 Range/Units 15:45 17:17 04:56 Sodium 135 L (137-145) mmol/L Chloride 108 H (98-107) mmol/L Carbon Dioxide 18 L (22-30) mmol/L BUN 40 H (9-20) mg/dL Glucose 106 H (74-99) mg/dL POC Glucose (mg/dL) 117 H (70-110) mg/dL Magnesium 1.5 L (1.6-2.3) mg/dL Urine Blood Trace H (Negative) Urine RBC 6 H (0-5) /hpf Urine Bacteria Rare H (None) /hpf Urine Mucus Rare H (None) /hpf Assessment and Plan Assessment: 1. Acute kidney injury secondary to vasomotor nephropathy secondary to hypotension and hypovolemia further worsened with the use of diuretics and vomiting, diarrhea. Creatinine 2.55, improved 1.2 today. Creatinine as low as 1.1 in 2021. UA no active sediment. 2. Metabolic acidosis secondary to acute kidney injury and IV fluids. 3. Hyperphosphatemia secondary to acute kidney injury. Improved. 4. Diabetes mellitus. Plan: Discontinue IVF Continue to hold diuretics and antihypertensives. Clear for discharge from nephrology standpoint
--- NOTE | 2024-01-28 17:38 | P.DS ---
Providers Date of admission: 01/26/24 18:08 Expected date of discharge: 01/28/24 Attending physician: Balise Schneider Consults: 01/26/24 18:06 Consult Physician Routine Consulting Provider: Loy Brandon Consult Reason/Comments: known Do you want consulting provider notified?: Yes Consult Physician Routine Consulting Provider: Yair Villalta Consult Reason/Comments: cp,syncope Do you want consulting provider notified?: Yes [facility] Course: Chief Complaint: Dizziness This is a pleasant 58-year-old patient who follows with Dr. Leon. Chronic medical conditions include COPD, diabetes, hypertension, hyperlipidemia, osteoarthritis, obstructive sleep apnea uses CPAP, prior history of pulm embol isms. 2 days ago that is on Tuesday patient started having severe diarrhea about 10 bowel movements about that day. No blood in the stool. Some abdominal discomfort. He did vomit x 1. The following day that is yesterday also had some diarrhea. Patient yesterday became significantly dizzy x 2. Patient normally has about 3 bowel movements in a week. On Tuesday night patient had drank n a bottle of mag citrate. Patient came in feeling very weak tired rundown. No fever no chills. January 27: Renal function greatly improved. Eating better. Patient begs to be discharged as extremely uncomfortable in the bed. Unable to sleep. Patient to resume lisinopril hydrochlorothiazide in 3 days. Follow-up with his physicians. Cleared by cardiology and nephrology. Bicarb and magnesium being replaced. Will discharge on the same. Discussion and discharge planning more than 35 minutes Social history: 2 sons live with him. Patient since the age of 4 Shar[place] smoking went up to 2 packs a day. Now down to few cigarettes a day. Does also vaping. Also does marijuana. Physical examination: VITAL SIGNS: 97.7, 66, 16, 103 x 65, 95% room air GENERAL: BMI 43.9, further Sharonda EYES: Pupils equal. Conjunctiva gretchen l. HEENT: External appearance of nose and ears normal, oral cavity grossly normal. NECK: JVD not raised; masses not palpable. HEART: First and second heart sounds are normal; no edema. LUNGS: Respiratory rate increased, diminished breath sounds. ABDOMEN: Soft, nontender, liver spleen not palpable, no masses palpable. PSYCH: Alert and oriented x3; mood and affect gretchen l. MUSCULOSKELETAL:No Clubbing/cyanosis;muscles-grossly intact INVESTIGATIONS, reviewed in the clinical context: January 27 sodium 135 potassium 5 bicarb 18 BUN 40 creatinine 1.22 magnesium 1.5 Renal ultrasound limited details. No hydronephrosis. Calculus right kidney. January 26: White count 9.7 hemoglobin 14.3 platelets 320 sodium 135 potassium 4.5 pain 47 creatinine 1.77 January 25: White count 9.9 hemoglobin 16.3 platelets 335 sodium 139 potassium 4.9 BUN 51 creatinine 2.55 Troponin I less than 0.012 x 3 proBNP 181 Serum alcohol less than 10 EKG tracing personally reviewed by me-normal sinus rhythm. Some ST-T wave changes inferior leads Chest x-ray film personally reviewed by me-cardiomegaly Assessment plan: -Acute kidney injury combination of ATN/prerenal. Patient had severe diarrhea for 2 days. Following taking magnesium citrate. Patient also taking Zestoretic at home: Better IV fluids. Increase oral intake of fluids. Hold Zestoretic. Resume Zestoretic in 3 days -Acute dehydration from above, symptomatic with dizziness: Improved Essential hypertension Blood pressure on the softer side. Resume Zestoretic in 3 days -Hyperlipidemia Lipitor 20 mg nightly -Diabetes mellitus type 2 on oral hypoglycemic Glucophage. On Mounjaro. Diabetic diet -Hypomagnesemia Replace -COPD no current smoker Symbicort 160/4.5 -Chronic nicotine dependence cigarette smoker Nicotine patch -Chronic pulm embolism with at least 2 episodes Continue Xarelto -Anxiety depression Trazodone -Right kidney calculus, asymptomatic -Full code Disposition: Home Past Medical History Past Medical History: Chest Pain / Angina, COPD, Diabetes Mellitus, Hyperlipidemia, Hypertension, Osteoarthritis (OA), Pulmonary Embolus (PE), Renal Disease, Sleep Apnea/CPAP/BIPAP Additional Past Medical History / Comment(s): kidney stones, migraines, DWIGHT with BI-PAP, back pain, stress test-pt stated they did'nt find anything, PE's 2017 & 2019, constipation History of Any Multi-Drug Resistant Organisms: None Reported Past Surgical History: Heart Catheterization, Hernia Repair, Joint Replacement, Orthopedic Surgery Additional Past Surgical History / Comment(s): aortic angiogram, umbilical hernia repair, total L hip, R hand surgery, L knee arthroscopy, right ankle surgery, PAIN CLINIC PROCEDURE Past Anesthesia/Blood Transfusion Reactions: No Reported Reaction Past Psychological History: No Psychological Hx Reported Smoking Status: Vaper Past Alcohol Use History: Rare Past Drug Use History: Marijuana Plan - Discharge Summary Discharge Rx Participant: Yes New Discharge Prescriptions: New Sodium Bicarbonate Tab 650 mg PO TID #20 tab Nicotine 14Mg/24Hr Patch [Habitrol] 1 patch TRANSDERM DAILY #30 patch Magnesium Oxide [Mag-Ox] 400 mg PO BID #10 tab Continue Budesonide-Formot 160-4.5 Mcg [Symbicort 160-4.5 Mcg Inhaler] 2 puff INHALATION RT-BID #1 puff metFORMIN HCL [Glucophage] 500 mg PO W/BRKFST HYDROcodone/APAP 10-325MG [[place] 10-325] 1 tab PO BID PRN PRN Reason: Pain Metoprolol Tartrate [Lopressor] 100 mg PO BID-W/MEALS Rivaroxaban [Xarelto] 20 mg PO DAILY Tirzepatide [Mounjaro] 2.5 mg SQ MO traZODone HCL [Desyrel] 50 mg PO HS Albuterol Sulfate [Albuterol Sulfate Hfa] 2 puff INHALATION RT-QID PRN PRN Reason: Shortness Of Breath metFORMIN HCL 1,000 mg PO W/SUPPER Atorvastatin [Lipitor] 20 mg PO HS No Action Lisinopril-Hctz 10-12.5 mg [Zestoretic 10-12.5] 1 tab PO DAILY Discharge Medication List Budesonide-Formot 160-4.5 Mcg [Symbicort 160-4.5 Mcg Inhaler] 2 puff INHALATION RT-BID #1 puff 03/29/18 [Rx] metFORMIN HCL [Glucophage] 500 mg PO W/BRKFST 03/29/19 [History] HYDROcodone/APAP 10-325MG [[place] 10-325] 1 tab PO BID PRN 11/05/19 [History] Lisinopril-Hctz 10-12.5 mg [Zestoretic 10-12.5] 1 tab PO DAILY 11/05/19 [History] Albuterol Sulfate [Albuterol Sulfate Hfa] 2 puff INHALATION RT-QID PRN 03/05/22 [History] Metoprolol Tartrate [Lopressor] 100 mg PO BID-W/MEALS 03/05/22 [History] traZODone HCL [Desyrel] 50 mg PO HS 03/05/22 [History] Rivaroxaban [Xarelto] 20 mg PO DAILY 06/07/22 [History] Atorvastatin [Lipitor] 20 mg PO HS 01/26/24 [History] Tirzepatide [Mounjaro] 2.5 mg SQ MO 01/26/24 [History] metFORMIN HCL 1,000 mg PO W/SUPPER 01/26/24 [History] Magnesium Oxide [Mag-Ox] 400 mg PO BID #10 tab 01/28/24 [Rx] Nicotine 14Mg/24Hr Patch [Habitrol] 1 patch TRANSDERM DAILY #30 patch 01/28/24 [Rx] Sodium Bicarbonate Tab 650 mg PO TID #20 tab 01/28/24 [Rx] Follow up Appointment(s)/Referral(s): Jason Leon DO [Primary Care Provider] - 1-2 days Activity/Diet/Wound Care/Special Instructions: resume lisinopril/hctz in 3 days Discharge Disposition: HOME SELF-CARE
[2024-01-30] MEDS ORDERED: NON FORMULARY DRUG (Tirzepatide [Mounjaro] 2.5 MG/0.5 ML Pen.Injctr) SQ SCH (09:00)
== END 2024-01-28 12:32 | disposition home or self-care (01) | DRG 640 ==
LOC: EC 14:51 → 3SCARD 18:08 → 6NMEDSUR 01-27 10:22
PROVIDERS: ADMIT Hospitalist; ATTEND Hospitalist
DX: E86.9 Volume depletion, unspecified (principal); N17.0 Acute kidney failure with tubular necrosis; I47.20 Ventricular tachycardia, unspecified; I27.82 Chronic pulmonary embolism; E87.20 Acidosis, unspecified; E83.39 Other disorders of phosphorus metabolism; E83.42 Hypomagnesemia; E86.0 Dehydration; E86.1 Hypovolemia; F17.210 Nicotine dependence, cigarettes, uncomplicated; G47.33 Obstructive sleep apnea (adult) (pediatric); I10 Essential (primary) hypertension; I25.2 Old myocardial infarction; J44.9 Chronic obstructive pulmonary disease, unspecified; T50.2X5A Adverse effect of carbonic-anhydrase inhibitors, benzothiadiazides and other diuretics, initial encounter; E66.01 Morbid (severe) obesity due to excess calories; E78.5 Hyperlipidemia, unspecified; K59.00 Constipation, unspecified; M19.90 Unspecified osteoarthritis, unspecified site; K52.9 Noninfective gastroenteritis and colitis, unspecified; N20.0 Calculus of kidney; I07.1 Rheumatic tricuspid insufficiency; I95.1 Orthostatic hypotension; E11.9 Type 2 diabetes mellitus without complications; Z79.01 Long term (current) use of anticoagulants; Z79.51 Long term (current) use of inhaled steroids; Z79.84 Long term (current) use of oral hypoglycemic drugs; Z79.899 Other long term (current) drug therapy; Z87.442 Personal history of urinary calculi; X58.XXXA Exposure to other specified factors, initial encounter
CPT/HCPCS: 36415; 71045; 76770; 80048; 80053; 80320; 81001; 83690; 83735; 83880; 84100; 84484; 85025; 85379; 85610; 85730; 93005; 93306; 94640; 96361; 96374; 96376; 99285

== ENCOUNTER → 2024-06-19 | Outpatient (CLI) | payer MEDICARE, OTHER | END | disposition home or self-care (01) | LOC: LABPAT 07:17 | PROVIDERS: ATTEND Orthopaedic Surgery | DX: Z01.812 Encounter for preprocedural laboratory examination (principal); Z22.322 Carrier or suspected carrier of Methicillin resistant Staphylococcus aureus; M16.11 Unilateral primary osteoarthritis, right hip | CPT/HCPCS: 86850; 86900; 86901; 87070 ==

== ENCOUNTER 2024-06-26 05:40 | Day surgery (SDC) | payer MEDICARE, OTHER ==
--- NOTE | 2024-06-25 08:18 | P.HPOR ---
History of Present Illness H&P Date: 06/25/24 Chief Complaint: Right hip pain The patient is a 59-year-old male who presents with progressive right hip pain for the past several years worsening recently. He notes groin and thigh pain with weightbearing activities. He tried medications in addition has been working on weight loss without much relief. Review of Systems Per HPI Past Medical History Past Medical History: Chest Pain / Angina, COPD, Diabetes Mellitus, Hyperlipidemia, Hypertension, Osteoarthritis (OA), Pulmonary Embolus (PE), Sleep Apnea/CPAP/BIPAP Additional Past Medical History / Comment(s): kidney stones, migraines, DWIGHT with BI-PAP, back pain, stress test-pt stated they did'nt find anything, PE's 2017 & 2019, constipation History of Any Multi-Drug Resistant Organisms: None Reported Past Surgical History: Heart Catheterization, Hernia Repair, Joint Replacement, Orthopedic Surgery Additional Past Surgical History / Comment(s): aortic angiogram, umbilical hernia repair, total L hip, R hand surgery, L knee arthroscopy, right ankle surgery, PAIN CLINIC PROCEDURE colonoscopy Past Anesthesia/Blood Transfusion Reactions: No Reported Reaction Smoking Status: Vaper - Past Family History Mother Family Medical History: Cancer Additional Family Medical History / Comment(s): Mother had breast cancer. She of "natural causes" at the age of 73 yrs. Father Family Medical History: Renal Disease Additional Family Medical History / Comment(s): Father was an alcoholic. He of kidney problems at the age of 65yrs. Medications and Allergies Home Medications Medication Instructions Recorded Confirmed Type Budesonide-Formot 160-4.5 Mcg 2 puff INHALATION RT-BID #1 puff 03/29/18 06/20/24 Rx [Symbicort 160-4.5 Mcg Inhaler] metFORMIN HCL [Glucophage] 500 mg PO W/BRKFST 03/29/19 06/20/24 History HYDROcodone/APAP 10-325MG [[place] 1 tab PO BID PRN 11/05/19 06/20/24 History 10-325] Lisinopril-Hctz 10-12.5 mg 1 tab PO DAILY 11/05/19 06/20/24 History [Zestoretic 10-12.5] Albuterol Sulfate [Albuterol 2 puff INHALATION RT-QID PRN 03/05/22 06/20/24 History Sulfate Hfa] Metoprolol Tartrate [Lopressor] 100 mg PO BID-W/MEALS 03/05/22 06/20/24 History Rivaroxaban [Xarelto] 20 mg PO DAILY 06/07/22 06/20/24 History Atorvastatin [Lipitor] 20 mg PO HS 01/26/24 06/20/24 History Tirzepatide [Mounjaro] 5 mg SQ MO 01/26/24 06/20/24 History metFORMIN HCL 1,000 mg PO W/SUPPER 01/26/24 06/20/24 History Allergies Allergy/AdvReac Type Severity Reaction Status Date / Time No Known Allergies Allergy Verified 06/20/24 12:54 Physical Examination - Hip right Gait: antalgic Tenderness with palpation: anterior Pain with motion: internal rotation and hip flexion ROM: flexion: 70 degrees ROM: internal rotation: 0 degrees (With pain) ROM: external rotation: 50 degrees Strength: extension: 5/5 Strength: flexion: 5/5 Strength: abduction: 5/5 Tests: impingement tests: positive Results The patient is a well-developed well-nourished male approximately 6 foot 5, 395 pounds of endomorphic habitus. HEENT exam is nonfocal, neck is supple. He has painful passive motion of the right hip. Straight leg raise is negative. He does have some shortening of the right lower extremity compared to left. He has an antalgic gait pattern. His distal neurovascular exam appears intact in the right lower extremity. - Diagnostic results Hip x-ray: image reviewed (X-rays of the right hip obtained the office show severe osteoarthrosis with [id number] changes and subchondral sclerosis.) Assessment and Plan Assessment: Right hip severe osteoarthrosis Obesity History of DVT Plan: I talked to the patient at length regarding his condition along with treatment options. This point is quite symptomatic having pain and mechanical symptoms related to his right hip osteoarthrosis despite conservative measures. After a thorough discussion he opts to proceed with surgery. We will plan to proceed with a right total hip arthroplasty utilizing an anterior approach. Risks and benefits were discussed at length in layman's terms. We will reinstitute anticoagulation postoperatively.
[~2024-06-26 05:40] MED LIST changes: -IOPAMIDOL M200 10 ML VIAL ONE; -LACTATED RINGERS 1,000 ML IV SCH; -ROPIVACAINE 5MG/ML 20ML VIAL ONE; +TRANEXAMIC 1,000 MG/100ML-NACL 1,000 MG in SALINE 1 100ML.BAG IVPB PRN; -TRIAMCINOLONE ACETONIDE 40 MG/ML 1 ML VIAL ONE
[2024-06-26] MEDS: LACTATED RINGERS 1,000 ML IV SCH (06:33)
[2024-06-26] MEDS: LIDOCAINE 1% (10MG/ML) FOR IV START INTRADERMA PRN (06:33)
[2024-06-26] MEDS: IV FLUID CONTINUATION 1,000 ML IV ONE (06:34)
[2024-06-26] MEDS: MELOXICAM 7.5 MG TAB PO PRN (06:34)
[2024-06-26] MEDS: ACETAMINOPHEN TAB 500 MG TAB PO PRN (06:34)
[2024-06-26] MEDS: ONDANSETRON 4 MG/2 ML VIAL IVP ONE (06:34)
[2024-06-26] MEDS: DEXAMETHASONE SOD PHOSPHATE 4 MG/ML 1 ML VIAL IV ONE (06:35)
[2024-06-26] MEDS: MIDAZOLAM 2 MG/2 ML VIAL IV PRN (06:53)
[2024-06-26 06:56] LABS: Glucose,Whole Blood 125 mg/dL (70-110)
[2024-06-26] MEDS ORDERED: PROPOFOL 10 MG/ML 20 ML VIAL IV ONE (07:25)
[2024-06-26] MEDS ORDERED: DEXAMETHASONE SOD PHOSPHATE 4 MG/ML 1 ML VIAL ONE (07:25)
[2024-06-26] MEDS ORDERED: TRANEXAMIC 1,000 MG/100ML-NACL PREMIX BAG ONE (07:25)
[2024-06-26] MEDS ORDERED: MIDAZOLAM 2 MG/2 ML VIAL ONE (07:25)
[2024-06-26] MEDS ORDERED: LIDOCAINE 1% INJ 10MG/ML (20 ML MDV) ONE (07:25)
[2024-06-26] MEDS ORDERED: ePHEDrine 50 MG/ML 1 ML VIAL ONE (07:25)
[2024-06-26] MEDS ORDERED: NEOSTIGMINE 1 MG/ML 10 ML VIAL ONE (07:25)
[2024-06-26] MEDS ORDERED: PHENYLEPHRINE-0.9% NACL SYG 1,000 MCG/10 ML SYRINGE ONE (07:25)
[2024-06-26] MEDS ORDERED: GLYCOPYRROLATE 0.2 MG/ML 2 ML VIAL ONE (07:25)
[2024-06-26] MEDS ORDERED: SUCCINYLCHOLINE CHLORIDE 200 MG/10 ML VIAL IV ONE (07:25)
[2024-06-26] MEDS ORDERED: ROPIVACAINE 5 MG/ML 30 ML VIAL ONE (07:25)
[2024-06-26] MEDS ORDERED: ALBUTEROL HFA INHALER INHALATION ONE (07:25)
[2024-06-26] MEDS ORDERED: ROCURONIUM 10 MG/ML (5 ML VIAL) IV ONE (07:25)
[2024-06-26] MEDS ORDERED: fentaNYL (PF) 50 MCG/ML 2 ML AMP ONE (07:25)
[2024-06-26] MEDS: ceFAZolin 3 GM in SODIUM CHLORIDE 0.9% 100 ML IVPB PRN (07:30)
[2024-06-26] MEDS: ceFAZolin 1,000 MG in SODIUM CHLORIDE 0.9% 1,000 ML IRRIGATION ONE (07:47)
--- NOTE | 2024-06-26 09:08 | P.ANPRN ---
Procedure Note - Anesthesia - Nerve Block Performed Right Tulio Single Time Out Performed: Yes Date of Procedure: 06/26/24 Procedure Start Time: 06:53 Procedure Stop Time: 07:00 Location of Patient: PreOp Indication: Requested by Surgeon Specifically requested for management of pain by DrCorey: Elliot Muhammad Sedation Type: Sedate with meaningful contact maintained Preparation: Sterile Prep Position: Supine Needle Gauge: 20 Ultrasound used to visualize needle placement: Yes Ultrasound used to observe medication spread: Yes Injectate: 0.5% Ropivacaine (see comment for volume) Blood Aspirated: No Pain Paresthesia on Injection Noted: No Resistance on Injection: Normal Image Stored and Saved: Yes Events: Uneventful and Well Tolerated (30 cc plus decadrone 4 mg)
[2024-06-26] MEDS: LACTATED RINGERS 1,000 ML IV ONE (10:05)
--- NOTE | 2024-06-26 10:07 | XR ---
EXAMINATION TYPE: XR Hip Limited RT, FL guidance operating room Intraoperative/procedural fluoroscopi c services were provided. CLINICAL INDICATION:Male, 59 years old with history of RT ANTERIOR HIP; , PH FINDINGS: Postsurgical changes from right total hip arthroplasty. Hardware appears intact with appropriate alig nment. Prior left hip arthroplasty change demonstrated. No radiographic evidence for complication. Total fluoroscopy time is 33.0 seconds. DAP: 5.0804 Gycm2 Please see the operative/procedural note for further details. [facility], , 06/26/2024 10:04 AM
[2024-06-26] MEDS ORDERED: HYDROmorphone 0.5 MG/0.5 ML SYRINGE IVP PRN (10:10)
[2024-06-26] MEDS ORDERED: hydrOXYzine pamoate 25 MG CAP PO PRN (10:10)
[2024-06-26] MEDS ORDERED: MAGNESIUM HYDROXIDE 2,400 MG/30 ML CUP PO PRN (10:10)
[2024-06-26] MEDS ORDERED: NALOXONE 0.4 MG/ML 1 ML VIAL IV PRN (10:10)
[2024-06-26] MEDS ORDERED: HYDROmorphone 1 MG/ML 1 ML SYRINGE IVP PRN (10:10)
--- NOTE | 2024-06-26 10:31 | P.OP ---
Date of Procedure: 06/26/24 Preoperative Diagnosis: Right hip severe osteoarthrosis Postoperative Diagnosis: Same Procedure(s) Performed: Right total hip arthroplastypress-fitanterior approach Implants: DePuy Corail size 15 press-fit, high offset 135 degree collared femoral stem, 36+5 cobalt chrome femoral head, 62 mm [place] acetabular shell with neutral polyethylene liner. I did use a 6.5 mm x 30 mm cancellous screw. Anesthesia: GETA Surgeon: Elliot Muhammad Utility Driver #1: Ridge Silva Estimated Blood Loss (ml): 300 Pathology: none sent Condition: stable Disposition: PACU Indications for Procedure: The patient is a 59-year-old male who presents with progressive right hip pain secondary to osteoarthrosis despite conservative measures. A discussion of the risks and benefits of operative intervention versus continued conservative measures was made with the patient. He opted to proceed with surgery. Operative risks include infection, neurovascular injury, develop blood clots, fracture, leg length discrepancy, possible instability, possible component loosening/failure and possible need for subsequent procedures was discussed. Informed consent was obtained. Operative Findings: As below Description of Procedure: The patient was brought to the operating room, and after induction of spinal anesthesia was placed supine on the Cecilia table. Positioning was checked with fluoroscopy. The right hip was then prepped and draped in a normal fashion. A 12 cm incision was then made starting 2 fingerbreadths distal and 3 finger breaths posterior to the ASIS in line with the proximal femur. The skin was incised sharply. Subcutaneous tissues were divided sharply. Electrocautery was used for hemostasis. The fascia was split in line with skin incision. The interval between the sartorius and tensor fascia edward was then bluntly developed. The posterior fascia was opened with electrocautery. The lateral circumflex vessels were identified and cauterized prior to sectioning. A retrac tor was placed along the superior femoral neck as well as the anterior acetabular rim. A wide capsulotomy was performed. The neck cut was then made at a 45 angle to the shaft approximately 1 1/2 cm above the level of the lesser trochanter. The head was extracted. Attention was then paid towards preparing the acetabulum. Anterior and posterior retractors were placed. The remaining capsular labral tissue sharply debrided clearly defining the acetabular margins. I began reaming with a 57 mm reamer taking care to initially medialize then reaming at 45 of abduction and 20 of anteversion. Sequential reaming is performed up to 61 mm. A trial 62 mm acetabular shell was inserted in the same orientation and was fully seated. There was good rim fit and stability. Positioning was checked with fluoroscopy. The final 62 mm acetabular shell was inserted again at 45 of abduction and 20 of anteversion. This was fully seated. There was good rim fit and stability. Again fluoroscopy was used to check the adequacy of placement. A posterior superior 6.5 mm x 30 mm cancellous screw was inserted with good purchase. A neutral polyethylene liner was gently impacted. Care was taken to avoid any soft tissue interposition. Pulsatile lavage was utilized. Attention was then paid towards preparing the proximal femur. The saddle region was cleared of soft tissue. A canal finder was used to find the femoral canal. Sequential broaching was performed up to size 15 taking care to lateralize proximally. A calcar mill was used to fashion the medial calcar. There was good rotational stability. A 135 degree high offset femoral neck along with a 36 mm +5 head was placed. The hip was gently reduced. Fluoroscopy was used to check the adequacy of positioning along with leg lengths. I felt both were good. The hip was gently dislocated. The trial components were removed. The final size 15 collared 135 degree high offset press-fit femoral stem was inserted parallel to the posterior cortex. This was fully seated and there was good rotational stability. A 36 mm +5 cobalt chrome femoral head was placed. This was gently impacted. The hip was then gently reduced. Final fluoroscopic view showed adequate placement implant along with restorationist of leg length. Stability was checked with 80 of external rotation and 60 of extension of the right hip. The wound was irrigated with sterile lavage. The fascia was closed with running 0 Vicryl suture. There was minimal drainage therefore a deep drain was not placed. The second dose of IV TXA was given. The subcutaneous tissues were reapproximated interrupted 2-0 Vicryl sutures. The skin was reapproximated with 3-0 subcuticular strata fix suture. Skin tape and adhesive was applied. A sterile dressing was applied. The patient was then awoken from sedation and transferred to recovery room in good condition. Blood loss was estimated at 300 mL. No complications were incurred. Sponge and needle counts were correct at the end of the case. Ridge ANGELO assisted during the major components is case to include exposure, bone resection, implantation, and closure.
[2024-06-26] MEDS: HYDROmorphone 0.5 MG/0.5 ML SYRINGE IVP PRN (10:39)
--- NOTE | 2024-06-26 10:40 | XR ---
EXAMINATION TYPE: XR Hip Limited RT DATE OF EXAM: 06/26/2024 10:34 AM INDICATION: Patient age:Male; 59 years old; Reason for study: Status post hip surgery, assess surgical alignment; PHH. pain COMPARISON: Right hip fluoroscopic images of the same date TECHNIQUE: The right hip was examined in single frontal projection. FINDINGS: Postsurgical changes of right total hip arthroplasty. Hardware appears intact with appropri ate alignment. There is associated soft tissue gas and edema. No acute fracture or dislocation. IMPRESSION: Postsurgical changes from right total hip arthroplasty. Hardware appears intact with appropriate alig nment. [facility], , 06/26/2024 10:37 AM
[2024-06-26] MEDS: fentaNYL (PF) 50 MCG/ML 2 ML AMP IVP PRN (10:47)
[2024-06-26 10:55] LABS: Glucose,Whole Blood 148 mg/dL (70-110)
[2024-06-26] MEDS: oxyCODONE-APAP 7.5-325MG 1 EACH TAB PO PRN (12:54)
[2024-06-26] MEDS: ceFAZolin 3 GM in SODIUM CHLORIDE 0.9% 100 ML IVPB SCH (14:16)
[2024-06-26] MEDS ORDERED: ALBUTEROL NEBULIZED 2.5 MG/3 ML INHALATION PRN (15:52)
[2024-06-26 16:20] LABS: Glucose,Whole Blood 170 mg/dL (70-110)
[2024-06-26] MEDS: metFORMIN 500 MG TAB PO SCH (16:21)
[2024-06-26] MEDS: HYDROcodone/APAP 10-325MG 1 EACH TAB PO PRN (16:21)
[2024-06-26] MEDS: METOPROLOL TARTRATE 50 MG TAB PO SCH (16:21)
--- NOTE | 2024-06-26 17:21 | P.CONS ---
History of Present Illness - Reason for Consult Consult date: 06/26/24 Medical management Requesting physician: Elliot Muhammad - Chief Complaint Right hip surgery - History of Present Illness Pleasant 59-year-old patient follows Dr. Leon. Chronic medical condition include COPD in a current smoker, diabetes, hypertension, hyperlipidemia, osteoarthritis, pulm embolism both in 2017 and 19 on Xarelto, obstructive sleep apnea with CPAP, kidney stones anxiety depression. Patient has undergone right total hip arthroplasty. Pain control. No chest pain or shortness of breath. Review of systems: GEN.: A bit tired EYES: None HEENT: None NECK: None RESPIRATORY: Baseline mild shortness of breath e CARDIOVASCULAR: None GASTROINTESTINAL: None GENITOURINARY: None MUSCULOSKELETAL: Joint pains LYMPHATICS: None HEMATOLOGICAL: None PSYCHIATRY: None NEUROLOGICAL: None Social history: Started smoking cigarettes age of 4. Initially 2 packs a day. Now down to vaping. Lives with his 2 sons. 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 Alcohol rarely. Physical examination: VITAL SIGNS: 98.4, 68, 17, 120 x 63, 96% room air GENERAL: BMI 48, reclining bed awake comfortable. EYES: Pupils equal. Conjunctiva gretchen l. HEENT: External appearance of nose and ears normal, oral cavity grossly normal. NECK: JVD not raised; masses not palpable. HEART: First and second heart sounds are normal; no edema. LUNGS: Respiratory rate increased; decreased breath sounds mild wheezing. ABDOMEN: Soft, distended, nontender, liver spleen not palpable, no masses palpable. PSYCH: Alert and oriented x3; mood and affect gretchen l. MUSCULOSKELETAL:No Clubbing/cyanosis;muscles-grossly intact. Dressing over right hip incision site NEUROLOGICAL: Cranial nerves grossly intact; no facial asymmetry, power and sensation grossly intact. LYMPHATICS: No lymph nodes palpable in the axilla and neck INVESTIGATIONS, reviewed in the clinical context: January 2024: Potassium 5 BUN 40 creatinine 1.22 white count 9.7 hemoglobin 14.3 platelets 320 Assessment plan: - Right total hip arthroplasty Pain management. IV cefazolin for infection prophylaxis. 1 dose of Decadron. Xarelto has been resumed by Ortho team - Chronic pulmonary embolism. 2 episodes in 2016 2018 Xarelto resumed - COPD nurse patient was smoked for a long time and currently vaping Symbicort. Albuterol as needed - Hyperlipidemia Lipitor 20 mg nightly - Diabetes mellitus type 2 Metformin. Keith. Follow Accu-Cheks with sliding scale - Essential hypertension Lopressor 100 mg twice daily. Zestoretic - Morbid obesity BMI 48 Weight loss measures, outpatient - Probable chronic kidney disease stage III from diabetic nephropathy Check BMP in the morning Care was discussed with the patient. Questions answered. Thank you Dr. Muhammad Past Medical History Past Medical History: Chest Pain / Angina, COPD, Diabetes Mellitus, Hyperlipidemia, Hypertension, Osteoarthritis (OA), Pulmonary Embolus (PE), Sleep Apnea/CPAP/BIPAP Additional Past Medical History / Comment(s): kidney stones, migraines, DWIGHT with BI-PAP, back pain, stress test-pt stated they did'nt find anything, PE's 2017 & 2019, constipation History of Any Multi-Drug Resistant Organisms: None Reported Past Surgical History: Heart Catheterization, Hernia Repair, Joint Replacement, Orthopedic Surgery Additional Past Surgical History / Comment(s): aortic angiogram, umbilical hernia repair, total L hip, R hand surgery, L knee arthroscopy, right ankle surg timothy, PAIN CLINIC PROCEDURE colonoscopy Past Anesthesia/Blood Transfusion Reactions: No Reported Reaction Past Psychological History: Anxiety, Depression Additional Psychological History / Comment(s): Pt has 2 adult children and 1 minor child living with him. He is independent. Smoking Status: Vaper Past Alcohol Use History: Rare Additional Past Alcohol Use History / Comment(s): Pt started smoking at the age of 4 yrs. used to smoke 2 ppd down to 4-5 cigs day, currently VAPING Past Drug Use History: Marijuana Additional Drug Use History / Comment(s): cbd oil vape pen, "few hits" per day- KNOWS NOT TO USE 24 HOURS PRIOR TO PROCEDURE - Past Family History Mother Family Medical History: Cancer Additional Family Medical History / Comment(s): Mother had breast cancer. She of "natural causes" at the age of 73 yrs. Father Family Medical History: Renal Disease Additional Family Medical History / Comment(s): Father was an alcoholic. He of kidney problems at the age of 65yrs. Medications and Allergies Home Medications Medication Instructions Recorded Confirmed Type Budesonide-Formot 160-4.5 Mcg 2 puff INHALATION RT-BID #1 puff 03/29/18 06/20/24 Rx [Symbicort 160-4.5 Mcg Inhaler] metFORMIN HCL [Glucophage] 500 mg PO W/BRKFST 03/29/19 06/20/24 History HYDROcodone/APAP 10-325MG [[place] 1 tab PO BID PRN 11/05/19 06/20/24 History 10-325] Lisinopril-Hctz 10-12.5 mg 1 tab PO DAILY 11/05/19 06/20/24 History [Zestoretic 10-12.5] Albuterol Sulfate [Albuterol 2 puff INHALATION RT-QID PRN 03/05/22 06/20/24 History Sulfate Hfa] Metoprolol Tartrate [Lopressor] 100 mg PO BID-W/MEALS 03/05/22 06/20/24 History Rivaroxaban [Xarelto] 20 mg PO DAILY 06/07/22 06/20/24 History Atorvastatin [Lipitor] 20 mg PO HS 01/26/24 06/20/24 History Tirzepatide [Mounjaro] 5 mg SQ MO 01/26/24 06/20/24 History metFORMIN HCL 1,000 mg PO W/SUPPER 01/26/24 06/20/24 History Allergies Allergy/AdvReac Type Severity Reaction Status Date / Time No Known Allergies Allergy Verified 06/26/24 06:14 Physical Exam Vitals: Vital Signs Temp Pulse Pulse Resp BP BP Pulse Ox 06/26/24 14:30 67 113/62 93 L 06/26/24 14:15 98.4 F 68 17 120/63 96 06/26/24 14:00 69 90/56 95 06/26/24 13:45 77 108/67 94 L 06/26/24 13:30 74 104/62 91 L 06/26/24 13:15 78 117/78 89 L 06/26/24 13:00 67 100/49 93 L 06/26/24 12:45 64 99/62 93 L 06/26/24 12:30 65 104/69 95 06/26/24 12:10 68 18 112/59 93 L 06/26/24 11:55 61 18 98/53 93 L 06/26/24 11:40 63 18 107/67 94 L 06/26/24 11:25 61 14 112/53 92 L 06/26/24 11:10 58 L 18 118/58 95 06/26/24 10:54 64 19 129/59 100 06/26/24 10:39 61 18 107/58 100 06/26/24 10:24 97.1 F L 65 18 106/71 98 06/26/24 07:10 66 16 118/63 97 06/26/24 06:28 98.0 F 70 16 118/63 96 Intake and Output 06/26/24 06/26/24 06/26/24 06:59 14:59 22:59 Intake Total 200 1101 200 Output Total 300 Balance 200 801 200 Intake: IV 200 1101 Oral 200 Output: Estimated Blood Loss 300 Other: # Voids 1 Weight 183.5 kg 183.5 kg Results Labs: Abnormal Lab Results - Last 24 Hours (Table) 06/26/24 06/26/24 06/26/24 Range/Units 06:44 10:53 16:18 POC Glucose (mg/dL) 125 H 148 H 170 H (70-110) mg/dL
[2024-06-26] MEDS: SYMBICORT 160-4.5 MCG INHALER INHALATION SCH (18:13)
[2024-06-26] MEDS: RIVAROXABAN 20 MG TAB PO SCH (19:23)
[2024-06-26 20:34] LABS: Glucose,Whole Blood 170 mg/dL (70-110)
[2024-06-26] MEDS: SENNOSIDES-DOCUSATE SODIUM 1 EACH TAB PO SCH (20:46)
[2024-06-26] MEDS: ATORVASTATIN 20 MG TAB PO SCH (20:46)
[2024-06-27 04:21] LABS: Basophils # (A) 0.02 10*3/uL (0.00-0.10); Basophils % (A) 0.2 %; Eosinophils # (A) 0.03 10*3/uL (0.04-0.35); Eosinophils % (A) 0.3 %; HCT 40.4 % (39.6-50.0); HGB 12.7 g/dL (13.0-17.0); Lymphocytes # (A) 1.56 10*3/uL (0.90-5.00); MCH 27.5 pg (27.0-32.0); MCHC 31.4 g/dL (32.0-37.0); MCV 87.6 fL (80.0-97.0); Mean Platelet Volume 9.3 fL (9.5-12.2); Monocytes # (A) 1.08 10*3/uL (0.20-1.00); Neutrophils # (A) 6.99 10*3/uL (1.80-7.70); Neutrophils % (A) 71.5 %; Platelet Count 361 10*3/uL (140-440); RBC 4.61 10*6/uL (4.40-5.60); RDW 14.2 % (11.5-14.5); WBC 9.78 10*3/uL (4.50-10.00)
[2024-06-27 04:37] LABS: African American GFR (CKD) 88 (>60 ml/min/1.73 sqM); Anion Gap 9 mmol/L; Blood Urea Nitrogen 21 mg/dL (9-20); Carbon Dioxide 23 mmol/L (22-30); Chloride 103 mmol/L (98-107); Glucose 118 mg/dL (74-99); Non-African American GFR(CKD) 77 (>60 ml/min/1.73 sqM); Potassium 4.7 mmol/L (3.5-5.1); Sodium 135 mmol/L (137-145)
[2024-06-27 06:22] LABS: Glucose,Whole Blood 123 mg/dL (70-110)
[2024-06-27] MEDS: metFORMIN 500 MG TAB PO SCH (06:55)
[2024-06-27 06:56] VITALS: BP 112/62
--- NOTE | 2024-06-27 09:23 | P.DS ---
Providers Date of admission: 06/26/2024 Expected date of discharge: 06/27/24 Attending physician: Elliot Muhammad Consults: 06/26/24 10:10 Consult Physician Routine Consulting Provider: Blaise Schneider Consult Reason/Comments: medical management s/p direct anterior right total hip arthroplasty Do you want consulting provider notified?: Yes Primary care physician: [facility] Course: Date of admission: 06/26/2024 Date of discharge: 06/27/2024 Admission diagnosis: Right hip osteoarthritis Discharge diagnosis: Same Attending physician: Dr. Muhammad Surgical procedures: Direct anterior right total hip arthroplasty Brief history: Patient is a 59-year-old male with a history of progressive primary right hip osteoarthritis. At this point patient has failed conservative treatment measures and has opted to proceed with a elective direct anterior right total hip arthroplasty. Hospital course: Details of patient's surgery can be found in operative report. Patient tolerated the procedure well and was subsequently transported to orthopedic floor. Patient's orthopeidc and medical care was provided daily. Patient had daily laboratory tests performed for evaluation of overall blood counts. Patient had daily physical therapy to include strengthening range of motion as well as education with walker ambulation. Patient was treated with Xarelto for their postoperative DVT prophylaxis during their inpatient stay. Patient was noted to have a relatively uneventful postoperative course. Patient reported satisfactory pain control with oral pain medications by postoperative day 1. Patient showed satisfactory progress with physical therapy. Patient moved steadily through the program and had no difficulty meeting the goals by postoperative day 1. Given patient's otherwise satisfactory course and having met physical therapy goals, plan is to discharge patient home with health services on postoperative day 1. Discharge condition/disposition: Patient will be discharged home with health services in stable condition. Discharge medications: Instructions are given on resumption of patient's normal daily medications per primary care recommendation, in addition patient will be prescribed Percocet; senna; resume Xarelto 20 mg daily at home for DVT prophylaxis. Discharge instructions: 1. Wound care and infection precautions, keep incision dry and covered while showering, no lotions, creams, moisturizers. No soaking, tubs, pools, hottubs. Do not scrub over the incision. 2. Weight-bear as tolerated with walker / cane until follow-up. 3. Ice and elevate when necessary. Do not exceed 20 minutes per hour with ice pack. 4. Utilize compression sleeve until seen at first follow up appointment. 5. Visiting nursing care. 6. Home physical therapy. 7. Pain meds and anticoagulants per prescription. 8. Pain medication has potential to cause constipation. Increase oral fluid and fiber intake. Contact primary care provider if you have not had a bowel movement within 48 hours after discharge 9. No anti-inflammatory medication until discussed at first post operative visit, this including Motrin, Aleve, Mobic, Diclofenac. 10. Follow up in office at 2 weeks postop with Nader Davis PA-C / Ridge Silva PA-C 11. Follow up with your primary care doctor 7-10 days after discharge. 12. Contact [facility] with any questions, . Assessment: Right hip osteoarthritis Procedures: Direct anterior right total hip arthroplasty Patient Condition at Discharge: Good Plan - Discharge Summary Discharge Rx Participant: No New Discharge Prescriptions: New oxyCODONE HCL/ACETAMINOPHEN [Percocet 7.5-325 mg] 1 tab PO Q6HR PRN #28 tab PRN Reason: Pain Sennosides/Docusate Sodium [Senna Plus 8.6-50 mg Softgel] 1 each PO DAILY #20 capsule Continue Rivaroxaban [Xarelto] 20 mg PO DAILY No Action Budesonide-Formot 160-4.5 Mcg [Symbicort 160-4.5 Mcg Inhaler] 2 puff INHALATION RT-BID #1 puff metFORMIN HCL [Glucophage] 500 mg PO W/BRKFST Lisinopril-Hctz 10-12.5 mg [Zestoretic 10-12.5] 1 tab PO DAILY HYDROcodone/APAP 10-325MG [[place] 10-325] 1 tab PO BID PRN PRN Reason: Pain Metoprolol Tartrate [Lopressor] 100 mg PO BID-W/MEALS Tirzepatide [Mounjaro] 5 mg SQ MO Albuterol Sulfate [Albuterol Sulfate Hfa] 2 puff INHALATION RT-QID PRN PRN Reason: Shortness Of Breath metFORMIN HCL 1,000 mg PO W/SUPPER Atorvastatin [Lipitor] 20 mg PO HS Discharge Medication List Budesonide-Formot 160-4.5 Mcg [Symbicort 160-4.5 Mcg Inhaler] 2 puff INHALATION RT-BID #1 puff 03/29/18 [Rx] metFORMIN HCL [Glucophage] 500 mg PO W/BRKFST 03/29/19 [History] HYDROcodone/APAP 10-325MG [[place] 10-325] 1 tab PO BID PRN 11/05/19 [History] Lisinopril-Hctz 10-12.5 mg [Zestoretic 10-12.5] 1 tab PO DAILY 11/05/19 [History] Albuterol Sulfate [Albuterol Sulfate Hfa] 2 puff INHALATION RT-QID PRN 03/05/22 [History] Metoprolol Tartrate [Lopressor] 100 mg PO BID-W/MEALS 03/05/22 [History] Rivaroxaban [Xarelto] 20 mg PO DAILY 06/07/22 [History] Atorvastatin [Lipitor] 20 mg PO HS 01/26/24 [History] Tirzepatide [Mounjaro] 5 mg SQ MO 01/26/24 [History] metFORMIN HCL 1,000 mg PO W/SUPPER 01/26/24 [History] Sennosides/Docusate Sodium [Senna Plus 8.6-50 mg Softgel] 1 each PO DAILY #20 capsule 06/27/24 [Rx] oxyCODONE HCL/ACETAMINOPHEN [Percocet 7.5-325 mg] 1 tab PO Q6HR PRN #28 tab 06/27/24 [Rx] Follow up Appointment(s)/Referral(s): Ridge Silva PAC [PHYSICIAN PHONE TRIAGE SPECIALIST] - 07/11/24 8:50 am Patient Instructions/Handouts: Anterior Hip Replacement (GEN) Activity/Diet/Wound Care/Special Instructions: Orthopedic Discharge Instructions: 1. Wound care and infection precautions, keep incision dry and covered while showering, no lotions, creams, moisturizers. No soaking, pools, hot tubs. Do not scrub over incision. 2. Weight-bear as tolerated with walker / cane until follow-up. 3. Ice and elevate when necessary. Do not exceed 20 minutes per hour with ice pack. 4. Utilize compression sleeve until seen at first follow up appointment. 5. Pain meds and anticoagulants per prescription. 6. Pain medication has potential to cause constipation. Increase oral fluid and fiber intake. Contact primary care provider if you have not had a bowel movement within 48 hours after discharge. 7. No anti-inflammatory medication until discussed at first post operative visit, this including Motrin, Aleve, Mobic, Diclofenac. 8. Follow up in office at 2 weeks postop with Nader Davis PA-C / Ridge Silva PA-C 9. Follow up with your primary care doctor 7-10 days after discharge. 10. Contact [facility] with any questions, . Discharge Disposition: HOME WITH HOME HEALTH SERVICES
--- NOTE | 2024-06-27 09:26 | P.PN ---
Subjective Progress Note Date: 06/27/24 Principal diagnosis: Right hip osteoarthritis Patient was seen at bedside this morning sitting up in chair and had just finished working with PT/OT. Patient says he did walk around the room and up and down stairs and did all right. Patient says he has been urinating since surgery without issue. Patient says he does need a walker for home. Patient says he does have family to help him out when she does go home. Patient is looking forward to going home later today. He says he is having some pain at the hip at this time, however, it is controlled with oral medication. Patient denies any other issues at this time. Objective - Vital Signs Vital signs: Vital Signs Temp 98.4 F 06/27/24 01:15 Pulse 68 06/27/24 03:43 Resp 20 06/27/24 03:43 BP 112/62 06/27/24 06:56 Pulse Ox 94 L 06/27/24 01:15 FiO2 Intake & Output 06/26/24 06/27/24 06/27/24 18:59 06:59 18:59 Intake Total 1301 480 Output Total 300 Balance 1001 480 Weight 183.5 kg Intake: IV 1101 Oral 200 480 Output: Estimated Blood Loss 300 Other: Voiding Method Toilet # Voids 1 2 - Exam Right hip: Incision is clean, dry, and intact. The silver foam dressing / exofin fusion tape is in good condition. There is minimal soft tissue swelling and ecchymosis surrounding the medial and lateral aspects of the incision. Calf is soft, no tenderness with palpation. Plantar flexion, dorsiflexion, EHL, FHL are intact. Sensory exam to light touch throughout the extremity is intact, dorsal pedis pulses 2+. - Labs CBC & Chem 7: 06/27/24 03:44 06/27/24 03:44 Labs: Abnormal Lab Results - Last 24 Hours (Table) 06/26/24 06/26/24 06/26/24 Range/Units 10:53 16:18 20:32 Hgb (13.0-17.0) g/dL MCHC (32.0-37.0) g/dL MPV (9.5-12.2) fL Immature Gran # (0.00-0.04) 10*3/uL Monocytes # (0.20-1.00) 10*3/uL Eosinophils # (0.04-0.35) 10*3/uL Sodium (137-145) mmol/L BUN (9-20) mg/dL Glucose (74-99) mg/dL POC Glucose (mg/dL) 148 H 170 H 170 H (70-110) mg/dL 06/27/24 06/27/24 06/27/24 Range/Units 03:44 03:44 06:20 Hgb 12.7 L (13.0-17.0) g/dL MCHC 31.4 L (32.0-37.0) g/dL MPV 9.3 L (9.5-12.2) fL Immature Gran # 0.10 H (0.00-0.04) 10*3/uL Monocytes # 1.08 H (0.20-1.00) 10*3/uL Eosinophils # 0.03 L (0.04-0.35) 10*3/uL Sodium 135 L (137-145) mmol/L BUN 21 H (9-20) mg/dL Glucose 118 H (74-99) mg/dL POC Glucose (mg/dL) 123 H (70-110) mg/dL Assessment and Plan Assessment: 1. Right hip osteoarthritis -Postop day 1 status post direct anterior right total hip arthroplasty Plan: 1. Right hip osteoarthritis -direct anterior right total hip arthroplasty form yesterday, 06/26/2024. Patient stable bedside's morning. Prescription for walker was signed. Patient did do well with PT/OT. Continue with pain medication as needed. Discharge home today with health services. 2. Appreciate medical management 3. Pain management -Percocet 4. DVT prophylaxis -Xarelto 5. GI prophylaxis -senna 6. PT/OT -weightbearing as tolerated with walker 7. Encourage incentive spirometer use 8. Discharge planning -discharge home today with health services Time with Patient: Less than 30
[2024-06-27 09:33] VITALS: PULSE 76; RESP 19; TEMP 98
== END 2024-06-27 11:46 | disposition home health service (06) ==
LOC: OR 05:40 → 4SSUR 10:05 → OR 06-27 11:46
PROVIDERS: ATTEND Orthopaedic Surgery
DX: M16.11 Unilateral primary osteoarthritis, right hip (principal); I27.82 Chronic pulmonary embolism; J44.89 Other specified chronic obstructive pulmonary disease; E11.9 Type 2 diabetes mellitus without complications; E78.5 Hyperlipidemia, unspecified; E66.01 Morbid (severe) obesity due to excess calories; F17.210 Nicotine dependence, cigarettes, uncomplicated; I10 Essential (primary) hypertension; G47.33 Obstructive sleep apnea (adult) (pediatric); Z68.42 Body mass index [BMI] 45.0-49.9, adult; Z87.442 Personal history of urinary calculi; Z96.643 Presence of artificial hip joint, bilateral; Z80.3 Family history of malignant neoplasm of breast; Z98.890 Other specified postprocedural states; Z79.51 Long term (current) use of inhaled steroids; Z79.01 Long term (current) use of anticoagulants; Z79.84 Long term (current) use of oral hypoglycemic drugs; Z79.899 Other long term (current) drug therapy
CPT/HCPCS: 94640 ×2; 97161; 97535; 97166; 64473; 80048; 85025; 73501; 27130; C1776; J2250; J1100; J0690 ×2; J2405; J3010; J1171